=== PATIENT | male | born 1940 | race Caucasian/White ===

== ENCOUNTER → 2016-07-20 | Outpatient (CLI) | payer OTHER ==
[~2016-07-20] MED LIST: ALLO300T2 PO; LEVO112T2 PO; METO100T14 PO; TERA1CAP63 PO
--- NOTE | 2016-07-20 14:12 | DIAGNOSTIC IMAGING REPORT ---
EXAMINATION: RENAL ULTRASOUND CLINICAL HISTORY: Chronic renal disease COMPARISON STUDY: FINDINGS: The right kidney measures 11.6 cm. The left kidney measures 11.8 cm. There is no evidence of hydronephrosis. There is bilateral increased renal cortical echogenicity. There are bilateral hypoechoic renal lesions likely reflecting cysts. The largest the right measures 17 mm. The largest the left measures 26 mm. There is bilateral renal cortical thinning. No bladder abnormalities are visualized. Bilateral ureteral jets were visualized. The study was difficult from a technical standpoint secondary to the patient's large body habitus. IMPRESSION : 1. Evidence of medical renal disease 2. No evidence of hydronephrosis 3. Bilateral renal cysts Electronically signed by: Jarad Molina M.D. 07/20/2016 2:11 PM Dictated Date/Time: 07/20/2016 2:10 PM
--- NOTE | 2016-07-20 14:29 | DIAGNOSTIC IMAGING REPORT ---
CHEST CT WITHOUT CONTRAST CT DOSE: 1257.37 mGy.cm HISTORY: Lung nodules MULTIPLE NODULES OF LUNG; CHRONIC KIDNEY DIS TECHNIQUE: Multiaxial CT images of the chest were performed without contrast. COMPARISON: 07/28/2015 FINDINGS: Mild emphysematous changes present. The parenchymal nodularity described previously has remained stable. Chronic pleural thickening or both lung bases is similar. Left apical lipomatous-type changes unaltered. No significant mediastinal or hilar adenopathy. IMPRESSION: Stable exam. No change in the micronodularity described previously. Follow-up per Fleischner criteria. Please refer to below summary of Fleischner criteria recommendations for follow-up of incidental CT nodules (Rishabh Aparicio, Guidelines for management of small pulmonary nodules detected on CT scans: A statement from the Fleischner Society, Radiology 237: [phone].) SOLID NODULES Solitary nodule size: <6 mm * low risk patients: no follow-up needed * high risk patients: optional CT at 12 months Solitary nodule size: 6-8 mm * low risk patients: follow-up at 6-12 months, then consider further follow-up at 18-24 months * high risk patients: initial follow-up CT at 6-12 months and then at 18-24 months if no change Solitary nodule size: >8 mm * either low or high risk patients - consider follow-up CT at 3 months, and/or CT-PET, and/or biopsy Multiple nodules size: <6 mm * low risk patients: no routine follow-up * high risk patients: optional CT at 12 months Multiple nodules size: 6-8 mm * low risk patients: follow-up at 3-6 months, then consider further follow-up at 18-24 months * high risk patients: follow-up at 3-6 months, then at 18-24 months if no change Multiple nodules size: >8 mm * low risk patients: follow-up at 3-6 months, then consider further follow-up at 18-24 months * high risk patients: follow-up at 3-6 months, then at 18-24 months if no change Note: newly detected indeterminate nodule in persons 35 years of age or older. * Low risk patients: minimal or absent history of smoking and/or other known risk factors * high risk patients: history of smoking or of other known risk factors (e.g. first degree relative with lung cancer, or exposure to asbestos, radon, uranium) * if a nodule up to 8 mm is partly solid or is ground glass further follow-up is required after 24 months to exclude possible slow growing adenocarcinoma (BATOOL) SUBSOLID NODULES Solitary pure ground-glass nodule * nodule size <6 mm - no CT follow-up required * nodule size >=6 mm - follow-up CT at 6-12 months, then every 2 years until 5 years Solitary part-solid nodule * nodule size <6 mm - no CT follow-up required * nodule size >=6 mm - follow-up CT at 3-6 months. If unchanged, and solid component remains <6 mm, then annual follow-up for 5 years Multiple subsolid nodules * nodule size <6 mm - follow-up CT at 3-6 months, consider further follow-up at 2 and 4 years if stable * nodule size >=6 mm - follow-up CT at 3-6 months, subsequent management based on the most suspicious nodule(s) Electronically signed by: Sid Stone M.D. 07/20/2016 2:28 PM Dictated Date/Time: 07/20/2016 2:22 PM ADRIANA
== END | disposition home or self-care (01) ==
LOC: C.ULTR 13:18
PROVIDERS: ATTEND Physician Assistant
DX: N18.3 Chronic kidney disease, stage 3 (moderate) (principal); R91.8 Other nonspecific abnormal finding of lung field; Z77.090 Contact with and (suspected) exposure to asbestos

== ENCOUNTER 2021-09-23 11:18 | Inpatient (IN) ==
[2021-09-23] MEDS ORDERED: PANTOprazole 80 MG in DEXTROSE 5% 100 ML IV ONE (11:47)
--- NOTE | 2021-09-23 11:49 | Emergency Department Note ---
Impression & Plan GI (gastrointestinal bleed), Chronic a-fib, Weakness, NIHCOLS (dyspnea on exertion), Anemia requiring transfusions ED Provider Note Provider: Andrew Edouard MD DATE OF SERVICE: 09/23/2021 CHIEF COMPLAINT: Hemoglobin, weakness HISTORY OF PRESENT ILLNESS: Patient is a 81-year-old gentleman history of diabetes, hypothyroidism, atrial fibrillation on Eliquis presenting here today referred by his outpatient doctor due to abnormal blood work. Patient states over approximately the past month has had increasing generalized weakness and dyspnea on exertion. Denies significant abdominal pain but states he is having some abdominal upset at times. Patient reports no trauma falls or syncope. Patient denies seeing any blood in his stool or black stools. Occasionally notes some blood when wiping but thinks this is hemorrhoids. Denies other bleeding. Denies a history of transfusion. States compliance with his home Eliquis. States he not been taking his home Lasix quite as diligently recently has noticed some slight increase in his lower extremity swelling. Patient denies significant alcohol or NSAID usage or aspirin usage. No history of ulceration reported. Denies nausea or vomiting. REVIEW OF SYSTEMS: A total of 10 review of systems was obtained and negative except as stated above in the HPI. PAST MEDICAL HISTORY: As noted above MEDICATIONS: Reviewed home medications SOCIAL HISTORY: , lives at home, denies alcohol use, worked for [employer], non-smoker PHYSICAL EXAM: GENERAL: alert and oriented in no acute distress on stretcher Head: normocephalic and atraumatic EYES: No injection, discharge or icterus. NECK: Trachea midline. ENT: Mucous membranes pink and moist. LUNGS: Airway patent. No retractions. Breath sounds clear with diminished bases HEART: Irregularly irregular rate and rhythm. No chest wall tenderness ABDOMEN: Soft and non-tender, without guarding or rebound. Rectal with nurse automatic maintainer at bedside with Hemoccult positive stool but no br ight red blood noted. Stool is brown SKIN: Acyanotic, warm, dry although slightly pale EXTREMITIES: Without significant tenderness with 1+ bilateral lower extremity edema. No calf tenderness bilaterally. NEUROLOGICAL: No focal deficits. No aphasia. No facial droop or slurred speech. Ambulatory. EK bpm atrial fibrillation without ST segment elevation with a QTC of 434. Normal axis with nonspecific T wave changes inferiorly. CONTINUOUS CARDIAC MONITORING: was ordered and showed a heart rate of 50s-60s bpm in atrial fibrillation Patient's laboratory studies and imaging reviewed. Differential includes GI bleed, infection, dehydration, metabolic abnormality, hypo/hyperglycemia, electrolyte disturbance, anemia, hypoxia, cardiac sources, intracerebral event, toxicologic, neurologic, as well as other pathologies. IMPRESSION/MEDICAL DECISION MAKING: Patient anticoagulated on Eliquis with a low hemoglobin the outpatient setting. Has been gradual in onset and question chronic lower GI bleed. Not having significant risk factors for upper GI bleed denies significant upper abdominal pain. Fairly benign abdomen. Did complete a CT abdomen pelvis given his complaint of "abdominal upset ". CT question some gallbladder inflammation but does not seem that consistent with his reported history. Doubt cholecystitis at this time. Question possible diverticular bleed. Hemoccult positive stool. Given a dose of Protonix. Consented and 2 units of packed red blood cells ordered. Will need to monitor for fluid overload. EKG and basic labs were completed. Confirmed low hemoglobin. Records from [facility] were obtained including iron studies. Slightly worsened renal function today but no evidence of acute hepatitis or troponin elevation on blood work. Patient requiring oxygen supplementation. Given some evidence of some swelling as we are going to give him several units of blood given a small dose of Lasix. Discussed with the patient and recommended further care here at the hospital. DIAGNOSIS: GI bleed, anemia, weakness, dyspnea on exertion, atrial fibrillation on anticoagulation DISPOSITION: Hospitalist will evaluate Patient was agreeable with this plan. Critical Care I have personally spent 38 minutes of critical care time in the direct management of this patient. This includes bedside care, interpretation of diagnostic studies, and testing, discussion with consultants, patient, and family members, and other required patient management activities. These 38 minutes is in excess of all separately billable procedures. Past Med/Surg History Medical History (Updated 09/23/21 @ 14:26 by Corinne Ravi PA-C) Asthma, moderate persistent BPH without obstruction/lower urinary tract symptoms Chronic gout Hyperlipidemia Hypertension Hypothyroidism Obstructive sleep apnea Paroxysmal atrial fibrillation Type 2 diabetes mellitus Surgical History (Updated 09/23/21 @ 14:27 by Corinne Ravi PA-C) History of cardioversion 2009 Social History Smoking Status: Never smoker Feels Safe at Home: Yes Allergies Allergies Allergy/AdvReac Type Severity Reaction Status Date / Time tetanus toxoid, adsorbed Allergy Intermediate HIVES Verified 09/23/21 12:53 Penicillins Allergy Mild UNKNOWN Verified 09/23/21 12:53 bee pollen Allergy Unknown Verified 09/23/21 12:53 Iodinated Contrast Media Allergy Unknown . Verified 09/23/21 12:53 lisinopril Allergy Unknown Verified 09/23/21 12:53 Home Meds Home Medications Medication Instructions Recorded Confirmed albuterol sulfate 90 mcg/actuation 1 inh INHALATION DIRECTED gm 12/12/18 09/23/21 aerosol inhaler atorvastatin 10 mg tablet 10 mg PO HS tab 12/12/18 09/23/21 epinephrine 0.3 mg/0.3 mL 0.3 mg IM .INJECT 0.3ML INTRAMU ea 12/12/18 09/23/21 injection, auto-injector losartan 50 mg tablet 50 mg PO DAILY #90 tab 12/12/18 09/23/21 terazosin 10 mg capsule 10 mg PO HS cap 12/12/18 09/23/21 allopurinol 300 mg tablet 300 mg PO HS tab 12/13/18 09/23/21 finasteride 5 mg tablet 5 mg PO DAILY 12/13/18 09/23/21 glipizide 5 mg tablet 5 mg PO DAILY 12/13/18 09/23/21 levothyroxine 150 mcg tablet 175 mcg PO DAILY tab 12/13/18 09/23/21 metoprolol tartrate 100 mg tablet 100 mg PO BID #90 tab 12/13/18 09/23/21 apixaban 5 mg tablet (Eliquis) 5 mg PO BID 09/23/21 09/23/21 furosemide 20 mg tablet 20 mg PO QAM PRN 09/23/21 09/23/21 Results & Data (ED) Vital Signs Vital Signs - 24 hr 09/23/21 11:22 09/23/21 12:04 09/23/21 13:30 Temperature 36.5 C Temperature Source Temporal Artery Scan Pulse Rate 68 69 Pulse Rate [Apical] 58 L Respiratory Rate 18 24 Respiratory Effort / Characteristics Non-Labored Non-Labored Spontaneous Respiratory Depth Normal Normal Blood Pressure 112/65 Blood Pressure [Right Arm] 132/64 Blood Pressure Mean 80 Blood Pressure Mean [Right Arm] 86 Pulse Oximetry 98 99 96 Oxygen Delivery Method Room Air Room Air Room Air Sepsis Recent Fever Within 48 Hours No Sepsis New/Unexplained Change in Mental Status No Sepsis Action Taken by Nursing No Action Required Laboratory Data Result diagrams: 09/23/21 11:58 09/23/21 11:55 Lab Results 09/23/21 09/23/21 09/23/21 Range/Units 11:47 11:55 11:55 WBC (4.8-10.8) K/uL RBC (4.7-6.1) M/uL Hgb (14.0-18.0) g/dL Hct (42-52) % MCV (80-100) fL MCH (25-34) pg MCHC (32-36) g/dL RDW Std Deviation (36.4-46.3) fL RDW Coeff of Chris (11.5-14.5) % Plt Count (130-400) K/uL MPV (7.4-10.4) fL Immature Gran % (Auto) % Neut % (Auto) % Lymph % (Auto) % [place] % (Auto) % Eos % (Auto) % Baso % (Auto) % Neut # (Auto) (1.4-6.5) K/uL Lymph # (Auto) (1.2-3.4) K/uL [place] # (Auto) (0.11-0.59) K/uL Eos # (Auto) (0-0.5) K/uL Baso # (Auto) (0-0.2) K/uL Immature Gran # (Auto) (0.00-0.02) K/uL Polychromasia Hypochromasia Ovalocytes PT Cancelled INR Cancelled APTT Cancelled PTT Ratio Cancelled Sodium 139 (136-145) mmol/L Potassium 4.5 (3.5-5.1) mmol/L Chloride 111 H (98-107) mmol/L Carbon Dioxide 21 (21-32) mmol/L Anion Gap 7 (3-11) BUN 37 H (6-23) mg/dl Creatinine 1.96 H (0.6-1.4) mg/dl Est Cr Clr Drug Dosing Not Reportable Est GFR ( Amer) 35.9 ml/min Est GFR (Non-Af Amer) 30.9 ml/min BUN/Creatinine Ratio 18.9 (10-20) Glucose 143 H (70-99(Fasting)) mg/dl Calcium 8.6 (8.5-10.1) mg/dl Total Bilirubin 0.7 (0.2-1.0) mg/dl AST 10 L (13-39) U/L ALT 8 (7-52) U/L Alkaline Phosphatase 49 (34-104) U/L Troponin I High Sens 4.4 (0-20) pg/ml Total Protein 7.0 (6.0-8.3) gm/dl Albumin 3.9 (3.4-5.0) gm/dl Globulin 3.1 (2.5-4.0) gm/dl Albumin/Globulin Ratio 1.3 (0.9-2) POC Stool Occult Blood Positive A (Negative) SARS-CoV-2, RNA, NAAT (NEGATIVE) Blood Type Blood Type Recheck Antibody Screen Crossmatch 09/23/21 09/23/21 09/23/21 Range/Units 11:58 12:00 12:48 WBC 5.65 (4.8-10.8) K/uL RBC 2.99 L (4.7-6.1) M/uL Hgb 6.5 L* (14.0-18.0) g/dL Hct 23.1 L (42-52) % MCV 77.3 L (80-100) fL MCH 21.7 L (25-34) pg MCHC 28.1 L (32-36) g/dL RDW Std Deviation 50.2 H (36.4-46.3) fL RDW Coeff of Chris 17.6 H (11.5-14.5) % Plt Count 201 (130-400) K/uL MPV 9.7 (7.4-10.4) fL Immature Gran % (Auto) 0.0 % Neut % (Auto) 83.4 % Lymph % (Auto) 8.0 % [place] % (Auto) 7.1 % Eos % (Auto) 1.1 % Baso % (Auto) 0.4 % Neut # (Auto) 4.72 (1.4-6.5) K/uL Lymph # (Auto) 0.45 L (1.2-3.4) K/uL [place] # (Auto) 0.40 (0.11-0.59) K/uL Eos # (Auto) 0.06 (0-0.5) K/uL Baso # (Auto) 0.02 (0-0.2) K/uL Immature Gran # (Auto) 0.00 (0.00-0.02) K/uL Polychromasia 1+ Hypochromasia Present Ovalocytes 1+ PT 12.7 H INR 1.2 H APTT 28.2 PTT Ratio 1.0 Sodium (136-145) mmol/L Potassium (3.5-5.1) mmol/L Chloride (98-107) mmol/L Carbon Dioxide (21-32) mmol/L Anion Gap (3-11) BUN (6-23) mg/dl Creatinine (0.6-1.4) mg/dl Est Cr Clr Drug Dosing Est GFR ( Amer) ml/min Est GFR (Non-Af Amer) ml/min BUN/Creatinine Ratio (10-20) Glucose (70-99(Fasting)) mg/dl Calcium (8.5-10.1) mg/dl Total Bilirubin (0.2-1.0) mg/dl AST (13-39) U/L ALT (7-52) U/L Alkaline Phosphatase (34-104) U/L Troponin I High Sens (0-20) pg/ml Total Protein (6.0-8.3) gm/dl Albumin (3.4-5.0) gm/dl Globulin (2.5-4.0) gm/dl Albumin/Globulin Ratio (0.9-2) POC Stool Occult Blood (Negative) SARS-CoV-2, RNA, NAAT (NEGATIVE) Blood Type A Positive Blood Type Recheck Antibody Screen NEGATIVE Crossmatch See Detail 09/23/21 09/23/21 Range/Units 12:50 Unknown WBC (4.8-10.8) K/uL RBC (4.7-6.1) M/uL Hgb (14.0-18.0) g/dL Hct (42-52) % MCV (80-100) fL MCH (25-34) pg MCHC (32-36) g/dL RDW Std Deviation (36.4-46.3) fL RDW Coeff of Chris (11.5-14.5) % Plt Count (130-400) K/uL MPV (7.4-10.4) fL Immature Gran % (Auto) % Neut % (Auto) % Lymph % (Auto) % [place] % (Auto) % Eos % (Auto) % Baso % (Auto) % Neut # (Auto) (1.4-6.5) K/uL Lymph # (Auto) (1.2-3.4) K/uL [place] # (Auto) (0.11-0.59) K/uL Eos # (Auto) (0-0.5) K/uL Baso # (Auto) (0-0.2) K/uL Immature Gran # (Auto) (0.00-0.02) K/uL Polychromasia Hypochromasia Ovalocytes PT INR APTT PTT Ratio Sodium (136-145) mmol/L Potassium (3.5-5.1) mmol/L Chloride (98-107) mmol/L Carbon Dioxide (21-32) mmol/L Anion Gap (3-11) BUN (6-23) mg/dl Creatinine (0.6-1.4) mg/dl Est Cr Clr Drug Dosing Est GFR ( Amer) ml/min Est GFR (Non-Af Amer) ml/min BUN/Creatinine Ratio (10-20) Glucose (70-99(Fasting)) mg/dl Calcium (8.5-10.1) mg/dl Total Bilirubin (0.2-1.0) mg/dl AST (13-39) U/L ALT (7-52) U/L Alkaline Phosphatase (34-104) U/L Troponin I High Sens (0-20) pg/ml Total Protein (6.0-8.3) gm/dl Albumin (3.4-5.0) gm/dl Globulin (2.5-4.0) gm/dl Albumin/Globulin Ratio (0.9-2) POC Stool Occult Blood (Negative) SARS-CoV-2, RNA, NAAT NEGATIVE (NEGATIVE) Blood Type Blood Type Recheck A Positive Antibody Screen Crossmatch Administered Medications Discontinued Medications Furosemide (Furosemide Inj 20 Mg/2 Ml Vial) 10 mg IV ONCE ONE Stop: 09/23/21 12:40 Last Admin: 09/23/21 14:09 Dose: 10 mg Documented by: [id number] Pantoprazole Sodium 80 mg/ (Dextrose) 100 mls @ 400 mls/hr IV NOW ONE Stop: 09/23/21 12:01 Last Infusion: 09/23/21 13:52 Dose: 0 mls/hr Documented by: [id number] Admin: 09/23/21 13:29 Dose: 400 mls/hr Documented by: [id number] Imaging Data Radiologist's Impression: Abdomen/Pelvis CT 09/23/21 11:47 CT SCAN OF THE ABDOMEN AND PELVIS WITHOUT IV CONTRAST CLINICAL HISTORY: GI bleeding. Anemia. COMPARISON STUDY: Renal ultrasound dated 07/20/2016. TECHNIQUE: CT scan of the abdomen and pelvis is performed from the lung bases to the proximal femora. Images are reviewed in the axial, sagittal, and coronal planes. IV contrast was not administered for this examination. A dose lowering technique was utilized adhering to the principles of ALARA. CT DOSE: 2065.42 mGy.cm FINDINGS: Lung bases: The heart is mildly enlarged and without pericardial effusion. Diminished attenuation of the cardiac blood pool as compared to the myocardium suggesting anemia. There are numerous calcified granulomas. The lung bases are otherwise clear noting bibasilar scarring/atelectasis. There is a small hiatal hernia. Liver: The unenhanced liver is enlarged, measuring 22.9 cm in length. Hepatic attenuation is heterogeneous. There is mild nodularity of the surface contour. There is no intrahepatic biliary ductal dilatation. Gallbladder: The gallbladder is not distended and may contain intraluminal debris. There is nonspecific stranding identified around the gallbladder and in the artur hepatis. Spleen: Normal in size and attenuation. Pancreas: The unenhanced pancreas is mildly atrophic and grossly unremarkable. Adrenal glands: Unremarkable. Kidneys: The unenhanced kidneys are atrophic and without hydronephrosis. No renal calculi are identified. 2 left renal cysts measure up to 3.0 cm. Abdominal vasculature: There is moderate to advanced atherosclerotic calcification and mild ectasia of the abdominal aorta. Bowel: There is no bowel obstruction. There is apparent focal narrowing of the right colon near the hepatic flexure seen on axial image #220. The appendix is well-visualized and normal Peritoneum/retroperitoneum: There is a small amount of perihepatic ascites, as well as a small amount of free fluid in the pelvis. No intraperitoneal free air is seen. No retroperitoneal hemorrhage is identified. Lymphadenopathy: None. Pelvic viscera: The prostate gland is mildly enlarged and heterogeneous noting median lobe hypertrophy. The bladder wall is mildly thickened and trabeculated indicating chronic caliber obstruction. There are bilateral fat-containing inguinal hernias, right larger than left. Skeletal structures: The skeletal structures are osteopenic. There is mild to moderate sacral spondylosis. No lytic or blastic lesions are seen. IMPRESSION: 1. The liver is enlarged and heterogeneous. Mild nodularity of the surface contour suggests early morphologic change of cirrhosis. 2. The gallbladder is not distended and likely contains internal debris/stones. There is infiltration around the gallbladder and in the artur hepatis which is nonspecific, and may be related to hepatocellular disease. If there is clinical concern for biliary pathology a right upper quadrant ultrasound should be considered. 3. Trace perihepatic and pelvic ascites. 4. Cardiomegaly. 5. Additional findings as above. ACT 112: Negative or not required by law. Electronically signed by: Bentley Story M.D. 09/23/2021 2:19 PM Chest X-Ray 09/23/21 11:47 XR chest 1V portable HISTORY: 81 years-old Male nichols acute shortness of breath COMPARISON: Chest radiographs 12/13/2018, chest CT 07/20/2016. TECHNIQUE: AP view of the chest. FINDINGS: The cardiomediastinal and hilar silhouettes are within normal limits. Chronic interstitial coarsening of the lung bases. 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 No pneumothorax, pleural effusion, airspace consolidation or overt pulmonary edema. Degenerative changes of the shoulders and spine. IMPRESSION: Cardiomegaly without acute process. ACT 112: Negative or not required by law. The above report was generated using voice recognition software. It may contain grammatical, syntax or spelling errors. Electronically signed by: Gerald Herrera M.D. 09/23/2021 12:32 PM Discharge Plan Visit Data Chief Complaint: Referred by Doctor Stated Complaint: REFERRED BY DOCTOR FOR BLOOD TRANSFUSION ED Provider: Andrew Edouard Discharge Problem: GI (gastrointestinal bleed), Chronic a-fib, Weakness, NICHOLS (dyspnea on exertion), Anemia requiring transfusions Patient Disposition: Being Evaluated by Hospitalist Forms Stand Alone Forms: My [employer] Prescriptions Prescriptions: No Action terazosin 10 mg capsule 10 mg PO HS RF: 0 albuterol sulfate 90 mcg/actuation HFA aerosol inhaler 1 inh inhalation DIRECTED RF: 0 atorvastatin 10 mg tablet 10 mg PO HS RF: 0 losartan 50 mg tablet 50 mg PO DAILY Qty: 90 RF: 0 epinephrine 0.3 mg/0.3 mL auto-injector 0.3 mg IM .INJECT 0.3ML INTRAMU RF: 0 finasteride 5 mg tablet 5 mg PO DAILY RF: 0 glipizide 5 mg tablet 5 mg PO DAILY RF: 0 levothyroxine 150 mcg tablet 175 mcg PO DAILY RF: 0 metoprolol tartrate 100 mg tablet 100 mg PO BID Qty: 90 RF: 0 allopurinol 300 mg tablet 300 mg PO HS RF: 0 furosemide 20 mg tablet 20 mg PO QAM PRN (Reason: Fluid Retention) RF: 0 Eliquis 5 mg tablet 5 mg PO BID RF: 0 Referrals Referrals: Mihaela Wright CRNP [Outside Practitioners] - Discharge Problem: GI (gastrointestinal bleed) Qualifiers: GI bleed type/associated pathology: unspecified gastrointestinal hemorrhage type Qualified Code(s): K92.2 - Gastrointestinal hemorrhage, unspecified
[2021-09-23 12:22] LABS: Hematocrit (blood only) 23.1 % (42-52); Hemoglobin 6.5 g/dL (14.0-18.0); Mean Corpuscular Hemoglobin 21.7 pg (25-34); Mean Corpuscular Hgb Conc 28.1 g/dL (32-36); Mean Corpuscular Volume 77.3 fL (80-100); Mean Platelet Volume 9.7 fL (7.4-10.4); Platelet Count 201 K/uL (130-400); RDW Coefficient of Variation 17.6 % (11.5-14.5); RDW Standard Deviation 50.2 fL (36.4-46.3); Red Blood Count 2.99 M/uL (4.7-6.1); White Blood Count 5.65 K/uL (4.8-10.8)
[2021-09-23] MEDS ORDERED: SODIUM CHLORIDE 0.9% 250 ML IV PRN (12:30)
--- NOTE | 2021-09-23 12:33 | XRay Report ---
XR chest 1V portable HISTORY: 81 years-old Male nichols acute shortness of breath COMPARISON: Chest radiographs 12/13/2018, chest CT 07/20/2016. TECHNIQUE: AP view of the chest. FINDINGS: The cardiomediastinal and hilar silhouettes are within normal limits. Chronic interstitial coarsening of the lung bases. 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 No pneumothorax, pleural effusion, airspace consolid ation or overt pulmonary edema. Degenerative changes of the shoulders and spine. IMPRESSION: Cardiomegaly without acute process. ACT 112: Negative or not required by law. The above report was generated using voice recognition software. It may contain grammatical, syntax o r spelling errors. Electronically signed by: Gerald Herrera M.D. 09/23/2021 12:32 PM
[2021-09-23] MEDS ORDERED: FUROSEMIDE INJ 20 MG/2 ML VIAL IV ONE (12:39)
[2021-09-23 12:42] LABS: Basophils # (auto) 0.02 K/uL (0-0.2); Basophils % (auto) 0.4 %; Eosinophils # (auto) 0.06 K/uL (0-0.5); Eosinophils % (auto) 1.1 %; Hypochromasia Present; Lymphocytes # (auto) 0.45 K/uL (1.2-3.4); Monocytes % (auto) 7.1 %; Neutrophils # (auto) 4.72 K/uL (1.4-6.5); Neutrophils % (auto) 83.4 %; Ovalocytes 1+; Polychromasia 1+
[2021-09-23 12:43] LABS: Troponin I High Sensitivity 4.4 pg/ml (0-20)
[2021-09-23 13:00] LABS: Alanine Aminotransferase 8 U/L (7-52); Albumin Globulin Ratio 1.3 (0.9-2); Albumin Level 3.9 gm/dl (3.4-5.0); Alkaline Phosphatase 49 U/L (34-104); Anion Gap 7 (3-11); Aspartate Aminotransferase 10 U/L (13-39); BUN Creatinine Ratio 18.9 (10-20); Bilirubin,Total 0.7 mg/dl (0.2-1.0); Blood Urea Nitrogen 37 mg/dl (6-23); Calcium 8.6 mg/dl (8.5-10.1); Carbon Dioxide 21 mmol/L (21-32); Chloride 111 mmol/L (98-107); Est GFR (African American) 35.9 ml/min; Est GFR (Non-African American) 30.9 ml/min; Globulin 3.1 gm/dl (2.5-4.0); Glucose 143 mg/dl (70-99(Fasting)); Potassium 4.5 mmol/L (3.5-5.1); Sodium 139 mmol/L (136-145)
[2021-09-23 13:44] LABS: INR 1.2 (0.9-1.1); Partial Thromboplastin Time 28.2 Seconds (21.0-31.0); Prothrombin Time 12.7 Seconds (9.0-12.0)
--- NOTE | 2021-09-23 14:21 | CT Scan Report ---
CT SCAN OF THE ABDOMEN AND PELVIS WITHOUT IV CONTRAST CLINICAL HISTORY: GI bleeding. Anemia. COMPARISON STUDY: Renal ultrasound dated 07/20/2016. TECHNIQUE: CT scan of the abdomen and pelvis is performed from the lung bases to the proximal femora. Images are reviewed in the axial, sagittal, and coronal planes. IV contrast was not administered for this examination. A dose lowering technique was utilized adhering to the principles of ALARA. CT DOSE: 2065.42 mGy.cm FINDINGS: Lung bases: The heart is mildly enlarged and without pericardial effusion. Diminished attenuation of the cardiac blood pool as compared to the myocardium suggesting anemia. There are numerous calcified granulomas. The lung bases are otherwise clear noting bibasilar scarring/atelectasis. There is a smal l hiatal hernia. Liver: The unenhanced liver is enlarged, measuring 22.9 cm in length. Hepatic attenuation is heteroge neous. There is mild nodularity of the surface contour. There is no intrahepatic biliary ductal dilat ation. Gallbladder: The gallbladder is not distended and may contain intraluminal debris. There is nonspecif ic stranding identified around the gallbladder and in the artur hepatis. Spleen: Normal in size and attenuation. Pancreas: The unenhanced pancreas is mildly atrophic and grossly unremarkable. Adrenal glands: Unremarkable. Kidneys: The unenhanced kidneys are atrophic and without hydronephrosis. No renal calculi are identif ied. 2 left renal cysts measure up to 3.0 cm. Abdominal vasculature: There is moderate to advanced atherosclerotic calcification and mild ectasia o f the abdominal aorta. Bowel: There is no bowel obstruction. There is apparent focal narrowing of the right colon near the h epatic flexure seen on axial image #220. The appendix is well-visualized and normal Peritoneum/retroperitoneum: There is a small amount of perihepatic ascites, as well as a small amount of free fluid in the pelvis. No intraperitoneal free air is seen. No retroperitoneal hemorrhage is i dentified. Lymphadenopathy: None. Pelvic viscera: The prostate gland is mildly enlarged and heterogeneous noting median lobe hypertroph y. The bladder wall is mildly thickened and trabeculated indicating chronic caliber obstruction. Ther e are bilateral fat-containing inguinal hernias, right larger than left. Skeletal structures: The skeletal structures are osteopenic. There is mild to moderate sacral spondyl osis. No lytic or blastic lesions are seen. IMPRESSION: 1. The liver is enlarged and heterogeneous. Mild nodularity of the surface contour suggests early mor phologic change of cirrhosis. 2. The gallbladder is not distended and likely contains internal debris/stones. There is infiltration around the gallbladder and in the artur hepatis which is nonspecific, and may be related to hepatoce llular disease. If there is clinical concern for biliary pathology a right upper quadrant ultrasound should be considered. 3. Trace perihepatic and pelvic ascites. 4. Cardiomegaly. 5. Additional findings as above. ACT 112: Negative or not required by law. Electronically signed by: Bentley Story M.D. 09/23/2021 2:19 PM
--- NOTE | 2021-09-23 15:34 | History & Physical Report ---
Date of Service September 23, 2021 Assessment & Plan (1) GI (gastrointestinal bleed): Plan: - Admit to PCU - Will hold eliquis - Hgb is noted at 6.5 on admission, follow H&H Q6H -Patient has already started transfusion of 2 units PRBCs at bedside -Consult GI, patient reports his last colonoscopy was about 10 years ago and done in [place], [facility] n.p.[facility] for now -Creatinine from outpatient record review shows baseline of 1.5, currently slightly elevated at 1.9, likely due to acute blood loss, monitor for improvement. - Iron panel reviewed within [facility] as outpatient: iron of 14, ferritin of 6, transferrin 4, iron binding capacity 313. Will start on IV iron x 3 days. (2) Paroxysmal atrial fibrillation: Plan: - Currently in A. fib, continue rate control with metoprolol tartrate 100 mg twice daily, hold anticoagulation secondary to GI bleed as above - -note patient has been taking reduced dose of Eliquis in order to stockpile his pills as per HPI, recently resumed full dose of 1 tablet BID within the past week - Given his age and Cr, his eliquis dose should be decreased to 2.5 mg bid rather than the full dose of 5 mg bid when able to resume when cleared by GI -EKG reviewed, no chest pain -Echocardiogram completed on 09/17/21 reviewed: normal left ventricular wall motion, EF of 55 to 59%, left atrium moderately enlarged, right atrium mildly enlarged, Borderline aortic stenosis is present, mild MR present, dilated IVC with reduced collapsibility indicates an elevated right atrial pressure of 15 mmHg, proximal ascending thoracic aorta mildly enlarged at 4.6 cm (3) Hypertension: Plan: -Blood pressure stable, currently 120/57, will hold losartan, po Lasix, - was given dose of lasix 10 mg IV prior to blood transfusion in the ER (4) Hyperlipidemia: Plan: - Cont atorvastatin 10 mg daily (5) Type 2 diabetes mellitus: Plan: - ISS with accuchecks achs - Check A1C with am labs, last was done a year ago, October 16 2020 and was 7.0 - Holding glipizide (6) Asthma, moderate persistent: Plan: - May continue Ventolin as needed- no current respiratory complaints at rest (7) Chronic gout: Plan: -Continue allopurinol (8) BPH without obstruction/lower urinary tract symptoms: Plan: -Continue terazosin, finasteride (9) Hypothyroidism: Plan: -Continue levothyroxine, TSH on outpatient records reveals elevation at 7.24 from 09/17/2021, free T4 = 1.6, likely needs his levothyroxine adjusted, recheck in 4-6 weeks with PCP DVT ppx: - scds, no chemical anticoagulation in the setting of GI bleed as above CODE: Full code Dispo: From home, likely to remain in the hospital x 1-2 days History of Present Illness Chief Complaint: Referred by PCP for low blood count Primary Care Provider: Peace Duke MD This is an 81-year-old male with PMHx of paroxysmal A. fib on Eliquis, HTN, HLD, DM type II, asthma, hypothyroidism, BPH, who was recently seen by his PCP on 09/22 due to worsening increased weakness and decline over the past 1 month. He feels that he has significantly increased shortness of breath whenever he does minimal ADLs. His legs have felt generalized weakness bilaterally. He denies any recent falls. His friend who is sitting at bedside also notes that he looks increasingly pale within the past few days. Last night around 2 AM patient was suddenly awoke with the urge to have a bowel movement, he reports no dark tarry stools, and had a soft regular-appearing bowel movement at that point. He has not had any other bowel movement since then. Denies any abdominal pain, nausea, vomiting or other blood in stool that he is aware of. He has been eating and drinking without any difficulty. His last colonoscopy was 10 years ago, done in [place], and was reportedly normal. He did recently receive a letter that he needed a repeat scope. Of note the patient states that he had been taking 1 full Eliquis tablet in the morning and 1/2 tablet in the evening for at least 1 month time in order to "stockpile" his pills in case he was unable to obtain his prescription. He feared inability to obtain medication due to issues with "the government, medication supplies, Terese being president," etc. Within the past week he resumed taking 1 full tablet morning and afternoon. He took his other medications as directed including all his morning pills today. He also notes that he takes Lasix tablet daily scheduled, not really as needed. Denies any other acute complaints. Allergies Allergy/AdvReac Type Severity Reaction Status Date / Time tetanus toxoid, adsorbed Allergy Intermediate HIVES Verified 09/23/21 12:53 Penicillins Allergy Mild UNKNOWN Verified 09/23/21 12:53 bee pollen Allergy Unknown Verified 09/23/21 12:53 Iodinated Contrast Media Allergy Unknown . Verified 09/23/21 12:53 lisinopril Allergy Unknown Verified 09/23/21 12:53 Home Medications Medication Instructions Recorded Confirmed Type albuterol sulfate 90 mcg/actuation 1 inh INHALATION DIRECTED gm 12/12/18 09/23/21 History aerosol inhaler atorvastatin 10 mg tablet 10 mg PO HS tab 12/12/18 09/23/21 History epinephrine 0.3 mg/0.3 mL 0.3 mg IM .INJECT 0.3ML INTRAMU ea 12/12/18 09/23/21 History injection, auto-injector losartan 50 mg tablet 50 mg PO DAILY #90 tab 12/12/18 09/23/21 History terazosin 10 mg capsule 10 mg PO HS cap 12/12/18 09/23/21 History allopurinol 300 mg tablet 300 mg PO HS tab 12/13/18 09/23/21 History finasteride 5 mg tablet 5 mg PO DAILY 12/13/18 09/23/21 History glipizide 5 mg tablet 5 mg PO DAILY 12/13/18 09/23/21 History levothyroxine 150 mcg tablet 175 mcg PO DAILY tab 12/13/18 09/23/21 History metoprolol tartrate 100 mg tablet 100 mg PO BID #90 tab 12/13/18 09/23/21 History apixaban 5 mg tablet (Eliquis) 5 mg PO BID 09/23/21 09/23/21 History furosemide 20 mg tablet 20 mg PO QAM PRN 09/23/21 09/23/21 History Past Med/Surg History Medical History (Updated 09/23/21 @ 14:27 by Corinne Ravi PA-C) Asthma, moderate persistent BPH without obstruction/lower urinary tract symptoms Chronic gout Hyperlipidemia Hypertension Hypothyroidism Obstructive sleep apnea Paroxysmal atrial fibrillation Type 2 diabetes mellitus Surgical History (Updated 09/23/21 @ 14:27 by Corinne Ravi PA-C) History of cardioversion 2009 Family History (Updated 09/23/21 @ 14:28 by Corinne Ravi PA-C) Mother Cancer Father Heart disease Sister Heart disease Brother Seizure Social History Smoking Status: Former smoker Feels Safe at Home: Yes Safety Concerns: Feels Safe At This Time Review of Systems Review of Systems: Constitutional: No fever, sweats or chills Eyes: No diplopia, no worsening or blurred vision ENT: normal hearing, no trouble swallowing Respiratory: No cough, sputum, dyspnea at rest, + dyspnea on exertion Cardiovascular: No chest pain, tightness or palpitations Abdomen: No pain, nausea, vomiting, diarrhea or constipation Musculoskeletal: No joint pain, calf pain, swelling Neurologic: + bilateral lower leg weakness, numbness/tingling, or balance problems Psychiatric: No anxiety or depression Skin: No rash or itch Physical Exam Physical Exam: General: awake, alert, no apparent distress, + morbidly obese, + pallor Head: Normocephalic, atraumatic ENT: PERRL, EOMI, no pharyngeal exudate, mucous membranes moist Chest: Clear to auscultation, on room air, no adventitious breath sounds Cardiac: Irregularly irregular, rate controlled, no appreciable murmurs - difficult to assess due to body habitus, no JVD, normal peripheral pulses, good capillary refill Abdominal: NABS x 4 quadrants, soft, nondistended, nontender to palpation, no rebound or guarding Extremities: Normal inspection, no peripheral edema or erythema, calfs nontender to palpation Psych: Normal mood and affect Neuro: AAO x 3, strength intact bilaterally and rated 5/5, no motor deficits, speech is clear, no peripheral sensory deficits Results & Data Results & Data ([facility]) Vital Signs (Past 12 Hours) Vital Signs Temp Pulse Pulse Resp BP BP Pulse Ox 09/23/21 15:06 37.0 C 71 15 117/71 95 09/23/21 14:50 36.9 C 67 18 116/60 09/23/21 13:30 58 L 24 132/64 96 09/23/21 12:04 69 99 09/23/21 11:22 36.5 C 68 18 112/65 98 Laboratory Results 09/23/21 09/23/21 09/23/21 Unknown 12:50 12:48 WBC RBC Hgb Hct MCV MCH MCHC RDW Std Deviation RDW Coeff of Chris Plt Count MPV Immature Gran % (Auto) Neut % (Auto) Lymph % (Auto) [place] % (Auto) Eos % (Auto) Baso % (Auto) Neut # (Auto) Lymph # (Auto) [place] # (Auto) Eos # (Auto) Baso # (Auto) Immature Gran # (Auto) Polychromasia Hypochromasia Ovalocytes PT 12.7 H INR 1.2 H APTT 28.2 PTT Ratio 1.0 Sodium Potassium Chloride Carbon Dioxide Anion Gap BUN Creatinine Est Cr Clr Drug Dosing Est GFR ( Amer) Est GFR (Non-Af Amer) BUN/Creatinine Ratio Glucose Calcium Total Bilirubin AST ALT Alkaline Phosphatase Troponin I High Sens Total Protein Albumin Globulin Albumin/Globulin Ratio POC Stool Occult Blood SARS-CoV-2, RNA, NAAT NEGATIVE Blood Type Blood Type Recheck A Positive Antibody Screen Crossmatch 09/23/21 09/23/21 09/23/21 12:00 11:58 11:55 WBC 5.65 RBC 2.99 L Hgb 6.5 L* Hct 23.1 L MCV 77.3 L MCH 21.7 L MCHC 28.1 L RDW Std Deviation 50.2 H RDW Coeff of Chris 17.6 H Plt Count 201 MPV 9.7 Immature Gran % (Auto) 0.0 Neut % (Auto) 83.4 Lymph % (Auto) 8.0 [place] % (Auto) 7.1 Eos % (Auto) 1.1 Baso % (Auto) 0.4 Neut # (Auto) 4.72 Lymph # (Auto) 0.45 L [place] # (Auto) 0.40 Eos # (Auto) 0.06 Baso # (Auto) 0.02 Immature Gran # (Auto) 0.00 Polychromasia 1+ Hypochromasia Present Ovalocytes 1+ PT INR APTT PTT Ratio Sodium 139 Potassium 4.5 Chloride 111 H Carbon Dioxide 21 Anion Gap 7 BUN 37 H Creatinine 1.96 H Est Cr Clr Drug Dosing Not Reportable Est GFR ( Amer) 35.9 Est GFR (Non-Af Amer) 30.9 BUN/Creatinine Ratio 18.9 Glucose 143 H Calcium 8.6 Total Bilirubin 0.7 AST 10 L ALT 8 Alkaline Phosphatase 49 Troponin I High Sens 4.4 Total Protein 7.0 Albumin 3.9 Globulin 3.1 Albumin/Globulin Ratio 1.3 POC Stool Occult Blood SARS-CoV-2, RNA, NAAT Blood Type A Positive Blood Type Recheck Antibody Screen NEGATIVE Crossmatch See Detail 09/23/21 09/23/21 11:55 11:47 WBC RBC Hgb Hct MCV MCH MCHC RDW Std Deviation RDW Coeff of Chris Plt Count MPV Immature Gran % (Auto) Neut % (Auto) Lymph % (Auto) [place] % (Auto) Eos % (Auto) Baso % (Auto) Neut # (Auto) Lymph # (Auto) [place] # (Auto) Eos # (Auto) Baso # (Auto) Immature Gran # (Auto) Polychromasia Hypochromasia Ovalocytes PT Cancelled INR Cancelled APTT Cancelled PTT Ratio Cancelled Sodium Potassium Chloride Carbon Dioxide Anion Gap BUN Creatinine Est Cr Clr Drug Dosing Est GFR ( Amer) Est GFR (Non-Af Amer) BUN/Creatinine Ratio Glucose Calcium Total Bilirubin AST ALT Alkaline Phosphatase Troponin I High Sens Total Protein Albumin Globulin Albumin/Globulin Ratio POC Stool Occult Blood Positive A SARS-CoV-2, RNA, NAAT Blood Type Blood Type Recheck Antibody Screen Crossmatch Diagnostic Findings Abdomen/Pelvis CT 09/23/21 11:47 CT SCAN OF THE ABDOMEN AND PELVIS WITHOUT IV CONTRAST CLINICAL HISTORY: GI bleeding. Anemia. COMPARISON STUDY: Renal ultrasound dated 07/20/2016. TECHNIQUE: CT scan of the abdomen and pelvis is performed from the lung bases to the proximal femora. Images are reviewed in the axial, sagittal, and coronal planes. IV contrast was not administered for this examination. A dose lowering technique was utilized adhering to the principles of ALARA. CT DOSE: 2065.42 mGy.cm FINDINGS: Lung bases: The heart is mildly enlarged and without pericardial effusion. Diminished attenuation of the cardiac blood pool as compared to the myocardium suggesting anemia. There are numerous calcified granulomas. The lung bases are otherwise clear noting bibasilar scarring/atelectasis. There is a small hiatal hernia. Liver: The unenhanced liver is enlarged, measuring 22.9 cm in length. Hepatic attenuation is heterogeneous. There is mild nodularity of the surface contour. There is no intrahepatic biliary ductal dilatation. Gallbladder: The gallbladder is not distended and may contain intraluminal d ebris. There is nonspecific stranding identified around the gallbladder and in the artur hepatis. Spleen: Normal in size and attenuation. Pancreas: The unenhanced pancreas is mildly atrophic and grossly unremarkable. Adrenal glands: Unremarkable. Kidneys: The unenhanced kidneys are atrophic and without hydronephrosis. No renal calculi are identified. 2 left renal cysts measure up to 3.0 cm. Abdominal vasculature: There is moderate to advanced atherosclerotic calcification and mild ectasia of the abdominal aorta. Bowel: There is no bowel obstruction. There is apparent focal narrowing of the right colon near the hepatic flexure seen on axial image #220. The appendix is well-visualized and normal Peritoneum/retroperitoneum: There is a small amount of perihepatic ascites, as well as a small amount of free fluid in the pelvis. No intraperitoneal free air is seen. No retroperitoneal hemorrhage is identified. Lymphadenopathy: None. Pelvic viscera: The prostate gland is mildly enlarged and heterogeneous noting median lobe hypertrophy. The bladder wall is mildly thickened and trabeculated indicating chronic caliber obstruction. There are bilateral fat-containing inguinal hernias, right larger than left. Skeletal structures: The skeletal structures are osteopenic. There is mild to moderate sacral spondylosis. No lytic or blastic lesions are seen. IMPRESSION: 1. The liver is enlarged and heterogeneous. Mild nodularity of the surface contour suggests early morphologic change of cirrhosis. 2. The gallbladder is not distended and likely contains internal debris/stones. There is infiltration around the gallbladder and in the artur hepatis which is nonspecific, and may be related to hepatocellular disease. If there is clinical concern for biliary pathology a right upper quadrant ultrasound should be considered. 3. Trace perihepatic and pelvic ascites. 4. Cardiomegaly. 5. Additional findings as above. ACT 112: Negative or not required by law. Electronically signed by: Bentley Story M.D. 09/23/2021 2:19 PM Chest X-Ray 09/23/21 11:47 XR chest 1V portable HISTORY: 81 years-old Male nichols acute shortness of breath COMPARISON: Chest radiographs 12/13/2018, chest CT 07/20/2016. TECHNIQUE: AP view of the chest. FINDINGS: The cardiomediastinal and hilar silhouettes are within normal limits. Chronic in terstitial coarsening of the lung bases. 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 No pneumothorax, pleural effusion, airspace consolidation or overt pulmonary edema. Degenerative changes of the shoulders and spine. IMPRESSION: Cardiomegaly without acute process. ACT 112: Negative or not required by law. The above report was generated using voice recognition software. It may contain grammatical, syntax or spelling errors. Electronically signed by: Gerald Herrera M.D. 09/23/2021 12:32 PM ECG Additional Comments: 23-SEP-2021 12:13:44 [facility]-EDSTAT ROUTINE RETRIEVAL Atrial fibrillation Low voltage QRS Nonspecific T wave abnormality Abnormal ECG When compared with ECG of 27-FEB-2012 05:33, Atrial fibrillation has replaced Sinus rhythm QRS voltage has decreased Nonspecific T wave abnormality now evident in Anterior leads 25mm/s10mm/[id number] 241CID: [id number] by: Provider Outside Unconfirmed Vent. rate 60 BPM MN interval * ms QRS duration 98 ms QT/QTc 434/434 ms Code Status & VTE Plan Code Status Full code-discussed with the patient at bedside VTE Prophylaxis Plan VTE Prophylaxis will be ordered: Yes Supervising Physician Co-Signing Physician Notes Patient was seen and examined independently at bedside. Chart reviewed. Case discussed with Corinne MCCARTNEY. In summary, this is an 81 year old male with PAF on eliquis, DM, HTN among other medical problems who was sent to the ED by PCP for low hemoglobin. Patient was having increasing shortness of breath with exertion for the past 2 months along with weakness and had labs done by PCP which showed low Hb along with low iron and sent to ED. Has some hemorrhoidal bleed but denies any black tarry stool, any major bleed, hematuria, hemoptysis or hematemesis. Denies any PUD, NSAIDs intake. Never had EGD done. Last colonoscopy about 15 years ago. He takes eliquis faithfully now back to 1 tab bid. In the ED, he was afebrile, hemodynamically stable. AAOx3, pallor +. Chest clear, heart sounds normal, abd benign. Hb 6.5, MC 77, INR 1.2, PTT 28.2, Cr 1.96, POC stool occult blood positive. He was given 2 U PRBC in the ED and given iv lasix 10 mg (home dose is [address] A/P showed focal narrowing seen in the right colon at the hepatic flexure. This is pathologically indeterminant and not well evaluated by CT. If not recently performed, a colonoscopy could be considered to evaluate for underlying mucosal lesion. Additional reported finding are unchanged along with possible early cirrhotic changes of liver and non specific GB findings (GB not distended and likely contains internal debris/stones. There is infiltration around the gallbladder and in the artur hepatis which is nonspecific, and may be related to hepatocellular disease. If there is clinical concern for biliary pathology a right upper quadrant ultrasound should be considered) (RUQ and abd exam unremarkable). Will admit for GI bleed management. Follow H&H post transfusion, consider lasix after transfusion to prevent volume overload. Hold eliquis. Start iv venofer for iron deficiency. Continue PPI. Consulted GI for colonoscopy/endoscopy. Will keep npo overnight pending GI evaluation. Hold eliquis until GI clearance. Given his age and Cr, his eliquis dose should be decreased to 2.5 mg bid rather than the full dose of 5 mg bid when able to resume. Monitor on tele. His Afib is rate controlled. Rest as per the note above. (1) GI (gastrointestinal bleed) GI bleed type/associated pathology: unspecified gastrointestinal hemorrhage type Qualified Code(s): K92.2 - Gastrointestinal hemorrhage, unspecified
[2021-09-23] MEDS ORDERED: ONDANSETRON INJ 2 MG/ML 2 ML VIAL IV PRN (17:56)
[2021-09-23] MEDS ORDERED: GLUCAGON FOR INJ 1 MG VIAL SQ PRN (17:56)
[2021-09-23] MEDS ORDERED: DEXTROSE 50% 50 ML SYRINGE IV PRN (17:56)
[2021-09-23] MEDS ORDERED: GLUCOSE 40% GEL 15 GM TUBE PO PRN (17:56)
[2021-09-23] MEDS ORDERED: ACETAMINOPHEN 325 MG TAB PO PRN (17:56)
[2021-09-23] MEDS ORDERED: CARBOHYDRATES FOR HYPOGLYCEMIA PO PRN (17:56)
[2021-09-23] MEDS ORDERED: GLUCOSE 10 TAB/TUBE PO PRN (17:56)
[2021-09-23] MEDS ORDERED: ALBUTEROL HFA 8 GM INHALER INH PRN (17:56)
[2021-09-23] MEDS: INSULIN ASPART PER UNIT SC SCH ×2 (19:54→22:08)
[2021-09-23] MEDS: IRON SUCROSE 400 MG in SODIUM CHLORIDE 0.9% 250 ML IV SCH (21:11)
[2021-09-23] MEDS: PANTOprazole 40 MG in SYRINGE 0 ML IV SCH (22:06)
[2021-09-23] MEDS: METOPROLOL TARTRATE 100 MG TAB PO SCH (22:07)
[2021-09-23] MEDS: allopurinoL 300 MG TAB PO SCH (22:07)
[2021-09-23] MEDS: TERAZOSIN HCL 5 MG CAP PO SCH (22:07)
[2021-09-23] MEDS: ATORVASTATIN 10 MG TAB PO SCH (22:07)
[2021-09-23 23:26] LABS: Hematocrit (blood only) 25.3 % (42-52); Hemoglobin 7.4 g/dL (14.0-18.0)
[2021-09-24] MEDS ORDERED: SODIUM CHLORIDE 0.65% NA SOLN 45 ML (OCEAN) PRN (03:19)
[2021-09-24] MEDS: LEVOTHYROXINE SODIUM 175 MCG TABLET PO SCH (05:43)
[2021-09-24] MEDS: INSULIN ASPART PER UNIT SC SCH ×4 (07:42→20:29)
[2021-09-24] MEDS: FINASTERIDE 5 MG TAB PO SCH (08:12)
[2021-09-24] MEDS: METOPROLOL TARTRATE 100 MG TAB PO SCH ×2 (08:12→20:19)
[2021-09-24] MEDS: LOSARTAN POTASSIUM 50 MG TAB PO SCH (08:12)
[2021-09-24] MEDS: PANTOprazole 40 MG in SYRINGE 0 ML IV SCH ×2 (08:12→20:29)
[2021-09-24 08:36] LABS: INR 1.2 (0.9-1.1); Prothrombin Time 12.9 Seconds (9.0-12.0)
[2021-09-24] MEDS: IRON SUCROSE 400 MG in SODIUM CHLORIDE 0.9% 250 ML IV SCH (08:40)
[2021-09-24 08:43] LABS: Hematocrit (blood only) 25.7 % (42-52); Hemoglobin 7.5 g/dL (14.0-18.0); Mean Corpuscular Hemoglobin 22.9 pg (25-34); Mean Corpuscular Hgb Conc 29.2 g/dL (32-36); Mean Corpuscular Volume 78.6 fL (80-100); Platelet Count 212 K/uL (130-400); RDW Coefficient of Variation 17.1 % (11.5-14.5); RDW Standard Deviation 49.2 fL (36.4-46.3); Red Blood Count 3.27 M/uL (4.7-6.1); White Blood Count 4.72 K/uL (4.8-10.8)
[2021-09-24 08:54] LABS: Albumin Globulin Ratio 1.3 (0.9-2); Albumin Level 3.7 gm/dl (3.4-5.0); BUN Creatinine Ratio 18.1 (10-20); Bilirubin,Total 1.3 mg/dl (0.2-1.0); Calcium 8.6 mg/dl (8.5-10.1); Creatinine Clr Calc Pharmacy 45.7 ml/min; Est GFR (African American) 39.2 ml/min; Est GFR (Non-African American) 33.8 ml/min; Globulin 2.9 gm/dl (2.5-4.0); Magnesium 2.4 mg/dl (1.7-2.4); Phosphorus 3.4 mg/dl (2.5-4.9); Potassium 4.2 mmol/L (3.5-5.1); Total Protein 6.6 gm/dl (6.0-8.3)
--- NOTE | 2021-09-24 11:01 | Gastrointestinal Consultation ---
Date of Consultation September 24, 2021 Assessment & Plan (1) Anemia requiring transfusions: (2) Abnormal CT of the abdomen: -Continue to monitor H/H -Given CT findings, would plan for colonoscopy tomorrow. Will also add EGD to rule out upper GI causes of anemia. -Protonix 40 mg BID. Supervising Physician Co-Signing Physician Notes Agree with CARMEN Baxter as above Gen: A+Ox3, Cooperative, chronic ill-appearing, NAD Chest: CTA B/L, -w/r/r CVS: RRR Abd: Soft, NT, ND, +BS Ext: -c/c/e Continue current therapy and supportive care Bowel prep tonight Clear liquids until completion of bowel prep, then NPO EGD/Colonoscopy in the AM History of Present Illness Reason for Consultation: Anemia Attending Physician: Vijaya Kunz MD History of Present Illness Patient is an 81 yo male with PMH of DM2, paroxysmal A fib on chronic anticoa gulation, JAYCOB, HTN, HLD, gout, asthma, BPH, hypothyroidism, and GI bleed who presents at the request of his primary care provider due to symptomatic anemia. He notes he has felt progressively weaker in recent days, but yesterday was unable to ambulate into his PCP's office yesterday. He had labs performed and was notably anemic. As of 8 AM this AM, his H/H is 7.5/25.7. He denies overt GI bleeding. He notes his last colonoscopy was 10-15 years ago performed by a general surgeon in [place]. He reports it was unremarkable. He denies abdominal pain at present, but notes intermittent discomfort and intermittent changes in his bowel pattern. He had a CT scan performed upon admission that indicated a focal narrowing of the right colon/hepatic flexure. He denies heartburn or reflux. He offers no further complaints at the present time. He takes Eliquis at home for his A fib. Allergies Allergy/AdvReac Type Severity Reaction Status Date / Time tetanus toxoid, adsorbed Allergy Intermediate HIVES Verified 09/23/21 12:53 Penicillins Allergy Mild UNKNOWN Verified 09/23/21 12:53 bee pollen Allergy Unknown Verified 09/23/21 12:53 Iodinated Contrast Media Allergy Unknown . Verified 09/23/21 12:53 lisinopril Allergy Unknown Verified 09/23/21 12:53 Home Medications Medication Instructions Recorded Confirmed Type albuterol sulfate 90 mcg/actuation 1 inh INHALATION DIRECTED gm 12/12/18 09/23/21 History aerosol inhaler atorvastatin 10 mg tablet 10 mg PO HS tab 12/12/18 09/23/21 History epinephrine 0.3 mg/0.3 mL 0.3 mg IM .INJECT 0.3ML INTRAMU ea 12/12/18 09/23/21 History injection, auto-injector losartan 50 mg tablet 50 mg PO DAILY #90 tab 12/12/18 09/23/21 History terazosin 10 mg capsule 10 mg PO HS cap 12/12/18 09/23/21 History allopurinol 300 mg tablet 300 mg PO HS tab 12/13/18 09/23/21 History finasteride 5 mg tablet 5 mg PO DAILY 12/13/18 09/23/21 History glipizide 5 mg tablet 5 mg PO DAILY 12/13/18 09/23/21 History levothyroxine 150 mcg tablet 175 mcg PO DAILY tab 12/13/18 09/23/21 History metoprolol tartrate 100 mg tablet 100 mg PO BID #90 tab 12/13/18 09/23/21 History apixaban 5 mg tablet (Eliquis) 5 mg PO BID 09/23/21 09/23/21 History furosemide 20 mg tablet 20 mg PO QAM PRN 09/23/21 09/23/21 History Patient History Medical History (Updated 09/24/21 @ 10:56 by Rachelle Solis PA-C) Asthma, moderate persistent BPH without obstruction/lower urinary tract symptoms Chronic gout Hyperlipidemia Hypertension Hypothyroidism Obstructive sleep apnea Paroxysmal atrial fibrillation Type 2 diabetes mellitus Surgical History (Updated 09/23/21 @ 14:27 by Corinne Ravi PA-C) History of cardioversion 2009 Family History (Updated 09/23/21 @ 14:28 by Corinne Ravi PA-C) Mother Cancer Father Heart disease Sister Heart disease Brother Seizure Social History Smoking Status: Former smoker Communication Ability: Effective marital status: / Feels Safe at Home: Yes Safety Concerns: Feels Safe At This Time Assistive Devices: Walker Review of Systems Constitutional: no fever and no chills Respiratory: no cough and no dyspnea Cardiovascular: no chest pain Gastrointestinal: no abdominal pain, no heartburn, no dysphagia, no blood in stools and no melena Musculoskeletal: + joint pain Psychiatric: no problem reported Hematologic / Lymphatic: no unexplained weight loss Physical Exam Constitutional: well developed Respiratory: normal respiratory effort Gastrointestinal (Abdomen): Inspection/Auscultation: abdomen normal to inspection Musculoskeletal: Head/Neck/Chest: normocephalic Psychiatric: Orientation: alert and oriented x 3 Results & Data ([facility]) Vital Signs (Past 12 Hours) Vital Signs Temp Pulse Pulse Resp BP Pulse Ox 09/24/21 08:00 68 95 09/24/21 07:45 71 18 97 09/24/21 07:31 72 09/24/21 07:17 37.1 C 62 20 128/73 96 09/24/21 03:12 36.2 C L 64 18 110/69 94 PG Care Time/CCT Total # of Minutes Spent Total Time Spent with Patient: Total time spent is greater than 50% in coordination of care (as documented) at patient's floor/unit and/or counseling patient: Coding Level of Care Code 00912 Initial Inpt Care Lvl 3 Diagnoses Anemia requiring transfusions D64.[address] of the abdomen R93.5
[2021-09-24 12:23] LABS: Estimated Average Glucose 131 mg/dl; Hemoglobin A1C 6.2 % (4.5-5.6)
[2021-09-24 12:45] LABS: Hematocrit (blood only) 26.3 % (42-52); Hemoglobin 7.8 g/dL (14.0-18.0); Mean Corpuscular Hemoglobin 23.1 pg (25-34); Mean Corpuscular Hgb Conc 29.7 g/dL (32-36); Mean Corpuscular Volume 77.8 fL (80-100); Mean Platelet Volume 8.9 fL (7.4-10.4); Platelet Count 208 K/uL (130-400); RDW Coefficient of Variation 17.3 % (11.5-14.5); RDW Standard Deviation 49.2 fL (36.4-46.3); Red Blood Count 3.38 M/uL (4.7-6.1); White Blood Count 5.63 K/uL (4.8-10.8)
--- NOTE | 2021-09-24 16:00 | Electrocardiogram Report ---
Test Reason : Blood Pressure : / mmHG Vent. Rate : 060 BPM Atrial Rate : 049 BPM P-R Int : 000 ms QRS Dur : 098 ms QT Int : 434 ms P-R-T Axes : 000 063 014 degrees QTc Int : 434 ms Atrial fibrillation Low voltage QRS Nonspecific T wave abnormality Abnormal ECG When compared with ECG of 27-FEB-2012 05:33, Atrial fibrillation has replaced Sinus rhythm QRS voltage has decreased Nonspecific T wave abnormality now evident in Anterior leads Confirmed by Deny Bess ([id number]) on 09/24/2021 3:59:54 PM Referred By: Provider Outside Confirmed By:Deny Bess
--- NOTE | 2021-09-24 18:35 | Hospitalist Progress Note ---
Date of Service September 24, 2021 Assessment & Plan (1) GI (gastrointestinal bleed): Plan: Hold eliquis continue IV protonix Plan for EGD and colonosocpy 09/25 (2) Paroxysmal atrial fibrillation: Plan: Hold Eliquis, continue metoprolol 100mg BID with hold parameters (3) Hypertension: Plan: -Blood pressure normal -continue to hold losartan, resume lasix 20mg daily (4) Hyperlipidemia: Plan: - Cont atorvastatin 10 mg daily (5) Type 2 diabetes mellitus: Plan: - ISS with accuchecks achs - Check A1C with am labs, last was done a year ago, October 16 2020 and was 7.0 - Holding glipizide (6) Asthma, moderate persistent: Plan: - May continue Ventolin as needed- no current respiratory complaints at rest (7) Chronic gout: Plan: -Continue allopurinol (8) BPH without obstruction/lower urinary tract symptoms: Plan: -Continue terazosin, finasteride (9) Hypothyroidism: Plan: -Continue levothyroxine, TSH on outpatient records reveals elevation at 7.24 from 09/17/2021, free T4 = 1.6, likely needs his levothyroxine adjusted, recheck in 4-6 weeks with PCP DVT ppx: - scds, no chemical anticoagulation in the setting of GI bleed as above CODE: Full code Admission and Anticipated Discharge Date Admission Date: September 23, 2021 Subjective Patient denies bloody or black stools. 1 BM while here was brown s/p 2 units packed RBC 09/23. Feels better after transfusion Physical Exam Physical Exam: Obese, Pleasant, comfortable Respiratory: Breathing comfortably on room air, no wheezing/rhonchi/rales Cardiovascular: Regular rate and rhythm, no murmurs/rubs/gallops Gastrointestinal (Abdomen): Obese, soft, non tender Musculoskeletal: Non tender Psychiatric: Speech is tangential, non pressured, affect normal Results & Data Results & Data ([facility]) Vital Signs (Past 12 Hours) Vital Signs Temp Pulse Pulse Resp BP Pulse Ox Pulse Ox 09/24/21 15:46 995 H 09/24/21 15:45 63 64 17 95 09/24/21 15:37 36.6 C 69 20 114/67 96 09/24/21 12:27 62 16 111/68 94 09/24/21 11:27 36.8 C 58 L 19 111/68 94 09/24/21 08:00 68 95 09/24/21 07:45 71 18 97 09/24/21 07:31 72 09/24/21 07:17 37.1 C 62 20 128/73 96 Laboratory Results Short CBC 09/23/21 09/24/21 09/24/21 Range/Units 23:13 08:00 12:18 WBC 4.72 L 5.63 (4.8-10.8) K/uL Hgb 7.4 L 7.5 L 7.8 L (14.0-18.0) g/dL Hct 25.3 L 25.7 L 26.3 L (42-52) % Plt Count 212 208 (130-400) K/uL BMP 09/24/21 08:00 Sodium 138 Potassium 4.2 Chloride 110 H Carbon Dioxide 21 BUN 33 H Creatinine 1.82 H Glucose 77 Calcium 8.6 Liver Function 09/24/21 Range/Units 08:00 Total Bilirubin 1.3 H D (0.2-1.0) mg/dl AST 9 L (13-39) U/L ALT 7 (7-52) U/L Alkaline Phosphatase 50 (34-104) U/L Albumin 3.7 (3.4-5.0) gm/dl Medications Administered Current Inpatient Medications Acetaminophen (Acetaminophen 325 Mg Tab) 650 mg PO Q4H PRN PRN Reason: Moderate Pain Stop: 10/23/21 17:55 Albuterol (Albuterol Hfa 8 Gm Inhaler) 1 puffs INH Q4H PRN PRN Reason: SOB, WHEEZING Stop: 10/23/21 17:55 Last Admin: 09/24/21 07:41 Dose: 1 puffs Documented by: Allopurinol (Allopurinol 300 Mg Tab) 300 mg PO HS OTTO Stop: 10/23/21 20:59 Last Admin: 09/23/21 22:07 Dose: 300 mg Documented by: Atorvastatin Calcium (Atorvastatin 10 Mg Tab) 10 mg PO HS OTTO Stop: 10/23/21 20:59 Last Admin: 09/23/21 22:07 Dose: 10 mg Documented by: Dextrose (Dextrose 50% 50 Ml Syringe) 25 - 50 ml IV UD PRN; Protocol PRN Reason: Hypoglycemia Protocol Stop: 10/23/21 17:55 Finasteride (Finasteride 5 Mg Tab) 5 mg PO DAILY OTTO Stop: 10/24/21 08:59 Last Admin: 09/24/21 08:12 Dose: 5 mg Documented by: Glucagon (Glucagon For Inj 1 Mg Vial) 1 mg SQ UD PRN; Protocol PRN Reason: Hypoglycemia Protocol Stop: 10/23/21 17:55 Glucose (Glucose 10 Tabs/Tube) 4 - 8 tabs PO UD PRN; Protocol PRN Reason: Hypoglycemia Protocol Stop: 10/23/21 17:55 Glucose (Glucose 40% Gel 15 Gm Tube) 15 - 30 gm PO UD PRN; Protocol PRN Reason: Hypoglycemia Protocol Stop: 10/23/21 17:55 Iron Sucrose 400 mg/ Sodium (Chloride) 270 mls @ 108 mls/hr IV DAILY OTTO Stop: 09/26/21 15:59 Last Infusion: 09/24/21 11:20 Dose: Infused Documented by: Pantoprazole Sodium 40 mg/ (Syringe) 10 mls @ 5 mls/min IV BID OTTO Stop: 10/23/21 20:59 Last Admin: 09/24/21 08:12 Dose: 5 mls/min Documented by: Insulin Aspart (Insulin Aspart Per Unit) 0 units SC ACHS OTTO Stop: 10/23/21 16:29 Last Admin: 09/24/21 17:00 Dose: Not Given Documented by: Levothyroxine Sodium (Levothyroxine Sodium 175 Mcg Tablet) 175 mcg PO DAILYBB OTTO Stop: 10/24/21 06:29 Last Admin: 09/24/21 05:43 Dose: 175 mcg Documented by: Losartan Potassium (Losartan Potassium 50 Mg Tab) 50 mg PO DAILY OTTO Stop: 10/24/21 08:59 Last Admin: 09/24/21 08:12 Dose: 50 mg Documented by: Metoprolol Tartrate (Metoprolol Tartrate 100 Mg Tab) 100 mg PO BID OTTO Stop: 10/23/21 20:59 Last Admin: 09/24/21 08:12 Dose: 100 mg Documented by: Miscellaneous (Carbohydrates For Hypoglycemia ) 15 - 30 gm PO UD PRN PRN Reason: Hypoglycemia Protocol Stop: 10/23/21 17:55 Ondansetron HCl (Ondansetron Inj 2 Mg/Ml 2 Ml Vial) 4 mg IV Q4H PRN PRN Reason: Nausea And Vomiting Stop: 10/23/21 17:55 Polyethylene Glycol/Electrolytes (Lavage Solution 4000ml) 1 dose PO Q15M OTTO Stop: 09/25/21 04:59 Sodium Chloride (Sodium Chloride 0.65% Na Soln 45 Ml ([place])) 2 sprays NA UD PRN PRN Reason: Congestion Stop: 10/24/21 03:18 Last Admin: 09/24/21 05:25 Dose: 2 sprays Documented by: Terazosin HCl (Terazosin Hcl 5 Mg Cap) 10 mg PO HS [facility] Stop: 10/23/21 20:59 Last Admin: 09/23/21 22:07 Dose: 10 mg Documented by: (1) GI (gastrointestinal bleed) GI bleed type/associated pathology: unspecified gastrointestinal hemorrhage type Qualified Code(s): K92.2 - Gastrointestinal hemorrhage, unspecified
[2021-09-24] MEDS: LAVAGE SOLUTION 4000ML PO SCH ×7 (19:00→21:24)
[2021-09-24] MEDS: ATORVASTATIN 10 MG TAB PO SCH (20:19)
[2021-09-24] MEDS: allopurinoL 300 MG TAB PO SCH (20:19)
[2021-09-24] MEDS: TERAZOSIN HCL 5 MG CAP PO SCH (20:20)
[2021-09-25] MEDS: LAVAGE SOLUTION 4000ML PO SCH ×8 (03:00→04:45)
[2021-09-25] MEDS: LEVOTHYROXINE SODIUM 175 MCG TABLET PO SCH (05:41)
[2021-09-25 07:52] LABS: Hematocrit (blood only) 27.1 % (42-52); Hemoglobin 7.8 g/dL (14.0-18.0); Mean Corpuscular Hemoglobin 22.4 pg (25-34); Mean Corpuscular Hgb Conc 28.8 g/dL (32-36); Mean Corpuscular Volume 77.9 fL (80-100); Mean Platelet Volume 8.8 fL (7.4-10.4); Platelet Count 195 K/uL (130-400); RDW Coefficient of Variation 17.4 % (11.5-14.5); RDW Standard Deviation 49.8 fL (36.4-46.3); Red Blood Count 3.48 M/uL (4.7-6.1); White Blood Count 4.49 K/uL (4.8-10.8)
[2021-09-25] MEDS: INSULIN ASPART PER UNIT SC SCH ×4 (08:07→20:59)
[2021-09-25 08:09] LABS: Albumin Globulin Ratio 1.3 (0.9-2); Albumin Level 3.5 gm/dl (3.4-5.0); BUN Creatinine Ratio 15.6 (10-20); Bilirubin,Total 0.9 mg/dl (0.2-1.0); Calcium 8.5 mg/dl (8.5-10.1); Creatinine Clr Calc Pharmacy 51.9 ml/min; Est GFR (African American) 45.8 ml/min; Est GFR (Non-African American) 39.5 ml/min; Globulin 2.8 gm/dl (2.5-4.0); Potassium 4.2 mmol/L (3.5-5.1); Total Protein 6.3 gm/dl (6.0-8.3)
--- NOTE | 2021-09-25 08:16 | History & Physical Bridge Note ---
Date of Service September 25, 2021 History & Physical Bridge Note I have examined the patient, reviewed the History & Physical and in the interval since the performance of the History & Physical I have noted the following changes of clinical significance: no changes noted Patient has been NPO since prior to midnight with exception of prep. He denies GI bleeding during his prep. H/H 7.8/27.1. Keep NPO & proceed with EGD & colonoscopy today. Supervising Physician Co-Signing Physician Notes Agree with CARMEN Baxter as above Abd: Soft, NT, ND, +BS Continue current therapy and supportive care Proceed with EGD and colonoscopy now.
[2021-09-25 08:34] LABS: Folate (Folic Acid) 12.38 ng/ml (>5.38)
[2021-09-25] MEDS: PANTOprazole 40 MG in SYRINGE 0 ML IV SCH ×2 (08:38→20:58)
[2021-09-25] MEDS: LOSARTAN POTASSIUM 50 MG TAB PO SCH (08:39)
[2021-09-25] MEDS: FINASTERIDE 5 MG TAB PO SCH (08:39)
[2021-09-25] MEDS: METOPROLOL TARTRATE 100 MG TAB PO SCH ×2 (08:39→21:00)
[2021-09-25] MEDS: IRON SUCROSE 400 MG in SODIUM CHLORIDE 0.9% 250 ML IV SCH (08:39)
[2021-09-25] MEDS ORDERED: FUROSEMIDE 20 MG TAB PO SCH (09:00)
--- NOTE | 2021-09-25 09:30 | Anesthesiology Consultation ---
Date of Service September 25, 2021 Assessment & Plan (1) Encounter for pre-operative examination: Chart Review Chart Review: Acceptable Risk for Surgery History Surgery Operation Date: 09/24/21 16:45 Proposed Procedures p Colonoscopy EGD Dr. Silverio Flanagan Case, DO Operation Date: 09/25/21 16:30 Proposed Procedures p Colonoscopy EGD Dr. Silverio Flanagan Case, DO Height/Weight Height: 5 ft 11 in Weight: 145 kg Allergies Allergy/AdvReac Type Severity Reaction Status Date / Time tetanus toxoid, adsorbed Allergy Intermediate HIVES Verified 09/23/21 12:53 Penicillins Allergy Mild UNKNOWN Verified 09/23/21 12:53 bee pollen Allergy Unknown Verified 09/23/21 12:53 Iodinated Contrast Media Allergy Unknown . Verified 09/23/21 12:53 lisinopril Allergy Unknown Verified 09/23/21 12:53 Medications Home Medications Medication Instructions Recorded Confirmed Last Taken albuterol sulfate 90 mcg/actuation 1 inh INHALATION DIRECTED gm 12/12/18 09/23/21 Unknown aerosol inhaler atorvastatin 10 mg tablet 10 mg PO HS tab 12/12/18 09/23/21 09/22/21 epinephrine 0.3 mg/0.3 mL 0.3 mg IM .INJECT 0.3ML INTRAMU ea 12/12/18 09/23/21 Unknown injection, auto-injector losartan 50 mg tablet 50 mg PO DAILY #90 tab 12/12/18 09/23/21 09/23/21 terazosin 10 mg capsule 10 mg PO HS cap 12/12/18 09/23/21 09/22/21 allopurinol 300 mg tablet 300 mg PO HS tab 12/13/18 09/23/21 09/22/21 finasteride 5 mg tablet 5 mg PO DAILY 12/13/18 09/23/21 09/23/21 glipizide 5 mg tablet 5 mg PO DAILY 12/13/18 09/23/21 09/23/21 levothyroxine 150 mcg tablet 175 mcg PO DAILY tab 12/13/18 09/23/21 09/23/21 metoprolol tartrate 100 mg tablet 100 mg PO BID #90 tab 12/13/18 09/23/21 09/23/21 apixaban 5 mg tablet (Eliquis) 5 mg PO BID 09/23/21 09/23/21 09/23/21 furosemide 20 mg tablet 20 mg PO QAM PRN 09/23/21 09/23/21 09/23/21 Active Medications Generic Name Dose Route Start Last Admin Trade Name Vin PRN Reason Stop Dose Admin Albuterol 1 puffs 09/23/21 17:56 09/24/21 07:41 Albuterol Hfa 8 Gm Inhaler INH 10/23/21 17:55 1 puffs Q4H PRN Administration SOB, WHEEZING Allopurinol 300 mg 09/23/21 21:00 09/24/21 20:19 Allopurinol 300 Mg Tab PO 10/23/21 20:59 300 mg HS OTTO Administration Atorvastatin Calcium 10 mg 09/23/21 21:00 09/24/21 20:19 Atorvastatin 10 Mg Tab PO 10/23/21 20:59 10 mg HS OTTO Administration Finasteride 5 mg 09/24/21 09:00 09/25/21 08:39 Finasteride 5 Mg Tab PO 10/24/21 08:59 5 mg DAILY OTTO Administration Furosemide 20 mg 09/25/21 09:00 09/25/21 08:39 Furosemide 20 Mg Tab PO 10/25/21 08:59 20 mg QAM OTTO Administration Iron Sucrose 400 mg/ Sodium 270 mls @ 108 mls/hr 09/23/21 16:00 09/25/21 08:39 Chloride IV 09/26/21 15:59 108 mls/hr DAILY OTTO Administration Pantoprazole Sodium 40 mg/ 10 mls @ 5 mls/min 09/23/21 21:00 09/25/21 08:38 Syringe IV 10/23/21 20:59 5 mls/min BID OTTO Administration Insulin Aspart 0 units 09/23/21 16:30 09/25/21 08:07 Insulin Aspart Per Unit SC 10/23/21 16:29 Not Given ACHS OTTO Levothyroxine Sodium 175 mcg 09/24/21 06:30 09/25/21 05:41 Levothyroxine Sodium 175 Mcg Tablet PO 10/24/21 06:29 Not Given DAILYBB OTTO Losartan Potassium 50 mg 09/24/21 09:00 09/25/21 08:39 Losartan Potassium 50 Mg Tab PO 10/24/21 08:59 50 mg DAILY OTTO Administration Metoprolol Tartrate 100 mg 09/23/21 21:00 09/25/21 08:39 Metoprolol Tartrate 100 Mg Tab PO 10/23/21 20:59 100 mg BID OTTO Administration Sodium Chloride 2 sprays 09/24/21 03:19 09/24/21 05:25 Sodium Chloride 0.65% Na Soln 45 Ml ([place]) NA 10/24/21 03:18 2 sprays UD PRN Administration Congestion Terazosin HCl 10 mg 09/23/21 21:00 09/24/21 20:20 Terazosin Hcl 5 Mg Cap PO 10/23/21 20:59 10 mg HS OTTO Administration Past Medical History Medical History (Updated 09/25/21 @ 09:32 by Mir Sheppard MD) Asthma, moderate persistent BPH without obstruction/lower urinary tract symptoms Chronic gout CKD (chronic kidney disease) Hyperlipidemia Hypertension Hypothyroidism Obesity Obstructive sleep apnea Paroxysmal atrial fibrillation Type 2 diabetes mellitus Past Family History Family History Mother Cancer Father Heart disease Sister Heart disease Brother Seizure Past Surgical History Surgical History History of cardioversion 2009 Social History Smoking Status: Former smoker Physical Exam Vital Signs Last Vital Signs Temp 36.4 C L 09/25/21 07:35 Pulse 64 09/25/21 07:35 Resp 18 09/25/21 07:35 BP 129/81 09/25/21 07:35 Pulse Ox 98 09/25/21 07:35 Testing Laboratory Results 09/25/21 07:19 09/25/21 07:19 PT 12.9 Seconds (9.0-12.0) H 09/24/21 08:00 INR 1.2 (0.9-1.1) H 09/24/21 08:00 APTT 28.2 Seconds (21.0-31.0) 09/23/21 12:48 Hemoglobin A1c 6.2 % (4.5-5.6) H 09/24/21 08:00 Blood Type A Positive 09/23/21 12:00 Antibody Screen NEGATIVE 09/23/21 12:00 09/25/21 07:25 POC Glucose 104 H Electrocardiogram Date: 09/23/21 Findings: + NSST changes and + AFIB @ (60)
[2021-09-25] MEDS ORDERED: PROPOFOL IV EMULSION 10 MG/ML 20 ML VIAL IV ONE (12:29)
[2021-09-25] MEDS ORDERED: LIDOCAINE 2% 2 ML VIAL/AMP(20MG/ML) INFIL ONE (12:29)
--- NOTE | 2021-09-25 12:39 | Hospitalist Progress Note ---
Date of Service September 25, 2021 Assessment & Plan (1) GI (gastrointestinal bleed): Plan: Hold eliquis continue IV protonix Plan for EGD and colonoscopy today (2) Paroxysmal atrial fibrillation: Plan: Hold Eliquis, continue metoprolol 100mg BID with hold parameters (3) Hypertension: Plan: -Blood pressure slowly trending up -lasix 20mg daily resumed. Will resume losartan tomorrow with hold parameters (4) Hyperlipidemia: Plan: - Cont atorvastatin 10 mg daily (5) Type 2 diabetes mellitus: Plan: - ISS with accuchecks achs - Holding glipizide (6) Asthma, moderate persistent: Plan: - May continue Ventolin as needed- no current respiratory complaints at rest (7) Chronic gout: Plan: -Continue allopurinol (8) BPH without obstruction/lower urinary tract symptoms: Plan: -Continue terazosin, finasteride (9) Hypothyroidism: Plan: -Continue levothyroxine, TSH on outpatient records reveals elevation at 7.24 from 09/17/2021, free T4 = 1.6, likely needs his levothyroxine adjusted, recheck in 4-6 weeks with PCP DVT ppx: - scds, no chemical anticoagulation in the setting of GI bleed as above CODE: Full code Admission and Anticipated Discharge Date Admission Date: September 23, 2021 Subjective Patient feels well. Completed his bowel prep and last BM was clear Slept well overnight in chair Physical Exam Physical Exam: Obese, pale, no acute distress Respiratory: Breathing comfortably on room air, no wheezing/rhonchi/rales Cardiovascular: Regular rate and rhythm, no murmurs/rubs/gallops Gastrointestinal (Abdomen): soft, non tender Musculoskeletal: No edema Neurologic: awake, alert, spontaneously moving extremities Results & Data Results & Data ([facility]) Vital Signs (Past 12 Hours) Vital Signs Temp Pulse Pulse Pulse Resp BP BP 09/25/21 12:15 36.3 C L 70 20 151/77 H 09/25/21 11:40 37.1 C 66 18 150/80 H 09/25/21 08:05 55 L 09/25/21 08:00 62 09/25/21 07:35 36.4 C L 64 18 129/81 09/25/21 03:00 36.7 C 64 18 152/76 H 09/25/21 01:09 68 Pulse Ox Pulse Ox 06/03/22 12:15 95 09/25/21 11:40 97 09/25/21 08:05 09/25/21 08:00 95 09/25/21 07:35 98 09/25/21 03:00 97 09/25/21 01:09 Laboratory Results Short CBC 09/24/21 09/25/21 Range/Units 12:18 07:19 WBC 5.63 4.49 L (4.8-10.8) K/uL Hgb 7.8 L 7.8 L (14.0-18.0) g/dL Hct 26.3 L 27.1 L (42-52) % Plt Count 208 195 (130-400) K/uL BMP 09/25/21 07:19 Sodium 138 Potassium 4.2 Chloride 109 H Carbon Dioxide 23 BUN 25 H Creatinine 1.60 H Glucose 94 Calcium 8.5 Liver Function 09/25/21 Range/Units 07:19 Total Bilirubin 0.9 (0.2-1.0) mg/dl AST 8 L (13-39) U/L ALT 7 (7-52) U/L Alkaline Phosphatase 48 (34-104) U/L Albumin 3.5 (3.4-5.0) gm/dl Medications Administered Current Inpatient Medications Acetaminophen (Acetaminophen 325 Mg Tab) 650 mg PO Q4H PRN PRN Reason: Moderate Pain Stop: 10/23/21 17:55 Albuterol (Albuterol Hfa 8 Gm Inhaler) 1 puffs INH Q4H PRN PRN Reason: SOB, WHEEZING Stop: 10/23/21 17:55 Last Admin: 09/24/21 07:41 Dose: 1 puffs Documented by: Allopurinol (Allopurinol 300 Mg Tab) 300 mg PO HS OTTO Stop: 10/23/21 20:59 Last Admin: 09/24/21 20:19 Dose: 300 mg Documented by: Atorvastatin Calcium (Atorvastatin 10 Mg Tab) 10 mg PO HS OTTO Stop: 10/23/21 20:59 Last Admin: 09/24/21 20:19 Dose: 10 mg Documented by: Dextrose (Dextrose 50% 50 Ml Syringe) 25 - 50 ml IV UD PRN; Protocol PRN Reason: Hypoglycemia Protocol Stop: 10/23/21 17:55 Finasteride (Finasteride 5 Mg Tab) 5 mg PO DAILY OTTO Stop: 10/24/21 08:59 Last Admin: 09/25/21 08:39 Dose: 5 mg Documented by: Furosemide (Furosemide 20 Mg Tab) 20 mg PO QAM OTTO Stop: 10/25/21 08:59 Last Admin: 09/25/21 08:39 Dose: 20 mg Documented by: Glucagon (Glucagon For Inj 1 Mg Vial) 1 mg SQ UD PRN; Protocol PRN Reason: Hypoglycemia Protocol Stop: 10/23/21 17:55 Glucose (Glucose 10 Tabs/Tube) 4 - 8 tabs PO UD PRN; Protocol PRN Reason: Hypoglycemia Protocol Stop: 10/23/21 17:55 Glucose (Glucose 40% Gel 15 Gm Tube) 15 - 30 gm PO UD PRN; Protocol PRN Reason: Hypoglycemia Protocol Stop: 10/23/21 17:55 Iron Sucrose 400 mg/ Sodium (Chloride) 270 mls @ 108 mls/hr IV DAILY OTTO Stop: 09/26/21 15:59 Last Infusion: 09/25/21 11:30 Dose: Infused Documented by: Pantoprazole Sodium 40 mg/ (Syringe) 10 mls @ 5 mls/min IV BID OTTO Stop: 10/23/21 20:59 Last Admin: 09/25/21 08:38 Dose: 5 mls/min Documented by: Insulin Aspart (Insulin Aspart Per Unit) 0 units SC ACHS OTTO Stop: 10/23/21 16:29 Last Admin: 09/25/21 11:28 Dose: Not Given Documented by: Levothyroxine Sodium (Levothyroxine Sodium 175 Mcg Tablet) 175 mcg PO DAILYBB OTTO Stop: 10/24/21 06:29 Last Admin: 09/25/21 05:41 Dose: Not Given Documented by: Losartan Potassium (Losartan Potassium 50 Mg Tab) 50 mg PO DAILY OTTO Stop: 10/24/21 08:59 Last Admin: 09/25/21 08:39 Dose: 50 mg Documented by: Metoprolol Tartrate (Metoprolol Tartrate 100 Mg Tab) 100 mg PO BID OTTO Stop: 10/23/21 20:59 Last Admin: 09/25/21 08:39 Dose: 100 mg Documented by: Miscellaneous (Carbohydrates For Hypoglycemia ) 15 - 30 gm PO UD PRN PRN Reason: Hypoglycemia Protocol Stop: 10/23/21 17:55 Ondansetron HCl (Ondansetron Inj 2 Mg/Ml 2 Ml Vial) 4 mg IV Q4H PRN PRN Reason: Nausea And Vomiting Stop: 10/23/21 17:55 Sodium Chloride (Sodium Chloride 0.65% Na Soln 45 Ml ([place])) 2 sprays NA UD PRN PRN Reason: Congestion Stop: 10/24/21 03:18 Last Admin: 09/24/21 05:25 Dose: 2 sprays Documented by: Terazosin HCl (Terazosin Hcl 5 Mg Cap) 10 mg PO HS OTTO Stop: 10/23/21 20:59 Last Admin: 09/24/21 20:20 Dose: 10 mg Documented by: (1) GI (gastrointestinal bleed) GI bleed type/associated pathology: unspecified gastrointestinal hemorrhage type Qualified Code(s): K92.2 - Gastrointestinal hemorrhage, unspecified
[2021-09-25] MEDS ORDERED: ENDOSCOPIC MARKER 5 ML SYR TOP ONE (13:16)
--- NOTE | 2021-09-25 13:33 | GI REPORT ---
Patient Name: Mir Dooley Procedure Date: 09/25/2021 12:47 PM Date of : 1940 Admit Type: Inpatient Age: 81 Gender: Male Attending MD: Marcos Sawyer DO Procedure: Colonoscopy Providers: Marcos Sawyer DO Referring MD: Sandi Kunz Md Indications: Acute post hemorrhagic anemia Medicines: Monitored Anesthesia Care Complications: No immediate complications. Estimated Blood Loss: Estimated blood loss: none. Procedure: Pre-Anesthesia Assessment: - Prior to the procedure, a History and Physical was performed, and patient medications and allergies were reviewed. The patient's tolerance of previous anesthesia was also reviewed. The risks and benefits of the procedure and the sedation options and risks were discussed with the patient. All questions were answered, and informed consent was obtained. Prior Anticoagulants: The patient has taken Eliquis (apixaban), last dose was 2 days prior to procedure. ASA Grade Assessment: III - A patient with severe systemic disease. After reviewing the risks and benefits, the patient was deemed in satisfactory condition to undergo the procedure. After I obtained informed consent, the scope was passed under direct vision. Throughout the procedure, the patient's blood pressure, pulse, and oxygen saturations were monitored continuously. The Colonoscope was introduced through the anus and advanced to the terminal ileum. The colonoscopy was performed without difficulty. The patient tolerated the procedure well. The quality of the bowel preparation was good. The terminal ileum, ileocecal valve, appendiceal orifice, and rectum were photographed. Findings: The perianal and digital rectal examinations were normal. An ulcerated partially obstructing large mass was found at the hepatic flexure. The mass was circumferential. The mass measured six cm in length. Oozing was present. Biopsies were taken with a cold forceps for histology. Area was tattooed with an injection of 5 mL of Shama ink. A 7 mm polyp was found in the transverse colon. The polyp was sessile. The polyp was removed with a hot snare. Resection and retrieval were complete. Non-bleeding internal hemorrhoids were found during retroflexion. The hemorrhoids were small. 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 Biopsied. Tattooed. - One 7 mm polyp in the transverse colon, removed with a hot snare. Resected and retrieved. - Non-bleeding internal hemorrhoids. Recommendation: - Return patient to [facility] for [facility] care. - Clear liquid diet. - Continue present medications. - Refer to a surgeon today. Marcos Sawyer, DO 09/25/2021 1:33:01 PM This report has been signed electronically. Note Initiated On: 09/25/2021 12:47 PM Number of Addenda: 0 I attest to the content of the Intraoperative Record and orders documented therein, exceptions below {[id number]}
--- NOTE | 2021-09-25 13:37 | GI REPORT ---
Patient Name: Mir Dooley Procedure Date: 09/25/2021 12:48 PM Date of : 1940 Admit Type: Inpatient Age: 81 Gender: Male Attending MD: Marcos Sawyer DO Procedure: Upper GI endoscopy Providers: Marcos Sawyer DO Referring MD: Sandi Kunz Md Indications: Acute post hemorrhagic anemia Medicines: Monitored Anesthesia Care Complications: No immediate complications. Estimated Blood Loss: Estimated blood loss: none. Procedure: Pre-Anesthesia Assessment: - Prior to the procedure, a History and Physical was performed, and patient medications and allergies were reviewed. The patient's tolerance of previous anesthesia was also reviewed. The risks and benefits of the procedure and the sedation options and risks were discussed with the patient. All questions were answered, and informed consent was obtained. Prior Anticoagulants: The patient has taken Eliquis (apixaban), last dose was 2 days prior to procedure. ASA Grade Assessment: III - A patient with severe systemic disease. After reviewing the risks and benefits, the patient was deemed in satisfactory condition to undergo the procedure. After obtaining informed consent, the endoscope was passed under direct vision. Throughout the procedure, the patient's blood pressure, pulse, and oxygen saturations were monitored continuously. The Endoscope was introduced through the mouth, and advanced to the second part of duodenum. The upper GI endoscopy was accomplished without difficulty. The patient tolerated the procedure well. Findings: The esophagus was normal. Localized minimal inflammation characterized by erythema was found in the gastric antrum. Localized mildly erythematous mucosa without active bleeding and with no stigmata of bleeding was found in the duodenal bulb. Impression: - Normal esophagus. - Gastritis. - Erythematous duodenopathy. - No specimens collected. Recommendation: - Return patient to [facility] for ongoing care. - Clear liquid diet. Marcos Sawyer DO 09/25/2021 1:37:18 PM This report has been signed electronically. Note Initiated On: 09/25/2021 12:48 PM Number of Addenda: 0 I attest to the content of the Intraoperative Record and orders documented therein, exceptions below {[id number]}
--- NOTE | 2021-09-25 14:12 | Anesthesiology Progress Note ---
Date of Service September 25, 2021 Anesthesia Post Procedure Vital Signs Vital Signs: Temp Pulse Pulse Pulse Resp BP BP 09/25/21 14:01 75 18 123/65 09/25/21 13:46 64 18 108/54 L 09/25/21 13:31 67 14 95/57 L 09/25/21 12:15 36.3 C L 70 20 151/77 H 09/25/21 11:40 37.1 C 66 18 150/80 H 09/25/21 08:05 55 L 09/25/21 08:00 62 09/25/21 07:35 36.4 C L 64 18 129/81 09/25/21 03:00 36.7 C 64 18 152/76 H 09/25/21 01:09 68 09/24/21 23:04 36.9 C 70 18 122/76 09/24/21 19:00 37.2 C 67 16 123/75 09/24/21 15:46 09/24/21 15:45 63 64 17 09/24/21 15:37 36.6 C 69 20 114/67 Pulse Ox Pulse Ox 09/25/21 14:01 96 09/25/21 13:46 94 09/25/21 13:31 95 09/25/21 12:15 95 09/25/21 11:40 97 09/25/21 08:05 09/25/21 08:00 95 09/25/21 07:35 98 09/25/21 03:00 97 09/25/21 01:09 09/24/21 23:04 92 09/24/21 19:00 96 09/24/21 15:46 995 H 09/24/21 15:45 95 09/24/21 15:37 96 Transfer of Care Handoff Completed per policy Notes Mental Status: alert / awake / arousable Patient Amnestic to Procedure: Yes Nausea / Vomiting: adequately controlled Pain: adequately controlled Airway Patency, RR, SpO2: stable & adequate BP & HR: stable & adequate Hydration State: stable & adequate Anesthetic Complications: no major complications apparent
[2021-09-25] MEDS: TERAZOSIN HCL 5 MG CAP PO SCH (21:00)
[2021-09-25] MEDS: ATORVASTATIN 10 MG TAB PO SCH (21:01)
[2021-09-25] MEDS: allopurinoL 300 MG TAB PO SCH (21:01)
[2021-09-26 03:40] LABS: Basophils # (auto) 0.02 K/uL (0-0.2); Basophils % (auto) 0.5 %; Eosinophils # (auto) 0.13 K/uL (0-0.5); Hematocrit (blood only) 24.7 % (42-52); Hemoglobin 7.3 g/dL (14.0-18.0); Immature Granulocytes # (auto) 0.01 K/uL (0.00-0.02); Immature Granulocytes % (auto) 0.2 %; Lymphocytes # (auto) 0.55 K/uL (1.2-3.4); Lymphocytes % (auto) 12.7 %; Mean Corpuscular Hgb Conc 29.6 g/dL (32-36); Mean Corpuscular Volume 77.9 fL (80-100); Monocytes # (auto) 0.35 K/uL (0.11-0.59); Monocytes % (auto) 8.1 %; Neutrophils # (auto) 3.28 K/uL (1.4-6.5); Neutrophils % (auto) 75.5 %; Nucleated RBC # (auto) 0.04 K/uL (0-0); Nucleated RBC % (auto) 0.9 %; Platelet Count 179 K/uL (130-400); RDW Coefficient of Variation 17.4 % (11.5-14.5); RDW Standard Deviation 49.7 fL (36.4-46.3); Red Blood Count 3.17 M/uL (4.7-6.1); White Blood Count 4.34 K/uL (4.8-10.8)
[2021-09-26 04:01] LABS: Hypochromasia Present
[2021-09-26 04:02] LABS: BUN Creatinine Ratio 12.6 (10-20); Calcium 8.3 mg/dl (8.5-10.1); Creatinine Clr Calc Pharmacy 49.8 ml/min; Est GFR (African American) 43.5 ml/min; Est GFR (Non-African American) 37.5 ml/min; Magnesium 2.1 mg/dl (1.7-2.4)
[2021-09-26] MEDS ORDERED: METOPROLOL TARTRATE 25 MG TAB PO SCH (06:10)
[2021-09-26] MEDS: LEVOTHYROXINE SODIUM 175 MCG TABLET PO SCH (06:33)
[2021-09-26] MEDS ORDERED: SODIUM CHLORIDE 0.9% 250 ML IV PRN (08:05)
[2021-09-26] MEDS ORDERED: FUROSEMIDE 40 MG/4 ML VIAL IV ONE ×2 (08:30→16:11)
[2021-09-26] MEDS: LOSARTAN POTASSIUM 50 MG TAB PO SCH (08:42)
[2021-09-26] MEDS: INSULIN ASPART PER UNIT SC SCH ×2 (08:43→12:40)
[2021-09-26] MEDS: PANTOprazole 40 MG in SYRINGE 0 ML IV SCH (08:43)
[2021-09-26] MEDS: FINASTERIDE 5 MG TAB PO SCH (08:43)
[2021-09-26] MEDS ORDERED: LOSARTAN POTASSIUM 50 MG TAB PO SCH (09:00)
--- NOTE | 2021-09-26 17:12 | Discharge Summary ---
Date of Service September 26, 2021 Admission HPI Per Admitting Provider This is an 81-year-old male with PMHx of paroxysmal A. fib on Eliquis, HTN, HLD, DM type II, asthma, hypothyroidism, BPH, who was recently seen by his PCP on 09/22 due to worsening increased weakness and decline over the past 1 month. He feels that he has significantly increased shortness of breath whenever he does minimal ADLs. His legs have felt generalized weakness bilaterally. He denies any recent falls. His friend who is sitting at bedside also notes that he looks increasingly pale within the past few days. Last night around 2 AM patient was suddenly awoke with the urge to have a bowel movement, he reports no dark tarry stools, and had a soft regular-appearing bowel movement at that point. He has not had any other bowel movement since then. Denies any abdominal pain, nausea, vomiting or other blood in stool that he is aware of. He has been eating and drinking without any difficulty. His last colonoscopy was 10 years ago, done in [place], and was reportedly normal. He did recently receive a letter that he needed a repeat scope. Of note the patient states that he had been taking 1 full Eliquis tablet in the morning and 1/2 tablet in the evening for at least 1 month time in order to "sto ckpile" his pills in case he was unable to obtain his prescription. He feared inability to obtain medication due to issues with "the government, medication supplies, [facility] being president," etc. Within the past week he resumed taking 1 full tablet morning and afternoon. He took his other medications as directed including all his morning pills today. He also notes that he takes Lasix tablet daily scheduled, not really as needed. Denies any other acute complaints. Principal Diagnosis Colon mass Lower GI bleed Iron deficiency Anemia Discharge Exam Feels well, denies chest pain or shortness of breath Obese, pleasant and comfortable CV- regular rate and rhythm Pulm- breathing comfortably on room air Extr- trace lower extremity edema Discharge Data Allergies Allergy/AdvReac Type Severity Reaction Status Date / Time tetanus toxoid, adsorbed Allergy Intermediate HIVES Verified 09/23/21 12:53 Penicillins Allergy Mild UNKNOWN Verified 09/23/21 12:53 bee pollen Allergy Unknown Verified 09/23/21 12:53 Iodinated Contrast Media Allergy Unknown . Verified 09/23/21 12:53 lisinopril Allergy Unknown Verified 09/23/21 12:53 Consultations 09/23/21 14:30 ED Decision to Admit Stat 09/23/21 14:54 Consult Gastroenterology Routine Procedures Performed Operation Date: 09/24/21 16:45 <No data on this case meets the specified criteria> Operation Date: 09/25/21 16:30 Actual Procedures s Esophagogastroduodenoscopy - Marcos G. Case, DO p Colonoscopy Polypectomy - Marcos G. Case, DO s Injection Therapy / Sclerotherapy - Marcos G. Case, DO Ordered Studies 09/23/21 11:47 CT abd pelvis wo con Stat Hospital Course (1) GI (gastrointestinal bleed): (2) Paroxysmal atrial fibrillation: (3) Hypertension: (4) Hyperlipidemia: (5) Type 2 diabetes mellitus: (6) Asthma, moderate persistent: (7) Chronic gout: (8) BPH without obstruction/lower urinary tract symptoms: (9) Hypothyroidism: Mr Mir Dooley is a 81 year old man with history of paroxysmal A fib on Eliquis, history of CKD stage 3, gout, NIDDM, BPH and hypothyroidism was sent by his PCP's office for abnormal outpatient labwork revealing anemia. Patient denies bloody or black stools but reports feeling weak and tired for some time now. Upon arrival, his Hb was 6.5 and he received 2 units pRBC with Hb up to 7.8. On day of discharge, his Hb was 7.3 and he received another 1 unit pRBC. He also received 2 doses IV iron. After each transfusion, he received IV lasix to prevent volume overload. He did not have active bleed and denies black or tarry stools or red in his stools. He had a CT A/P with contrast which showed a narrowing in his colon at the hepatic flexure. He underwent colonoscopy 09/25 which revealed a large, ulcerated mass with oozing and partially obstructing colon lumen. Mass very concerning for colon cancer. He will need to follow up with his PCP for a referral to see a surgeon for resec tion of this mass as well as referral to Oncology once biopsy results finalizes. Prior to discharge, his PCP's office was called and updated on colonoscopy findings, need for surgical and oncology referral, recommendation for repeat CBC in the upcoming week to decide if additional transfusion is needed. Prior to discharge, it was discussed with GI and it was recommended that Eliquis can be resumed Thursday 09/28. Patient's Eliquis was reduced to 2.5mg BID (due to his age >80 and Cr >1.5) and he was instructed to monitor his stools daily and stop his Eliquis and call his doctor if his stools are black or red. Daughter was present and also updated on care plan. Total Time Total Time Spent Total Time Spent (In Minutes): 40 Discharge Plan Discharge Items Patient Disposition: Home - Self-Care Reason For Visit: REFERRED BY DOCTOR FOR BLOOD TRANSFUSION Discharge Diagnosis: Colon mass Lower GI bleed Iron deficiency Anemia Condition on Discharge: Fair Activity: Resume your previous activity Non-emergency contact: Primary Care Provider, Surgeon, Larry [employer] and [employer] Call non-emergency contact if: you have any medication questions and your symptoms worsen Follow-up/Referrals: Rene Cavanaugh DO [Surgeon] - Peace Duke MD [Primary Care Provider] - Diet: Carb Consistent or DM2 and Low Fiber Addtl Attending Provider Instructions: You were found to have a mass in your colon (at your hepatic flexure) with partial obstruction of your colon. This mass is large and ulcerated with some oozing of blood This is the cause of your anemia (iron deficiency and blood loss) You received 2 doses of IV iron and 3 units of blood here You will need to follow up with Dr Cardoso this upcoming week to repeat your hemoglobin (CBC) You can resume Eliquis at 2.5mg twice a day on Thursday 09/28 (this is lower than your previous dose and is adjusted for your age and kidney function) If you notice blood in your stool (black tarry stools or red), please stop your Eliquis and call your Doctor Please follow up with Dr Cardoso for referral to see a surgeon and Oncologist. And for results of your biopsy from yesterday (09/25) colonoscopy Pending Studies at Discharge: Yes Studies:: Pathology Colonoscopy biopsy Stand-Alone Forms: My [employer], Smoking Cessation Medications and DC Order Prescriptions: New metoprolol tartrate 25 mg Tablet 12.5 mg PO BID 30 Days Qty: 30 RF: 0 Eliquis 2.5 mg tablet 2.5 mg PO BID Qty: 60 RF: 0 Continued terazosin 10 mg capsule 10 mg PO HS RF: 0 albuterol sulfate 90 mcg/actuation HFA aerosol inhaler 1 inh inhalation DIRECTED RF: 0 atorvastatin 10 mg tablet 10 mg PO HS RF: 0 losartan 50 mg tablet 50 mg PO DAILY Qty: 90 RF: 0 epinephrine 0.3 mg/0.3 mL auto-injector 0.3 mg IM .INJECT 0.3ML INTRAMU RF: 0 finasteride 5 mg tablet 5 mg PO DAILY RF: 0 glipizide 5 mg tablet 5 mg PO DAILY RF: 0 levothyroxine 150 mcg tablet 175 mcg PO DAILY RF: 0 allopurinol 300 mg tablet 300 mg PO HS RF: 0 furosemide 20 mg tablet 20 mg PO QAM PRN (Reason: Fluid Retention) RF: 0 Discontinued metoprolol tartrate 100 mg tablet 100 mg PO BID Qty: 90 RF: 0 Eliquis 5 mg tablet 5 mg PO BID RF: 0 Discharge Orders: Discharge Order (Routine); Ordered 09/26/21 Ordered By: Vijaya Gil/Other Patient Handouts: Managing Type 2 Diabetes Admission Data Admit Date/Time: 09/23/21 14:54 Attending Provider: Vijaya Kunz Admit Provider: Gamal Oliver Primary Care Provider: Peace Duke Other Providers: Gamal Oliver ; Marcos Sawyer
--- NOTE | 2021-10-12 06:40 | Coding Query ---
This has already been addressed by my prior addendum. PATHOLOGY To promote full compliance with coding requirements relating to patient care, physician participation is requested in all cases of staff weapons officer uncertainty. Please assist us with the question(s) below: Please review the Pathology report and please document any relevant diagnosis(es) below: Diagnosis(es): Thank you Otto WRIGHT
== END 2021-09-26 18:12 | disposition home or self-care (01) | DRG 378 ==
LOC: ED 11:18 → SUATTDRO 14:54 → EDINP 14:54 → 2S 17:57

== ENCOUNTER 2021-10-15 10:27 | Inpatient (IN) ==
--- NOTE | 2021-10-12 13:25 | Anesthesiology Consultation ---
Date of Service October 12, 2021 Assessment & Plan (1) Encounter for pre-operative examination: Chart Review Chart Review: Acceptable Risk for Surgery (pending preop Covid testing results and DOS CBC ) and Patient NOT seen in Pre Admission Testing - Check BSG AM DOS -Will check CBC with diff DOS to ensure stability of anemia Per nursing assessment 10/12/2021, patient denies any recent travel. No known COVID infection in the past 90 days. Patient is fully vaccinated for COVID. No known Covid positive exposures or Covid related symptoms. Pt did test Covid negative 09/23/21 while admitted at [facility]. Preop Covid testing scheduled 10/13/21= will await results Pt last seen by cardio 10/09/21= seen for preop CV evaluation for upcoming colon mass resection. Denies hx of CAD. Activity level recently limited by anemia but typically able to perform >4 METS of activity without anginal type symptoms. A. fib is well controlled. "From cardiac standpoint he is an acceptable risk to proceed with planned surgery without additional cardiac testing/intervention. OK to hold Eliquis 48 hours prior and resume when able from surgical standpoint." Patient last seen by PCP 09/29/2021 = seen for hospital follow-up. Patient recently admitted to [facility] 09/23/21 to 09/26/21. Patient was short of breath and ultimately found to have severe iron deficiency any anemia from GI bleeding. Hemoglobin upon admission was 6.5transfused with 2 units of packed red blood cells. Hemoglobin increased to 7.8. On day of dischargehemoglobin was 7.3given another 1 unit of blood. Also given IV iron while inpatient. Had colonoscopy while admitted that revealed a large ulcerated mass of colon lumen. Patient's Eliquis decreased to 2.5 mg twice daily on discharge. Metoprolol was also decreased. Recent A1c 5.8glipizide was also cut back because of lower A1c. Colon massfinal pathology showed adenoma without evidence of invasive carcinomapossibly noncancerous but will have patient follow-up with general surgery [facility]. Seems like patient will end up with severe anemia again if not resected as he continues to have blood tinged stools. Will check labs today. Follow up in one month. Follow up with Dr. Mao GARLAND for follow up on colon mass. History Surgery Operation Date: 10/15/21 12:35 Proposed Procedures p Laparoscopic, Possible Open, Right Hemicolectomy - Rene Cavanaugh, DO Height/Weight Height: 5 ft 11 in Weight: 139.5 kg Allergies Allergy/AdvReac Type Severity Reaction Status Date / Time bee pollen Allergy Severe flushing Verified 10/12/21 11:23 and facial swelling Iodinated Contrast Media Allergy Severe flushing Verified 10/12/21 11:23 and facial swelling lisinopril Allergy Severe Hives Verified 10/12/21 11:23 tetanus toxoid, adsorbed Allergy Intermediate HIVES Verified 10/12/21 11:23 latex Allergy Mild skin Verified 10/12/21 11:48 irritation Penicillins Allergy Mild UNKNOWN Verified 10/12/21 11:23 Medications Home Medications Medication Instructions Recorded Confirmed Last Taken albuterol sulfate 90 mcg/actuation 1 inh INHALATION DIRECTED gm 12/12/18 10/12/21 Unknown aerosol inhaler atorvastatin 10 mg tablet 10 mg PO HS tab 12/12/18 10/12/21 09/22/21 epinephrine 0.3 mg/0.3 mL 0.3 mg IM .INJECT 0.3ML INTRAMU 12/12/18 10/12/21 Unknown injection, auto-injector PRN ea losartan 50 mg tablet 50 mg PO BID #90 tab 12/12/18 10/12/21 09/23/21 terazosin 10 mg capsule 10 mg PO HS cap 12/12/18 10/12/21 09/22/21 allopurinol 300 mg tablet 300 mg PO HS tab 12/13/18 10/12/21 09/22/21 finasteride 5 mg tablet 5 mg PO QAM 12/13/18 10/12/21 09/23/21 glipizide 5 mg tablet 5 mg PO QAM 12/13/18 10/12/21 09/23/21 furosemide 20 mg tablet 20 mg PO QAM PRN 09/23/21 10/12/21 09/23/21 apixaban 2.5 mg tablet (Eliquis) 2.5 mg PO BID #60 tab 09/26/21 10/12/21 Unknown metoprolol tartrate 25 mg tablet 12.5 mg PO BID 30 Days #30 tab 09/26/21 10/12/21 Unknown levothyroxine 175 mcg tablet 175 mcg PO QAM 10/12/21 10/12/21 Unknown Past Medical History Medical History (Updated 10/12/21 @ 14:50 by Jeny Costa PA-C) Anemia S/p 2 units of pRBC's on admission 09/23/21 and 1 unit of pRBC's prior to discharge 09/26/21 from [facility]. Also had IV iron while admitted Angioedema History of Aortic aneurysm 4.6cm per August 2021 ECHO Aortic stenosis Borderline to mild aortic stenosis per 09/17/21 ECHO Asbestos exposure Asthma, moderate persistent well controlled BPH without obstruction/lower urinary tract symptoms Chronic gout CKD (chronic kidney disease) Stage III per records -- monitors with [facility] Nephrology GI bleed September 2021 inpatient at [facility] History of kidney stones History of recent hospitalization 09/23/21 at [facility] for GI Bleed and anemia Hx of nephrolithotomy with removal of calculi Hyperlipidemia Hypertension Hypothyroidism Lactase deficiency Multiple lung nodules on CT Obstructive sleep apnea Uses cpap nightly On anticoagulant therapy Paroxysmal atrial fibrillation Recently set up with [facility]. (hx of following with Dr Murguia) Rate well controlled and on Eliquis per 10/09/21 cardio note Seasonal allergies Type 2 diabetes mellitus NIDDM Past Family History Family History Mother Cancer Father Heart disease Sister Heart disease Brother Seizure Other No family history of adverse response to anesthesia Past Surgical History Surgical History History of cardioversion 2009 History of colonoscopy History of esophagogastroduodenoscopy (EGD) History of lithotripsy S/P surgical removal of pilonidal cyst Social History Smoking Status: Never smoker Do You Dip or Chew Tobacco: No Hx Alcohol Use: No Hx Substance Use: No substance use type: does not use Testing Laboratory Results 09/29/21= WBC: 5.46 H/H: 9.7/33.9 (improved from previous- recent GI bleed- s/p pRBCs 09/26/21) PLATELETS: 220 SODIUM: 142 POTASSIUM: 3.9 CHLORIDE: 107 CO2: 25 BUN: 18 CREATININE: 1.5 (chronic and stable from previous) GLUCOSE: 91 09/24/21= HGB A1C: 6.2 Electrocardiogram Date: 09/23/21 Findings: + AFIB @ (60bpm ) Low voltage QRS. Nonspecific T wave abnormality. When compared to EKG from February 26trial fibrillation has replaced sinus rhythm, QRS voltage has decreased, nonspecific T wave wave abnormality now evident in anterior leads per cardio Chest X-Ray Date: 09/23/21 FINDINGS: The cardiomediastinal and hilar silhouettes are within normal limits. Chronic interstitial coarsening of the lung bases. 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 No pneumothorax, pleural effusion, airspace consolidation or overt pulmonary edema. Degenerative changes of the shoulders and spine. IMPRESSION: Cardiomegaly without acute process. Echocardiogram Date: 09/17/21 EF: 55-59% LV Function: normal RWMA: + none Other Findings: + LVH (Mild/concentric) Atrial fibrillation during examination Left atrium is moderately enlarged. Right atrium is mildly enlarged. Right ventricle appears mildly dilated on technically limited visualization with borderline to mild diffuse right ventricular hypokinesis. Left atrial enlargement suggest diastolic LV dysfunction. Borderline to mild aortic stenosis is present. Mild MR. Dilated IVC with reduced collapsibility with sniff indicates an elevated right atrial pressure of 15 mmHg. Trivial TR is present. Signal is an adequate to calculate pulmonary artery systolic pressure. Based on the appearance of the inferior vena cava and the right ventricle, the presence of at least mildly elevated pulmonary pressures likely. Aortic root is normal size. Proximal thoracic ascending aorta is mildly enlarged at 4.6 cm Compared to report of the prior study dated 02/07/2012, RV chamber enlargement noted on 2012 study as well. Other Testing Abdomen/Pelvis CT 09/23/21= The liver is enlarged and heterogeneous. Mild nodularity of the surface contour suggests early morphologic change of cirrhosis. The gallbladder is not distended and likely contains internal debris/stones. There is infiltration around the gallbladder and in the artur hepatis which is nonspecific, and may be related to hepatocellular disease. If there is clinical concern for biliary pathology a right upper quadrant ultrasound should be considered. Trace perihepatic and pelvic ascites. Cardiomegaly. Addendum: There is a focal narrowing seen in the right colon at the hepatic flexure. This is pathologically indeterminant and not well evaluated by CT. If not recently performed, a colonoscopy could be considered to evaluate for underlying mucosal lesion. Additional reported finding are unchanged.
[~2021-10-15 10:27] MED LIST changes: -ALLO300T2 PO; +CIPROFLOXACIN / D5W 400 MG/200 ML BAG IV SCH; -LEVO112T2 PO; +LR 15ML/HR IV SCH; -METO100T14 PO; -TERA1CAP63 PO; +metroNIDAZOLE 500 MG/100 ML BAG IV SCH
[2021-10-15 11:37] LABS: Basophils # (auto) 0.03 K/uL (0-0.2); Basophils % (auto) 0.7 %; Eosinophils # (auto) 0.05 K/uL (0-0.5); Eosinophils % (auto) 1.2 %; Hematocrit (blood only) 35.3 % (42-52); Hemoglobin 10.7 g/dL (14.0-18.0); Immature Granulocytes # (auto) 0.01 K/uL (0.00-0.02); Immature Granulocytes % (auto) 0.2 %; Lymphocytes # (auto) 0.54 K/uL (1.2-3.4); Mean Corpuscular Hemoglobin 25.3 pg (25-34); Mean Corpuscular Volume 83.5 fL (80-100); Mean Platelet Volume 9.1 fL (7.4-10.4); Monocytes # (auto) 0.33 K/uL (0.11-0.59); Neutrophils # (auto) 3.19 K/uL (1.4-6.5); Neutrophils % (auto) 76.9 %; Platelet Count 241 K/uL (130-400); RDW Coefficient of Variation 22.6 % (11.5-14.5); RDW Standard Deviation 68.1 fL (36.4-46.3); Red Blood Count 4.23 M/uL (4.7-6.1); White Blood Count 4.15 K/uL (4.8-10.8)
[2021-10-15 11:44] LABS: Mean Corpuscular Hgb Conc 30.3 g/dL (32-36)
[2021-10-15 12:04] LABS: Anisocytosis Present; Schistocytes 1+
[2021-10-15] MEDS ORDERED: ATROPINE SULFATE 0.1 MG/ML 10ML SYR IV PRN (12:41)
[2021-10-15] MEDS ORDERED: ePHEDrine sulfate 50 MG/ML AMP IV PRN (12:41)
[2021-10-15] MEDS ORDERED: HYDROmorphone INJ 2 MG/ML SYR/VIAL IV PRN (12:41)
--- NOTE | 2021-10-15 12:41 | Anesthesiology Progress Note ---
Date of Service October 15, 2021 Anesthesia Post Procedure Vital Signs Vital Signs: Temp Pulse Resp BP Pulse Ox 10/15/21 10:58 37 C 76 20 147/84 H 97 Transfer of Care Handoff Completed per policy Notes Mental Status: alert / awake / arousable and participated in evaluation Patient Amnestic to Procedure: Yes Nausea / Vomiting: adequately controlled Pain: adequately controlled Airway Patency, RR, SpO2: stable & adequate BP & HR: stable & adequate Hydration State: stable & adequate Anesthetic Complications: no major complications apparent and Pt Satisfied with anesthetic care
--- NOTE | 2021-10-15 14:25 | History & Physical Bridge Note ---
Date of Service October 15, 2021 History & Physical Bridge Note I have examined the patient, reviewed the History & Physical and in the interval since the performance of the History & Physical I have noted the following changes of clinical significance: no changes noted
[2021-10-15] MEDS ORDERED: fentaNYL citrate 100 MCG/2 ML VIAL ONE ×2 (14:46→15:41)
[2021-10-15] MEDS ORDERED: EPINEPHrine INJ 1 MG/ML AMP ONE (15:29)
[2021-10-15] MEDS ORDERED: BUPIVACAINE 0.5 % 5 MG/1 ML MPF 30ML VIAL ONE (15:29)
[2021-10-15] MEDS ORDERED: DEXAMETHASONE SOD INJ 4 MG/ML VIAL ONE (16:26)
[2021-10-15] MEDS ORDERED: PROPOFOL IV EMULSION 10 MG/ML 20 ML VIAL IV ONE (16:26)
[2021-10-15] MEDS ORDERED: ROCURONIUM BROMIDE 10 MG/ML 5 ML VIAL IV ONE (16:26)
[2021-10-15] MEDS ORDERED: LIDOCAINE 2% 2 ML VIAL/AMP(20MG/ML) INFIL ONE (16:26)
[2021-10-15] MEDS ORDERED: NEOSTIGMINE METHYLSULFATE 1 MG/ML 10ML VIAL ONE (17:02)
[2021-10-15] MEDS ORDERED: GLYCOPYRROLATE 0.2 MG/ML VIAL ONE (17:02)
--- NOTE | 2021-10-15 17:49 | Operative Report ---
PG Post Operative Report Pre & Post Diagnosis Operation Date: 10/15/21 12:45 Pre-Op Diagnosis: Colon Mass Post-Op Diagnosis: Colon Mass I identified the patient and participated in the time-out.: Yes Procedure Operation Date: 10/15/21 12:45 Actual Procedures p Laparoscopic extended Right Hemicolectomy - Rene Cavanaugh DO Surgeon Rene Cavanaugh DO Boating Safety Officer afsaneh Capellan Estimated Blood Loss 25 Findings Consistent with Post-Op Diagnosis Specimens terminal ileum, right colon, portion of transverse colon Description of Procedure After informed consent was obtained the patient was taken to the operating room placed in supine position. After successful intubation a Plummer catheter was placed. The abdomen was shaved and sterilely prepped and draped in usual fashion. A supraumbilical incision was made with an 11 blade scalpel and carried down through the soft tissue using cautery. Anterior fascia was opened using cautery and two #0 Vicryl stay sutures were placed. Peritoneum was entered using blunt finger penetration and a finger sweep was performed. 12 mm on trocar was placed and the abdomen was insufflated to 20 mmHg. Laparoscope was inserted and the abdomen was examined in 360 degrees. No gross abnormalities were seen. The tattoo at the hepatic flexure was readily visible. Midline lower abdominal 5 mm trocar and a left lower quadrant 12 mm trocar placed under direct vision. Eventually an upper midline 5 mm trocar would be placed. The patient was placed in reverse Trendelenburg position and slightly airplaned to the left. I began by taking down the white line of Toldt along the lateral side of the right colon. I carried this up and around the hepatic flexure. I then picked a spot several inches proximal to the ileocecal valve and transected the small bowel using a CHOLO brown cartridge linear stapler. Next we found the tattoo felicity. In the mid transverse colon just proximal to the middle colic vessels we created a small window in the mesentery of the transverse colon. A CHOLO brown cartridge linear stapler with several firings was used to transect the transverse colon. We then took down the remainder of the hepatic flexure using blunt dissection and harmonic scalpel. We were able to identify the duodenum to keep it out of harm's way. Once we had attachments completely freed up we then took down the mesentery of the terminal ileum right colon and portion of transverse colon using the harmonic scalpel. Eventually had it completely detached. We extended the upper midline 5 mm trocar site including the fascia. We were able to deliver the specimen and sent it off to pathology. We are able to use a [place] clamp and deliver the distal transverse colon staple line. Were also able to deliver the staple line of the small bowel. We performed a [id number] anastomosis with a CHOLO 60 mm brown cartridge stapler. A Common enterotomy was closed using a TA 60 stapler. A 3-[address] was [address] to place a crotch stitch as well as to oversew the staple lines in Lembert fashion. The anastomosis was patent. There was no evidence of ischemia. There was adequate hemostasis. This was placed back into the abdominal cavity and we changed our gloves. The fascia of this larger incision was closed using #1 PDS in a running fashion. We re-insufflated the abdomen. We inserted the laparoscope. Anastomosis looked good and again there was adequate hemostasis. Final look around the abdomen showed no other abnormalities. The trochars were all removed and the abdomen was desufflated. The fascia of the camera port was closed using 0 Vicryl in [id number] fashion. Wounds were all thoroughly irrigated. They were all closed using skin lay. The larger incision we closed over a 5/8 inch Romain drain. Silver dressings were applied. The patient was awakened extubated and transferred to recovery in stable condition. My physician assistant drafter was present for the entire case was instrumental in running the camera as well as exposure throughout the dissection assisting with the anastomosis wound closure and dressing placement. I attest to the content of the Intraoperative Record and any orders documented therein. Any exceptions are noted below.
[2021-10-15] MEDS ORDERED: METOCLOPRAMIDE HCL INJ 5 MG/ML 2 ML VIAL ONE (18:07)
[2021-10-15] MEDS ORDERED: METOCLOPRAMIDE HCL INJ 5 MG/ML 2 ML VIAL IV STA (18:09)
[2021-10-15] MEDS: fentaNYL citrate 100 MCG/2 ML VIAL IV PRN ×2 (18:12→18:20)
--- NOTE | 2021-10-15 18:38 | Anesthesiology Progress Note ---
Date of Service October 15, 2021 Anesthesia Post Procedure Vital Signs Vital Signs: Temp Pulse Pulse Resp BP Pulse Ox 10/15/21 18:30 97.7 F 58 L 20 138/77 95 10/15/21 18:20 59 L 16 138/77 95 10/15/21 18:10 58 L 17 147/85 H 97 10/15/21 18:00 63 18 148/90 H 96 10/15/21 17:51 96.8 F L 79 24 164/101 H 94 10/15/21 10:58 98.6 F 76 20 147/84 H 97 Pain Intensity Abdomen: Pain Intensity: 3 Transfer of Care Handoff Completed per policy Notes Mental Status: alert / awake / arousable and participated in evaluation Patient Amnestic to Procedure: Yes Nausea / Vomiting: adequately controlled Pain: adequately controlled Airway Patency, RR, SpO2: stable & adequate BP & HR: stable & adequate Hydration State: stable & adequate Anesthetic Complications: no major complications apparent and Pt Satisfied with anesthetic care
[2021-10-15] MEDS ORDERED: MoRPHine SULFATE 2 MG/ML CARP IV PRN (19:54)
[2021-10-15] MEDS ORDERED: CARBOHYDRATES FOR HYPOGLYCEMIA PO PRN (19:54)
[2021-10-15] MEDS ORDERED: GLUCOSE 40% GEL 15 GM TUBE PO PRN (19:54)
[2021-10-15] MEDS ORDERED: ONDANSETRON INJ 2 MG/ML 2 ML VIAL IV PRN (19:54)
[2021-10-15] MEDS ORDERED: GLUCAGON FOR INJ 1 MG VIAL SQ PRN (19:54)
[2021-10-15] MEDS ORDERED: ALBUTEROL HFA 8 GM INHALER INH PRN (19:54)
[2021-10-15] MEDS ORDERED: DEXTROSE 50% 50 ML SYRINGE IV PRN (19:54)
[2021-10-15] MEDS ORDERED: GLUCOSE 10 TABS/TUBE PO PRN (19:54)
[2021-10-15] MEDS: LACTATED RINGER'S 1,000 ML IV SCH (21:02)
[2021-10-15] MEDS: METOPROLOL TARTRATE 25 MG TAB PO SCH (21:02)
[2021-10-15] MEDS: ATORVASTATIN 10 MG TAB PO SCH (21:03)
[2021-10-15] MEDS: TERAZOSIN HCL 5 MG CAP PO SCH (21:03)
[2021-10-15] MEDS: CIPROFLOXACIN / D5W 400 MG/200 ML BAG IV SCH (21:04)
[2021-10-15] MEDS: INSULIN ASPART PER UNIT SC SCH (21:05)
[2021-10-15] MEDS: metroNIDAZOLE 500 MG/100 ML BAG IV SCH (21:34)
[2021-10-15] MEDS: MoRPHine SULFATE 4 MG/ML 1 ML CARP\\VIAL IV PRN ×2 (22:06→23:15)
[2021-10-15] MEDS: ACETAMINOPHEN 1,000 MG/100 ML VIAL IV SCH (23:15)
[2021-10-16] MEDS: MoRPHine SULFATE 4 MG/ML 1 ML CARP\\VIAL IV PRN ×3 (04:16→21:13)
[2021-10-16] MEDS: LACTATED RINGER'S 1,000 ML IV SCH ×3 (05:33→20:07)
[2021-10-16] MEDS: metroNIDAZOLE 500 MG/100 ML BAG IV SCH ×2 (05:33→14:09)
[2021-10-16] MEDS: LEVOTHYROXINE SODIUM 175 MCG TABLET PO SCH (05:34)
[2021-10-16] MEDS: ACETAMINOPHEN 1,000 MG/100 ML VIAL IV SCH ×3 (06:32→23:11)
[2021-10-16 07:11] LABS: Basophils # (auto) 0.01 K/uL (0-0.2); Basophils % (auto) 0.1 %; Hematocrit (blood only) 34.6 % (42-52); Hemoglobin 10.4 g/dL (14.0-18.0); Immature Granulocytes # (auto) 0.01 K/uL (0.00-0.02); Immature Granulocytes % (auto) 0.1 %; Lymphocytes # (auto) 0.31 K/uL (1.2-3.4); Lymphocytes % (auto) 4.5 %; Mean Corpuscular Hemoglobin 24.9 pg (25-34); Mean Corpuscular Hgb Conc 30.1 g/dL (32-36); Mean Corpuscular Volume 82.8 fL (80-100); Monocytes # (auto) 0.51 K/uL (0.11-0.59); Monocytes % (auto) 7.4 %; Neutrophils # (auto) 6.02 K/uL (1.4-6.5); Neutrophils % (auto) 87.9 %; Platelet Count 201 K/uL (130-400); RDW Coefficient of Variation 22.5 % (11.5-14.5); RDW Standard Deviation 67.7 fL (36.4-46.3); Red Blood Count 4.18 M/uL (4.7-6.1); White Blood Count 6.86 K/uL (4.8-10.8)
[2021-10-16 07:28] LABS: Anisocytosis Present; Hypochromasia Present; Ovalocytes 1+
[2021-10-16 07:31] LABS: Calcium 8.5 mg/dl (8.5-10.1); Creatinine Clr Calc Pharmacy 56.3 ml/min; Est GFR (Non-African American) 44.9 ml/min; Potassium 4.2 mmol/L (3.5-5.1)
--- NOTE | 2021-10-16 08:33 | Surgery Progress Note ---
Date of Service October 16, 2021 Assessment & Plan (1) Colonic mass: Plan: Doing well postoperative day #1. DC NG tube and start clear liquids Out of bed today. Dr. Campos covering for the weekend. Admission and Anticipated Discharge Date Admission Date: October 15, 2021 Subjective Patient seen. Doing well postoperative day #1. Had some significant pain last night after surgery but it is controlled now. No nausea. Physical Exam Physical Exam: Alert and oriented x3 no acute distress Abdomen is soft. Expected incisional tenderness. Incisions look good. Results & Data ([facility]) Vital Signs (Past 12 Hours) Vital Signs Temp Pulse Pulse Resp BP Pulse Ox 10/16/21 07:39 68 10/16/21 07:37 36.7 C 61 16 132/70 94 10/16/21 03:49 36.5 C 79 16 126/71 93 10/15/21 23:01 36.5 C 91 H 18 150/93 H 91 10/15/21 22:20 88 10/15/21 22:00 36.8 C 80 18 164/85 H 94 10/15/21 21:02 36.5 C 89 18 161/94 H 95 PG Care Time/CCT Total # of Minutes Spent Total Time Spent with Patient: Total time spent is greater than 50% in coordination of care (as documented) at patient's floor/unit and/or counseling patient: Coding Level of Care Code None Diagnoses Colonic mass K63.89
[2021-10-16] MEDS: CIPROFLOXACIN / D5W 400 MG/200 ML BAG IV SCH (08:57)
[2021-10-16] MEDS ORDERED: glipiZIDE 5 MG TAB PO SCH (09:00)
[2021-10-16] MEDS: FINASTERIDE 5 MG TAB PO SCH (09:06)
[2021-10-16] MEDS: METOPROLOL TARTRATE 25 MG TAB PO SCH ×2 (09:06→20:05)
[2021-10-16] MEDS: INSULIN ASPART PER UNIT SC SCH ×4 (09:45→21:13)
[2021-10-16] MEDS: TERAZOSIN HCL 5 MG CAP PO SCH (20:04)
[2021-10-16] MEDS: ATORVASTATIN 10 MG TAB PO SCH (20:06)
[2021-10-17] MEDS: LACTATED RINGER'S 1,000 ML IV SCH (03:40)
[2021-10-17] MEDS: LEVOTHYROXINE SODIUM 175 MCG TABLET PO SCH (05:51)
[2021-10-17 06:11] LABS: Basophils # (auto) 0.02 K/uL (0-0.2); Basophils % (auto) 0.3 %; Eosinophils # (auto) 0.07 K/uL (0-0.5); Hemoglobin 10.2 g/dL (14.0-18.0); Immature Granulocytes # (auto) 0.01 K/uL (0.00-0.02); Immature Granulocytes % (auto) 0.1 %; Lymphocytes # (auto) 0.44 K/uL (1.2-3.4); Lymphocytes % (auto) 6.1 %; Mean Corpuscular Hemoglobin 25.3 pg (25-34); Mean Corpuscular Volume 84.4 fL (80-100); Mean Platelet Volume 9.1 fL (7.4-10.4); Neutrophils # (auto) 6.14 K/uL (1.4-6.5); Neutrophils % (auto) 85.5 %; Platelet Count 205 K/uL (130-400); RDW Coefficient of Variation 22.8 % (11.5-14.5); RDW Standard Deviation 70.2 fL (36.4-46.3); Red Blood Count 4.03 M/uL (4.7-6.1); White Blood Count 7.18 K/uL (4.8-10.8)
[2021-10-17 06:30] LABS: Anisocytosis Present; Hypochromasia Present; Ovalocytes 1+
[2021-10-17 06:42] LABS: BUN Creatinine Ratio 9.2 (10-20); Calcium 8.4 mg/dl (8.5-10.1); Creatinine Clr Calc Pharmacy 57.5 ml/min; Est GFR (African American) 53.4 ml/min; Est GFR (Non-African American) 46.1 ml/min
[2021-10-17] MEDS: ACETAMINOPHEN 1,000 MG/100 ML VIAL IV SCH ×3 (08:11→23:27)
[2021-10-17] MEDS: METOPROLOL TARTRATE 25 MG TAB PO SCH ×2 (08:12→20:35)
[2021-10-17] MEDS: FINASTERIDE 5 MG TAB PO SCH (08:12)
[2021-10-17] MEDS: ENOXAPARIN INJ 40 MG/0.4 ML SYR SQ SCH (08:12)
--- NOTE | 2021-10-17 08:30 | Surgery Progress Note ---
Date of Service October 17, 2021 Assessment & Plan (1) Colonic mass: Plan: POD#2 right hemicolectomy WBC 7, Hbg 10, Cr 1.4, Patient tolerating clears, await return of bowel function prior to advancing diet further Will decrease IVF some. UOP adequate, will d/c alston OOB as tolerates; on qd lovenox Daily dressing changes Admission and Anticipated Discharge Date Admission Date: October 15, 2021 Supervising Physician Co-Signing Physician Notes I personally saw and evaluated the patient with Cris Chowdhury PA-C and agree with the assessment and plan. 81-year-old male status post laparoscopic right hemicolectomy for hepatic flexure mass He has no return of bowel function yet, keep on clear liquids We will remove his Alston catheter Encourage ambulation I-S We will decrease his IV fluids as he is taking adequate clear liquid p.o. Leave Moore in place and the incision till closer to being discharged Start Lovenox for DVT prophylaxis Subjective Patient feeling good. tolerating clears but having some burping. no flatus/BM yet. Physical Exam Physical Exam: awake/alert, sitting up in bed Gastrointestinal (Abdomen): Inspection/Auscultation: + abdomen distended and + abdominal surgical incision (c/d/i ) Percussion/Palpation: + abdomen tender (mild expected discomfort to palpation azucena incisionally) and abdomen soft janeth in place Results & Data ([facility]) Vital Signs (Past 12 Hours) Vital Signs Temp Pulse Pulse Resp BP BP Pulse Ox 10/17/21 08:15 36.5 C 80 20 147/84 H 95 10/17/21 03:16 36.8 C 106 H 20 138/67 91 10/16/21 23:54 36.6 C 65 18 123/75 10/16/21 22:16 65 PG Care Time/CCT Total # of Minutes Spent Total Time Spent with Patient: Total time spent is greater than 50% in coordination of care (as documented) at patient's floor/unit and/or counseling patient: Coding Level of Care Code None Diagnoses Colonic mass K63.89
[2021-10-17] MEDS: INSULIN ASPART PER UNIT SC SCH ×4 (09:24→21:04)
[2021-10-17] MEDS: SODIUM CHLORIDE 0.9% 1000ML 1,000 ML IV SCH ×2 (10:12→22:33)
[2021-10-17] MEDS: ATORVASTATIN 10 MG TAB PO SCH (20:36)
[2021-10-17] MEDS: TERAZOSIN HCL 5 MG CAP PO SCH (20:38)
[2021-10-18 05:47] LABS: Basophils # (auto) 0.03 K/uL (0-0.2); Basophils % (auto) 0.6 %; Eosinophils # (auto) 0.11 K/uL (0-0.5); Eosinophils % (auto) 2.2 %; Hematocrit (blood only) 34.4 % (42-52); Hemoglobin 10.3 g/dL (14.0-18.0); Immature Granulocytes # (auto) 0.01 K/uL (0.00-0.02); Immature Granulocytes % (auto) 0.2 %; Lymphocytes # (auto) 0.61 K/uL (1.2-3.4); Mean Corpuscular Hemoglobin 25.6 pg (25-34); Mean Corpuscular Hgb Conc 29.9 g/dL (32-36); Mean Corpuscular Volume 85.4 fL (80-100); Mean Platelet Volume 9.2 fL (7.4-10.4); Monocytes # (auto) 0.38 K/uL (0.11-0.59); Monocytes % (auto) 7.5 %; Neutrophils # (auto) 3.93 K/uL (1.4-6.5); Neutrophils % (auto) 77.5 %; Platelet Count 195 K/uL (130-400); RDW Coefficient of Variation 22.5 % (11.5-14.5); RDW Standard Deviation 70.2 fL (36.4-46.3); Red Blood Count 4.03 M/uL (4.7-6.1); White Blood Count 5.07 K/uL (4.8-10.8)
[2021-10-18] MEDS: LEVOTHYROXINE SODIUM 175 MCG TABLET PO SCH (05:47)
[2021-10-18 06:03] LABS: BUN Creatinine Ratio 7.8 (10-20); Calcium 8.3 mg/dl (8.5-10.1); Creatinine Clr Calc Pharmacy 63.3 ml/min; Est GFR (Non-African American) 51.8 ml/min; Potassium 3.9 mmol/L (3.5-5.1)
[2021-10-18 06:20] LABS: Anisocytosis Present; Echinocytes 2+; Hypochromasia Present; Ovalocytes 1+
[2021-10-18] MEDS: ACETAMINOPHEN 1,000 MG/100 ML VIAL IV SCH ×2 (08:17→16:11)
[2021-10-18] MEDS: ENOXAPARIN INJ 40 MG/0.4 ML SYR SQ SCH (08:18)
[2021-10-18] MEDS: METOPROLOL TARTRATE 25 MG TAB PO SCH ×2 (08:18→20:13)
[2021-10-18] MEDS: INSULIN ASPART PER UNIT SC SCH ×4 (08:18→20:32)
[2021-10-18] MEDS: FINASTERIDE 5 MG TAB PO SCH (08:18)
--- NOTE | 2021-10-18 09:07 | Surgery Progress Note ---
Date of Service October 18, 2021 Assessment & Plan (1) Colonic mass: Plan: We will advance him to full liquids today and see how he tolerates this Continue DVT prophylaxis with Lovenox Encourage ambulation and incentive spirometry His labs reviewed, normal blood count and electrolytes within normal limits We will DC his IV fluids as he is taking in adequate p.o. Await more meaningful return of bowel function Admission and Anticipated Discharge Date Admission Date: October 15, 2021 Subjective Patient seen and examined. Tolerating clear liquids. States he had some flatus but no BM. Denies any nausea or vomiting but does have some belching. His abdominal pain is controlled. He has been urinating without issue after Plummer removal yesterday. Physical Exam Constitutional: WD/WN, vitals as above Gastrointestinal (Abdomen): Inspection/Auscultation: abdomen not distended Percussion/Palpation: + abdomen tender (Appropriately) and abdomen soft; no guarding and abdomen not rigid Upper abdominal incision with Stafford in place, no erythema or drainage Results & Data ([facility]) Vital Signs (Past 12 Hours) Vital Signs Temp Pulse Resp BP BP Pulse Ox 10/18/21 08:22 36.6 C 68 18 166/84 H 94 10/18/21 03:48 36.8 C 86 18 172/98 H 93 10/18/21 00:00 36.8 C 83 20 144/89 H 95 PG Care Time/CCT Total # of Minutes Spent Total Time Spent with Patient: Total time spent is greater than 50% in coordination of care (as documented) at patient's floor/unit and/or counseling patient: Coding Level of Care Code None Diagnoses Colonic mass K63.89
[2021-10-18] MEDS: ATORVASTATIN 10 MG TAB PO SCH (20:13)
[2021-10-18] MEDS: TERAZOSIN HCL 5 MG CAP PO SCH (20:15)
[2021-10-19] MEDS: LEVOTHYROXINE SODIUM 175 MCG TABLET PO SCH (05:30)
[2021-10-19 07:00] LABS: Basophils # (auto) 0.04 K/uL (0-0.2); Basophils % (auto) 0.9 %; Eosinophils # (auto) 0.14 K/uL (0-0.5); Eosinophils % (auto) 3.2 %; Hematocrit (blood only) 34.3 % (42-52); Hemoglobin 10.4 g/dL (14.0-18.0); Immature Granulocytes # (auto) 0.01 K/uL (0.00-0.02); Immature Granulocytes % (auto) 0.2 %; Lymphocytes # (auto) 0.47 K/uL (1.2-3.4); Lymphocytes % (auto) 10.8 %; Mean Corpuscular Hemoglobin 25.6 pg (25-34); Mean Corpuscular Hgb Conc 30.3 g/dL (32-36); Mean Corpuscular Volume 84.3 fL (80-100); Mean Platelet Volume 9.5 fL (7.4-10.4); Monocytes # (auto) 0.33 K/uL (0.11-0.59); Monocytes % (auto) 7.6 %; Neutrophils # (auto) 3.38 K/uL (1.4-6.5); Neutrophils % (auto) 77.3 %; Platelet Count 199 K/uL (130-400); RDW Coefficient of Variation 22.5 % (11.5-14.5); RDW Standard Deviation 69.6 fL (36.4-46.3); Red Blood Count 4.07 M/uL (4.7-6.1); White Blood Count 4.37 K/uL (4.8-10.8)
[2021-10-19 07:17] LABS: BUN Creatinine Ratio 6.6 (10-20); Calcium 8.4 mg/dl (8.5-10.1); Creatinine Clr Calc Pharmacy 66.3 ml/min; Est GFR (African American) 63.6 ml/min; Est GFR (Non-African American) 54.9 ml/min; Potassium 3.7 mmol/L (3.5-5.1)
[2021-10-19 07:32] LABS: Anisocytosis Present; Ovalocytes 1+
--- NOTE | 2021-10-19 09:27 | Surgery Progress Note ---
Date of Service October 19, 2021 Assessment & Plan (1) Colonic mass: Plan: Postop day 4. He is doing well. We will advance his diet to low fiber. If he tolerates this he could go home later this afternoon which he would like to do. Path still pending. Follow-up in about 1 week Admission and Anticipated Discharge Date Admission Date: October 15, 2021 Subjective Patient seen. Doing well. Tolerating full liquid diet. He is up on the edge of the bed. No nausea or vomiting. He has had several bowel movements. Physical Exam Physical Exam: Alert and oriented no acute distress Abdomen is soft nondistended. Expected incisional tenderness Results & Data ([facility]) Vital Signs (Past 12 Hours) Vital Signs Temp Pulse Pulse Resp BP BP Pulse Ox 10/19/21 04:50 36.3 C L 80 18 118/74 95 10/18/21 23:33 36.9 C 77 20 149/93 H 93 10/18/21 22:14 94 H PG Care Time/CCT Total # of Minutes Spent Total Time Spent with Patient: Total time spent is greater than 50% in coordination of care (as documented) at patient's floor/unit and/or counseling patient: Coding Level of Care Code None Diagnoses Colonic mass K63.89
[2021-10-19] MEDS: METOPROLOL TARTRATE 25 MG TAB PO SCH (09:31)
[2021-10-19] MEDS: FINASTERIDE 5 MG TAB PO SCH (09:31)
[2021-10-19] MEDS: ENOXAPARIN INJ 40 MG/0.4 ML SYR SQ SCH (09:32)
[2021-10-19] MEDS: INSULIN ASPART PER UNIT SC SCH ×2 (09:33→12:56)
--- NOTE | 2021-10-22 10:52 | Discharge Summary ---
Date of Service October 19, 2021 Principal Diagnosis Adenocarcinoma of colon Discharge Exam Constitutional WD/WN, vitals as above Gastrointestinal (Abdomen) Inspection/Auscultation: + abdominal surgical incision (no erythema) Percussion/Palpation: abdomen soft Discharge Data Allergies Allergy/AdvReac Type Severity Reaction Status Date / Time bee pollen Allergy Severe flushing Verified 10/15/21 11:05 and facial swelling Iodinated Contrast Media Allergy Severe flushing Verified 10/15/21 11:05 and facial swelling lisinopril Allergy Severe Hives Verified 10/15/21 11:05 tetanus toxoid, adsorbed Allergy Intermediate HIVES Verified 10/15/21 11:05 latex Allergy Mild skin Verified 10/15/21 11:05 irritation Penicillins Allergy Mild UNKNOWN Verified 10/15/21 11:05 Procedures Performed Operation Date: 10/15/21 12:45 Actual Procedures p Laparoscopic, Hand assisted right hemicolectomy(Right) - Rene Cavanaugh DO Hospital Course (1) Colonic mass: 81 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 He was transferred to med/surg telemetry given his age and history of A-fib. He did well postoperatively. Blood sugars were covered with SSI. Lovenox was used for DVT prophylaxis. NG tube was removed and he was started on clear liquids on POD 1. He was advanced to full liquids on POD 3 once he had returning bowel function. By day 4 he was having multiple BMs and tolerated low fiber diet. He was stable for discharge home later in the day. Total Time Total Time Spent Total Time Spent (In Minutes): 15 Discharge Plan Discharge Items Patient Disposition: Home - Self-Care Reason For Visit: COLON MASS Discharge Diagnosis: colon mass Activity: As commented below Lifting: No more than 10 pounds Bathing Comment: may shower. no tub soaks Non-emergency contact: Surgeon Call non-emergency contact if: you have any medication questions, your pain is not controlled, your temperature is above 101, your wound has increased redness, your wound has increased drainage and your wound pain has increased Follow-up/Referrals: Rene Cavanaugh DO [Surgeon] - Peace Duke MD [Primary Care Provider] - Diet: Low Fiber Addtl Attending Provider Instructions: may cover incisions with gauze/tape. change daily. Pending Studies at Discharge: Yes Studies:: pathology report Stand-Alone Forms: My [facility], Smoking Cessation Medications and DC Order Prescriptions: New oxycodone-acetaminophen 5-325 mg tablet 1 tab PO Q6H PRN (Reason: pain) Qty: 14 RF: 0 Continued terazosin 10 mg capsule 10 mg PO HS RF: 0 albuterol sulfate 90 mcg/actuation HFA aerosol inhaler 1 inh inhalation DIRECTED RF: 0 atorvastatin 10 mg tablet 10 mg PO HS RF: 0 losartan 50 mg tablet 50 mg PO BID Qty: 90 RF: 0 epinephrine 0.3 mg/0.3 mL auto-injector 0.3 mg IM .INJECT 0.3ML INTRAMU PRN (Reason: Allergic Reaction) RF: 0 finasteride 5 mg tablet 5 mg PO QAM RF: 0 glipizide 5 mg tablet 5 mg PO QAM RF: 0 allopurinol 300 mg tablet 300 mg PO HS RF: 0 levothyroxine 175 mcg Tablet 175 mcg PO QAM RF: 0 furosemide 20 mg tablet 20 mg PO QAM PRN (Reason: Fluid Retention) RF: 0 metoprolol tartrate 25 mg Tablet 12.5 mg PO BID 30 Days Qty: 30 RF: 0 Eliquis 2.5 mg tablet 2.5 mg PO BID Qty: 60 RF: 0 Discharge Orders: Discharge Order (Routine); Ordered 10/19/21 Ordered By: Rene Cavanaugh Admission Data Admit Date/Time: 10/15/21 17:45 Attending Provider: Rene Cavanaugh Admit Provider: Rene Cavanaugh Primary Care Provider: Peace Duke Other Interventions: Discharge Summary Assessment (RN) Last Done: 10/19/21 14:19 Coding Level of Care Code D/C DAY MANAGEMENT <30 MINS Diagnoses Colonic mass K63.89
== END 2021-10-19 16:40 | disposition home or self-care (01) | DRG 330 ==
LOC: ASU 10:27 → 2N 17:45

== ENCOUNTER 2023-12-08 20:11 | Inpatient (IN) ==
[2023-12-08 20:35] LABS: Basophils # (auto) 0.05 K/uL (0.00-0.20); Basophils % (auto) 0.5 %; Eosinophils # (auto) 0.04 K/uL (0.00-0.50); Eosinophils % (auto) 0.4 %; Hematocrit (blood only) 38.4 % (42.0-52.0); Hemoglobin 12.7 g/dl (14.0-18.0); Immature Granulocytes # (auto) 0.04 K/uL (0.01-0.20); Immature Granulocytes % (auto) 0.4 %; Lymphocytes # (auto) 0.62 K/uL (1.20-3.40); Lymphocytes % (auto) 6.1 %; Mean Corpuscular Hemoglobin 29.3 pg (25.0-34.0); Mean Corpuscular Hgb Conc 33.1 g/dL (32.0-36.0); Mean Corpuscular Volume 88.7 fL (80.0-100.0); Mean Platelet Volume 9.7 fL (9.4-12.4); Monocytes % (auto) 7.9 %; Neutrophils # (auto) 8.55 K/uL (1.40-6.50); Neutrophils % (auto) 84.7 %; Platelet Count 147 K/uL (130-400); RDW Coefficient of Variation 14.1 % (11.5-14.5); RDW Standard Deviation 45.4 fL (36.4-46.3); Red Blood Count 4.33 M/uL (4.70-6.10)
[2023-12-08 20:48] LABS: INR 1.1 (0.9-1.1); Prothrombin Time 12.2 Seconds (9.0-12.0)
[2023-12-08] MEDS: ACETAMINOPHEN 1,000 MG/100 ML VIAL IV STA (21:02)
[2023-12-08 21:18] LABS: Albumin Globulin Ratio 1.2 (0.9-2); Albumin Level 3.8 gm/dl (3.4-5.0); BUN Creatinine Ratio 13.5 (10-20); Bilirubin,Total 1.4 mg/dl (0.2-1.0); Calcium 8.6 mg/dl (8.6-10.3); Creatinine Clr Calc Pharmacy 49.2 ml/min; Est GFR (African American) 46.9 ml/min; Est GFR (Non-African American) 40.5 ml/min; Globulin 3.2 gm/dl (2.5-4.0); Magnesium 1.7 mg/dl (1.7-2.4); Potassium 3.9 mmol/L (3.5-5.1)
[2023-12-08 21:23] LABS: Troponin I High Sensitivity 17.8 pg/ml (0-20)
[2023-12-08 21:26] LABS: Adenovirus PCR Not Detected (NotDetected); Bordetella parapertussis PCR Not Detected (NotDetected); Bordetella pertussis PCR Not Detected (NotDetected); Chlamydia pneumoniae PCR Not Detected (NotDetected); Coronavirus 229E PCR Not Detected (NotDetected); Coronavirus CoV-2 (COVID19)PCR Not Detected (NotDetected); Coronavirus HKU1 PCR Not Detected (NotDetected); Coronavirus NL63 PCR Not Detected (NotDetected); Coronavirus OC43PCR Not Detected (NotDetected); Human Metapneumovirus PCR Not Detected (NotDetected); Influenza A PCR Not Detected (NotDetected); Influenza B PCR Not Detected (NotDetected); Mycoplasma pneumoniae PCR Not Detected (NotDetected); Parainfluenza Virus 1 PCR Not Detected (NotDetected); Parainfluenza Virus 2 PCR Not Detected (NotDetected); Parainfluenza Virus 3 PCR Not Detected (NotDetected); Parainfluenza Virus 4 PCR Not Detected (NotDetected); Respiratory Syncytial VirusPCR Not Detected (NotDetected); Rhinovirus/Enterovirus PCR Not Detected (NotDetected)
[2023-12-08 21:33] LABS: Thyroid Stimulating Hormone 3.26 uIu/ml (0.300-4.500)
[2023-12-08] MEDS: SODIUM CHLORIDE 0.9% 500 ML IV ONE (22:37)
[2023-12-08 22:49] LABS: Procalcitonin 0.08 ng/ml (0-0.5)
[2023-12-08 23:15] LABS: Lyme Screen Rflx Confirmation Negative (Negative)
--- NOTE | 2023-12-08 23:21 | Emergency Department Note ---
Impression & Plan Chest pain, Palpitation, Fatigue, Fever, Hyponatremia ED Provider Note ED Provider Note NAME: DALLIN BYRNE AGE:83 SEX: Male : 1940 ARRIVES VIA: EMS INFORMANT: Patient ED PROVIDER(s): Veronica Gibbs DO CHIEF COMPLAINT: Chest pain, palpitations, shortness of breath HPI: This is an 83-year-old male presents emergency department due to concern for chest pain, shortness of breath, palpitations. Patient states he has been more fatigued the last 2 days has not had much to eat and drink. He states today he felt as though he was having increased A-fib symptoms with palpitations which are giving him discomfort on the right side of his chest. He denies any radiation into the back but states there was some discomfort up into the right side of the neck. No pain into the right arm. He denies nausea or vomiting, fevers or chills, or coming abdominal pain. No recent trauma or change in activity. No recent change in medications. No recent illness or known sick contacts. Patient denies any change in urine or stools, no recent leg swelling. Patient states he has had atrial fibrillation for 30 years and does take a blood thinner daily. No meds prior to arrival. PAST MEDICAL HISTORY:See Below PAST SURGICAL HISTORY:See Below FAMILY HISTORY:See Below SOCIAL HISTORY:See Below HOME MEDICATIONS:See Below ALLERGIES:See Below VITALS:See Below PHYSICAL EXAMINATION: GENERAL: alert, well appearing, well nourished, no distress, non-toxic EYE EXAM: normal conjunctiva, PERRL and EOM's grossly intact OROPHARYNX: no exudate, no erythema, lips, buccal mucosa, and tongue normal and mucous membranes are moist NECK: supple, no nuchal rigidity, no adenopathy, non-tender LUNGS: Clear to auscultation. Normal chest wall mechanics, no w/r/r HEART: no murmurs, S1 normal and S2 normal ABDOMEN: abdomen soft, non-tender, normo-active bowel sounds, no masses, no rebound or guarding. BACK: Back is symmetrical on inspection and there is no deformity, no midline tenderness, no CVA tenderness. SKIN: no rashes, petechiae, orbruising UPPER EXTREMITIES: upper extremities are grossly normal. FROM, nml pulses b/l. LOWER EXTREMITIES: No pitting edema. FROM, nml pulses b/l. NEURO EXAM: Normal sensorium, cranial nerves II-XII grossly intact, normal speech, no facial droop,nogross weakness of arms, no gross weakness of legs. Gross sensation intact. No ataxia. Vital Signs: reviewed and remarkable Differential Diagnosis: acute coronary syndrome, pericarditis, pulmonary embolus, aortic dissection, pneumonia, pneumothorax, musculoskeletal pain, shingles, GERD, GI bleed, as well as others were considered MEDICAL DECISION MAKING: This ia an 83yo male who presents to the ER due to concern for chest pain and sob. Patient with cardiac hx including a.fib and does take eliquis daily. VS stable on arrival however borderling fever noted. Labs drawn and sent, IV established, EKG and CXR performed and interpreted at bedside, and patient placed on telemetry. Procal added additionally given temp. Patient then developed fever here. After additional discussion further labs sent. Patient given tylenol with improvement in temperature. Patient then admitted to recent abd pain and so was sent for CT a/p additionally. This was reassuring. Patient then developed shaking chills. He was noted to have mild hyponatremia and mild elevation of his creatinine compared to prior. Given evolving symptoms of unclear etiology, advanced age, and comorbidities, case discussed with the hospitalist team for additional evaluation and mgmt. Consultation(s): 035: Discussed with Dr. Sanabria, [facility] hospitalist team, for additional evaluation and mgmt. ER Treatment Provided: See below 2215: Patient diaphoretic from fever. 2358: Patient now admits to recent tick bite and recent intermittent abd pain. He does have a hx of colon cancer. Diagnostics Interpreted By Me: -ECG: Atrial fibrillation at 97, normal axis, right bundle branch block, nonspecific ST/T wave changes -Cardiac Monitoring: An order was placed for continuous cardiac monitoring. The monitor shows a rate of 103 with a.fib rhythm. -Laboratory studies: As stated above and show below. -Imaging studies: X-ray Chest: A single view study of the chest was reviewed and was negative for cardiomegaly, focal infiltrate, effusion, pulmonary edema, or wide mediastinum. Triage Nursing Note Reviewed Prior/Outside Records Reviewed - prior cardiology office visit reviewed Past Med/Surg History Problem List (Updated 12/09/23 @ 18:20 by Veronica Gibbs DO) Hyponatremia (Acute) Atrial fibrillation Sepsis Abnormal CT scan of lung Mediastinal adenopathy Fever (Acute) Fatigue (Acute) Palpitation (Acute) Chest pain (Acute) H/O hemicolectomy (10/16/21) Laparoscopic extended Right Hemicolectomy - Rene Cavanaugh, Chronic a-fib (Acute) Colonic mass Morbid obesity CKD (chronic kidney disease) Stage III per records -- monitors with [facility] Nephrology Obesity Type 2 diabetes mellitus NIDDM Paroxysmal atrial fibrillation Recently set up with [facility]. (hx of following with Dr Murguia) Rate well controlled and on Eliquis per 10/09/21 cardio note Obstructive sleep apnea Uses cpap nightly Hypertension Hyperlipidemia Chronic gout Asthma, moderate persistent well controlled BPH without obstruction/lower urinary tract symptoms Hypothyroidism Medical History Aortic stenosis Borderline to mild aortic stenosis per 09/17/21 ECHO Aortic aneurysm 4.6cm per August 2021 ECHO On anticoagulant therapy Anemia S/p 2 units of pRBC's on admission 09/23/21 and 1 unit of pRBC's prior to discharge 09/26/21 from [facility]. Also had IV iron while admitted History of recent hospitalization 09/23/21 at [facility] for GI Bleed and anemia GI bleed September 2021 inpatient at [facility] Seasonal allergies Hx of nephrolithotomy with removal of calculi History of kidney stones Multiple lung nodules on CT Lactase deficiency Asbestos exposure Angioedema History of Encounter for pre-operative examination Abnormal CT of the abdomen Anemia requiring transfusions VILLALBA (dyspnea on exertion) Weakness GI (gastrointestinal bleed) Surgical History History of esophagogastroduodenoscopy (EGD) History of lithotripsy S/P surgical removal of pilonidal cyst History of colonoscopy History of cardioversion 2009 Family History Mother Cancer Father Heart disease Sister Heart disease Brother Seizure Other No family history of adverse response to anesthesia Social History Smoking Status: Never smoker Second Hand Exposure: No; Do You Dip or Chew Tobacco: No; Hx Alcohol Use: No Hx Substance Use: No Preferred Language: Finnish Communication Ability: Effective Visual Impairment: No Limitations Youth Coordinator Required: No Beliefs That Will Affect Care: None marital status: / Current Living Situation: Alone Current Living Situation Comment: lives by self and his daughter helps as needed current occupational status: retired How many Children do You have: 2 Feels Safe at Home: Yes Diet: diabetic during the past year weight has: decreased > 10 lbs Assistive Devices: Cane, CPAP, Walker and Wheelchair Allergies Allergies Allergy/AdvReac Type Severity Reaction Status Date / Time bee pollen Allergy Severe flushing Verified 12/09/23 00:10 and facial swelling Iodinated Contrast Media Allergy Severe flushing Verified 12/09/23 00:10 and facial swelling lisinopril Allergy Severe Hives Verified 12/09/23 00:10 tetanus toxoid, adsorbed Allergy Intermediate HIVES Verified 12/09/23 00:10 latex Allergy Mild skin Verified 12/09/23 00:10 irritation Penicillins Allergy Mild UNKNOWN Verified 12/09/23 00:10 Home Meds Home Medications Medication Instructions Recorded Confirmed atorvastatin 10 mg tablet 10 mg PO HS 12/12/18 12/09/23 epinephrine 0.3 mg/0.3 mL 0.3 mg IM .INJECT 0.3ML INTRAMU 12/12/18 12/09/23 injection, auto-injector PRN Allergic Reaction losartan 50 mg tablet 50 mg PO BID #90 tabs 12/12/18 12/09/23 terazosin 10 mg capsule 10 mg PO HS 12/12/18 12/09/23 allopurinol 300 mg tablet 300 mg PO HS 12/13/18 12/09/23 furosemide 20 mg tablet 20 mg PO QAM PRN Fluid Retention 09/23/21 12/09/23 levothyroxine 175 mcg tablet 175 mcg PO QAM 10/12/21 12/09/23 metoprolol tartrate 25 mg tablet 12.5 mg PO DAILY 10/28/21 12/09/23 coenzyme Q10 100 mg capsule 0 mg PO DAILY 12/08/23 12/09/23 (CoQ-10) fluticasone propionate 50 2 spray intranasal QAM 12/08/23 12/09/23 mcg/actuation nasal spray,suspension metformin 500 mg tablet,extended 500 mg PO TID 12/08/23 12/09/23 release 24 hr multivitamin 1 tab PO DAILY 12/08/23 12/09/23 semaglutide 7 mg tablet 7 mg PO QAM 12/08/23 12/09/23 Previous Rx's Medication Instructions Recorded apixaban 2.5 mg tablet (Eliquis) 2.5 mg PO BID #60 tabs 09/26/21 Results & Data (ED) Vital Signs Vital Signs - 24 hr 12/08/23 20:14 12/08/23 20:14 12/08/23 20:14 Temperature 37.9 C H Temperature Source Oral Pulse Rate 109 H Pulse Rate [Apical] Pulse Rate from SpO2 Sensor Pulse Rhythm Regular Pulse Rhythm [Apical] Pulse Strength Normal Pulse Strength [Apical] Respiratory Rate 20 Respiratory Effort / Characteristics Non-Labored Spontaneous Non-Labored Spontaneous Respiratory Depth Normal Normal Respiratory Pattern Regular Regular Blood Pressure 139/84 Blood Pressure [Right Arm] Blood Pressure Mean 102 Blood Pressure Mean [Right Arm] Blood Pressure Position Lying Blood Pressure Position [Right Arm] Pulse Oximetry 96 96 Oxygen Delivery Method Room Air Room Air Room Air Oxygen Flow Rate Sepsis Recent Fever Within 48 Hours Yes Sepsis New/Unexplained Change in Mental Status N/A Sepsis Action Taken by Nursing No Action Required Oxygen Flow Rate - Titration Pulse Oximetry Post Tiitration 12/08/23 20:14 12/08/23 20:21 12/08/23 20:22 Temperature 37.9 C H Temperature Source Oral Pulse Rate 109 H 95 H Pulse Rate [Apical] 104 H Pulse Rate from SpO2 Sensor 106 H Pulse Rhythm Pulse Rhythm [Apical] Regular Pulse Strength Pulse Strength [Apical] Normal Respiratory Rate 20 23 Respiratory Effort / Characteristics Non-Labored Spontaneous Respiratory Depth Normal Respiratory Pattern Regular Blood Pressure 139/84 Blood Pressure [Right Arm] 139/84 Blood Pressure Mean 102 Blood Pressure Mean [Right Arm] 102 Blood Pressure Position Blood Pressure Position [Right Arm] Lying Pulse Oximetry 96 96 Oxygen Delivery Method Room Air Oxygen Flow Rate Sepsis Recent Fever Within 48 Hours Sepsis New/Unexplained Change in Mental Status Sepsis Action Taken by Nursing Oxygen Flow Rate - Titration Pulse Oximetry Post Tiitration 12/08/23 21:22 12/08/23 23:23 12/09/23 00:12 Temperature 38.4 C H 36.9 C Temperature Source Oral Oral Pulse Rate 88 Pulse Rate [Apical] 96 H Pulse Rate from SpO2 Sensor 94 H Pulse Rhythm Pulse Rhythm [Apical] Pulse Strength Pulse Strength [Apical] Respiratory Rate 16 20 Respiratory Effort / Characteristics Non-Labored Spontaneous Respiratory Depth Normal Respiratory Pattern Regular Blood Pressure Blood Pressure [Right Arm] 140/84 Blood Pressure Mean Blood Pressure Mean [Right Arm] 102 Blood Pressure Position Blood Pressure Position [Right Arm] Pulse Oximetry 95 97 Oxygen Delivery Method Room Air Oxygen Flow Rate Sepsis Recent Fever Within 48 Hours Sepsis New/Unexplained Change in Mental Status Sepsis Action Taken by Nursing Oxygen Flow Rate - Titration Pulse Oximetry Post Tiitration 12/09/23 01:00 12/09/23 01:19 12/09/23 01:52 Temperature 36.5 C Temperature Source Oral Pulse Rate Pulse Rate [Apical] 101 H Pulse Rate from SpO2 Sensor Pulse Rhythm Pulse Rhythm [Apical] Pulse Strength Pulse Strength [Apical] Respiratory Rate 20 Respiratory Effort / Characteristics Non-Labored Spontaneous Respiratory Depth Normal Respiratory Pattern Regular Blood Pressure 129/94 Blood Pressure [Right Arm] 129/94 Blood Pressure Mean 110 Blood Pressure Mean [Right Arm] 105 Blood Pressure Position Blood Pressure Position [Right Arm] Pulse Oximetry 95 Oxygen Delivery Method Room Air Oxygen Flow Rate Sepsis Recent Fever Within 48 Hours Sepsis New/Unexplained Change in Mental Status Sepsis Action Taken by Nursing Oxygen Flow Rate - Titration Pulse Oximetry Post Tiitration 12/09/23 02:03 12/09/23 02:06 12/09/23 02:51 Temperature Temperature Source Pulse Rate 102 H 90 90 Pulse Rate [Apical] Pulse Rate from SpO2 Sensor 92 H 87 Pulse Rhythm Pulse Rhythm [Apical] Pulse Strength Pulse Strength [Apical] Respiratory Rate 28 H 30 H Respiratory Effort / Characteristics Respiratory Depth Respiratory Pattern Blood Pressure Blood Pressure [Right Arm] Blood Pressure Mean Blood Pressure Mean [Right Arm] Blood Pressure Position Blood Pressure Position [Right Arm] Pulse Oximetry 94 91 Oxygen Delivery Method Oxygen Flow Rate Sepsis Recent Fever Within 48 Hours Sepsis New/Unexplained Change in Mental Status Sepsis Action Taken by Nursing Oxygen Flow Rate - Titration Pulse Oximetry Post Tiitration 12/09/23 03:00 12/09/23 03:03 12/09/23 03:03 Temperature Temperature Source Pulse Rate Pulse Rate [Apical] 112 H Pulse Rate from SpO2 Sensor Pulse Rhythm Pulse Rhythm [Apical] Pulse Strength Pulse Strength [Apical] Respiratory Rate 22 Respiratory Effort / Characteristics Respiratory Depth Respiratory Pattern Blood Pressure 124/101 H 124/101 H Blood Pressure [Right Arm] 124/101 H Blood Pressure Mean 107 107 Blood Pressure Mean [Right Arm] 108 Blood Pressure Position Blood Pressure Position [Right Arm] Pulse Oximetry 97 Oxygen Delivery Method Nasal Cannula Oxygen Flow Rate 3 Sepsis Recent Fever Within 48 Hours Sepsis New/Unexplained Change in Mental Status Sepsis Action Taken by Nursing Oxygen Flow Rate - Titration Pulse Oximetry Post Tiitration 12/09/23 03:06 12/09/23 03:19 12/09/23 04:00 Temperature Temperature Source Pulse Rate 113 H Pulse Rate [Apical] Pulse Rate from SpO2 Sensor 146 H Pulse Rhythm Pulse Rhythm [Apical] Pulse Strength Pulse Strength [Apical] Respiratory Rate 19 Respiratory Effort / Characteristics Respiratory Depth Respiratory Pattern Blood Pressure Blood Pressure [Right Arm] Blood Pressure Mean Blood Pressure Mean [Right Arm] Blood Pressure Position Blood Pressure Position [Right Arm] Pulse Oximetry 72 L 83 L 95 Oxygen Delivery Method Room Air Oxygen Flow Rate Sepsis Recent Fever Within 48 Hours Sepsis New/Unexplained Change in Mental Status Sepsis Action Taken by Nursing Oxygen Flow Rate - Titration 3 Pulse Oximetry Post Tiitration 97 12/09/23 04:45 12/09/23 05:00 12/09/23 05:15 Temperature Temperature Source Pulse Rate 120 H Pulse Rate [Apical] 126 H Pulse Rate from SpO2 Sensor 129 H Pulse Rhythm Pulse Rhythm [Apical] Pulse Strength Pulse Strength [Apical] Respiratory Rate 32 H 26 H Respiratory Effort / Characteristics Respiratory Depth Respiratory Pattern Blood Pressure 172/93 H Blood Pressure [Right Arm] 172/93 H Blood Pressure Mean 112 Blood Pressure Mean [Right Arm] 119 Blood Pressure Position Blood Pressure Position [Right Arm] Pulse Oximetry 95 98 Oxygen Delivery Method Nasal Cannula Oxygen Flow Rate 3 Sepsis Recent Fever Within 48 Hours Sepsis New/Unexplained Change in Mental Status Sepsis Action Taken by Nursing Oxygen Flow Rate - Titration Pulse Oximetry Post Tiitration 12/09/23 05:15 12/09/23 05:18 12/09/23 06:15 Temperature Temperature Source Pulse Rate 98 H Pulse Rate [Apical] Pulse Rate from SpO2 Sensor 118 H 98 H Pulse Rhythm Pulse Rhythm [Apical] Pulse Strength Pulse Strength [Apical] Respiratory Rate 29 H Respiratory Effort / Characteristics Respiratory Depth Respiratory Pattern Blood Pressure 172/93 H Blood Pressure [Right Arm] Blood Pressure Mean 112 Blood Pressure Mean [Right Arm] Blood Pressure Position Blood Pressure Position [Right Arm] Pulse Oximetry 97 98 Oxygen Delivery Method Oxygen Flow Rate Sepsis Recent Fever Within 48 Hours Sepsis New/Unexplained Change in Mental Status Sepsis Action Taken by Nursing Oxygen Flow Rate - Titration Pulse Oximetry Post Tiitration 12/09/23 06:33 12/09/23 07:01 12/09/23 07:06 Temperature Temperature Source Pulse Rate 100 H Pulse Rate [Apical] Pulse Rate from SpO2 Sensor 99 H 101 H Pulse Rhythm Pulse Rhythm [Apical] Pulse Strength Pulse Strength [Apical] Respiratory Rate 22 Respiratory Effort / Characteristics Respiratory Depth Respiratory Pattern Blood Pressure 149/80 H Blood Pressure [Right Arm] Blood Pressure Mean 103 Blood Pressure Mean [Right Arm] Blood Pressure Position Blood Pressure Position [Right Arm] Pulse Oximetry 97 98 Oxygen Delivery Method Oxygen Flow Rate Sepsis Recent Fever Within 48 Hours Sepsis New/Unexplained Change in Mental Status Sepsis Action Taken by Nursing Oxygen Flow Rate - Titration Pulse Oximetry Post Tiitration Laboratory Data 12/09/23 06:24 12/09/23 04:32 Lab Results 12/08/23 12/08/23 12/08/23 Range/Units 20:21 22:34 23:17 WBC 10.10 (4.8-10.8) K/ul RBC 4.33 L (4.70-6.10) M/uL Hgb 12.7 L (14.0-18.0) g/dl Hct 38.4 L (42.0-52.0) % MCV 88.7 (80.0-100.0) fL MCH 29.3 (25.0-34.0) pg MCHC 33.1 (32.0-36.0) g/dL RDW Std Deviation 45.4 (36.4-46.3) fL RDW Coeff of Chris 14.1 (11.5-14.5) % Plt Count 147 (130-400) K/uL MPV 9.7 (9.4-12.4) fL Immature Gran % (Auto) 0.4 % Neut % (Auto) 84.7 % Lymph % (Auto) 6.1 % [place] % (Auto) 7.9 % Eos % (Auto) 0.4 % Baso % (Auto) 0.5 % Neut # (Auto) 8.55 H (1.40-6.50) K/uL Lymph # (Auto) 0.62 L (1.20-3.40) K/uL [place] # (Auto) 0.80 H (0.11-0.59) K/uL Eos # (Auto) 0.04 (0.00-0.50) K/uL Baso # (Auto) 0.05 (0.00-0.20) K/uL Immature Gran # (Auto) 0.04 (0.01-0.20) K/uL PT 12.2 H (9.0-12.0) Seconds INR 1.1 (0.9-1.1) Sodium 130 L (136-145) mmol/L Potassium 3.9 (3.5-5.1) mmol/L Chloride 98 (98-107) mmol/L Carbon Dioxide 24 (21-32) mmol/L Anion Gap 8 (3-11) BUN 21 (6-23) mg/dl Creatinine 1.55 H (0.6-1.4) mg/dl Est Cr Clr Drug Dosing 49.2 ml/min Est GFR ( Amer) 46.9 ml/min Est GFR (Non-Af Amer) 40.5 ml/min BUN/Creatinine Ratio 13.5 (10-20) Glucose 238 H (70-99(Fasting)) mg/dl Osmolality (280-300) mOsm/kg Lactate (0.4-2.0) mmol/L Calcium 8.6 (8.6-10.3) mg/dl Magnesium 1.7 (1.7-2.4) mg/dl Total Bilirubin 1.4 H (0.2-1.0) mg/dl AST 14 (13-39) U/L ALT 13 (7-52) U/L Alkaline Phosphatase 61 (34-104) U/L Troponin I High Sens 17.8 (0-20) pg/ml B-Natriuretic Peptide 100 (0-100) pg/ml Total Protein 7.0 (6.0-8.3) gm/dl Albumin 3.8 (3.4-5.0) gm/dl Globulin 3.2 (2.5-4.0) gm/dl Albumin/Globulin Ratio 1.2 (0.9-2) Lipase 18 (11-82) U/L Procalcitonin 0.08 (0-0.5) ng/ml TSH 3.260 (0.300-4.500) uIu/ml Urine Color Dark Yellow Urine Appearance Cloudy A (Clear) Urine pH 5.0 (4.5-7.5) Ur Specific [place] 1.025 (1.000-1.030) Urine Protein 3+ H (Negative) Urine Glucose (UA) Negative (Negative) Urine Ketones Trace H (Negative) Urine Blood Negative (Negative) Urine Nitrite Negative (Negative) Urine Bilirubin 1+ H (Negative) Urine Urobilinogen Negative (Negative) Ur Leukocyte Esterase Trace H (Negative) Urine WBC (Auto) 0-5 (0-5) /hpf Urine RBC (Auto) 0-2 (0-2) /hpf U Hyaline Cast (Auto) 11-20 H (0-2) /lpf U Epithel Cells (Auto) 0-2 (0-2) /hpf Urine Bacteria (Auto) None Seen (None Seen) Granular Casts Present A (None Prsent) /lpf Adenovirus (PCR) (NotDetected) Anaplasma Smear Cancelled See Comment Babesia Smear Cancelled See Comment B. pertussis DNA (PCR) (NotDetected) B.parapertussis DNA PCR (NotDetected) Lyme Disease Screen Negative (Negative) C. pneumoniae DNA (PCR) (NotDetected) Coronavirus OC43 (PCR) (NotDetected) Coronavirus HKU1 (PCR) (NotDetected) Coronavirus 229E (PCR) (NotDetected) SARS-CoV-2 (PCR) (NotDetected) Coronavirus NL63 (PCR) (NotDetected) Human Metapneumovir PCR (NotDetected) Influenza Type A (PCR) (NotDetected) Influenza Type B (PCR) (NotDetected) M. pneumoniae (PCR) (NotDetected) Parainfluenza 1 (PCR) (NotDetected) Parainfluenza 2 (PCR) (NotDetected) Parainfluenza 3 (PCR) (NotDetected) Parainfluenza 4 (PCR) (NotDetected) RSV (PCR) (NotDetected) Entero/Rhino (PCR) (NotDetected) 12/08/23 12/09/23 12/09/23 Range/Units Unknown 00:02 04:31 WBC (4.8-10.8) K/ul RBC (4.70-6.10) M/uL Hgb (14.0-18.0) g/dl Hct (42.0-52.0) % MCV (80.0-100.0) fL MCH (25.0-34.0) pg MCHC (32.0-36.0) g/dL RDW Std Deviation (36.4-46.3) fL RDW Coeff of Chris (11.5-14.5) % Plt Count (130-400) K/uL MPV (9.4-12.4) fL Immature Gran % (Auto) % Neut % (Auto) % Lymph % (Auto) % [place] % (Auto) % Eos % (Auto) % Baso % (Auto) % Neut # (Auto) (1.40-6.50) K/uL Lymph # (Auto) (1.20-3.40) K/uL [place] # (Auto) (0.11-0.59) K/uL Eos # (Auto) (0.00-0.50) K/uL Baso # (Auto) (0.00-0.20) K/uL Immature Gran # (Auto) (0.01-0.20) K/uL PT (9.0-12.0) Seconds INR (0.9-1.1) Sodium (136-145) mmol/L Potassium (3.5-5.1) mmol/L Chloride (98-107) mmol/L Carbon Dioxide (21-32) mmol/L Anion Gap (3-11) BUN (6-23) mg/dl Creatinine (0.6-1.4) mg/dl Est Cr Clr Drug Dosing ml/min Est GFR ( Amer) ml/min Est GFR (Non-Af Amer) ml/min BUN/Creatinine Ratio (10-20) Glucose (70-99(Fasting)) mg/dl Osmolality 289 (280-300) mOsm/kg Lactate 1.4 (0.4-2.0) mmol/L Calcium (8.6-10.3) mg/dl Magnesium (1.7-2.4) mg/dl Total Bilirubin (0.2-1.0) mg/dl AST (13-39) U/L ALT (7-52) U/L Alkaline Phosphatase (34-104) U/L Troponin I High Sens 15.7 (0-20) pg/ml B-Natriuretic Peptide (0-100) pg/ml Total Protein (6.0-8.3) gm/dl Albumin (3.4-5.0) gm/dl Globulin (2.5-4.0) gm/dl Albumin/Globulin Ratio (0.9-2) Lipase (11-82) U/L Procalcitonin (0-0.5) ng/ml TSH (0.300-4.500) uIu/ml Urine Color Urine Appearance (Clear) Urine pH (4.5-7.5) Ur Specific [place] (1.000-1.030) Urine Protein (Negative) Urine Glucose (UA) (Negative) Urine Ketones (Negative) Urine Blood (Negative) Urine Nitrite (Negative) Urine Bilirubin (Negative) Urine Urobilinogen (Negative) Ur Leukocyte Esterase (Negative) Urine WBC (Auto) (0-5) /hpf Urine RBC (Auto) (0-2) /hpf U Hyaline Cast (Auto) (0-2) /lpf U Epithel Cells (Auto) (0-2) /hpf Urine Bacteria (Auto) (None Seen) Granular Casts (None Prsent) /lpf Adenovirus (PCR) Not Detected (NotDetected) Anaplasma Smear Babesia Smear B. pertussis DNA (PCR) Not Detected (NotDetected) B.parapertussis DNA PCR Not Detected (NotDetected) Lyme Disease Screen (Negative) C. pneumoniae DNA (PCR) Not Detected (NotDetected) Coronavirus OC43 (PCR) Not Detected (NotDetected) Coronavirus HKU1 (PCR) Not Detected (NotDetected) Coronavirus 229E (PCR) Not Detected (NotDetected) SARS-CoV-2 (PCR) Not Detected (NotDetected) Coronavirus NL63 (PCR) Not Detected (NotDetected) Human Metapneumovir PCR Not Detected (NotDetected) Influenza Type A (PCR) Not Detected (NotDetected) Influenza Type B (PCR) Not Detected (NotDetected) M. pneumoniae (PCR) Not Detected (NotDetected) Parainfluenza 1 (PCR) Not Detected (NotDetected) Parainfluenza 2 (PCR) Not Detected (NotDetected) Parainfluenza 3 (PCR) Not Detected (NotDetected) Parainfluenza 4 (PCR) Not Detected (NotDetected) RSV (PCR) Not Detected (NotDetected) Entero/Rhino (PCR) Not Detected (NotDetected) 12/09/23 12/09/23 Range/Units 04:32 06:24 WBC 10.77 (4.8-10.8) K/ul RBC 4.16 L (4.70-6.10) M/uL Hgb 12.3 L (14.0-18.0) g/dl Hct 36.1 L (42.0-52.0) % MCV 86.8 (80.0-100.0) fL MCH 29.6 (25.0-34.0) pg MCHC 34.1 (32.0-36.0) g/dL RDW Std Deviation 45.0 (36.4-46.3) fL RDW Coeff of Chris 14.1 (11.5-14.5) % Plt Count 143 (130-400) K/uL MPV 9.9 (9.4-12.4) fL Immature Gran % (Auto) 0.6 % Neut % (Auto) 88.0 % Lymph % (Auto) 3.6 % [place] % (Auto) 7.0 % Eos % (Auto) 0.3 % Baso % (Auto) 0.5 % Neut # (Auto) 9.48 H (1.40-6.50) K/uL Lymph # (Auto) 0.39 L (1.20-3.40) K/uL [place] # (Auto) 0.75 H (0.11-0.59) K/uL Eos # (Auto) 0.03 (0.00-0.50) K/uL Baso # (Auto) 0.05 (0.00-0.20) K/uL Immature Gran # (Auto) 0.07 (0.01-0.20) K/uL PT (9.0-12.0) Seconds INR (0.9-1.1) Sodium 132 L (136-145) mmol/L Potassium 3.9 (3.5-5.1) mmol/L Chloride 98 (98-107) mmol/L Carbon Dioxide 25 (21-32) mmol/L Anion Gap 9 (3-11) BUN 22 (6-23) mg/dl Creatinine 1.73 H (0.6-1.4) mg/dl Est Cr Clr Drug Dosing 44.1 ml/min Est GFR ( Amer) 41.1 ml/min Est GFR (Non-Af Amer) 35.5 ml/min BUN/Creatinine Ratio 12.7 (10-20) Glucose 252 H (70-99(Fasting)) mg/dl Osmolality (280-300) mOsm/kg Lactate (0.4-2.0) mmol/L Calcium 8.6 (8.6-10.3) mg/dl Magnesium (1.7-2.4) mg/dl Total Bilirubin (0.2-1.0) mg/dl AST (13-39) U/L ALT (7-52) U/L Alkaline Phosphatase (34-104) U/L Troponin I High Sens (0-20) pg/ml B-Natriuretic Peptide (0-100) pg/ml Total Protein (6.0-8.3) gm/dl Albumin (3.4-5.0) gm/dl Globulin (2.5-4.0) gm/dl Albumin/Globulin Ratio (0.9-2) Lipase (11-82) U/L Procalcitonin (0-0.5) ng/ml TSH (0.300-4.500) uIu/ml Urine Color Urine Appearance (Clear) Urine pH (4.5-7.5) Ur Specific [place] (1.000-1.030) Urine Protein (Negative) Urine Glucose (UA) (Negative) Urine Ketones (Negative) Urine Blood (Negative) Urine Nitrite (Negative) Urine Bilirubin (Negative) Urine Urobilinogen (Negative) Ur Leukocyte Esterase (Negative) Urine WBC (Auto) (0-5) /hpf Urine RBC (Auto) (0-2) /hpf U Hyaline Cast (Auto) (0-2) /lpf U Epithel Cells (Auto) (0-2) /hpf Urine Bacteria (Auto) (None Seen) Granular Casts (None Prsent) /lpf Adenovirus (PCR) (NotDetected) Anaplasma Smear Babesia Smear B. pertussis DNA (PCR) (NotDetected) B.parapertussis DNA PCR (NotDetected) Lyme Disease Screen (Negative) C. pneumoniae DNA (PCR) (NotDetected) Coronavirus OC43 (PCR) (NotDetected) Coronavirus HKU1 (PCR) (NotDetected) Coronavirus 229E (PCR) (NotDetected) SARS-CoV-2 (PCR) (NotDetected) Coronavirus NL63 (PCR) (NotDetected) Human Metapneumovir PCR (NotDetected) Influenza Type A (PCR) (NotDetected) Influenza Type B (PCR) (NotDetected) M. pneumoniae (PCR) (NotDetected) Parainfluenza 1 (PCR) (NotDetected) Parainfluenza 2 (PCR) (NotDetected) Parainfluenza 3 (PCR) (NotDetected) Parainfluenza 4 (PCR) (NotDetected) RSV (PCR) (NotDetected) Entero/Rhino (PCR) (NotDetected) Administered Medications Acetaminophen (Acetaminophen 325 Mg Tab) 650 mg PO QID PRN PRN Reason: pain/fever Stop: 01/08/24 05:04 Last Admin: 12/09/23 13:17 Dose: 650 mg Documented By: BRITNEY Apixaban (Apixaban 2.5 Mg Tab) 2.5 mg PO BID [facility] Stop: 01/08/24 09:29 Last Admin: 12/09/23 10:14 Dose: 2.5 mg Documented By: MARISA Fluticasone Propionate (Fluticasone Propionate Na Spr 16 Gm Btl) 2 sprays NA QAM OTTO Stop: 01/08/24 12:29 Last Admin: 12/09/23 12:59 Dose: 2 sprays Documented By: BRITNEY Ceftriaxone Sodium (Rocephin) 2,000 mg in 50 mls @ 100 mls/hr IV Q24H OTTO Stop: 12/11/23 13:59 Last Infusion: 12/09/23 17:05 Dose: Infused Documented By: Admin: 12/09/23 15:56 Dose: 100 mls/hr Documented By: BRITNEY Insulin Aspart (Insulin Aspart Per Unit Charge) 0 units SC ACHS OTTO Stop: 01/08/24 12:29 Last Admin: 12/09/23 17:02 Dose: 2 units Documented By: BRITNEY Co-signed By: BREANNE Admin: 12/09/23 13:21 Dose: 8 units Documented By: BRITNEY Co-signed By: HILDA Insulin Glargine (Lantus Per Unit Charge) 5 units SQ DAILY OTTO Stop: 01/08/24 08:59 Last Admin: 12/09/23 09:46 Dose: 5 units Documented By: MARISA Co-signed By: SRL Levothyroxine Sodium (Levothyroxine Sodium 175 Mcg Tablet) 175 mcg PO DAILY@0730 OTTO Stop: 01/08/24 13:29 Last Admin: 12/09/23 13:22 Dose: 175 mcg Documented By: AML Metoprolol Tartrate (Metoprolol Tartrate 25 Mg Tab) 25 mg PO Q6H OTTO Stop: 01/08/24 12:29 Last Admin: 12/09/23 13:00 Dose: 25 mg Documented By: AML Multivitamins (Multivitamin Tab) 1 tab PO DAILY OTTO Stop: 01/08/24 12:29 Last Admin: 12/09/23 13:00 Dose: 1 tab Documented By: BRITNEY Discontinued Medications Acetaminophen (Ofirmev) 1,000 mg in 100 mls @ 400 mls/hr IV NOW STA Stop: 12/08/23 20:38 Last Infusion: 12/08/23 21:21 Dose: Infused Documented By: Admin: 12/08/23 21:02 Dose: 400 mls/hr Documented By: MILADY Sodium Chloride (Nss) 500 mls @ 999 mls/hr IV .Q31M ONE Stop: 12/08/23 22:45 Last Infusion: 12/08/23 23:23 Dose: Infused Documented By: Admin: 12/08/23 22:37 Dose: 999 mls/hr Documented By: MILADY Magnesium Sulfate/Dextrose (Magnesium Sulfate / D5w) 1 gm in 100 mls @ 50 mls/hr IV Q2H OTTO Stop: 12/09/23 08:29 Last Infusion: 12/09/23 09:48 Dose: Infused Documented By: Admin: 12/09/23 06:44 Dose: 50 mls/hr Documented By: Infusion: 12/09/23 06:44 Dose: Infused Documented By: Admin: 12/09/23 04:44 Dose: 50 mls/hr Documented By: PAGE Potassium Chloride/Sodium Chloride (Normal Saline W/20 Meq Kcl) 20 meq in 1,000 mls @ 75 mls/hr IV .[id number]; Protocol Stop: 12/09/23 17:28 Last Infusion: 12/09/23 17:45 Dose: Infused Documented By: Admin: 12/09/23 04:43 Dose: 75 mls/hr Documented By: PAGE Doxycycline Hyclate 100 mg/ (Dextrose) 100 mls @ 50 mls/hr IV NOW STA Stop: 12/09/23 09:34 Last Admin: 12/09/23 10:28 Dose: Not Given Documented By: MARISA Ipratropium [place] (Ipratropium [place] Neb Soln 0.02% 0.5mg/2.5ml Vial) 0.5 mg INH NOW STA Stop: 12/09/23 07:30 Last Admin: 12/09/23 08:03 Dose: 0.5 mg Documented By: VIKRAM Levalbuterol HCl (Levalbuterol 1.25 Mg/3 Ml Neb) 1.25 mg NEB NOW STA Stop: 12/09/23 07:30 Last Admin: 12/09/23 08:03 Dose: 1.25 mg Documented By: VIKRAM Metoprolol Tartrate (Metoprolol Tartrate 25 Mg Tab) 25 mg PO NOW STA Stop: 12/09/23 04:07 Last Admin: 12/09/23 04:44 Dose: 25 mg Documented By: PAEG Metoprolol Tartrate (Metoprolol Tartrate 1 Mg/Ml Vial) 2.5 mg IV NOW STA Stop: 12/09/23 06:52 Last Admin: 12/09/23 08:24 Dose: 2.5 mg Documented By: MARISA Imaging Data Radiologist's Impression: Chest X-Ray 12/08/23 20:24 XR chest 1V portable CLINICAL HISTORY: cp TECHNIQUE: Single frontal radiograph of the chest was obtained. Comparison: Comparison is made to chest radiograph 09/23/2021 FINDINGS: Exam is limited by underpenetration. Cardiomegaly is noted. The lungs are clear. No evidence of pleural effusion or pneumothorax. IMPRESSION: No acute chest disease. Cardiomegaly is noted. ACT 112: Negative or not required by law. Electronically signed by: Jefe Sweeney M.D. 12/09/2023 7:[address] 12/09/23 04:51 CT chest diagnostic wo con CLINICAL HISTORY: cough, fever TECHNIQUE: Multidetector row helical CT of the chest was performed. Coronal and sagittal reformations were obtained. Automated dose lowering techniques and/or adjustment according to patient size were utilized for this exam. CT DOSE: 941.53 mGy.cm Comparison: Comparison is made to CT chest 07/20/2016 FINDINGS: Lungs and pleura: Atelectasis is seen. There is mild mosaic attenuation which can be seen in small airways disease. Calcified granulomata are seen. Heart and pericardium: Aortic valvular calcifications are seen. Vessels: Mild atherosclerotic changes in the aorta and coronary arteries. Pulmonary trunk measures 35 mm. Mediastinum and lissette: Numerous mediastinal lymph nodes measure up to 20 mm in diameter. Chest wall and lower neck: Right subclavian lymph node measures 13 mm. Abdomen: Unremarkable. Bones: Degenerative changes in the thoracic spine. IMPRESSION: 1. Numerous enlarged lymph nodes in the mediastinum and right subclavian station may represent infectious/inflammatory disease, however malignancy cannot be excluded, clinical correlation is recommended. 2. No airspace disease is seen. There is minimal bronchial wall thickening and mosaic attenuation which may reflect infectious/inflammatory airways disease. ACT 112: Negative or not required by law. Electronically signed by: Jefe Sweeney M.D. 12/09/2023 7:07 AM Discharge Plan Visit Data Chief Complaint: Shortness of Breath/Dyspnea Stated Complaint: SOB ED Provider: Veronica Gibbs Discharge Problem: Chest pain, Palpitation, Fatigue, Fever, Hyponatremia Patient Disposition: Admitted As Inpatient Discharge Instructions Interventions: ED Discharge Assessment Last Done: 12/09/23 11:54
[2023-12-08 23:42] LABS: Appearance Urine Cloudy (Clear); Bacteria Urine Automated None Seen (None Seen); Bilirubin Urine 1+ (Negative); Blood Urine Negative (Negative); Color Urine Dark Yellow; Epithelial Cell Urine Auto 0-2 /hpf (0-2); Glucose Urine UA Negative (Negative); Ketones Urine Trace (Negative); Leukocyte Esterase Urine Trace (Negative); Nitrite Urine Negative (Negative); Protein Urine 3+ (Negative); RBC Urine Automated 0-2 /hpf (0-2); Specific Gravity Urine 1.025 (1.000-1.030); Urobilinogen Urine Negative (Negative); WBC Urine Automated 0-5 /hpf (0-5)
[2023-12-08 23:55] LABS: Granular Casts Urine Present /lpf (None Prsent)
--- NOTE | 2023-12-09 03:02 | CT Scan Report ---
Exam(s): CT ABDOMEN + PELVIS Without Contrast EXAM: CT Abdomen and Pelvis Without Intravenous Contrast CLINICAL HISTORY: Reason for exam: abd pain, fever. TECHNIQUE: Axial computed tomography images of the abdomen and pelvis without intravenous contrast. CTDI is 2.14 mGy and DLP is 1486.28 mGy-cm. Automated exposure control was utilized for the study. A dose lowering technique was utilized adhering to the principles of ALARA. COMPARISON: No relevant prior studies available. FINDINGS: Lung bases: Atelectasis at the lung bases. ABDOMEN: Liver: Hepatic steatosis. Gallbladder and bile ducts: Contracted gallbladder. No calcified stones. No ductal dilation. Pancreas: Unremarkable. No ductal dilation. Spleen: Unremarkable. No splenomegaly. Adrenals: Unremarkable. No mass. Kidneys and ureters: Renal cyst. No obstructing stones. No hydronephrosis. Stomach and bowel: RIGHT hemicolectomy. Diverticulosis, without acute diverticulitis. No small bowel obstruction. No free intraperitoneal air. PELVIS: Appendix: See above. Bladder: Unremarkable. No stones. Reproductive: Unremarkable as visualized. ABDOMEN and PELVIS: Intraperitoneal space: Unremarkable. No free air. No significant fluid collection. Bones/joints: Degenerative changes of the spine. No acute fracture. No dislocation. Soft tissues: Moderate fat-containing RIGHT inguinal hernia. Vasculature: Atherosclerotic changes of the aorta. No abdominal aortic aneurysm. Lymph nodes: Unremarkable. No enlarged lymph nodes. IMPRESSION: 1. Moderate fat-containing RIGHT inguinal hernia. 2. RIGHT hemicolectomy. 3. Diverticulosis, without acute diverticulitis. No small bowel obstruction. No free intraperitoneal air. Electronically signed by: Haris Stanley MD 12/09/23 03:01 AM
[2023-12-09] MEDS: NSS + 20MEQ KCL 20 MEQ/1,000 ML BAG IV ONE (04:43)
[2023-12-09] MEDS: MAGNESIUM SULFATE / D5W 1 GM/100 ML BAG IV SCH (04:44)
[2023-12-09] MEDS: METOPROLOL TARTRATE 25 MG TAB PO STA (04:44)
--- NOTE | 2023-12-09 05:00 | History & Physical Report ---
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 Basal bolus insulin, ISS BG goal 1 10-1 40, carb count coverage DVT prophylaxis. SCDs while Eliquis on hold Full code Text document was generated using Mobile[employer] voice recognition software. It may contain grammatical or spelling errors. Kindly contact undersigned for clarification of any documentation item in question. History of Present Illness Chief Complaint: Chest pain, palpitations, cough Primary Care Provider: Peace Duke MD History obtained from patient and records. 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 Few days history of junky cough symptoms with achy right-sided chest pain going to the neck and SOB. Palpitations from A-fib as per patient. No headache, no abdominal pain. No aspiration as per patient. Patient compliant with home medications. 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 Allergies Allergy/AdvReac Type Severity Reaction Status Date / Time bee pollen Allergy Severe flushing Verified 12/09/23 00:10 and facial swelling Iodinated Contrast Media Allergy Severe flushing Verified 12/09/23 00:10 and facial swelling lisinopril Allergy Severe Hives Verified 12/09/23 00:10 tetanus toxoid, adsorbed Allergy Intermediate HIVES Verified 12/09/23 00:10 latex Allergy Mild skin Verified 12/09/23 00:10 irritation Penicillins Allergy Mild UNKNOWN Verified 12/09/23 00:10 Home Medications Medication Instructions Recorded Confirmed Type atorvastatin 10 mg tablet 10 mg PO HS 12/12/18 12/09/23 History epinephrine 0.3 mg/0.3 mL 0.3 mg IM .INJECT 0.3ML INTRAMU 12/12/18 12/09/23 History injection, auto-injector PRN Allergic Reaction losartan 50 mg tablet 50 mg PO BID #90 tabs 12/12/18 12/09/23 History terazosin 10 mg capsule 10 mg PO HS 12/12/18 12/09/23 History allopurinol 300 mg tablet 300 mg PO HS 12/13/18 12/09/23 History furosemide 20 mg tablet 20 mg PO QAM PRN Fluid Retention 09/23/21 12/09/23 History apixaban 2.5 mg tablet (Eliquis) 2.5 mg PO BID #60 tabs 09/26/21 12/09/23 Rx levothyroxine 175 mcg tablet 175 mcg PO QAM 10/12/21 12/09/23 History metoprolol tartrate 25 mg tablet 12.5 mg PO DAILY 10/28/21 12/09/23 History coenzyme Q10 100 mg capsule 0 mg PO DAILY 12/08/23 12/09/23 History (CoQ-10) fluticasone propionate 50 2 spray intranasal QAM 12/08/23 12/09/23 History mcg/actuation nasal spray,suspension metformin 500 mg tablet,extended 500 mg PO TID 12/08/23 12/09/23 History release 24 hr multivitamin 1 tab PO DAILY 12/08/23 12/09/23 History semaglutide 7 mg tablet 7 mg PO QAM 12/08/23 12/09/23 History Past Med/Surg History Problem List (Updated 12/09/23 @ 10:23 by Thomas Hitchcock MD) Sepsis Abnormal CT scan of lung Mediastinal adenopathy Fever (Acute) Fatigue (Acute) Palpitation (Acute) Chest pain (Acute) H/O hemicolectomy (10/16/21) Laparoscopic extended Right Hemicolectomy - Rene Cavanaugh DO Chronic a-fib (Acute) Colonic mass Morbid obesity CKD (chronic kidney disease) Stage III per records -- monitors with [facility] Nephrology Obesity Type 2 diabetes mellitus NIDDM Paroxysmal atrial fibrillation Recently [place] [facility] [place]. (hx of following with Dr Murguia) Rate well controlled and on Eliquis per 10/09/21 cardio note Obstructive sleep apnea Uses cpap nightly Hypertension Hyperlipidemia Chronic gout Asthma, moderate persistent well controlled BPH without obstruction/lower urinary tract symptoms Hypothyroidism Medical History Aortic stenosis Borderline to mild aortic stenosis per 09/17/21 ECHO Aortic aneurysm 4.6cm per August 2021 ECHO On anticoagulant therapy Anemia S/p 2 units of pRBC's on admission 09/23/21 and 1 unit of pRBC's prior to discharge 09/26/21 from [facility]. Also had IV iron while admitted History of recent hospitalization 09/23/21 at [facility] for GI Bleed and anemia GI bleed September 2021 inpatient at [facility] Seasonal allergies Hx of nephrolithotomy with removal of calculi History of kidney stones Multiple lung nodules on CT Lactase deficiency Asbestos exposure Angioedema History of Encounter for pre-operative examination Abnormal CT of the abdomen Anemia requiring transfusions VILLALBA (dyspnea on exertion) Weakness GI (gastrointestinal bleed) Surgical History History of esophagogastroduodenoscopy (EGD) History of lithotripsy S/P surgical removal of pilonidal cyst History of colonoscopy History of cardioversion 2009 Family History Mother Cancer Father Heart disease Sister Heart disease Brother Seizure Other No family history of adverse response to anesthesia Social History Smoking Status: Never smoker Second Hand Exposure: No; Do You Dip or Chew Tobacco: No; Hx Alcohol Use: No Hx Substance Use: No Preferred Language: Samoan Communication Ability: Effective Visual Impairment: No Limitations Building Mover Required: No Beliefs That Will Affect Care: None marital status: / Current Living Situation: Alone Current Living Situation Comment: lives by self and his daughter helps as needed current occupational status: retired How many Children do You have: 2 Feels Safe at Home: Yes Diet: diabetic during the past year weight has: decreased > 10 lbs Assistive Devices: Walker and Wheelchair Review of Systems Review of Systems: As per HPI, all other systems reviewed and negative Physical Exam Physical Exam: GENERAL: Slightly uncomfortable, morbidly obese, unkempt, episodic tachypnea SKIN: Pallor, warm HEENT: Partial alopecia, pale palpebral conjunctivae, no ptosis, dry buccal mucosa NECK : Supple, short neck, no tenderness CHEST : Decreased breath sounds, no tenderness HEART : Irregular, no murmur ABDOMEN : abdominal distention, nontender EXTREMITIES : Minimal LE swelling without tenderness, no other conspicuous defo rmities noted NEUROLOGIC : Coherent, no facial asymmetry, no other gross focality Results & Data Results & Data Vital Signs (Past 12 Hours) Vital Signs Temp Pulse Pulse Resp BP BP Pulse Ox 12/09/23 03:00 112 H 22 124/101 H 97 12/09/23 02:03 102 H 12/09/23 01:52 36.5 C 12/09/23 01:00 101 H 20 129/94 95 12/08/23 23:23 36.9 C 96 H 16 140/84 95 12/08/23 21:22 38.4 C H 12/08/23 20:22 95 H 12/08/23 20:21 109 H 23 139/84 96 12/08/23 20:14 37.9 C H 104 H 20 139/84 96 12/08/23 20:14 96 12/08/23 20:14 37.9 C H 109 H 20 139/84 96 12/08/23 20:14 O2 Del Method O2 Flow Rate 12/09/23 03:00 Nasal Cannula 3 12/09/23 02:03 12/09/23 01:52 12/09/23 01:00 Room Air 12/08/23 23:23 Room Air 12/08/23 21:22 12/08/23 20:22 12/08/23 20:21 12/08/23 20:14 Room Air 12/08/23 20:14 Room Air 12/08/23 20:14 Room Air 12/08/23 20:14 Room Air Laboratory Results Laboratory Results WBC 10.10 K/ul (4.8-10.8) 12/08/23 20:21 RBC 4.33 M/uL (4.70-6.10) L 12/08/23 20:21 Hgb 12.7 g/dl (14.0-18.0) L 12/08/23 20:21 Hct 38.4 % (42.0-52.0) L 12/08/23 20:21 MCV 88.7 fL (80.0-100.0) 12/08/23 20:21 MCH 29.3 pg (25.0-34.0) 12/08/23 20:21 MCHC 33.1 g/dL (32.0-36.0) 12/08/23 20:21 RDW Std Deviation 45.4 fL (36.4-46.3) 12/08/23 20:21 RDW Coeff of Chris 14.1 % (11.5-14.5) 12/08/23 20:21 Plt Count 147 K/uL (130-400) 12/08/23 20:21 MPV 9.7 fL (9.4-12.4) 12/08/23 20:21 Immature Gran % (Auto) 0.4 % 12/08/23 20:21 Neut % (Auto) 84.7 % 12/08/23 20:21 Lymph % (Auto) 6.1 % 12/08/23 20:21 Terrell % (Auto) 7.9 % 12/08/23 20:21 Eos % (Auto) 0.4 % 12/08/23 20:21 Baso % (Auto) 0.5 % 12/08/23 20:21 Neut # (Auto) 8.55 K/uL (1.40-6.50) H 12/08/23 20:21 Lymph # (Auto) 0.62 K/uL (1.20-3.40) L 12/08/23 20:21 Terrell # (Auto) 0.80 K/uL (0.11-0.59) H 12/08/23 20:21 Eos # (Auto) 0.04 K/uL (0.00-0.50) 12/08/23 20:21 Baso # (Auto) 0.05 K/uL (0.00-0.20) 12/08/23 20:21 Immature Gran # (Auto) 0.04 K/uL (0.01-0.20) 12/08/23 20:21 PT 12.2 Seconds (9.0-12.0) H 12/08/23 20:21 INR 1.1 (0.9-1.1) 12/08/23 20:21 Sodium 130 mmol/L (136-145) L 12/08/23 20:21 Potassium 3.9 mmol/L (3.5-5.1) 12/08/23 20:21 Chloride 98 mmol/L (98-107) 12/08/23 20:21 Carbon Dioxide 24 mmol/L (21-32) 12/08/23 20:21 Anion Gap 8 (3-11) 12/08/23 20:21 BUN 21 mg/dl (6-23) 12/08/23 20:21 Creatinine 1.55 mg/dl (0.6-1.4) H 12/08/23 20:21 Est Cr Clr Drug Dosing 49.2 ml/min 12/08/23 20:21 Est GFR ( Amer) 46.9 ml/min 12/08/23 20:21 Est GFR (Non-Af Amer) 40.5 ml/min 12/08/23 20:21 BUN/Creatinine Ratio 13.5 (10-20) 12/08/23 20:21 Glucose 238 mg/dl (70-99(Fasting)) H 12/08/23 20:21 Osmolality 289 mOsm/kg (280-300) 12/09/23 04:31 Lactate 1.4 mmol/L (0.4-2.0) 12/09/23 04:31 Calcium 8.6 mg/dl (8.6-10.3) 12/08/23 20:21 Magnesium 1.7 mg/dl (1.7-2.4) 12/08/23 20:21 Total Bilirubin 1.4 mg/dl (0.2-1.0) H 12/08/23 20:21 AST 14 U/L (13-39) 12/08/23 20:21 ALT 13 U/L (7-52) 12/08/23 20:21 Alkaline Phosphatase 61 U/L (34-104) 12/08/23 20:21 Troponin I High Sens 15.7 pg/ml (0-20) 12/09/23 00:02 B-Natriuretic Peptide 100 pg/ml (0-100) 12/08/23 20:21 Total Protein 7.0 gm/dl (6.0-8.3) 12/08/23 20:21 Albumin 3.8 gm/dl (3.4-5.0) 12/08/23 20:21 Globulin 3.2 gm/dl (2.5-4.0) 12/08/23 20:21 Albumin/Globulin Ratio 1.2 (0.9-2) 12/08/23 20:21 Lipase 18 U/L (11-82) 12/08/23 20:21 Procalcitonin 0.08 ng/ml (0-0.5) 12/08/23 20:21 TSH 3.260 uIu/ml (0.300-4.500) 12/08/23 20:21 Urine Color Dark Yellow 12/08/23 23:17 Urine Appearance Cloudy (Clear) A 12/08/23 23:17 Urine pH 5.0 (4.5-7.5) 12/08/23 23:17 Ur Specific [place] 1.025 (1.000-1.030) 12/08/23 23:17 Urine Protein 3+ (Negative) H 12/08/23 23:17 Urine Glucose (UA) Negative (Negative) 12/08/23 23:17 Urine Ketones Trace (Negative) H 12/08/23 23:17 Urine Blood Negative (Negative) 12/08/23 23:17 Urine Nitrite Negative (Negative) 12/08/23 23:17 Urine Bilirubin 1+ (Negative) H 12/08/23 23:17 Urine Urobilinogen Negative (Negative) 12/08/23 23:17 Ur Leukocyte Esterase Trace (Negative) H 12/08/23 23:17 Urine WBC (Auto) 0-5 /hpf (0-5) 12/08/23 23:17 Urine RBC (Auto) 0-2 /hpf (0-2) 12/08/23 23:17 U Hyaline Cast (Auto) 11-20 /lpf (0-2) H 12/08/23 23:17 U Epithel Cells (Auto) 0-2 /hpf (0-2) 12/08/23 23:17 Urine Bacteria (Auto) None Seen (None Seen) 12/08/23 23:17 Granular Casts Present /lpf (None Prsent) A 12/08/23 23:17 Adenovirus (PCR) Not Detected (NotDetected) 12/08/23 Unknown Anaplasma Smear See Comment 12/08/23 22:34 Babesia Smear See Comment 12/08/23 22:34 B. pertussis DNA (PCR) Not Detected (NotDetected) 12/08/23 Unknown B.parapertussis DNA PCR Not Detected (NotDetected) 12/08/23 Unknown Lyme Disease Screen Negative (Negative) 12/08/23 20:21 C. pneumoniae DNA (PCR) Not Detected (NotDetected) 12/08/23 Unknown Coronavirus OC43 (PCR) Not Detected (NotDetected) 12/08/23 Unknown Coronavirus HKU1 (PCR) Not Detected (NotDetected) 12/08/23 Unknown Coronavirus 229E (PCR) Not Detected (NotDetected) 12/08/23 Unknown SARS-CoV-2 (PCR) Not Detected (NotDetected) 12/08/23 Unknown Coronavirus NL63 (PCR) Not Detected (NotDetected) 12/08/23 Unknown Human Metapneumovir PCR Not Detected (NotDetected) 12/08/23 Unknown Influenza Type A (PCR) Not Detected (NotDetected) 12/08/23 Unknown Influenza Type B (PCR) Not Detected (NotDetected) 12/08/23 Unknown M. pneumoniae (PCR) Not Detected (NotDetected) 12/08/23 Unknown Parainfluenza 1 (PCR) Not Detected (NotDetected) 12/08/23 Unknown Parainfluenza 2 (PCR) Not Detected (NotDetected) 12/08/23 Unknown Parainfluenza 3 (PCR) Not Detected (NotDetected) 12/08/23 Unknown Parainfluenza 4 (PCR) Not Detected (NotDetected) 12/08/23 Unknown RSV (PCR) Not Detected (NotDetected) 12/08/23 Unknown Entero/Rhino (PCR) Not Detected (NotDetected) 12/08/23 Unknown Impressions Abdomen/Pelvis CT 12/09/23 00:11 Exam(s): CT ABDOMEN + PELVIS Without Contrast EXAM: CT Abdomen and Pelvis Without Intravenous Contrast CLINICAL HISTORY: Reason for exam: abd pain, fever. TECHNIQUE: Axial computed tomography images of the abdomen and pelvis without intravenous contrast. CTDI is 2.14 mGy and DLP is 1486.28 mGy-cm. Automated exposure control was utilized for the study. A dose lowering technique was utilized adhering to the principles of ALARA. COMPARISON: No relevant prior studies available. FINDINGS: Lung bases: Atelectasis at the lung bases. ABDOMEN: Liver: Hepatic steatosis. Gallbladder and bile ducts: Contracted gallbladder. No calcified stones. No ductal dilation. Pancreas: Unremarkable. No ductal dilation. Spleen: Unremarkable. No splenomegaly. Adrenals: Unremarkable. No mass. Kidneys and ureters: Renal cyst. No obstructing stones. No hydronephrosis. Stomach and bowel: RIGHT hemicolectomy. Diverticulosis, without acute diverticulitis. No small bowel obstruction. No free intraperitoneal air. PELVIS: Appendix: See above. Bladder: Unremarkable. No stones. Reproductive: Unremarkable as visualized. ABDOMEN and PELVIS: Intraperitoneal space: Unremarkable. No free air. No significant fluid collection. Bones/joints: Degenerative changes of the spine. No acute fracture. No dislocation. Soft tissues: Moderate fat-containing RIGHT inguinal hernia. Vasculature: Atherosclerotic changes of the aorta. No abdominal aortic aneurysm. Lymph nodes: Unremarkable. No enlarged lymph nodes. IMPRESSION: 1. Moderate fat-containing RIGHT inguinal hernia. 2. RIGHT hemicolectomy. 3. Diverticulosis, without acute diverticulitis. No small bowel obstruction. No free intraperitoneal air. Electronically signed by: Haris Stanley MD 12/09/23 03:[address] chest: 1. Numerous enlarged lymph nodes in the mediastinum and right subclavian station may represent infectious/inflammatory disease, however malignancy cannot be excluded, clinical correlation is recommended. 2. No airspace disease is seen. There is minimal bronchial wall thickening and mosaic attenuation which may reflect infectious/inflammatory airways disease. Diagnostic Findings EKG as per my interpretation: Rate 95, A-fib, RAD, RBBB, T wave abnormalities inferior leads
[2023-12-09] MEDS ORDERED: PROMETHAZINE 6.25 MG/50.25 ML BAG IV PRN (05:05)
[2023-12-09] MEDS ORDERED: oxyCODONE HCL IR 5 MG TAB (IMMEDIATE RELEASE) PO PRN (05:05)
[2023-12-09 05:51] LABS: BUN Creatinine Ratio 12.7 (10-20); Calcium 8.6 mg/dl (8.6-10.3); Creatinine Clr Calc Pharmacy 44.1 ml/min; Est GFR (African American) 41.1 ml/min; Est GFR (Non-African American) 35.5 ml/min; Potassium 3.9 mmol/L (3.5-5.1)
[2023-12-09 06:42] LABS: Basophils # (auto) 0.05 K/uL (0.00-0.20); Basophils % (auto) 0.5 %; Eosinophils # (auto) 0.03 K/uL (0.00-0.50); Eosinophils % (auto) 0.3 %; Hematocrit (blood only) 36.1 % (42.0-52.0); Hemoglobin 12.3 g/dl (14.0-18.0); Immature Granulocytes # (auto) 0.07 K/uL (0.01-0.20); Immature Granulocytes % (auto) 0.6 %; Lymphocytes # (auto) 0.39 K/uL (1.20-3.40); Lymphocytes % (auto) 3.6 %; Mean Corpuscular Hemoglobin 29.6 pg (25.0-34.0); Mean Corpuscular Hgb Conc 34.1 g/dL (32.0-36.0); Mean Corpuscular Volume 86.8 fL (80.0-100.0); Mean Platelet Volume 9.9 fL (9.4-12.4); Monocytes # (auto) 0.75 K/uL (0.11-0.59); Neutrophils # (auto) 9.48 K/uL (1.40-6.50); Platelet Count 143 K/uL (130-400); RDW Coefficient of Variation 14.1 % (11.5-14.5); Red Blood Count 4.16 M/uL (4.70-6.10); White Blood Count 10.77 K/ul (4.8-10.8)
--- NOTE | 2023-12-09 07:10 | CT Scan Report ---
CT chest diagnostic wo con CLINICAL HISTORY: cough, fever TECHNIQUE: Multidetector row helical CT of the chest was performed. Coronal and sagittal reformations were obtained. Automated dose lowering techniques and/or adjustment according to patient size were u tilized for this exam. CT DOSE: 941.53 mGy.cm Comparison: Comparison is made to CT chest 07/20/2016 FINDINGS: Lungs and pleura: Atelectasis is seen. There is mild mosaic attenuation which can be seen in small ai rways disease. Calcified granulomata are seen. Heart and pericardium: Aortic valvular calcifications are seen. Vessels: Mild atherosclerotic changes in the aorta and coronary arteries. Pulmonary trunk measures 35 mm. Mediastinum and lissette: Numerous mediastinal lymph nodes measure up to 20 mm in diameter. Chest wall and lower neck: Right subclavian lymph node measures 13 mm. Abdomen: Unremarkable. Bones: Degenerative changes in the thoracic spine. IMPRESSION: 1. Numerous enlarged lymph nodes in the mediastinum and right subclavian station may represent infec tious/inflammatory disease, however malignancy cannot be excluded, clinical correlation is recommende d. 2. No airspace disease is seen. There is minimal bronchial wall thickening and mosaic attenuation wh ich may reflect infectious/inflammatory airways disease. ACT 112: Negative or not required by law. Electronically signed by: Jefe Sweeney M.D. 12/09/2023 7:07 AM
--- NOTE | 2023-12-09 07:12 | XRay Report ---
XR chest 1V portable CLINICAL HISTORY: cp TECHNIQUE: Single frontal radiograph of the chest was obtained. Comparison: Comparison is made to chest radiograph 09/23/2021 FINDINGS: Exam is limited by underpenetration. Cardiomegaly is noted. The lungs are clear. No evidence of pleur al effusion or pneumothorax. IMPRESSION: No acute chest disease. Cardiomegaly is noted. ACT 112: Negative or not required by law. Electronically signed by: Jefe Sweeney M.D. 12/09/2023 7:11 AM
[2023-12-09] MEDS: IPRATROPIUM BROMIDE NEB SOLN 0.02% 0.5MG/2.5ML VIAL INH STA (08:03)
[2023-12-09] MEDS: LEVALBUTEROL 1.25 MG/3 ML NEB NEB STA (08:03)
[2023-12-09] MEDS: METOPROLOL TARTRATE 1 MG/ML VIAL IV STA (08:24)
--- NOTE | 2023-12-09 08:24 | Pulmonary Consultation ---
Date of Consultation December 09, 2023 Assessment & Plan (1) Mediastinal adenopathy: (2) Abnormal CT scan of lung: (3) Obstructive sleep apnea: Plan Impression: 83-year-old male with history of sleep disordered breathing admitted with chest pain and fatigue. He has a stable apical pleural-based mass which is slightly decreased compared to prior CT scan from several years ago and likely represents benign pathology unlikely to be contributing to any of his symptoms. Suspect his weakness and chest pain and shortness of breath may be related to A- fib with RVR. Do not see an infectious etiology. He does have some mildly enlarged lymph nodes which may be seen in the setting of fluid overload. Recommendations: 1. Mildly enlarged mediastinal adenopathy. No indication for antibiotics currently. No indication for sampling. Would recommend following the patient and consider repeat CT scan of the chest in 6 months. 2. The apical based left pleural area of consolidation is stable to slightly smaller compared to CT scan from several years ago. No additional radiographic surveillance or follow-up is needed. 3. Sleep disordered breathing: Continue BiPAP at night. The patient quires about getting a new machine. Advised him that we will need to see him back in clinic prior to consideration of placing that order. Discussed with respiratory therapy. Will set him up with BiPAP 05/01 while he is here in the hospital. 4. Exercise and weight loss were recommended. 5. A-fib management per primary service. 6. No indication for continued bronchodilators at this point in time. His last pulmonary function test performed in 2019 were unremarkable. 7. Out of bed to chair as tolerated and ambulate the patient. I suspect the patient may be able to be dismissed from the hospital in relatively short order once his cardiac issues are addressed. We would be happy to see him back in pulmonary clinic to follow-up on his respiratory issues and sleep disordered breathing if needed. Thanks for the opportunity of participating the care of this patient. Feel free to contact us with questions or concerns. Pulmonary will sign off at this point in time History of Present Illness History of Present Illness Asked by hospitalist to assist in evaluation management this patient with an abnormal CT scan. History is obtained from discussion with the patient as well as review the electronic medical record. Patient is an 83-year-old obese male with history of sleep disordered breathing. He was followed previously in the pulmonary clinic and last saw Dr. Champagne about 6 or 7 years ago. He is concerned about potentially black lung. He had a CT scan which showed a pleural-based left apical lesion. This was stable to slightly decreased compared to his CT scan from 2017. Patient has a history of atrial fibrillation. He apparently has not followed up with providers. He is seeing Dr. Murguia and Dr. Crowell in the past. He remains anticoagulated. He presented to the emergency room feeling fatigued. He was found to be in A-fib with RVR. He was administered antibiotics. He is admitted to the hospitalist service for additional evaluation management. The patient denies any cough or sputum production. No fevers chills or night sweats. His appetite is good. He has not noted any syncope or presyncope. No significant lower extremity edema. Allergies Allergy/AdvReac Type Severity Reaction Status Date / Time bee pollen Allergy Severe flushing Verified 12/09/23 00:10 and facial swelling Iodinated Contrast Media Allergy Severe flushing Verified 12/09/23 00:10 and facial swelling lisinopril Allergy Severe Hives Verified 12/09/23 00:10 tetanus toxoid, adsorbed Allergy Intermediate HIVES Verified 12/09/23 00:10 latex Allergy Mild skin Verified 12/09/23 00:10 irritation Penicillins Allergy Mild UNKNOWN Verified 12/09/23 00:10 Home Medications Medication Instructions Recorded Confirmed Type atorvastatin 10 mg tablet 10 mg PO HS 12/12/18 12/09/23 History epinephrine 0.3 mg/0.3 mL 0.3 mg IM .INJECT 0.3ML INTRAMU 12/12/18 12/09/23 History injection, auto-injector PRN Allergic Reaction losartan 50 mg tablet 50 mg PO BID #90 tabs 12/12/18 12/09/23 History terazosin 10 mg capsule 10 mg PO HS 12/12/18 12/09/23 History allopurinol 300 mg tablet 300 mg PO HS 12/13/18 12/09/23 History furosemide 20 mg tablet 20 mg PO QAM PRN Fluid Retention 09/23/21 12/09/23 History apixaban 2.5 mg tablet (Eliquis) 2.5 mg PO BID #60 tabs 09/26/21 12/09/23 Rx levothyroxine 175 mcg tablet 175 mcg PO QAM 10/12/21 12/09/23 History metoprolol tartrate 25 mg tablet 12.5 mg PO DAILY 10/28/21 12/09/23 History coenzyme Q10 100 mg capsule 0 mg PO DAILY 12/08/23 12/09/23 History (CoQ-10) fluticasone propionate 50 2 spray intranasal QAM 12/08/23 12/09/23 History mcg/actuation nasal spray,suspension metformin 500 mg tablet,extended 500 mg PO TID 12/08/23 12/09/23 History release 24 hr multivitamin 1 tab PO DAILY 12/08/23 12/09/23 History semaglutide 7 mg tablet 7 mg PO QAM 12/08/23 12/09/23 History Patient History Medical History Aortic stenosis Borderline to mild aortic stenosis per 09/17/21 ECHO Aortic aneurysm 4.6cm per August 2021 ECHO On anticoagulant therapy Anemia S/p 2 units of pRBC's on admission 09/23/21 and 1 unit of pRBC's prior to discharge 09/26/21 from [facility]. Also had IV iron while admitted History of recent hospitalization 09/23/21 at [facility] for GI Bleed and anemia GI bleed September 2021 inpatient at [facility] Seasonal allergies Hx of nephrolithotomy with removal of calculi History of kidney stones Multiple lung nodules on CT Lactase deficiency Asbestos exposure Angioedema History of Encounter for pre-operative examination Abnormal CT of the abdomen Anemia requiring transfusions VILLALBA (dyspnea on exertion) Weakness GI (gastrointestinal bleed) Surgical History History of esophagogastroduodenoscopy (EGD) History of lithotripsy S/P surgical removal of pilonidal cyst History of colonoscopy History of cardioversion 2009 Family History Mother Cancer Father Heart disease Sister Heart disease Brother Seizure Other No family history of adverse response to anesthesia Social History Smoking Status: Never smoker Second Hand Exposure: No; Do You Dip or Chew Tobacco: No; Hx Alcohol Use: No Hx Substance Use: No Preferred Language: Nepali Communication Ability: Effective Visual Impairment: No Limitations Certified Industrial Hygienist Required: No Beliefs That Will Affect Care: None marital status: / Current Living Situation: Alone Current Living Situation Comment: lives by self and his daughter helps as needed current occupational status: retired How many Children do You have: 2 Feels Safe at Home: Yes Diet: diabetic during the past year weight has: decreased > 10 lbs Assistive Devices: Walker and Wheelchair Review of Systems Review of Systems: Please refer to admission H&P. No additions or deletions Physical Exam Constitutional: WD/WN, vitals as above + obese Neck: trachea midline, no thyromegaly Respiratory: normal respiratory effort, lungs clear to auscultation Cardiovascular: Rate/Rhythm: + tachycardic and + irregularly irregular Heart Sounds: normal S1 and normal S2; no murmur Extremities: no edema Gastrointestinal (Abdomen): normal bowel sounds, soft, nontender, no hepatos plenomegaly Musculoskeletal: Extremities: extremities normal to inspection Skin: no rashes, warm and dry Neurologic: Nonfocal exam Lymphatic: no cervical lymphadenopathy Results & Data Results & Data Vital Signs (Past 12 Hours) Vital Signs Temp Pulse Pulse Resp BP BP Pulse Ox 12/09/23 08:11 90 12/09/23 08:05 105 H 20 95 12/09/23 07:06 100 H 22 98 12/09/23 07:01 149/80 H 12/09/23 06:33 97 12/09/23 06:15 98 12/09/23 05:18 98 H 29 H 97 12/09/23 05:15 172/93 H 12/09/23 05:15 172/93 H 12/09/23 05:00 126 H 26 H 172/93 H 98 12/09/23 04:45 120 H 32 H 95 12/09/23 04:00 95 12/09/23 03:19 83 L 12/09/23 03:06 113 H 19 72 L 12/09/23 03:03 124/101 H 12/09/23 03:03 124/101 H 12/09/23 03:00 112 H 22 124/101 H 97 12/09/23 02:51 90 30 H 91 12/09/23 02:06 90 28 H 94 12/09/23 02:03 102 H 12/09/23 01:52 36.5 C 12/09/23 01:19 129/94 12/09/23 01:00 101 H 20 129/94 95 12/09/23 00:12 88 20 97 12/08/23 23:23 36.9 C 96 H 16 140/84 95 12/08/23 21:22 38.4 C H 12/08/23 20:22 95 H 12/08/23 20:21 109 H 23 139/84 96 O2 Del Method O2 Flow Rate 12/09/23 08:11 12/09/23 08:05 Room Air 12/09/23 07:06 12/09/23 07:01 12/09/23 06:33 12/09/23 06:15 12/09/23 05:18 12/09/23 05:15 12/09/23 05:15 12/09/23 05:00 Nasal Cannula 3 12/09/23 04:45 12/09/23 04:00 12/09/23 03:19 Room Air 12/09/23 03:06 12/09/23 03:03 12/09/23 03:03 12/09/23 03:00 Nasal Cannula 3 12/09/23 02:51 12/09/23 02:06 12/09/23 02:03 12/09/23 01:52 12/09/23 01:19 12/09/23 01:00 Room Air 12/09/23 00:12 12/08/23 23:23 Room Air 12/08/23 21:22 12/08/23 20:22 12/08/23 20:21 Critical Care Results & Data Vital Signs (Past 12 Hours) Vital Signs Temp Pulse Pulse Resp BP BP Pulse Ox 12/09/23 08:11 90 12/09/23 08:05 105 H 20 95 12/09/23 07:06 100 H 22 98 12/09/23 07:01 149/80 H 12/09/23 06:33 97 12/09/23 06:15 98 12/09/23 05:18 98 H 29 H 97 12/09/23 05:15 172/93 H 12/09/23 05:15 172/93 H 12/09/23 05:00 126 H 26 H 172/93 H 98 12/09/23 04:45 120 H 32 H 95 12/09/23 04:00 95 12/09/23 03:19 83 L 12/09/23 03:06 113 H 19 72 L 08/16/24 03:03 124/101 H 12/09/23 03:03 124/101 H 12/09/23 03:00 112 H 22 124/101 H 97 12/09/23 02:51 90 30 H 91 12/09/23 02:06 90 28 H 94 12/09/23 02:03 102 H 12/09/23 01:52 36.5 C 12/09/23 01:19 129/94 12/09/23 01:00 101 H 20 129/94 95 12/09/23 00:12 88 20 97 12/08/23 23:23 36.9 C 96 H 16 140/84 95 12/08/23 21:22 38.4 C H 12/08/23 20:22 95 H 12/08/23 20:21 109 H 23 139/84 96 O2 Del Method O2 Flow Rate 12/09/23 08:11 12/09/23 08:05 Room Air 12/09/23 07:06 12/09/23 07:01 12/09/23 06:33 12/09/23 06:15 12/09/23 05:18 12/09/23 05:15 12/09/23 05:15 12/09/23 05:00 Nasal Cannula 3 12/09/23 04:45 12/09/23 04:00 12/09/23 03:19 Room Air 12/09/23 03:06 12/09/23 03:03 12/09/23 03:03 12/09/23 03:00 Nasal Cannula 3 12/09/23 02:51 12/09/23 02:06 12/09/23 02:03 12/09/23 01:52 12/09/23 01:19 12/09/23 01:00 Room Air 12/09/23 00:12 12/08/23 23:23 Room Air 12/08/23 21:22 12/08/23 20:22 12/08/23 20:21 Lab & Micro Results (Past 24 Hours) RBC 4.16 M/uL (4.70-6.10) L 12/09/23 WBC 10.77 K/ul (4.8-10.8) 12/09/23 Hgb 12.3 g/dl (14.0-18.0) L 12/09/23 Hct 36.1 % (42.0-52.0) L 12/09/23 MCV 86.8 fL (80.0-100.0) 12/09/23 MCH 29.6 pg (25.0-34.0) 12/09/23 MCHC 34.1 g/dL (32.0-36.0) 12/09/23 RDW Standard Deviation 45.0 fL (36.4-46.3) 12/09/23 RDW Coefficient of Variation 14.1 % (11.5-14.5) 12/09/23 Plt Count 143 K/uL (130-400) 12/09/23 MPV 9.9 fL (9.4-12.4) 12/09/23 Neutrophils (%) (Auto) 88.0 % 12/09/23 Lymphocytes (%) (Auto) 3.6 % 12/09/23 Monocytes # (Auto) 0.75 K/uL (0.11-0.59) H 12/09/23 Eosinophils # (Auto) 0.03 K/uL (0.00-0.50) 12/09/23 Immature Granulocyte % (Auto) 0.6 % 12/09/23 Neutrophils # (Auto) 9.48 K/uL (1.40-6.50) H 12/09/23 Lymphocytes # (Auto) 0.39 K/uL (1.20-3.40) L 12/09/23 Monocytes # (Auto) 0.75 K/uL (0.11-0.59) H 12/09/23 Eosinophils # (Auto) 0.03 K/uL (0.00-0.50) 12/09/23 Basophils # (Auto) 0.05 K/uL (0.00-0.20) 12/09/23 Immature Granulocyte # (Auto) 0.07 K/uL (0.01-0.20) 4 Na 132 mmol/L (136-145) L 12/09/23 K 3.9 mmol/L (3.5-5.1) 12/09/23 Cl 98 mmol/L (98-107) 12/09/23 CO2 25 mmol/L (21-32) 12/09/23 Anion Gap 9 (3-11) 12/09/23 BUN 22 mg/dl (6-23) 12/09/23 Creatinine 1.73 mg/dl (0.6-1.4) H 12/09/23 Estimated GFR ( Amer) 41.1 ml/min 12/09/23 Estimated GFR (Non-Af Amer) 35.5 ml/min 12/09/23 BUN/Creatinine Ratio 12.7 (10-20) 12/09/23 Glu 252 mg/dl (70-99(Fasting)) H 12/09/23 Ca 8.6 mg/dl (8.6-10.3) 12/09/23 Total Bilirubin 1.4 mg/dl (0.2-1.0) H 12/08/23 AST 14 U/L (13-39) 12/08/23 ALT 13 U/L (7-52) 12/08/23 Alkaline Phosphatase 61 U/L (34-104) 12/08/23 TP 7.0 gm/dl (6.0-8.3) 12/08/23 Albumin 3.8 gm/dl (3.4-5.0) 12/08/23 Globulin 3.2 gm/dl (2.5-4.0) 12/08/23 Albumin/Globulin Ratio 1.2 (0.9-2) 12/08/23 Mg 1.7 mg/dl (1.7-2.4) 12/08/23 20:21 Calcium Level 8.6 mg/dl (8.6-10.3) 12/09/23 04:32 Prothromb Time International Ratio 1.1 (0.9-1.1) 12/08/23 20:2 1 Diagnostic Findings (Past 24 Hours) Chest X-Ray 12/08/23 20:24 XR chest 1V portable CLINICAL HISTORY: cp TECHNIQUE: Single frontal radiograph of the chest was obtained. Comparison: Comparison is made to chest radiograph 09/23/2021 FINDINGS: Exam is limited by underpenetration. Cardiomegaly is noted. The lungs are clear. No evidence of pleural effusion or pneumothorax. IMPRESSION: No acute chest disease. Cardiomegaly is noted. ACT 112: Negative or not required by law. Electronically signed by: Jefe Sweeney M.D. 12/09/2023 7:11 AM Abdomen/Pelvis CT 12/09/23 00:11 Exam(s): CT ABDOMEN + PELVIS Without Contrast EXAM: CT Abdomen and Pelvis Without Intravenous Contrast CLINICAL HISTORY: Reason for exam: abd pain, fever. TECHNIQUE: Axial computed tomography images of the abdomen and pelvis without intravenous contrast. CTDI is 2.14 mGy and DLP is 1486.28 mGy-cm. Automated exposure control was utilized for the study. A dose lowering technique was utilized adhering to the principles of ALARA. COMPARISON: No relevant prior studies available. FINDINGS: Lung bases: Atelectasis at the lung bases. ABDOMEN: Liver: Hepatic steatosis. Gallbladder and bile ducts: Contracted gallbladder. No calcified stones. No ductal dilation. Pancreas: Unremarkable. No ductal dilation. Spleen: Unremarkable. No splenomegaly. Adrenals: Unremarkable. No mass. Kidneys and ureters: Renal cyst. No obstructing stones. No hydronephrosis. Stomach and bowel: RIGHT hemicolectomy. Diverticulosis, without acute diverticulitis. No small bowel obstruction. No free intraperitoneal air. PELVIS: Appendix: See above. Bladder: Unremarkable. No stones. Reproductive: Unremarkable as visualized. ABDOMEN and PELVIS: Intraperitoneal space: Unremarkable. No free air. No significant fluid collection. Bones/joints: Degenerative changes of the spine. No acute fracture. No dislocation. Soft tissues: Moderate fat-containing RIGHT inguinal hernia. Vasculature: Atherosclerotic changes of the aorta. No abdominal aortic aneurysm. Lymph nodes: Unremarkable. No enlarged lymph nodes. IMPRESSION: 1. Moderate fat-containing RIGHT inguinal hernia. 2. RIGHT hemicolectomy. 3. Diverticulosis, without acute diverticulitis. No small bowel obstruction. No free intraperitoneal air. Electronically signed by: Haris Stanley MD 12/09/23 03:[address] 12/09/23 04:51 CT chest diagnostic wo con CLINICAL HISTORY: cough, fever TECHNIQUE: Multidetector row helical CT of the chest was performed. Coronal and sagittal reformations were obtained. Automated dose lowering techniques and/or adjustment according to patient size were utilized for this exam. CT DOSE: 941.53 mGy.cm Comparison: Comparison is made to CT chest 07/20/2016 FINDINGS: Lungs and pleura: Atelectasis is seen. There is mild mosaic attenuation which can be seen in small airways disease. Calcified granulomata are seen. Heart and pericardium: Aortic valvular calcifications are seen. Vessels: Mild atherosclerotic changes in the aorta and coronary arteries. Pulmonary trunk measures 35 mm. Mediastinum and lissette: Numerous mediastinal lymph nodes measure up to 20 mm in diameter. Chest wall and lower neck: Right subclavian lymph node measures 13 mm. Abdomen: Unremarkable. Bones: Degenerative changes in the thoracic spine. IMPRESSION: 1. Numerous enlarged lymph nodes in the mediastinum and right subclavian station may represent infectious/inflammatory disease, however malignancy cannot be excluded, clinical correlation is recommended. 2. No airspace disease is seen. There is minimal bronchial wall thickening and mosaic attenuation which may reflect infectious/inflammatory airways disease. ACT 112: Negative or not required by law. Electronically signed by: Jefe Sweeney M.D. 12/09/2023 7:07 AM I & O Totals 24 Hours 12/08/23 12/09/23 12/10/23 06:59 06:59 06:59 Intake Total 700 / 700 Balance 700 / 700 Cumulative 12/08/23 20:01 thru 12/09/23 06:44 Intake Total 700 Balance 700 RT Ventilator Mngmt (Last Documented) Ventilator Ordered Settings Respiratory Rate 20 12/09/23 08:05 Ventilator - PT Measurements Respiratory Rate 20 PG Care Time/CCT Total # of Minutes Spent Total Time Spent with Patient: Total time spent is greater than 50% in coordination of care (as documented) at patient's floor/unit and/or counseling patient: Coding Level of Care Code 06987 INT INP/OBS CARE 3/75MIN Diagnoses Mediastinal adenopathy R59.[address] scan of lung R91.8 Obstructive sleep apnea G47.33
--- OUTSIDE RECORDS SUMMARY | 2023-12-09 08:47 | External Medical Summary | Summary of Care ---
Author Name Unknown Organization [facility] Address [address] [place] [address] Phone [phone] Care Team Providers Care Dish Carrier Name Role Phone Peace Barnes MD Primary Care Prov ider Reason for Visit * Reason Onset Date Comments Medication Question 11/28/2023 Encounter Details Date Type Department Care Team (Late st Contact Info) Description 11/28/2023 Telephone Family Medicine [address] [phone] Peace Barnes MD [address] [place] [address] [place] [address] Medication Question Allergies Active Allergy Reactions Criticality Noted Date Comments Bee Pollen Edema face/lips/tongue High 09/23/2021 Bee Stings 06/15/1997 Fd&C Yellow #5 (Tartrazine) Edema face/lips/tongue High 05/05/2022 peppers Iodinated Contrast Media Rash 11/13/2009 Latex Rash Low 10/15/2021 Lisinopril Hives 08/15/2018 Penicillins 06/15/1997 Hives as a very young man prior to age 19 Tetanus Toxoid 06/15/1997 documented as of this encounter (statuses as of 11/28/2023) Medications Medication Sig Dispensed Refills Start Date End Date Status EPINEPHrine 0.15 MG/0.3ML Injection Solution Auto-injector (EPINEPHrine (anaphylaxis)) Inject into a large muscle 0.15 mg as needed for Anaphylaxis (severe allergic reaction). For a severe reaction: Inject in outer thigh following instructions on package and go to the Emergency room. 2 Each 07/06/2021 Active Ipratropium Grant HFA 17 MCG/ACT Inhalation Aerosol Solution (Atrovent HFA) Inhale by mouth 2 Puffs every 6 hours . 38.7 g 3 07/06/2021 Active Co Q 10 10 MG Oral Capsule Take 1 Capsule by mouth daily. 11/12/2021 Active Multivitamin Adult Oral Tablet Take 1 Tablet by mouth in the morning. 11/12/2021 Active Metamucil 0.36 GM Oral Capsule (Psyllium) Take by mouth. Active Fluticasone Propionate 50 MCG/ACT Nasal Suspension (Flonase)Indicati ons:Allergic rhinitis, unspecified seasonality, unspecified trigger ADMINISTER 2 SPRAYS INTO EACH NOSTRIL IN THE MORNING 48 g 1 07/09/2023 Active Allopurinol 300 MG Oral Tablet (Zyloprim) TAKE ONE TABLET BY MOUTH EVERY MORNING 100 Tablet 1 07/12/2023 07/11/2024 Active Atorvastatin Calcium 10 MG Oral Tablet (Lipitor) TAKE 1 TABLET BY MOUTH IN THE MORNING 90 Tablet 1 07/22/2023 Active Metoprolol Tartrate 25 MG Oral Tablet (Lopressor) Take one-half tablet by mouth twice daily 90 Tablet 1 07/27/2023 Active Losartan Potassium 50 MG Oral Tablet (Cozaar)Indicatio ns:HTN, goal below 130/80 TAKE ONE TABLET BY MOUTH TWICE A DAY IN THE MORNING AND BEFORE BEDTIME 200 Tablet 1 07/29/2023 Active Furosemide 20 MG Oral Tablet (Lasix) TAKE ONE TABLET BY MOUTH EVERY DAY NEEDED FOR EDEMA 100 Tablet 1 07/29/2023 Active Terazosin HCl 10 MG Oral Capsule TAKE ONE CAPSULE BY MOUTH AT BEDTIME 100 Capsule 09/06/2023 Active Levothyroxine Sodium 175 MCG Oral Tablet (Levoxyl) TAKE ONE TABLET BY MOUTH EVERY MORNING 100 Tablet 1 09/12/2023 Active Apixaban 2.5 MG Oral Tablet (Eliquis) TAKE ONE TABLET BY MOUTH TWICE A DAY IN THE MORNING AND BEFORE BEDTIME 180 Tablet 10/09/2023 Active metFORMIN HCl ER 500 MG Oral Tablet Extended Release 24 Hour (Glucophage XR)Indications:Ty pe 2 diabetes mellitus with stage 3 chronic kidney disease, without long-term current use of insulin, unspecified whether stage 3a or 3b CKD (HCC) Take 1 Tablet by mouth in the morning and 1 Tablet at noon and 1 Tablet before bedtime. 270 Tablet 3 11/08/2023 Active Semaglutide 7 MG Oral Tablet (Rybelsus) take one tablet by mouth first thing in the morning 90 Tablet 3 11/22/2023 Active documented as of this encounter (statuses as of 11/28/2023) Active Problems Problem Noted Date Diagnosed Date Aortic aneurysm without rupture 11/02/2022 Multiple actinic keratoses 11/02/2022 Ingrowing toenail 11/02/2022 Generalized arthritis 11/02/2022 Malignant carcinoid tumor of ascending colon 02/2023 Hyperlipidemia 05/05/2022 Body mass index (BMI) of 40.0 to 44.9 in adult 1 Overview: Per Obesity protocol Adenocarcinoma of colon 11/12/2021 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 09/22/2021 Hematochezia 09/22/2021 Hyperuricemia 03/20/2021 BPH without obstruction/lower urinary tract symp toms 03/20/2021 DM type 2 with diabetic peripheral neuropathy Mixed hyperlipidemia 03/20/2021 Hypothyroidism 03/20/2021 Paroxysmal atrial fibrillation 03/20/2021 Asthma, moderate persistent 03/20/2021 Metabolic syndrome 03/06/2010 HTN, goal below 130/80 11/13/2009 JAYCOB on CPAP 09/10/1997 Morbid obesity due to excess calories 09/10/1997 documented as of this encounter (statuses as of 11/28/2023) Resolved Problems Problem Noted Date Diagnosed Date Resolved Date Colonic mass 09/29/2021 11/12/2021 Uncomplicated asthma 03/20/2021 022 Asthma in remission 03/20/2021 09/23/19 22 Asthma, mild persistent 03/20/2021 05/3 04/2021 Asthma, severe persistent 03/20/2021 Intermittent asthma with rel iever use up to twice per week 03/20/2021 09/29/2021 Chronic kidney disease, stage 3a 03/02/2021 03/11/2021 Overview: Per CKD protocol Duplicate. 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 09/10/1997 03/20/2021 documented as of this encounter (statuses as of 11/28/2023) Immunizations Name Administration Dates Next Due COVID-19 mRNA, LNP-s, No Pre serve, 2-Dose Series (Moderna) 08/19/2020,07/17/2020 Covid-19, Mrna, Lnp-s, Pf, B ivalent, 50 Mcg, IM, 12 yrs and above (Moderna) 03/02/2022 PPD 05/01/2004,10/29/1993 Pneumococcal Conjugate Vacc, 13 Valent (Prevnar) 02/06/2018 Pneumococcal Polysaccharide PPV23 (Pneumovax) 07/01/2011,05/10/1994 Seasonal Influenza Virus Vac cine, Unspecified Formulation 02/13/2018,01/14/2017,02/16/2016,04/08,01/28/2014,01/24/2013,02/14/2012 ,01/26/2011,02/10/2010,01/22/2009,11/2006,02/04/2006,02/02/2005, 7 Seasonal Influenza, Quadriva lent Hd (Fluzone Hd) 01/14/2022,02/23/2021 Seasonal Influenza, Trivalen t, Adjuvanted, 65+ yrs 01/22/2022 TD - Tetanus/Diptheria (ADULT) 02/02/2005 TD, Preservative Free 02/02/2005 TDAP (age 10 and older)(Boostrix) 01/01/2014 TDAP, Age 7 and older, IM (Adacel) 01/01/2014 Tetanus Toxid Adsorbed 09/29/1993 Varicella Zoster Vaccine (Adult) 03/11/2014 Zoster Vaccine Recombinant (Shingrix) 09/22/2021 documented as of this encounter Social History Tobacco Use Types Packs/Day Years Used Date Smoking Tobacco: Never Smokeless Tobacco: Never Alcohol Use Standard Drinks/Week Comments No 0 (1 standard drink = 0.6 oz pur e alcohol) PHQ-2 Answer Date Recorded PHQ Adult Total Score 0 05/05/2022 Hunger Vital Sign Answer Date Recorded Within the past 12 months, y ou worried that your food would run out before you got the money to buy more. Never true 06/01/19 23 Within the past 12 months, t he food you bought just didn't last and you didn't have money to get more. Never true 06/01/2022 Utilities Answer Date Recorded Do you have trouble paying y our heating, water, or electric bill? (Adult - for ages 18 years and over) Not on file 10/11/2023 Is your family able to pay t he heat, water, or electric bill? (Household - for ages 0-17 years) Not on file 10/11/2023 Does your family have access to good internet? (Household - for ages 0-17 years) Not on file 10/11/2023 Social Connections Answer Date Recorded How often do you feel lonely or isolated from those around you? (Adult - for ages 18 years and over) Not on file 10/11/2023 Sex and Gender Information Value Date Recorded Sex Assigned at Male 05/05/2022 12:22 PM EST Gender Identity Male 05/05/2022 12:13 PM EST Sexual Orientation Straight 05/05/2022 12 :13 PM EST Job Start Date Occupation Industry Not on file Not on file Not on file documented as of this encounter Miscellaneous Notes * Addendum Note - Lynn Pandya RPh - 11/28/2023 10:48 AM EDTAddended by: LYNN PANDYA on: 11/28/2023 10:48 AM Modules accepted: Orders * Telephone Encounter - Lynn Pandya RPh - 11/28/2023 10:25 AM EDT Patient calling in questioning dose of metformin. Advised patient that metformin was increased due to A1c being elevated. Per 11/04/23 TE: A1C is high (10). Please advise he increase Metformin - increase to twice daily for a week, and then 3 times daily after that. Total daily dose 1500mg. New Rx sent. Keep upcoming appt to discuss. Patient interested in MTDM - pended referral. Thank you, Lynn Pandya PharmD Clinical Pharmacist [facility] 11/28/23 10:44 AM [phone] * Telephone Encounter - Desi Hernandez paper stacker - 11/28/2023 10:21 AM EDT Patient calling with questions regarding the increase in Metformin. Warm transfer to [facility]. Thank you, Desi Hernandez Pump Runner I [facility] 11/28/2023,10:24 AM documented in this encounter Plan of Treatment Upcoming Encounters Date Type Department Care Team (Late st Contact Info) Description 12/14/2023 1:40 PM EDT Office Visit Family Medicine [address] [phone] Peace Barnes MD [address] [place] [address] [place] [id number] 12/29/2023 8:00 AM EDT Laboratory Laboratory, [facility] [address] [facility] [place] [phone] [employer] [facility] [address] [facility] [place] [id number] 12/29/2023 9:00 AM EDT Imaging Radiology [facility] [address] [facility] [address] [place] [address] 01/04/2024 1:15 PM EDT Office Visit Hematology/Oncology [facility] [address] [facility] [place] [phone] Garrison Jalloh MD [address] [facility] [place] [address] Health Maintenance Due Date Last Done Comments Zoster Vaccines (3 of 3) 11/17/2021 09/22/2021, 02/23 COVID-19 Vaccine (4 - 2022-24 season) 2022 03/02/2022, 08/19/2020, 07/17/2020 Depression Screening 05/05/2023 05/05/2022 Diabetic Eye Exam 05/05/2023 05/05/2022 Diabetic Foot Exam 11/03/2023 11/02/2022, 09/22/2021 Influenza Vaccine (FLU shot) (#1) 2023 01/22/2022, 01/14/2022, 02/23/2021, Additional history exists HbA1c 05/04/2024 11/02/2023, 10/23, 05/05/2022, Additional history exists Albumin/Creatinine Ratio 11/01/20242 024, 02/25/2022, 01/14/2022, Additional history exists GFR 11/01/2024 11/02/2023, 06/23, 10/22/2022, Additional history exists TSH 11/01/2024 11/02/2023, 04/25, 09/17/2021, Additional history exists Pneumococcal Vaccine: 65+ Years Completed 02/06/2018, 07/01/2011, 05/10/1994 HPV (Gardasil) Vaccine Aged Out No lo nger eligible based on patient's age to complete this topic Hepatitis B Vaccine Aged Out No longe r eligible based on patient's age to complete this topic MENINGOCOCCAL (MENACTRA/MENVEO) Aged Out No longer eligible based on patient's age to complete this topic documented as of this encounter Medical Devices Not on filedocumented as of this encounter Care Teams Dish Carrier Relationship Specialty Start Date End Date Peace Barnes MD [address] [place] [address] [place] [phone] PCP - General Family Medicine 6/1/22 documented as of this encounter
--- OUTSIDE RECORDS SUMMARY | 2023-12-09 08:47 | External Medical Summary | Summary of Care ---
Author Name Unknown Organization [facility] Address [address] [place] [address] Phone [phone] Care Team Providers Care Solar Energy Advisor Name Role Phone Peace Calloway MD Primary Care Prov ider Reason for Visit * Reason Onset Date Comments Medication Refill 11/09/2023 Encounter Details Date Type Department Care Team (Late st Contact Info) Description 11/09/2023 Telephone Family Medicine [address] [phone] Peace Calloway MD [address] [place], [place] [address] [address] Medication Refill Allergies Active Allergy Reactions Criticality Noted Date Comments Bee Pollen Edema face/lips/tongue High 09/23/2021 Bee Stings 06/15/1997 Fd&C Yellow #5 (Tartrazine) Edema face/lips/tongue High 05/05/2022 peppers Iodinated Contrast Media Rash 11/13/2009 Latex Rash Low 10/15/2021 Lisinopril Hives 08/15/2018 Penicillins 06/15/1997 Hives as a very young man prior to age 19 Tetanus Toxoid 06/15/1997 documented as of this encounter (statuses as of 11/22/2023) Medications Medication Sig Dispensed Refills Start Date End Date Status EPINEPHrine 0.15 MG/0.3ML Injection Solution Auto-injector (EPINEPHrine (anaphylaxis)) Inject into a large muscle 0.15 mg as needed for Anaphylaxis (severe allergic reaction). For a severe reaction: Inject in outer thigh following instructions on package and go to the Emergency room. 2 Each 2 Active Ipratropium [place] HFA 17 MCG/ACT Inhalation Aerosol Solution (Atrovent HFA) Inhale by mouth 2 Puffs every 6 hours . 38.7 g 3 2 Active Co Q 10 10 MG Oral Capsule Take 1 Capsule by mouth daily. 2 Active Multivitamin Adult Oral Tablet Take 1 Tablet by mouth in the morning. 2 Active Metamucil 0.36 GM Oral Capsule (Psyllium) Take by mouth. Active Fluticasone Propionate 50 MCG/ACT Nasal Suspension (Flonase)Indica tions:Allergic rhinitis, unspecified seasonality, unspecified trigger ADMINISTER 2 SPRAYS INTO EACH NOSTRIL IN THE MORNING 48 g 1 4 Active Allopurinol 300 MG Oral Tablet (Zyloprim) TAKE ONE TABLET BY MOUTH EVERY MORNING 100 Tablet 1 4 07/12/19 25 Active Atorvastatin Calcium 10 MG Oral Tablet (Lipitor) TAKE 1 TABLET BY MOUTH IN THE MORNING 90 Tablet 1 4 Active Metoprolol Tartrate 25 MG Oral Tablet (Lopressor) Take one-half tablet by mouth twice daily 90 Tablet 1 4 Active Losartan Potassium 50 MG Oral Tablet (Cozaar)Indicat ions:HTN, goal below 130/80 TAKE ONE TABLET BY MOUTH TWICE A DAY IN THE MORNING AND BEFORE BEDTIME 200 Tablet 1 4 Active Furosemide 20 MG Oral Tablet (Lasix) TAKE ONE TABLET BY MOUTH EVERY DAY NEEDED FOR EDEMA 100 Tablet 1 4 Active Terazosin HCl 10 MG Oral Capsule TAKE ONE CAPSULE BY MOUTH AT BEDTIME 100 Capsule 4 Active Levothyroxine Sodium 175 MCG Oral Tablet (Levoxyl) TAKE ONE TABLET BY MOUTH EVERY MORNING 100 Tablet 1 4 Active Apixaban 2.5 MG Oral Tablet (Eliquis) TAKE ONE TABLET BY MOUTH TWICE A DAY IN THE MORNING AND BEFORE BEDTIME 180 Tablet 4 Active metFORMIN HCl ER 500 MG Oral Tablet Extended Release 24 Hour (Glucophage XR)Indications: Type 2 diabetes mellitus with stage 3 chronic kidney disease, without long-term current use of insulin, unspecified whether stage 3a or 3b CKD (HCC) Take 1 Tablet by mouth in the morning and 1 Tablet at noon and 1 Tablet before bedtime. 270 Tablet 3 4 Active Semaglutide 7 MG Oral Tablet (Rybelsus) Take 7 mg by mouth daily first thing in the morning. 90 Tablet 3 4 Active Rybelsus 3 MG Oral Tablet (Semaglutide) Take 1 tablet by mouth daily first thing in the morning. 30 Tablet 4 11/09/19 24 Discontinued(Ref ill) Rybelsus 3 MG Oral Tablet (Semaglutide)In dications:Type 2 diabetes mellitus with stage 3 chronic kidney disease, without long-term current use of insulin, unspecified whether stage 3a or 3b CKD (HCC) Take 1 tablet by mouth daily first thing in the morning. 30 Tablet 4 11/17/19 24 Discontinued Semaglutide 7 MG Oral Tablet (Rybelsus) Take 7 mg by mouth daily first thing in the morning. Do not start before December 17, 2023. 90 Tablet 3 4 11/22/19 24 Discontinued(Ref ill) documented as of this encounter (statuses as of 11/22/2023) Active Problems Problem Noted Date Diagnosed Date [...] as of this encounter (statuses as of 11/22/2023) Resolved Problems Problem Noted Date Diagnosed Date Resolved Date Colonic mass 09/29/2021 11/12/2021 Uncomplicated asthma 03/20/2021 022 Asthma in remission 03/20/2021 09/23/19 22 Asthma, mild persistent 03/20/2021 0504/2021 Asthma, severe persistent 03/20/2021 Intermittent asthma with [...] as of this encounter (statuses as of 11/22/2023) Immunizations Name Administration Dates Next Due COVID-19 [...] as of this encounter Miscellaneous Notes * Telephone Encounter - Viviana Araya [facility] - 11/22/2023 8:28 AM EDT 7mg rx previously sent with future start date. Re-sent with todays date so rx may be filled at pharmacy. See TE 11/09/23. Tried calling patient LMOVM. IF patient returns call to [facility] Please transfer to [facility]. Thank you, Viviana Araya PharmD Clinical Pharmacist [facility] ([facility]) 11/22/23 8:26 AM [phone] * Addendum Note - Viviana Araya [facility] - 11/22/2023 8:27 AM EDTAddended by: VIVIANA ARAYA on: 11/22/2023 08:27 AM Modules accepted: Orders * Telephone Encounter - Isaura Wilder PHARM Tech - 11/21/2023 11:33 AM EDT As per Rene from [facility], this medication doesn't require a review at this time. Thank you, Isaura Wilder [facility] Order Picker Medical Malpractice Paralegal [facility] ([facility]) 11/21/2023,11:33 AM * Telephone Encounter - Isaura Wilder voice professor - 11/21/2023 10:15 AM EDT RYBELSUS 7 MG TABLET Submitted information in previous note via Prom[employer] (EOC: [id number]).. Awaiting payer response. We will follow-up with insurance starting 11/21. Per [facility] request, if no decision is received from insurance by 11/22, we will route back to the [facility] after clarifying with the pharmacy that the claim is still not processing. Thank you, Isaura Wilder [facility] Order Picker Medical Malpractice Paralegal [facility] ([facility]) 11/21/2023,10:15 AM * Addendum Note - Peace Calloway MD - 11/17/2023 12:28 PM EDT Addended by: PEACE MARIN on: 11/17/2023 12:28 PM Modules accepted: Orders * Addendum Note - Kalli Price [facility] - 11/17/2023 11:33 AM EDTAddended by: KALLI PRICE on: 11/17/2023 11:33 AM Modules accepted: Orders * Telephone Encounter - Kalli Price RPh - 11/17/2023 11:29 AM EDT PCP: recommend 7mg script placed on file to fill once 3mg complete to prevent future lapses in therapy. Pending Prescriptions: Disp Refills Semaglutide 7 MG Oral Tablet (Rybelsus) 90 Tab*0 Sig: Take 7 mg by mouth daily first thing in the morning. Do not start before December 17, 2023. Signed Prescriptions: Disp Refills Rybelsus 3 MG Oral Tablet (Semaglutide) 30 Tab*0 Sig: Take 1 tablet by mouth daily first thing in the morning. Authorizing Provider: PEACE CALLOWAY Initial: 3 mg once daily for 30 days, then increase to 7 mg once daily; may increase to 14 mg once daily after 30 days on the 7 mg dose if needed to achieve glycemic goals. Note: The lower initial dose (3 mg daily) is intended to reduce GI symptoms; it does not provide effective glycemic control Thank you, Kalli Price PharmD, TONY Clinical Pharmacist [facility] ([facility]) 11/17/23 11:32 AM [phone] * Telephone Encounter - Kalli Price [facility] - 11/17/2023 11:26 AM EDT Please submit PA/appeal. Include the following documentation: TE 08/15/23 OV 11/02/22 A1C 11/02/23 Please copy and paste the following information into PA form: Pt last filled for 30 days 08/05/23. Restarting therapy On metformin What other drugs is there medical record documentation of therapeutic failure on, intolerance to, or contraindication to for this condition? glipizide Sid as urgent: No Diagnosis/ICD-10 Code(s): E11.22, N18.30 If instantaneous decision is not received after submitting prior auth, please continue to follow upon this and route back to the [facility] if no decision is made by the insurance by 11/20, after clarifying with the pharmacy that the claim is still not processing. If PA is denied, please also route back to [facility]. Thank you, Kalli Price PharmD, TONY Clinical Pharmacist [facility] ([facility]) 11/17/23 11:26 AM [phone] * Telephone Encounter - Isaura Wilder PHARM Tech - 11/17/2023 11:03 AM EDT Images from the original note were not included. Checked status of prior authorization for RYBELSUS 3 MG TABLET through [employer]. Routed high priority to refill call center pharmacist pool due to denial. Denial reason: Thank you, Isaura Wilder waitangi tribunal member Order Picker Medical Malpractice Paralegal [facility] ([facility]) 11/17/2023,11:03 AM * Telephone Encounter - Danica Aldridge [facility] - 11/14/2023 9:09 AM EDT Faxed 05/05/22 OV notes and most recent glucose and A1C. Please begin follow up 11/17/23. Thanks, Danica Aldridge [facility] Clinical Pharmacist [facility] ([facility]) [phone] * Telephone Encounter - Isaura Wilder PHARM Tech - 11/14/2023 8:48 AM EDT EOC# [id number] Due by 10:30 am today This is a request for additional information. Per insurance, they need the following additional information: OV notes Clinical info Please advise. Thank you, Isaura Wilder [facility] Order Picker Medical Malpractice Paralegal [facility] ([facility]) 11/14/2023,8:48 AM * Telephone Encounter - Blanquita Sanchez PHARM Tech - 11/14/2023 8:27 AM EDT Patients insurance would like to inform the office that rybelsus is requiring additional information: c;inical notes and ov. Prior authorization entered in [employer] at [facility]. EOC# [id number] Please fax to [phone] before 10:30am today. Thanks, Blanquita Sanchez Carbon Lamp Cleaner [facility] ([facility]) 11/14/2023,8:27 AM * Telephone Encounter - America Lao PHARM Tech - 11/12/2023 8:49 AM EDT [facility] needs reason for pt not titrating to 7 mg . [facility], [facility] Carbon Lamp Cleaner II [facility] ([facility]) 11/12/2023,8:49 AM * Telephone Encounter - Peace Claloway MD - 11/11/2023 3:05 PM EDT Signed Prescriptions: Disp Refills Rybelsus 3 MG Oral Tablet (Semaglutide) 30 Tab*0 Sig: Take 3 mg by mouth daily first thing in the morning. Authorizing Provider: PEACE CALLOWAY * Telephone Encounter - Berta Chi [facility] - 11/10/2023 9:31 AM EDTPending Prescriptions: Disp Refills Rybelsus 3 MG Oral Tablet (Semaglutide) 30 Tab*0 Sig: Take 3 mg by mouth daily first thing in the morning. * Telephone Encounter - Berta Chi [facility] - 11/10/2023 9:30 AM EDT Please advise if you would like to increase dose at this time. Last filled 08/04 for 30 days. Patient has upcoming OV scheduled. Initial: 3 mg once daily for 30 days, then increase to 7 mg once daily; may increase to 14 mg once daily after 30 days on the 7 mg dose if needed to achieve glycemic goals. Note: The lower initial dose (3 mg daily) is intended to reduce GI symptoms; it does not provide effective glycemic control. Thanks, Berta Chi Clinical Pharmacist [facility] ([facility]) [phone] 11/10/2023, 9:31 AM * Telephone Encounter - José Antonio Willard, voice professor - 11/09/2023 10:28 AM EDT Did you pend patient's preferred pharmacy and medication before forwarding?yes Pharmacy: [facility] Pending Prescriptions: Disp Refills Rybelsus 3 MG Oral Tablet (Semaglutide) 30 Tab*0 Sig: Take 3 mg by mouth daily first thing in the morning. Last Visit: 11/02/2022 (in office), Visit date not found (telemedicine) Next Visit: 12/14/2023 If no future appointments scheduled, and last appointment is greater than a year ago, please schedule patient for a follow-up appointment Last date the medication was ordered: 07/28/23 Is this request for a controlled substance?No Urine Drug Screen:No results found for this or any previous visit. Patient Phone Numbers Labs: Lab Results Component Value Date/Time CREAT 1.4 (H) 11/02/2023 08:18 AM CREAT 1.42 (A) 10/16/2020 12:00 AM CREAT 1.3 03/15/2011 09:53 AM POTASSIUM 4.5 11/02/2023 08:18 AM POTASSIUM 3.9 10/16/2020 12:00 AM POTASSIUM 4.6 03/15/2011 09:53 AM TSH 4.92 (H) 11/02/2023 08:18 AM TSH 3.94 01/02/2020 12:00 AM LDLCALC 49 11/02/2023 08:18 AM LDLCALC 28 10/16/2020 12:00 AM ALT 18 11/02/2023 08:18 AM ALT 14 03/15/2011 09:53 AM HGBA1C 10.1 (H) 11/02/2023 08:18 AM HGBA1C 7.0 (A) 10/16/2020 12:00 AM documented in this encounter Plan of Treatment Upcoming Encounters Date Type Department Care Team (Late st Contact Info) Description 12/14/2023 1:40 PM EDT Office Visit Family Medicine [address] [address] Peace Calloway MD [address] [place] [address] [place] [id number] 12/29/2023 8:00 AM EDT Laboratory Laboratory, [facility] [place] [address] [facility] [place] [id number] [facility] [address] [facility] [place] [address] 12/29/2023 9:00 AM EDT Imaging Radiology [facility] [facility] [address] [facility] [place] [address] 01/04/2024 1:15 PM EDT Office Visit Hematology/Oncology [facility] [address] [place] [id number] Garrison Jalloh MD [address] [place] [address] Health Maintenance Due Date Last Done Comments Zoster Vaccines (3 of 3) 11/17/2021 09/22/2021, 02/23 COVID-19 Vaccine ( season) 2022 03/02/2022, 08/19/2020, 07/17/2020 Depression Screening [...] Not on filedocumented as of this encounter Visit Diagnoses Diagnosis Type 2 diabetes mellitus with stage 3 chronic kidney disease, without long-term current use of insulin, unspecified whether stage 3a or 3b CKD (HCC)- Primary documented in this encounter Care Teams Solar Energy Advisor Relationship Specialty Start Date End Date Peace Calloway MD [address] [place] [address] [place] [address] PCP - General Family Medicine 09/23/21 documented as of this encounter
--- OUTSIDE RECORDS SUMMARY | 2023-12-09 08:47 | External Medical Summary | Summary of Care ---
Author Name Unknown Organization [facility] Address [address] [facility] [place] [address] Phone [phone] Care Team Providers Care Feed Mixer Helper Name Role Phone Peace Barnes MD Primary Care Prov ider Reason for Visit * Reason Comments Dosage Adjustment In Person (Anticoag Cl inic) Diabetes Education * Evaluate & Treat - Unlimited Visits (Within 10 days (routine)) - Authorized Specialty Diagnoses / Procedures Referred By Contradha t Referred To Contact Pharmacist / Pharmacy Diagnoses Type 2 diabetes mellitus with stage 3 chronic kidney disease, without long-term current use of insulin, unspecified whether stage 3a or 3b CKD (HCC) Sharri Dickerson, [facility] [address] [place] [address] Referral ID Status Reason Start Date Expiration Date Visits Requested Visits Authorized [id number] Authorized Specialty Services Required 11/30/2023 05/26/2024 99 99 Encounter Details Date Type Department Care Team (Late st Contact Info) Description 12/06/2023 10:10 AM EDT Office Visit Pharmacy, [address] [place] [address] [place] [address] DM type 2 with diabetic peripheral neuropathy (HCC)* Allergies Active Allergy Reactions Criticality Noted Date Comments Bee Pollen Edema face/lips/tongue High 09/23/2021 Bee Stings 06/15/1997 Fd&C Yellow #5 (Tartrazine) Edema face/lips/tongue High 05/05/2022 peppers Iodinated Contrast Media Rash 11/13/2009 Latex Rash Low 10/15/2021 Lisinopril Hives 08/15/2018 Penicillins 06/15/1997 Hives as a very young man prior to age 19 Tetanus Toxoid 06/15/1997 documented as of this encounter (statuses as of 12/06/2023) Medications Medication Sig Dispensed Refills Start Date End Date Status EPINEPHrine 0.15 MG/0.3ML Injection Solution Auto-injector (EPINEPHrine (anaphylaxis)) Inject into a large muscle 0.15 mg as needed for Anaphylaxis (severe allergic reaction). For a severe reaction: Inject in outer thigh following instructions on package and go to the Emergency room. 2 Each 07/06/2021 Active Ipratropium [place] HFA 17 MCG/ACT Inhalation Aerosol Solution (Atrovent [...] the morning 90 Tablet 3 11/22/2023 Active [employer] Verio Flex System w/Device Kit Use as directed. Test blood sugar once daily. DxE11.9 1 Kit 12/06/2023 Active [employer] Verio In Vitro Strip (Glucose Blood) Test blood sugar once daily. DxE11.9 100 Strip 3 12/06/2023 Active [facility] / TLLTouch Delica Lancets 33G Test blood sugar once daily. 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 Cavanaugh. (10/16/2021), - he presented with iron deficiency anemia, received 3 units of PRBC and IV iron treatment when he was in hospital at [facility]. -final pathology showed T3 N0, 11 lymph nodes negative. -BRAF positive -preoperative CEA level around 25. 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 Hematochezia [...] as of this encounter (statuses as of 12/06/2023) Resolved Problems Problem Noted Date Diagnosed Date Resolved Date Malignant carcinoid tumor of ascending colon 12/05/2023 Adenocarcinoma of colon 11/12/202111/23 Colonic mass 09/29/2021 11/12/2021 Uncomplicated asthma 03/20/2021 022 Asthma in remission 03/20/2021 09/23/19 Asthma, mild persistent 03/20/202108/25 Asthma, severe persistent 03/20/2021 Intermittent asthma with [...] as of this encounter (statuses as of 12/06/2023) Immunizations Name Administration Dates Next Due COVID-19 mRNA, LNP-s, No Pre serve, 2-Dose Series (Moderna) 08/19/2020,07/17/2020 Covid-19, Mrna, Lnp-s, Pf, B ivalent, 50 Mcg, IM, 12 yrs and above (Moderna) 03/02/2022 PPD 05/01/2004 Pneumococcal Conjugate Vacc, 13 Valent (Prevnar) 02/06/2018 Pneumococcal Polysaccharide PPV23 (Pneumovax) 07/01/2011 Seasonal Influenza Virus Vac cine, Unspecified Formulation 02/13/2018,01/14/2017,02/16/2016,04/08,01/28/2014,01/24/2013,02/14/2012 ,01/26/2011,02/10/2010,01/22/2009,11/2006,02/04/2006,02/02/2005 Seasonal Influenza, Quadriva lent Hd (Fluzone Hd) 01/14/2022,02/23/2021 Seasonal Influenza, Trivalen t, Adjuvanted, 65+ yrs 01/22/2022 TD - Tetanus/Diptheria (ADULT) 02/02/2005 TD, Preservative Free 02/02/2005 TDAP (age 10 and older)(Boostrix) 01/01/2014 TDAP, Age 7 and older, IM (Adacel) 01/01/2014 Varicella Zoster Vaccine (Adult) 03/11/2014 Zoster Vaccine [...] on file documented as of this encounter Progress Notes * Chanel Sawant, [facility] - 12/06/2023 10:15 AM EDT Medication Therapy Disease Management Clinic - Diabetes Management Progress Note Mir Dooley, identified by name and date of , is a 83 year old male being seen for diabetes management/education. Patient presents for initial diabetic visit. 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) 05/05/2022 Mixed dyslipidemia Obesity, BMI not known PAF (paroxysmal atrial fibrillation) ([facility]) Sleep apnea Diagnosis: Type 2 Age of diabetes diagnosis: At least 10-20 years Family history of diabetes: Did not discuss Microvascular complications: neuropathy Macrovascular complications: hypertension dyslipidemia History of Treatment Barriers: Lifestyle: None Therapy considerations: Renal Functions Medication: Discussed below DIABETES: Current diabetic medications: Metformin 500mg - 2 tablets daily Rybelsus 7mg - 1 tablet daily eGFR 50 as of 11/02/23 Medication Injection Site: N/A Lifestyle: Diet: Discussed below Glucose Review/SMBG: Not available, patient not testing Hypoglycemia: Does your blood sugar go below 70 mg/dL? Patient not testing Hyperglycemia symptoms present: none Recent Labs Units 11/02/23 0818 11/02/22 1514 05/05/22 1108 HEMOGLOBIN A1C - [facility] % 10.1* 8.5* 7.7* Recent Labs Units 11/02/23 0818 07/06/23 0855 10/22/22 0810 ESTIMATED GLOMERULAR FILTRATION RATE - [facility] mL/min 50* 54* 41* CREATININE - [facility] mg/dL 1.4* 1.3* 1.7* HYPERTENSION: Patient on ACEi/ARB: yes BP Readings from Last 3 Encounters: 07/06/23 177/98 11/02/22 120/68 10/22/22 156/78 Blood pressure at goal: yes HYPERLIPIDEMIA: Recent Labs Units 11/02/23 0818 05/05/22 1108 LDL CHOLESTEROL (CALCULATED) - [facility] mg/dL 49 63 Does patient have clinical ASCVD? No, is patient LDL less than 70mg/dL? Yes HEALTH MAINTENANCE REVIEW: Health Maintenance Due Topic Date Due Zoster Vaccines (3 of 3) 11/17/2021 COVID-19 Vaccine ( season) 2022 Diabetic Eye Exam 05/05/2023 Depression Screening 05/05/2023 Adult Wellness Visit 05/05/2023 Diabetic Foot Exam 11/03/2023 ASSESSMENT & PLAN: ICD-10-CM 1. DM type 2 with diabetic peripheral neuropathy (HCC) E11.42 Considerations: GHP Gold + PACENET Glipizide use in the past Lengthy discussion on diabetes pathophysiology, role of diet and macronutrients on blood glucose control and benefits of exercise. Patient presented today under the assumption he was going to obtain a CGM. Lengthy discussion regarding Cgm therapy, however made aware of Medicare requirement of once daily insulin injection. Patient frustrated regarding this. Inquiring on if insulin can be started. Discussed hesitancy at this time due to inability to appropriately assess glycemic control as patient is not testing, as well as hypoglycemia risk. I will plan to place [facility] order, however patient made aware this is likely not to be covered. Overall tolerating medications well. Notes to ADEs with Rybelsus when swallowing medication. Some stomach upset. Discussed transition to once weekly injectable such as Trulicity, he would like to further discuss this with PCP at upcoming appointment next week. Currently not testing blood sugars. Agreeable to restart if unable to obtain CGM. Meter/supplies sent to mail order pharmacy. Patient declines further MTM f/u at this time. Provided MTM number and instructed to contact clinicto be rescheduled. Patient expressed understanding. Patient is agreeable to SMBG 0-1 time(s) daily. Patient aware to contact clinic if any hypoglycemia before next visit. MEDICATION CHANGES: no change Diabetic Medications: Metformin 500mg - 2 tablets daily Rybelsus 7mg - 1 tablet daily eGFR 50 as of 11/02/23 HEALTH MAINTENANCE INTERVENTIONS: Deferred d/t time constraints FOLLOW UP: Return to clinic n/a I spent a total of 40-54 minutes (exact time 40 mins) on the date of service in preparation, delivery, and documentation of the care provided to Mir Dooley excluding any time spent in the performance of separately billed services. Chanel Sawnat [facility] Clinical Pharmacist - Naval Engineer Medication Therapy Management Clinic 12/06/2023, 10:15 AM documented in this encounter Plan of Treatment Upcoming Encounters Date Type Department Care Team (Late st Contact Info) Description 12/14/2023 1:40 PM EDT Office Visit Family Medicine [address] [phone] Peace Barnes MD [address] [place] [address] [place] [address] 12/29/2023 8:00 AM EDT Laboratory Laboratory, [address] [place] [phone] [employer] [address] [place] [address] 12/29/2023 9:00 AM EDT Imaging Radiology [facility] [address] [facility] [place] [address] 01/04/2024 1:15 PM EDT Office Visit Hematology/Oncology [facility] 200 [facility] [place] [phone] Garrison Jalloh MD [address] [place] [address] Health Maintenance Due Date Last Done Comments Zoster Vaccines (3 of 3) 11/17/2021 09/22/2021, 02/23 COVID-19 Vaccine ( - 2022- season) 2022 03/02/2022, 08/19/2020, 07/17/2020 Adult Wellness Visit 05/05/2023 05/05/2022 Depression Screening 05/05/2023 05/05/2022 Diabetic Eye Exam [...] as of this encounter Visit Diagnoses Diagnosis DM type 2 with diabetic peripheral neuropathy (HCC)- Primary Type II or unspecified type diabetes mellitus with neurological manifestations, not stated as uncontrolled documented in this encounter Care Teams Feed Mixer Helper Relationship Specialty Start Date End Date Peace Barnes MD [address] [place] [address] [place] [phone] PCP - General Family Medicine 09/23/21 documented as of this encounter
--- OUTSIDE RECORDS SUMMARY | 2023-12-09 08:47 | External Medical Summary | Summary of Care ---
Author Name Unknown Organization [facility] Address [address] [place] [address] Phone [phone] Care Team Providers Care Land Development Manager Name Role Phone Peace Barnes MD Primary Care Prov ider Reason for Visit * Reason Onset Date Comments Medication Question 11/28/2023 Encounter Details Date Type Department Care Team (Late st Contact Info) Description 11/28/2023 Telephone Family Medicine [address] [phone] Peace Barnes MD [address] [place] [address] [place] [address] Medication Question Allergies Active Allergy Reactions [...] Emergency room. 2 Each 07/06/2021 Active Ipratropium [place] HFA 17 MCG/ACT Inhalation Aerosol Solution (Atrovent [...] encounter Miscellaneous Notes * Telephone Encounter - Desi Hernandez marketing communications manager - 11/28/2023 10:21 AM EDT Patient calling with questions regarding the increase in Metformin. Warm transfer to [facility]. Thank you, Desi Hernandez Domain Architect I [facility] ([facility]) 11/28/2023,10:24 AM documented in this encounter Plan of Treatment Upcoming Encounters Date Type Department Care Team (Late st Contact Info) Description 12/14/2023 1:40 PM EDT Office Visit Family Medicine [address] [place] [phone] Peace Barnes MD [address] [place] [address] [place] [address] 12/29/2023 8:00 AM EDT Laboratory Laboratory, [facility] [phone] [facility] 132 [facility] [place] [address] 12/29/2023 9:00 AM EDT Imaging Radiology [facility] 132 [facility] [place] [address] 01/04/2024 1:15 PM EDT Office Visit Hematology/Oncology [facility] 200 [facility] [place] [phone] Garrison Jalloh MD [address] [place] [address] Health Maintenance Due Date Last Done Comments [...] filedocumented as of this encounter Care Teams Land Development Manager Relationship Specialty Start Date End Date Peace Barnes MD [address] [place] [address] [place] [address] PCP - General Family Medicine 09/23/21 documented as of this encounter
--- OUTSIDE RECORDS SUMMARY | 2023-12-09 08:47 | External Medical Summary | Summary of Care ---
Author Name Unknown Organization [facility] Address [address] [facility] [place] [address] Phone [phone] Care Team Providers Care Railroad Inspector Name Role Phone Kwabena Barnes MD Primary Care Prov ider Reason for Referral * Evaluate & Treat - Unlimited Visits (Within 10 days (routine)) - Authorized Specialty Diagnoses / Procedures Referred By Contac t Referred To Contact Pharmacist / Pharmacy Diagnoses Type 2 diabetes mellitus with stage 3 chronic kidney disease, without long-term current use of insulin, unspecified whether stage 3a or 3b CKD (HCC) Lynn Dickerson, [facility] [address] [place] [address] Referral ID Status Reason Start Date Expiration Date Visits Requested Visits Authorized [id number] Authorized Specialty Services Required 11/30/2023 05/26/2024 99 99 Question Answer Referral Priority Within 10 days (routine) Where should this appointment be scheduled? [facility] Referring Provider Role: Primary Care Reason for Referral: DM Target A1c: < 7 Comments Pharmacist Medication Therapy Management: Minimum frequency patient should be seen in person for medication management: as appropriate per clinical condition and patient status By my signature, I understand that my patient Mir Dooley will have his medication therapy managed by the [facility] Medication Therapy Disease Management Clinic ([facility]) per established policies, procedures, and protocols. I also certify that this referral may serve as an initiation of service for the management of drug therapy in the above noted patient. [facility] providers will be responsible for scheduling patient visits, obtaining appropriate laboratory studies, and adjusting medication management therapy per patient's need, in addition to those roles spelled out in the clinic policy, procedures, and drug management protocols. I understand that the service provided by the [facility] is voluntary and have informed patient that they can refuse the service at their discretion. I am aware that the [facility] Clinic will provide me with a copy of the patient encounter via my [employer]. I authorize the [facility] to carry out these activities on my behalf. I consider this program to be a necessary part of the patient's medical care. Kwabena Cardoso MD Reason for Visit * Reason Onset Date Comments Medication Question 11/28/2023 Encounter Details Date Type Department Care Team (Late st Contact Info) Description 11/28/2023 Telephone Family Medicine [address] [phone] Kwabena Barnes MD [address] [place] [address] [place] [address] Medication Question Allergies Active Allergy Reactions [...] as of this encounter (statuses as of 11/30/2023) Medications Medication Sig Dispensed Refills Start Date End Date Status EPINEPHrine 0.15 MG/0.3ML Injection Solution Auto-injector (EPINEPHrine (anaphylaxis)) Inject into a large muscle 0.15 mg as needed for Anaphylaxis (severe allergic reaction). For a severe reaction: Inject in outer thigh following instructions on package and go to the Emergency room. 2 Each 07/06/2021 Active Ipratropium [place] HFA 17 MCG/ACT Inhalation Aerosol Solution (Atrovent [...] as of this encounter (statuses as of 11/30/2023) Active Problems Problem Noted Date Diagnosed Date [...] as of this encounter (statuses as of 11/30/2023) Resolved Problems Problem Noted Date Diagnosed Date [...] as of this encounter (statuses as of 11/30/2023) Immunizations Name Administration Dates Next Due COVID-19 [...] encounter Miscellaneous Notes * Addendum Note - Kwabena Barnes MD - 11/30/2023 4:09 PM EDT Addended by: KWABENA MARIN on: 11/30/2023 04:09 PM Modules accepted: Orders * Addendum Note - Lynn Dickerson RPh - 11/28/2023 10:48 AM EDTAddended by: LYNN DICKERSON on: 11/28/2023 10:48 AM Modules accepted: Orders * Telephone Encounter - Lynn Dickerson RPh - 11/28/2023 10:25 AM EDT Patient [...] MTDM - pended referral. Thank you, Lynn Dickerson PharmD Clinical Pharmacist [facility]) 11/28/23 10:44 AM [phone] * Telephone Encounter - Desi Hernandez PHARM Tech - 11/28/2023 10:21 AM EDT Patient calling with questions regarding the increase in Metformin. Warm transfer to [facility]. Thank you, Desi Hernandez Commercial Real Estate Appraiser I [facility] ([facility]) 11/28/2023,10:24 AM documented in this encounter Plan of Treatment Upcoming Encounters Date Type Department Care Team (Late st Contact Info) Description 12/14/2023 1:40 PM EDT Office Visit Family Medicine [address] [phone] Kwabena Barnes MD [address] [place] [address] [place] [address] 12/29/2023 8:00 AM EDT Laboratory Laboratory, [facility] 132 [facility] [place] [phone] [employer] [facility] [address] [place] [address] 12/29/2023 9:00 AM EDT Imaging Radiology [address] [place] [address] 01/04/2024 1:15 PM EDT Office Visit Hematology/Oncology [facility] [address] [facility] [place] [address] Garrison Jalloh MD 200 [place] [address] Scheduled Referrals Name Type Priority Associated Diagnoses Orde r Schedule PHARMACIST MEDS THERAPY MGMT REFERRAL OP Referral Within 10 days (routine) Type 2 diabetes mellitus with stage 3 chronic kidney disease, without long-term current use of insulin, unspecified whether stage 3a or 3b CKD (HCC) Ordered: 11/30/2023 Health Maintenance Due Date Last Done Comments Zoster Vaccines (3 of 3) 11/17/2021 09/22/2021, 02/23 COVID-19 Vaccine ( season) 2022 03/02/2022, 08/19/2020, 07/17/2020 Adult Wellness [...] Primary documented in this encounter Care Teams Railroad Inspector Relationship Specialty Start Date End Date Kwabena Barnes MD [address] [place] [address] [place] [address] PCP - General Family Medicine 09/23/21 documented as of this encounter
--- OUTSIDE RECORDS SUMMARY | 2023-12-09 08:48 | External Medical Summary | Summary of Care ---
Author Name Unknown Organization [facility] Address [address] [facility] [place] [address] Phone [phone] Care Team Providers Care Fagot Heater Helper Name Role Phone Peace Barnes MD Primary Care Prov ider Reason for Visit * Reason Onset Date Comments Medication Refill 11/09/2023 Encounter Details Date Type Department Care Team (Late st Contact Info) Description 11/09/2023 Telephone Family Medicine [address] [phone] Peace Barnes MD [address] [place], [place] [address] [address] Medication Refill Allergies Active Allergy Reactions [...] as of this encounter (statuses as of 11/21/2023) Medications Medication Sig Dispensed Refills Start Date End Date Status EPINEPHrine 0.15 MG/0.3ML Injection Solution Auto-injector (EPINEPHrine (anaphylaxis)) Inject into a large muscle 0.15 mg as needed for Anaphylaxis (severe allergic reaction). For a severe reaction: Inject in outer thigh following instructions on package and go to the Emergency room. 2 Each 2 Active Ipratropium [place] HFA 17 MCG/ACT Inhalation Aerosol Solution (Atrovent [...] December 17, 2023. 90 Tablet 3 4 Active Rybelsus 3 [...] morning. 30 Tablet 4 11/17/19 24 Discontinued documented as of this encounter (statuses as of 11/21/2023) Active Problems Problem Noted Date Diagnosed Date [...] as of this encounter (statuses as of 11/21/2023) Resolved Problems Problem Noted Date Diagnosed Date Resolved Date Colonic mass 09/29/2021 11/12/2021 Uncomplicated asthma 03/20/2021 022 Asthma in remission 03/20/2021 09/23/19 22 Asthma, mild persistent 03/20/202108/25 Asthma, severe persistent [...] as of this encounter (statuses as of 11/21/2023) Immunizations Name Administration Dates Next Due COVID-19 [...] encounter Miscellaneous Notes * Telephone Encounter - Isaura Wilder PHARM Tech - 11/21/2023 11:33 AM EDT As per Rene from [facility], this medication doesn't require a review at this time. Thank you, Isaura Wilder [facility] Artificial Breeding Distributor Clinical Application Specialist [facility] ([facility]) 11/21/2023,11:33 AM * Telephone Encounter - Isaura Wilder PHARM Tech - 11/21/2023 10:15 AM EDT RYBELSUS 7 MG TABLET Submitted information in previous note via [employer] (EOC: [id number]).. Awaiting payer response. We will follow-up with insurance starting 11/21. Per [facility] request, if no decision is received from insurance by 11/22, we will route back to the [facility] after clarifying with the pharmacy that the claim is still not processing. Thank you, Isaura Wilder [facility] Artificial Breeding Distributor Clinical Application Specialist [facility] ([facility]) 11/21/2023,10:15 AM * Addendum Note - Peace Barnes MD - 11/17/2023 12:28 PM EDT Addended by: PEACE MARIN on: 11/17/2023 12:28 PM Modules accepted: Orders * Addendum Note - Kalli Quiles [facility] - 11/17/2023 11:33 AM EDTAddended by: KALLI QUILES on: 11/17/2023 11:33 AM Modules accepted: Orders Electronically signed by Kalli Quiles [facility] at 11/17/2023 11:33 AM EDT * Telephone Encounter - Kalli Quiles RP - 11/17/2023 11:29 AM EDT PCP: recommend [...] thing in the morning. Authorizing Provider: PEACE BARNES Initial: 3 mg once daily for 30 days, then increase to 7 mg once daily; may increase to 14 mg once daily after 30 days on the 7 mg dose if needed to achieve glycemic goals. Note: The lower initial dose (3 mg daily) is intended to reduce GI symptoms; it does not provide effective glycemic control Thank you, Kalli Quiles PharmD, TONY Clinical Pharmacist [facility] ([facility]) 11/17/23 11:32 AM [phone] * Telephone Encounter - Kalli Quiles RPh - 11/17/2023 11:26 AM EDT Please submit [...] this and route back to the [facility] pool if no decision is made by the insurance by 11/20, after clarifying with the pharmacy that the claim is still not processing. If PA is denied, please also route back to [facility] pool. Thank you, Kalli Quiles PharmD, TONY Clinical Pharmacist [facility] ([facility]) 11/17/23 11:26 AM [phone] * Telephone Encounter - Isaura Wilder bank note designer - 11/17/2023 11:03 AM EDT Images from the original note were not included. Checked status of prior authorization for RYBELSUS 3 MG TABLET through [employer]. Routed high priority to refill call center pharmacist pool due to denial. Denial reason: Thank you, Isaura Wilder CPhT Artificial Breeding Distributor Clinical Application Specialist [facility] ([facility]) 11/17/2023,11:03 AM * Telephone Encounter - Danica Aldridge RPh - 11/14/2023 9:09 AM EDT Faxed 05/05/22 OV notes and most recent glucose and A1C. Please begin follow up 11/17/23. Thanks, Danica Aldridge [facility] Clinical Pharmacist [facility] ([facility]) [phone] * Telephone Encounter - Isaura Wilder PHARM Tech - 11/14/2023 8:48 AM EDT EOC# [id number] Due by 10:30 am today This is a request for additional information. Per insurance, they need the following additional information: OV notes Clinical info Please advise. Thank you, Isaura Wilder [facility] Artificial Breeding Distributor Clinical Application Specialist [facility] ([facility]) 11/14/2023,8:48 AM * Telephone Encounter - Blanquita Sanchez PHARM Tech - 11/14/2023 8:27 AM EDT Patients insurance would like to inform the office that rybelsus is requiring additional information: c;inical notes and ov. Prior authorization entered in [employer] at [facility]. EOC# [id number] Please fax to [phone] before 10:30am today. Thanks, Blanquita Sanchez Assistant Commissioner [facility] ([facility]) 11/14/2023,8:27 AM * Telephone Encounter - America Lao PHARM Tech - 11/12/2023 8:49 AM EDT [facility] needs reason for pt not titrating to 7 mg . Thank you, America Lao,[facility] Assistant Commissioner II [facility] ([facility]) 11/12/2023,8:49 AM * Telephone Encounter - Peace Barnes MD - 11/11/2023 3:05 PM EDT Signed Prescriptions: Disp Refills Rybelsus 3 MG Oral Tablet (Semaglutide) 30 Tab*0 Sig: Take 3 mg by mouth daily first thing in the morning. Authorizing Provider: PEACE BARNES * Telephone Encounter - Breta Chi RPh - 11/10/2023 9:31 AM EDTPending Prescriptions: Disp Refills Rybelsus 3 MG Oral Tablet (Semaglutide) 30 Tab*0 Sig: Take 3 mg by mouth daily first thing in the morning. * Telephone Encounter - Berta Chi RPh - 11/10/2023 9:30 AM EDT Please advise [...] Clinical Pharmacist [facility] ([facility]) [phone] 11/10/2023, 9:31 AM * Telephone Encounter - José Antonio Willard bank note designer - 11/09/2023 10:28 AM EDT Did you pend patient's preferred pharmacy and medication before forwarding?yes [facility] Pending Prescriptions: Disp Refills [...] 1:40 PM EDT Office Visit Family Medicine [address] [place] [phone] Peace Barnes MD [address] [place] [address] [place] [address] 12/29/2023 8:00 AM EDT Laboratory Laboratory, [address] [place]ISON [place] [phone] [facility] [address] [facility] [place] [address] 12/29/2023 9:00 AM EDT Imaging Radiology [address] [place] [address] 01/04/2024 1:15 PM EDT Office Visit Hematology/Oncology [facility] Isaura [address] [place] [phone] Garrison Jalloh MD [address] [facility] [place] [address] Health Maintenance Due Date Last Done Comments Zoster Vaccines (3 of 3) 11/17/2021 09/22/2021, 02/23 COVID-19 Vaccine ( season) 2022 03/02/2022, 08/19/2020, 07/17/2020 Depression Screening 05/05/2023 05/05/2022 Diabetic Eye Exam 05/05/2023 05/05/2022 Diabetic Foot Exam 11/03/2023 11/02/2022, 09/22/2021 Influenza Vaccine (FLU shot) (#1) 2023 01/22/2022, 01/14/2022, 02/23/2021, Additional history exists HbA1c 05/04/2024 11/02/2023, 10/23, 05/05/2022, Additional history exists Albumin/Creatinine Ratio 11/01/2024 024, 02/25/2022, 01/14/2022, Additional history exists GFR [...] Primary documented in this encounter Care Teams Fagot Heater Helper Relationship Specialty Start Date End Date Peace Barnes MD [address] [place] [address] [place] [address] PCP - General Family Medicine 09/23/21 documented as of this encounter
--- OUTSIDE RECORDS SUMMARY | 2023-12-09 08:48 | External Medical Summary | Summary of Care ---
Author Name Unknown Organization [facility] Address [address] [place] [facility] [place] [address] Phone [phone] Care Team Providers Care Secondary School Teacher Name Role Phone Peace Calloway MD Primary Care Prov ider Reason for Visit * Reason Onset Date Comments Medication Refill 11/09/2023 Encounter Details Date Type Department Care Team (Late st Contact Info) Description 11/09/2023 Telephone Family Medicine [address] [phone] Peace Calloway MD [address] [place], [place] [address] [address] Medication Refill Allergies Active Allergy Reactions [...] Emergency room. 2 Each 2 Active Ipratropium [place] HFA 17 MCG/ACT Inhalation Aerosol Solution (Atrovent [...] information in previous note via [employer] (EOC: [id number]).. Awaiting payer response. We will follow-up with insurance starting 11/21. Per [facility] request, if no decision is received from insurance by 11/22, we will route back to the [facility] after clarifying with the pharmacy that the claim is still not processing. Thank you, Isaura Wilder [facility] Muck Miner Studio Artist [facility] Services ([facility]) 11/21/2023,10:15 AM * Addendum Note - Peace Calloway MD - 11/17/2023 12:28 PM EDT Addended by: PEACE MARIN on: 11/17/2023 12:28 PM Modules accepted: Orders * Addendum Note - Kalli Price [facility] - 11/17/2023 11:33 AM EDTAddended by: KALLI PRICE on: 11/17/2023 11:33 AM Modules accepted: Orders * Telephone Encounter - Kalli Price [facility] - 11/17/2023 11:29 AM EDT PCP: recommend [...] Clinical Pharmacy Services (CCPS) 11/17/23 11:32 AM [phone] * Telephone Encounter - Kalli Price [facility] - 11/17/2023 11:26 AM EDT Please submit [...] upon this and route back to the [facility] pool if no decision is made by the insurance by 11/20, after clarifying with the pharmacy that the claim is still not processing. If PA is denied, please also route back to [facility] pool. Thank you, Kalli Price PharmD, TONY Clinical Pharmacist [facility] ([facility]) 11/17/23 11:26 AM [phone] * Telephone Encounter - Isaura Wilder PHARM Tech - 11/17/2023 11:03 AM EDT Images from the original note were not included. Checked status of prior authorization for RYBELSUS 3 MG TABLET through [employer]. Routed high priority to refill call center pharmacist pool due to denial. Denial reason: Thank you, Isaura Wilder, [facility] Muck Miner Studio Artist [facility] ([facility]) 11/17/2023,11:03 AM * Telephone Encounter - Danica Aldridge RPh - 11/14/2023 9:09 AM EDT Faxed 05/05/22 OV notes and most recent glucose and A1C. Please begin follow up 11/17/23. Thanks, Danica Aldridge [facility] Clinical Pharmacist [facility] ([facility]) [phone] * Telephone Encounter - Isaura Wilder PHARM Tech - 11/14/2023 8:48 AM EDT EOC# [id number] Due by 10:30 am today This is a request for additional information. Per insurance, they need the following additional information: OV notes Clinical info Please advise. Thank you, Isaura Wilder CPhT Muck Miner Studio Artist [facility] ([facility]) 11/14/2023,8:48 AM * Telephone Encounter - Blanquita Sanchez PHARM Tech - 11/14/2023 8:27 AM EDT Patients insurance would like to inform the office that herrera is requiring additional information: c;inical notes and ov. Prior authorization entered in [employer] at [facility]. EOC# [id number] Please fax to [phone] before 10:30am today. Thanks, Blanquita Sanchez Carbon Coating Machine Operator [facility] ([facility]) 11/14/2023,8:27 AM * Telephone Encounter - America Lao PHARM Tech - 11/12/2023 8:49 AM EDT [facility] needs reason for pt not titrating to 7 mg . Thank you, America Lao CPhT Carbon Coating Machine Operator II [facility] ([facility]) 11/12/2023,8:49 AM * Telephone Encounter - Peace Calloway MD - 11/11/2023 3:05 PM EDT Signed Prescriptions: Disp Refills Rybelsus 3 MG Oral Tablet (Semaglutide) 30 Tab*0 Sig: Take 3 mg by mouth daily first thing in the morning. Authorizing Provider: PEACE CALLOWAY * Telephone Encounter - Berta Chi [facility] - 11/10/2023 9:31 AM EDTPending Prescriptions: Disp Refills Rybelsus 3 MG Oral Tablet (Semaglutide) 30 Tab*0 Sig: Take 3 mg by mouth daily first thing in the morning. * Telephone Encounter - Berta Chi [facility] - 11/10/2023 9:30 AM EDT Please advise [...] Clinical Pharmacist [facility] ([facility]) [phone] 11/10/2023, 9:31 AM * Telephone Encounter - José Antonio Willard PHARM Tech - 11/09/2023 10:28 AM EDT Did you pend patient's preferred pharmacy and medication before forwarding?yes Pharmacy: [facility] Pending Prescriptions: Disp Refills [...] 1:40 PM EDT Office Visit Family Medicine [address] [place] [phone] Peace Calloway MD [address] [place] [address] [place] [address] 12/29/2023 8:00 AM EDT Laboratory Laboratory, [address] [place] [phone] [facility] [address] [place] [address] 12/29/2023 9:00 AM EDT Imaging Radiology [address] [place] [address] 01/04/2024 1:15 PM EDT Office Visit Hematology/Oncology [facility] 200 [facility] [place] [phone] Garrison Jalloh MD [address] [facility] [place] [address] Health Maintenance Due Date Last Done Comments [...] Primary documented in this encounter Care Teams Secondary School Teacher Relationship Specialty Start Date End Date Peace Calloway MD [address] [place] [address] [place] [address] PCP - General Family Medicine 09/23/21 documented as of this encounter
--- OUTSIDE RECORDS SUMMARY | 2023-12-09 08:48 | External Medical Summary | Summary of Care ---
Author Name Unknown Organization [facility] Address [address] [facility] [place] [address] Phone [phone] Care Team Providers Care Medical Staff Coordinator Name Role Phone Peace Barnes MD Primary Care Prov ider Encounter Details Date Type Department Care Team (Late st Contact Info) Description 11/15/2023 Population Health External Data Unspecified Department Allergies Active Allergy Reactions Criticality Noted Date Comments Bee Pollen Edema face/lips/tongue High 09/23/2021 Bee Stings 06/15/1997 Fd&C Yellow #5 (Tartrazine) Edema face/lips/tongue High 05/05/2022 peppers Iodinated Contrast Media Rash 11/13/2009 Latex Rash Low 10/15/2021 Lisinopril Hives 08/15/2018 Penicillins 06/15/1997 Hives as a very young man prior to age 19 Tetanus Toxoid 06/15/1997 documented as of this encounter (statuses as of 11/18/2023) Medications Medication Sig Dispensed Refills Start Date End Date Status EPINEPHrine 0.15 MG/0.3ML Injection Solution Auto-injector (EPINEPHrine (anaphylaxis)) Inject into a large muscle 0.15 mg as needed for Anaphylaxis (severe allergic reaction). For a severe reaction: Inject in outer thigh following instructions on package and go to the Emergency room. 2 Each 07/06/2021 Active Ipratropium [place] HFA 17 MCG/ACT Inhalation Aerosol Solution (Atrovent [...] before December 17, 2023. 90 Tablet 3 12/17/2023 Active documented as of this encounter (statuses as of 11/18/2023) Active Problems Problem Noted Date Diagnosed Date [...] as of this encounter (statuses as of 11/18/2023) Resolved Problems Problem Noted Date Diagnosed Date Resolved Date Colonic mass 09/29/2021 11/12/2021 Uncomplicated asthma 03/20/2021 022 Asthma in remission 03/20/2021 09/23/19 Asthma, mild persistent 03/20/2021 05/3 04/2021 Asthma, [...] as of this encounter (statuses as of 11/18/2023) Immunizations Name Administration Dates Next Due COVID-19 [...] on file documented as of this encounter Plan of Treatment Upcoming Encounters Date Type Department Care Team (Late st Contact Info) Description 12/14/2023 1:40 PM EDT Office Visit Family Medicine [address] [place] [phone] Peace Barnes MD [address] [place] [address] [place] [address] 12/29/2023 8:00 AM EDT Laboratory Laboratory, [facility] [address] [facility] [place] [phone] [facility] 132 [facility] [place] [address] 12/29/2023 9:00 AM EDT Imaging Radiology [facility]st [facility] 132 [place] [address] 01/04/2024 1:15 PM EDT [facility] [place] [phone] Garrison Jalloh MD [address] [place] [address] Health Maintenance Due Date Last Done Comments [...] filedocumented as of this encounter Care Teams Medical Staff Coordinator Relationship Specialty Start Date End Date Peace Barnes MD [address] [place] [address] [place] [address] PCP - General Family Medicine 09/23/21 documented as of this encounter
--- OUTSIDE RECORDS SUMMARY | 2023-12-09 08:48 | External Medical Summary | Summary of Care ---
Author Name Unknown Organization [facility] Address [address] [facility] [place] [address] Phone [phone] Care Team Providers Care Meat Hanger Name Role Phone Peace Barnes MD Primary Care Prov ider Reason for Visit * Reason Onset Date Comments Medication Problem 11/14/2023 Status Check 11/14/2023 Encounter Details Date Type Department Care Team (Late st Contact Info) Description 11/14/2023 Telephone Family Medicine [address] [phone] Peace Barnes MD [address] [place], [place] [address] [address] Medication Problem; Status Check Allergies Active Allergy Reactions Criticality Noted Date [...] Emergency room. 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 270 Tablet 3 4 Active Rybelsus 3 MG Oral Tablet (Semaglutide)Ind ications:Type 2 diabetes mellitus with stage 3 chronic [...] encounter Miscellaneous Notes * Telephone Encounter - Peace Barnes MD - 11/17/2023 12:27 PM EDT Please pend the exact prescription you recommend and the pharmacy to send this to * Telephone Encounter - Hedy Grullon, [facility] - 11/17/2023 11:15 AM EDT Patient should be increased to rybelsus 7 mg per pivot maker recommendations. Thank you, Hedy Grullon CPhT Supervisor [employer] [facility] ([facility]) [address] [place] [address], [facility] [address] [place] [phone] * Telephone Encounter - Peace Barnes MD - 11/16/2023 4:44 PM EDT What exactly is the issue? I renewed his medication that he is already on, rybelsus 3mg once daily for 30 days. * Telephone Encounter - Marium Scanlon RN - 11/16/2023 3:57 PM EDT Rybelsus was denied : 1)it exceeds the FDA Recommended Quantity Limits of 30/180 days 2) needs documentation that dosing was ineffective at FDA Recommendations of 30/180 day 3) needs documentation that pt's health would improve by increasing the recommended dosage * Telephone Encounter - Fallon Lucero PHARM Tech - 11/14/2023 12:11 PM EDT Patients insurance would like to inform the office that rybelsus 3 mg is denied because several. They will fax this info to the office, please review and resubmit if appropriate. Thank you, Fallon Lucero CPhT Supervisor [employer] [facility]) 11/14/2023,12:11 PM documented in this encounter Plan of Treatment Upcoming Encounters Date Type Department Care Team (Late st Contact Info) Description 12/14/2023 1:40 PM EDT Office Visit [address] [phone] Peace Barnes MD [address] [place] [address] [place] [address] 12/29/2023 8:00 AM EDT Laboratory Laboratory, [facility] 132 [facility] [place] [phone] [facility] 132 [facility] [place] [address] 12/29/2023 9:00 AM EDT Imaging Radiology [facility] 1st [facility] 132 [facility] [place] [address] 01/04/2024 1:15 PM EDT Office Visit Hematology/Oncology [facility] [address] [place] [phone] Garrison Jalloh MD [address] [place] [address] Health Maintenance Due Date Last Done Comments [...] filedocumented as of this encounter Care Teams Meat Hanger Relationship Specialty Start Date End Date Peace Barnes MD [address] [place] [address] [place] [address] PCP - General Family Medicine 09/23/21 documented as of this encounter
--- OUTSIDE RECORDS SUMMARY | 2023-12-09 08:48 | External Medical Summary | Summary of Care ---
Author Name Unknown Organization [facility] Address [address] [place] [address] Phone [phone] Care Team Providers Care Consignee Name Role Phone Peace Barnes MD Primary Care Prov ider Reason for Visit * Reason Onset Date Comments Medication Refill 11/09/2023 Encounter Details Date Type Department Care Team (Late st Contact Info) Description 11/09/2023 Telephone Family Medicine [address] [phone] Peace Barnes MD [address] [place], [place] [address] [address] Medication Refill Allergies Active Allergy Reactions [...] Emergency room. 2 Each 2 Active Ipratropium [place] HFA 17 MCG/ACT Inhalation Aerosol Solution (Atrovent [...] encounter Miscellaneous Notes * Addendum Note - Viviana Chakrabortyee, [facility] - 11/22/2023 8:27 AM EDTAddended by: MARSHAL VIVIANA KIARA on: 11/22/2023 08:27 AM Modules accepted: Orders Electronically signed by Viviana Chakraborty [facility] at 11/22/2023 8:27 AM EDT * Telephone Encounter - Isaura Wilder PHARM Tech - 11/21/2023 11:33 AM EDT As per Rene from [facility], this medication doesn't require a review at this time. Thank you, Isaura Wilder [facility] Business Law Instructor Heating Element Repairer Centralized Clinical Pharmacy Services ([facility]PS) 11/21/2023,11:33 AM * Telephone Encounter - Isaura Wilder PHARM Tech - 11/21/2023 10:15 AM EDT RYBELSUS 7 MG TABLET Submitted information in previous note via YoubooxPA (EOC: [id number]).. Awaiting payer response. We will follow-up with insurance starting 11/21. Per [facility] request, if no decision is received from insurance by 11/22, we will route back to the [facility] after clarifying with the pharmacy that the claim is still not processing. Thank you, Isaura Wilder [facility] Business Law Instructor Heating Element Repairer Centralized Clinical Pharmacy Services (CCPS) 11/21/2023,10:15 AM * Addendum Note - Peace Barnes MD - 11/17/2023 12:28 PM EDT Addended by: PEACE MARIN on: 11/17/2023 12:28 PM Modules accepted: Orders * Addendum Note - Kalli Quiles [facility] - 11/17/2023 11:33 AM EDTAddended by: KALLI QUILES on: 11/17/2023 11:33 AM Modules accepted: Orders * Telephone Encounter - Kalli Quiles RPh - 11/17/2023 11:29 AM EDT PCP: [...] provide effective glycemic control Thank you, Kalli Quiles, PharmD, TONY Clinical Pharmacist Centralized Clinical Pharmacy Services (CCPS) 11/17/23 11:32 AM [phone] * Telephone Encounter - Kalli Quiles RPh [...] upon this and route back to the [facility] pool if no decision is made by the insurance by 11/20, after clarifying with the pharmacy that the claim is still not processing. If PA is denied, please also route back to [facility] pool. Thank you, Kalli Quiles PharmD, TONY Clinical Pharmacist [facility] Clinical Pharmacy Services ([facility]PS) 11/17/23 11:26 AM [phone] * Telephone Encounter - Isaura Wilder PHARM Tech - 11/17/2023 11:03 AM EDT Images from the original note were not included. Checked status of prior authorization for RYBELSUS 3 MG TABLET through Prompt[employer]. Routed high priority to refill call center pharmacist pool due to denial. Denial reason: Thank you, Isaura Wilder [facility] Business Law Instructor Heating Element Repairer [facility] Pharmacy Services ([facility]PS) 11/17/2023,11:03 AM * Telephone Encounter - Danica Aldridge RP - 11/14/2023 9:09 AM EDT Faxed 05/05/22 OV notes and most recent glucose and A1C. Please begin follow up 11/17/23. Thanks, Danica Aldridge [facility] Clinical Pharmacist Centralized Clinical Pharmacy Services ([facility]PS) [phone] * Telephone Encounter - Isaura Wilder PHARM Tech - 11/14/2023 8:48 AM EDT EOC# [id number] Due by 10:30 am today This is a request for additional information. Per insurance, they need the following additional information: OV notes Clinical info Please advise. Thank you, Isaura Wilder CPhT Business Law Instructor Heating Element Repairer [facility] Services ([facility]PS) 11/14/2023,8:48 AM * Telephone Encounter - Blanquita Sanchez PHARM Tech - 11/14/2023 8:27 AM EDT Patients insurance would like to inform the office that rybelsus is requiring additional information: c;inical notes and ov. Prior authorization entered in PromptPA at [facility]. EOC# [id number] Please fax to [phone] before 10:30am today. Thanks, Blanquita Sanchez Geotechnical Engineer Centralized Clinical Pharmacy Services ([facility]PS) 11/14/2023,8:27 AM * Telephone Encounter - America Lao PHARM Tech - 11/12/2023 8:49 AM EDT [facility] needs reason for pt not titrating to 7 mg . Thank you, America Lao,[facility] Geotechnical Engineer II Centralized Clinical Pharmacy Services ([facility]PS) 11/12/2023,8:49 AM * Telephone Encounter - Peace Barnes MD - 11/11/2023 3:05 PM EDT Signed Prescriptions: Disp Refills Rybelsus 3 MG Oral Tablet (Semaglutide) 30 Tab*0 Sig: Take 3 mg by mouth daily first thing in the morning. Authorizing Provider: PEACE BARNES * Telephone Encounter - Berta Chi [facility] - 11/10/2023 9:31 AM EDTPending Prescriptions: Disp Refills Rybelsus 3 MG Oral Tablet (Semaglutide) 30 Tab*0 Sig: Take 3 mg by mouth daily first thing in the morning. * Telephone Encounter - Berta Chi RP - 11/10/2023 9:30 AM EDT Please advise [...] Clinical Pharmacist [facility] Pharmacy Services ([facility]PS) [phone] 11/10/2023, 9:31 AM * Telephone Encounter - José Antonio Willard ed tech - 11/09/2023 10:28 AM EDT Did you pend patient's preferred pharmacy and medication before forwarding?yes Pharmacy: [facility] Pending Prescriptions: Disp Refills [...] 1:40 PM EDT Office Visit Family Medicine [address] [place] [phone] Peace Barnes MD [address] [place] [address] [place] [address] 12/29/2023 8:00 AM EDT Laboratory Laboratory, [facility] [address] [phone] Rodríguez Cota [facility] [address] [place] [address] 12/29/2023 9:00 AM EDT Imaging Radiology [facility] 1st [facility] [address] [place] [address] 01/04/2024 1:15 PM EDT Office Visit Hematology/Oncology [facility] [address] [facility] [place], [place] [phone] Garrison Jalloh MD 200 [facility] [place] [address] Health Maintenance Due Date Last Done Comments [...] Primary documented in this encounter Care Teams Consignee Relationship Specialty Start Date End Date Peace Barnes MD [address] [place] [address] [place] [address] PCP - General Family Medicine 09/23/21 documented as of this encounter
--- OUTSIDE RECORDS SUMMARY | 2023-12-09 08:48 | External Medical Summary | Summary of Care ---
Author Name Unknown Organization [facility] Address [address] [place] [facility] [place] [address] Phone [phone] Care Team Providers Care Quality Assurance/R&D Lab Technician Name Role Phone Peace Barnes MD Primary Care Prov ider Reason for Visit * Reason Onset Date Comments Medication Refill 11/09/2023 Encounter Details Date Type Department Care Team (Late st Contact Info) Description 11/09/2023 Telephone Family Medicine [address] [phone] Peace Barnes MD [address] [place], [place] [address] [address] Medication Refill Allergies Active Allergy Reactions [...] Emergency room. 2 Each 2 Active Ipratropium [place] HFA 17 MCG/ACT Inhalation Aerosol Solution (Atrovent [...] encounter Miscellaneous Notes * Addendum Note - Peace Barnes MD - 11/17/2023 12:28 PM EDT Addended by: PEACE MARIN on: 11/17/2023 12:28 PM Modules accepted: Orders * Addendum Note - Kalli Quiles RP - 11/17/2023 11:33 AM EDTAddended by: KALLI QUILES on: 11/17/2023 11:33 AM Modules accepted: Orders * Telephone Encounter - Kalli Quiles RP [...] Clinical Pharmacy Services (CCPS) 11/17/23 11:32 AM [phone] * Telephone Encounter - Kalli Quiles RP - 11/17/2023 11:26 AM EDT Please submit [...] upon this and route back to the [facility] pool if no decision is made by the insurance by 11/20, after clarifying with the pharmacy that the claim is still not processing. If PA is denied, please also route back to [facility]. Thank you, Kalli Quiles PharmD, TOYN Clinical Pharmacist Centralized Clinical Pharmacy Services (CCPS) 11/17/23 11:26 AM [phone] * Telephone Encounter - Isaura Wilder PHARM Tech - 11/17/2023 11:03 AM EDT Images from the original note were not included. Checked status of prior authorization for RYBELSUS 3 MG TABLET through PromptPA. Routed high priority to refill call center pharmacist pool due to denial. Denial reason: Thank you, Isaura Wilder [facility] Experimental Display Builder Station Manager Centralized Clinical Pharmacy Services (CCPS) 11/17/2023,11:03 AM * Telephone Encounter - Danica Aldridge RPh - 11/14/2023 9:09 AM EDT Faxed 05/05/22 OV notes and most recent glucose and A1C. Please begin follow up 11/17/23. Thanks, Danica Aldridge [facility] Clinical Pharmacist Centralized Clinical Pharmacy Services (CCPS) [phone] * Telephone Encounter - Isaura Wilder PHARM Tech - 11/14/2023 8:48 AM EDT EOC# [id number] Due by 10:30 am today This is a request for additional information. Per insurance, they need the following additional information: OV notes Clinical info Please advise. Thank you, Isaura Wilder [facility] Experimental Display Builder Station Manager Centralized Clinical Pharmacy Services ([facility]PS) 11/14/2023,8:48 AM * Telephone Encounter - Blanquita Sanchez PHARM Tech - 11/14/2023 8:27 AM EDT Patients insurance would like to inform the office that rybelsus is requiring additional information: c;inical notes and ov. Prior authorization entered in PromptPA at [facility]. EOC# [id number] Please fax to [phone] before 10:30am today. Thanks, Blanquita Sanchez Cooler Tender Centralized Clinical Pharmacy Services ([facility]PS) 11/14/2023,8:27 AM * Telephone Encounter - America Lao PHARM Tech - 11/12/2023 8:49 AM EDT [facility] needs reason for pt not titrating to 7 mg . [facility] you, [facility] Cooler Tender II Centralized Clinical Pharmacy Services (CCPS) 11/12/2023,8:49 AM * Telephone Encounter - Peace Barnes MD - 11/11/2023 3:05 PM EDT Signed Prescriptions: Disp Refills Rybelsus 3 MG Oral Tablet (Semaglutide) 30 Tab*0 Sig: Take 3 mg by mouth daily first thing in the morning. Authorizing Provider: PEACE BARNES * Telephone Encounter - Berta Chi RP - 11/10/2023 9:31 AM EDTPending Prescriptions: Disp [...] it does not provide effective glycemic control. ThanksBerta Clinical Pharmacist Centralized Clinical Pharmacy Services ([facility]PS) [phone] 11/10/2023, 9:31 AM * Telephone Encounter - José Antonio Willard, felt finisher - 11/09/2023 10:28 AM EDT Did you pend patient's preferred pharmacy and medication before forwarding?yes Pharmacy: [facility] Pending Prescriptions: Disp Refills [...] 1:40 PM EDT Office Visit Family Medicine [address] [place] [phone] Peace Barnes MD [address] [place] [address] [place] [address] 12/29/2023 8:00 AM EDT [facility] [address] [place] [phone] Rodríguez Cota 132 [facility] [place] [address] 12/29/2023 9:00 AM EDT Imaging Radiology [facility] 1st [facility] [place] 132 [facility] [place] [address] 01/04/2024 1:15 PM EDT Office Visit Hematology/Oncology Vandana Delarosa [place] 200 [facility] [place] [phone] Garrison Jalloh MD [address] [place] [address] Health Maintenance Due Date Last Done Comments [...] Primary documented in this encounter Care Teams Quality Assurance/R&D Lab Technician Relationship Specialty Start Date End Date Peace Barnes MD [address] [place] [address] [place] [phone] PCP - General Family Medicine 09/23/21 documented as of this encounter
--- OUTSIDE RECORDS SUMMARY | 2023-12-09 08:48 | External Medical Summary | Summary of Care ---
Author Name Unknown Organization [facility] Address [address] [place] [address] Phone [phone] Care Team Providers Care Tandem Mill Sticker Name Role Phone Peace Barnes MD Primary Care Prov ider Reason for Visit * Reason Onset Date Comments Medication Refill 11/09/2023 Encounter Details Date Type Department Care Team (Late st Contact Info) Description 11/09/2023 Telephone Family Medicine [address] [phone] Peace Barnes MD [address] [place], [place] [address] [address] Medication Refill Allergies Active Allergy Reactions [...] Emergency room. 2 Each 2 Active Ipratropium [place] HFA 17 MCG/ACT Inhalation Aerosol Solution (Atrovent [...] Clinical Pharmacy Services (CCPS) 11/17/23 11:32 AM [phone] * Telephone Encounter - Kalli Quiles RP - 11/17/2023 11:26 AM EDT Please submit PA/appeal. Include the following documentation: TE 08/17/23 OV 11/02/22 A1C 11/02/23 Please copy and [...] upon this and route back to the [facility] pool if no decision is made by the insurance by 11/20, after clarifying with the pharmacy that the claim is still not processing. If PA is denied, please also route back to [facility]. Thank you, Kalli Quiles PharmD, TONY Clinical Pharmacist Centralized Clinical Pharmacy Services ([facility]PS) 11/17/23 11:26 AM [phone] * Telephone Encounter - Isaura Wilder PHARM Tech - 11/17/2023 11:03 AM EDT Images from the original note were not included. Checked status of prior authorization for RYBELSUS 3 MG TABLET through PromptPA. Routed high priority to refill call center pharmacist pool due to denial. Denial reason: Thank you, Isaura Wilder [facility] Purchasing Intern Woodworking Belt Sander Centralized Clinical Pharmacy Services ([facility]PS) 11/17/2023,11:03 AM * Telephone Encounter - Danica Aldridge RPh - 11/14/2023 9:09 AM EDT Faxed 05/05/22 OV notes and most recent glucose and A1C. Please begin follow up 11/17/23. Thanks, Danica Aldridge [facility] Clinical Pharmacist Centralized Clinical Pharmacy Services (CCPS) [phone] * Telephone Encounter - Isaura Wilder PHARM Tech - 11/14/2023 8:48 AM EDT EOC# [id number] Due by 10:30 am today This is a request for additional information. Per insurance, they need the following additional information: OV notes Clinical info Please advise. Thank you, Isaura Wilder [facility] Purchasing Intern Woodworking Belt Sander Centralized Clinical Pharmacy Services ([facility]PS) 11/14/2023,8:48 AM * Telephone Encounter - Blanquita Sanchez PHARM Tech - 11/14/2023 8:27 AM EDT Patients insurance would like to inform the office that rybelsus is requiring additional information: c;inical notes and ov. Prior authorization entered in PromptPA at [facility]. EOC# [id number] Please fax to [phone] before 10:30am today. Thanks, Blanquita Sanchez Product Marketing Engineer Centralized Clinical Pharmacy Services (CCPS) 11/14/2023,8:27 AM * Telephone Encounter - America Lao PHARM Tech - 11/12/2023 8:49 AM EDT [facility] needs reason for pt not titrating to 7 mg . Thank you, [facility] Product Marketing Engineer II Centralized Clinical Pharmacy Services (CCPS) [...] Clinical Pharmacist Centralized Clinical Pharmacy Services ([facility]PS) [phone] 11/10/2023, 9:31 AM * Telephone Encounter - José Antonio Willard, line service technician - 11/09/2023 10:28 AM EDT Did you pend patient's preferred pharmacy and medication before forwarding?yes Pharmacy: [facility] Pending Prescriptions: Disp Refills [...] PM EDT Office Visit Family Medicine [address] [place] [phone] Peace Barnes MD [address] [place] [address] [place] [address] 12/29/2023 8:00 AM EDT [facility] [address] [place] [phone] Rodríguez Cota [facility] [place] [address] 12/29/2023 9:00 AM EDT Imaging Radiology [facility] 1st [facility] [place] 132 [facility] [place] [address] 01/04/2024 1:15 PM EDT Office Visit Hematology/Oncology Vandana Delarosa [place] 200 [facility] [place] [phone] Garrison Jalloh MD [address] [place] [address] Health Maintenance Due Date Last Done Comments [...] Primary documented in this encounter Care Teams Tandem Mill Sticker Relationship Specialty Start Date End Date Peace Barnes MD [address] [place] [address] [place] [phone] PCP - General Family Medicine 09/23/21 documented as of this encounter
--- OUTSIDE RECORDS SUMMARY | 2023-12-09 08:48 | External Medical Summary | Summary of Care ---
Author Name Unknown Organization [facility] Address [address] [facility] [place] [place] [address] Phone [phone] Care Team Providers Care Customer Acquisition Manager Name Role Phone Peace Barnes MD Primary Care Prov ider Reason for Visit * Reason Onset Date Comments Medication Problem 11/14/2023 Status Check 11/14/2023 Encounter Details Date Type Department Care Team (Late st Contact Info) Description 11/14/2023 Telephone Family Medicine [address] [phone] Peace Barnes MD [address] [place], [place] [address] [address] Medication Problem; Status Check Allergies Active [...] Emergency room. 2 Each 2 Active Ipratropium [place] HFA 17 MCG/ACT Inhalation Aerosol Solution (Atrovent [...] Miscellaneous Notes * Telephone Encounter - Viviana Chakraborty, [facility] - 11/22/2023 8:25 AM EDT 7mg rx previously sent with future start date. Re-sent with todays date so rx may be filled at pharmacy. See TE 11/09/23. Tried calling patient LMOVM. IF patient returns call to [facility] Please transfer to [facility]. Thank you, Viviana Chakraborty, PharmD Clinical Pharmacist Centralized Clinical Pharmacy Services ([facility]PS) 11/22/23 8:26 AM [phone] * Telephone Encounter - Peace Barnes MD - 11/17/2023 12:27 PM EDT Please pend the exact prescription you recommend and the pharmacy to send this to * Telephone Encounter - Hedy Grullon CPhT - 11/17/2023 11:15 AM EDT Patient should be increased to rybelsus 7 mg per shift manager recommendations. Thank you, Hedy Grullon CPhT Director Of Events III [facility] Clinical Pharmacy Services ([facility]) [address] [place] [address], [address] [place] [phone] * Telephone Encounter - Peace Barnes [...] resubmit if appropriate. Thank you, Fallon Lucero [facility] Director Of Events II Centralized Clinical Pharmacy Services([facility]PS) 11/14/2023,12:11 PM documented in this encounter Plan of Treatment Upcoming Encounters Date Type Department Care Team (Late st Contact Info) Description 12/14/2023 1:40 PM EDT Office Visit Family Medicine [address] [phone] Peace Barnes MD [address] [place] [address] [place] [address] 12/29/2023 8:00 AM EDT Laboratory Laboratory, [address] [phone] [address] [address] 12/29/2023 9:00 AM EDT Imaging Radiology [address] [address] 01/04/2024 1:15 PM EDT Office Visit Hematology/Oncology [address] [place] [phone] Garrison Jalloh MD 200 [facility] [place] [address] Health Maintenance Due Date Last Done Comments Zoster Vaccines (3 of 3) 11/17/2021 09/22/2021, 02/23 COVID-19 Vaccine (2022- season) 2022 03/02/2022, 08/19/2020, 07/17/2020 Depression Screening [...] filedocumented as of this encounter Care Teams Customer Acquisition Manager Relationship Specialty Start Date End Date Peace Barnes MD [address] [place] [address] [place] [address] PCP - General Family Medicine 09/23/21 documented as of this encounter
--- OUTSIDE RECORDS SUMMARY | 2023-12-09 08:49 | External Medical Summary | Summary of Care ---
Author Name Unknown Organization [facility] Address [address] [place] [address] Phone [phone] Care Team Providers Care Housekeeping Supervisor Hotel Name Role Phone Kwabena Barnes MD Primary Care Prov ider Reason for Referral * Medication Prior Authorization - Denied Specialty Diagnoses / Procedures Referred By Contac t Referred To Contact Diagnoses Type 2 diabetes mellitus with stage 3 chronic kidney disease, without long-term current use of insulin, unspecified whether stage 3a or 3b CKD (HCC) Kwabena Barnes MD [address] [place] [address] [place] [address] Referral ID Status Reason Start Date Expiration Date Visits Re quested Visits Authorized [id number] Denied 999 999 Reason for Visit * Reason Onset Date Comments Medication Refill 11/09/2023 Encounter Details Date Type Department Care Team (Late st Contact Info) Description 11/09/2023 Telephone Family Medicine [address] [place] [phone] Kwabena Barnes MD [address] [place] [address] [place] [id number] Medication Refill Allergies Active Allergy Reactions Criticality Noted Date Comments Bee Pollen Edema face/lips/tongue High 09/23/2021 Bee Stings 06/15/1997 Fd&C Yellow #5 (Tartrazine) Edema face/lips/tongue High 05/05/2022 peppers Iodinated Contrast Media Rash 11/13/2009 Latex Rash Low 10/15/2021 Lisinopril Hives 08/15/2018 Penicillins 06/15/1997 Hives as a very young man prior to age 19 Tetanus Toxoid 06/15/1997 documented as of this encounter (statuses as of 11/17/2023) Medications Medication Sig Dispensed Refills Start Date End Date Status EPINEPHrine 0.15 MG/0.3ML Injection Solution Auto-injector (EPINEPHrine (anaphylaxis)) Inject into a large muscle 0.15 mg as needed for Anaphylaxis (severe allergic reaction). For a severe reaction: Inject in outer thigh following instructions on package and go to the Emergency room. 2 Each 07/06/2021 Active Ipratropium [place] HFA 17 MCG/ACT Inhalation Aerosol Solution (Atrovent [...] MOUTH EVERY MORNING 100 Tablet 1 07/12/2023 5 Active Atorvastatin Calcium 10 MG Oral Tablet [...] before bedtime. 270 Tablet 3 11/08/2023 Active Rybelsus 3 MG Oral Tablet (Semaglutide)Ind ications:Type 2 diabetes mellitus with stage 3 chronic kidney disease, without long-term current use of insulin, unspecified whether stage 3a or 3b CKD (HCC) Take 1 tablet by mouth daily first thing in the morning. 30 Tablet 11/11/2023 Active Rybelsus 3 MG Oral Tablet (Semaglutide) Take 1 tablet by mouth daily first thing in the morning. 30 Tablet 07/28/2023 Discontinue d(Refill) documented as of this encounter (statuses as of 11/17/2023) Active Problems Problem Noted Date Diagnosed Date [...] as of this encounter (statuses as of 11/17/2023) Resolved Problems Problem Noted Date Diagnosed Date Resolved Date Colonic mass 09/29/2021 11/12/2021 Uncomplicated asthma 03/20/2021 022 Asthma in remission 03/20/2021 09/23/19 Asthma, mild persistent 03/20/2021 0504/2021 Asthma, severe [...] as of this encounter (statuses as of 11/17/2023) Immunizations Name Administration Dates Next Due COVID-19 [...] Notes * Telephone Encounter - Isaura Wilder brick setter - 11/17/2023 11:03 AM EDT Images from the original note were not included. Checked status of prior authorization for RYBELSUS 3 MG TABLET through [employer]. Routed high priority to refill call center pharmacist pool due to denial. Denial reason: Thank you, Isaura Wilder CPhT Verification Specialist Piano Assembler [facility] 11/17/2023,11:03 AM * Telephone Encounter - Danica Aldridge RPh - 11/14/2023 9:09 AM EDT Faxed 05/05/22 OV notes and most recent glucose and A1C. Please begin follow up 11/17/23. Thanks, Danica Aldridge [facility] Clinical Pharmacist [facility] ([facility]) [phone] * Telephone Encounter - Isaura Wilder PHARM Tech - 11/14/2023 8:48 AM EDT EOC# [id number] Due by 10:30 am today This is a request for additional information. Per insurance, they need the following additional information: OV notes Clinical info Please advise. Thank you, Isaura Wilder CPhT Verification Specialist Piano Assembler [facility]) 11/14/2023,8:48 AM * Telephone Encounter - Blanquita Sanchez PHARM Tech - 11/14/2023 8:27 AM EDT Patients insurance would like to inform the office that rybelsus is requiring additional information: c;inical notes and ov. Prior authorization entered in PromptPA at [facility]. EOC# [id number] Please fax to [phone] before 10:30am today. Thanks, Blanquita Sanchez Sales Representative Health Insurance [facility] ([facility]) 11/14/2023,8:27 AM * Telephone Encounter - America Lao PHARM Tech - 11/12/2023 8:49 AM EDT [facility] needs reason for pt not titrating to 7 mg . Thank you, America Lao,[facility] Sales Representative Health Insurance II [facility] ([facility]) 11/12/2023,8:49 AM * Telephone Encounter - Kwabena Barnes MD - 11/11/2023 3:05 PM EDT Signed Prescriptions: Disp Refills Rybelsus 3 MG Oral Tablet (Semaglutide) 30 Tab*0 Sig: Take 3 mg by mouth daily first thing in the morning. Authorizing Provider: KWABENA BARNES * Telephone Encounter - Berta Chi [facility] - 11/10/2023 9:31 AM EDTPending Prescriptions: Disp [...] Clinical Pharmacist [facility] ([facility]) [phone] 11/10/2023, 9:31 AM * Telephone Encounter - José Antonio Willard, brick setter - 11/09/2023 10:28 AM EDT Did you pend patient's preferred pharmacy and medication before forwarding?yes Pharmacy: [facility] Pending Prescriptions: Disp Refills [...] 1:40 PM EDT Office Visit Family Medicine [address] [phone] Kwabena Barnes MD [address] [place] [address] [place] [address] 12/29/2023 8:00 AM EDT Laboratory Laboratory, [facility] [address] [facility] [place] [phone] Rodríguez Cota [facility] [address] [facility] [place] [address] 12/29/2023 9:00 AM EDT Imaging Radiology [facility] 1st [facility] [address] [place] [address] 01/04/2024 1:15 PM EDT Office Visit Hematology/Oncology [facility] [address] [place] [phone] Garrison Jalloh MD [address] [facility] [place] [address] Health Maintenance Due Date Last Done Comments Zoster Vaccines (3 of 3) 11/17/2021 09/22/2021, 02/23 COVID-19 Vaccine ( - season) 2022 03/02/2022, 08/19/2020, 07/17/2020 Depression Screening [...] Primary documented in this encounter Care Teams Housekeeping Supervisor Hotel Relationship Specialty Start Date End Date Kwabena Barnes MD [address] [place] [address] [place] [address] PCP - General Family Medicine 09/23/21 documented as of this encounter
--- OUTSIDE RECORDS SUMMARY | 2023-12-09 08:49 | External Medical Summary | Summary of Care ---
Author Name Unknown Organization [facility] Address [address] [place] [address] Phone [phone] Care Team Providers Care Eyewear Manufacturing Tech Name Role Phone Kwabena Calloway MD Primary Care Prov ider Reason for Referral * Medication Prior Authorization - Pending Review Specialty Diagnoses / Procedures Referred By Contac t Referred To Contact Diagnoses Type 2 diabetes mellitus with stage 3 chronic kidney disease, without long-term current use of insulin, unspecified whether stage 3a or 3b CKD (HCC) Kwabena Calloway MD [address] [place] [address] [place] [address] Referral ID Status Reason Start Date Expiration Date V isits Requested Visits Authorized [id number] Pending Review 999 999 Reason for Visit * Reason Onset Date Comments Medication Refill 11/09/2023 Encounter Details Date Type Department Care Team (Late st Contact Info) Description 11/09/2023 Telephone Family Medicine [address] [place] [phone] Kwabena Calloway MD [address] [place] [address] [place] [address] Medication Refill Allergies Active Allergy Reactions Criticality Noted Date Comments Bee Pollen Edema face/lips/tongue High 09/23/2021 Bee Stings 06/15/1997 Fd&C Yellow #5 (Tartrazine) Edema face/lips/tongue High 05/05/2022 peppers Iodinated Contrast Media Rash 11/13/2009 Latex Rash Low 10/15/2021 Lisinopril Hives 08/15/2018 Penicillins 06/15/1997 Hives as a very young man prior to age 19 Tetanus Toxoid 06/15/1997 documented as of this encounter (statuses as of 11/14/2023) Medications Medication Sig Dispensed Refills Start Date End Date Status EPINEPHrine 0.15 MG/0.3ML Injection Solution Auto-injector (EPINEPHrine (anaphylaxis)) Inject into a large muscle 0.15 mg as needed for Anaphylaxis (severe allergic reaction). For a severe reaction: Inject in outer thigh following instructions on package and go to the Emergency room. 2 Each 07/06/2021 Active Ipratropium [place] HFA 17 MCG/ACT Inhalation Aerosol Solution (Atrovent [...] stage 3a or 3b CKD (HCC) Take 3 mg by mouth daily first thing in the morning. 30 Tablet 11/11/2023 Active Rybelsus 3 MG Oral Tablet (Semaglutide) Take 1 tablet by mouth daily first thing in the morning. 30 Tablet 07/28/2023 Discontinue d(Refill) documented as of this encounter (statuses as of 11/14/2023) Active Problems Problem Noted Date Diagnosed Date [...] as of this encounter (statuses as of 11/14/2023) Resolved Problems Problem Noted Date Diagnosed Date [...] as of this encounter (statuses as of 11/14/2023) Immunizations Name Administration Dates Next Due COVID-19 [...] Tech - 11/14/2023 8:48 AM EDT EOC# [id number] Due by 10:30 am today This is a request for additional information. Per insurance, they need the following additional information: OV notes Clinical info Please advise. Thank you, Isaura Wilder [facility] Geothermal Production Manager Junior Database Administrator [facility] ([facility]) 11/14/2023,8:48 AM * Telephone Encounter - Blanquita Sanchez PHARM Tech - 11/14/2023 8:27 AM EDT Patients insurance would like to inform the office that rybelsus is requiring additional information: c;inical notes and ov. Prior authorization entered in Prom[employer] at [facility]. EOC# [id number] Please fax to [phone] before 10:30am today. Thanks, Blanquita Sanchez Physical Fitness Trainer [facility] ([facility]) 11/14/2023,8:27 AM * Telephone Encounter - America Lao PHARM Tech - 11/12/2023 8:49 AM EDT [facility] needs reason for pt not titrating to 7 mg . [facility] you, [facility] Physical Fitness Trainer II [facility] ([facility]) 11/12/2023,8:49 AM * Telephone Encounter - Kwabena Calloway MD - 11/11/2023 3:05 PM EDT Signed Prescriptions: Disp Refills Rybelsus 3 MG Oral Tablet (Semaglutide) 30 Tab*0 Sig: Take 3 mg by mouth daily first thing in the morning. Authorizing Provider: KWABENA CALLOWAY * Telephone Encounter - Berta Chi [facility] - 11/10/2023 9:31 AM EDTPending Prescriptions: Disp Refills Rybelsus 3 MG Oral Tablet (Semaglutide) 30 Tab*0 Sig: Take 3 mg by mouth daily first thing in the morning. * Telephone Encounter - Berta Chi [facility] - 11/10/2023 9:30 AM EDT Please advise [...] Clinical Pharmacist [facility] ([facility]) [phone] 11/10/2023, 9:31 AM * Telephone Encounter - José Antonio Willard, corporate security officer - 11/09/2023 10:28 AM EDT Did you [...] 1:40 PM EDT Office Visit Family Medicine [address] [phone] Kwabena Calloway, MD [address] [place] [address] [place] [address] 12/29/2023 8:00 AM EDT Laboratory Laboratory, [facility] [address] [facility] [place] [phone] [facility] [address] [facility] [place] [address] 12/29/2023 9:00 AM EDT Imaging [facility] [address] [facility] [place] [address] 01/04/2024 1:15 PM EDT Office Visit Hematology/Oncology [facility] [address] [place] [phone] Garrison Jalloh MD [address] [place] [address] Health Maintenance Due Date Last Done Comments [...] Primary documented in this encounter Care Teams Eyewear Manufacturing Tech Relationship Specialty Start Date End Date Kwabena Calloway MD [address] [place] [address] [place] [phone] PCP - General Family Medicine 09/23/21 documented as of this encounter
--- OUTSIDE RECORDS SUMMARY | 2023-12-09 08:49 | External Medical Summary | Summary of Care ---
Author Name Unknown Organization [facility] Address [address] [place] [address] Phone [phone] Care Team Providers Care Rhinologist Name Role Phone Kwabena Barnes MD Primary Care Prov ider Reason for Referral * Medication Prior Authorization - Denied Specialty Diagnoses / Procedures Referred By Contac t Referred To Contact Diagnoses Type 2 diabetes mellitus with stage 3 chronic kidney disease, without long-term current use of insulin, unspecified whether stage 3a or 3b CKD (HCC) Kwabena Barnes MD [address] [place] [address] [place] [address] Referral ID Status Reason Start Date Expiration Date Visits Re quested Visits Authorized [id number] Denied 999 999 Reason for Visit * Reason Onset Date Comments Medication Refill 11/09/2023 Encounter Details Date Type Department Care Team (Late st Contact Info) Description 11/09/2023 Telephone Family Medicine [address] [place] [phone] Kwabena Barnes MD [address] [place] [address] [place] [address] Medication Refill Allergies Active Allergy Reactions Criticality [...] Emergency room. 2 Each 07/06/2021 Active Ipratropium [place] HFA 17 MCG/ACT Inhalation Aerosol Solution (Atrovent [...] Notes * Telephone Encounter - Isaura Wilder living skills advisor - 11/17/2023 11:03 AM EDT Checked status of prior authorization for RYBELSUS 3 MG TABLET through [employer]. Routed high priority to refill call center pharmacist pool due to denial. Denial reason: Thank you, Isaura Wilder CPhT Precision Lens Centerer And Edger Electrician Master [facility]) 11/17/2023,11:03 AM * Telephone Encounter - Danica Aldridge RPh - 11/14/2023 9:09 AM EDT Faxed 05/05/22 OV notes and most recent glucose and A1C. Please begin follow up 11/17/23. Thanks, Danica Aldridge [facility] Clinical Pharmacist [facility] ([facility]) [phone] * Telephone Encounter - Isaura Wilder PHARM Tech - 11/14/2023 8:48 AM EDT EOC# [id number] Due by 10:30 am today This is a request for additional information. Per insurance, they need the following additional information: OV notes Clinical info Please advise. Thank you, Isaura Wilder CPhT Precision Lens Centerer And Edger Electrician Master [facility] ([facility]) 11/14/2023,8:48 AM * Telephone Encounter - Blanquita Sanchez PHARM Tech - 11/14/2023 8:27 AM EDT Patients insurance would like to inform the office that rybelsus is requiring additional information: c;inical notes and ov. Prior authorization entered in PromptPA at [facility]. EOC# [id number] Please fax to [phone] before 10:30am today. Thanks, Blanquita Sanchez Dry Wall Plasterer [facility] ([facility]) 11/14/2023,8:27 AM * Telephone Encounter - America Lao PHARM Tech - 11/12/2023 8:49 AM EDT [facility] needs reason for pt not titrating to 7 mg . Thank you, [facility] Dry Wall Plasterer II [facility] ([facility]) 11/12/2023,8:49 AM * Telephone Encounter - Kwabena Barnes MD - 11/11/2023 3:05 PM EDT Signed Prescriptions: Disp Refills Rybelsus 3 MG Oral Tablet (Semaglutide) 30 Tab*0 Sig: Take 3 mg by mouth daily first thing in the morning. Authorizing Provider: KWABENA BARNES * Telephone Encounter - Berta Chi [facility] - 11/10/2023 9:31 AM EDTPending [...] Clinical Pharmacist [facility] ([facility]) [phone] 11/10/2023, 9:31 AM * Telephone Encounter - José Antonio Willard, living skills advisor - 11/09/2023 10:28 AM EDT Did you pend patient's preferred pharmacy and medication before forwarding?yes Pharmacy: [facility] Pending Prescriptions: Disp Refills [...] 1:40 PM EDT Office Visit Family Medicine [address] [place] [phone] Kwabena Barnes MD [address] [place] [address] [place] [address] 12/29/2023 8:00 AM EDT Laboratory Laboratory, [facility] 132 [facility] [place] [phone] [facility] 132 [facility] [place] [address] 12/29/2023 9:00 AM EDT Imaging Radiology [address] [place] [address] 01/04/2024 1:15 PM EDT Office Visit Hematology/Oncology [facility] [place] [phone] Garrison Jalloh MD [address] [place] [address] Health Maintenance Due Date Last Done Comments [...] Primary documented in this encounter Care Teams Rhinologist Relationship Specialty Start Date End Date Kwabena Barnes MD [address] [place] [address] [place] [phone] PCP - General Family Medicine 09/23/21 documented as of this encounter
--- OUTSIDE RECORDS SUMMARY | 2023-12-09 08:49 | External Medical Summary | Summary of Care ---
Author Name Unknown Organization [facility] Address [address] [place] [address] Phone [phone] Care Team Providers Care Control Panel Tester Name Role Phone Peace Barnes MD Primary Care Prov ider Reason for Visit * Reason Onset Date Comments Medication Refill 11/09/2023 Encounter Details Date Type Department Care Team (Late st Contact Info) Description 11/09/2023 Telephone Family Medicine [address] [phone] Peace Barnes MD [address] [place], [place] [address] [address] Medication Refill Allergies Active Allergy Reactions [...] Emergency room. 2 Each 2 Active Ipratropium [place] HFA 17 MCG/ACT Inhalation Aerosol Solution (Atrovent [...] Clinical Pharmacy Services ([facility]) 11/17/23 11:32 AM [phone] * Telephone Encounter - Kalli Quiles RP [...] and route back to the [facility] pool if no decision is made by the insurance by 11/20, after clarifying with the pharmacy that the claim is still not processing. If PA is denied, please also route back to [facility]. Thank you, Kalli Quiles PharmD, TONY Clinical Pharmacist [facility] ([facility]) 11/17/23 11:26 AM [phone] * Telephone Encounter - Isaura Wilder PHARM Tech - 11/17/2023 11:03 AM EDT Images from the original note were not included. Checked status of prior authorization for RYBELSUS 3 MG TABLET through [employer]. Routed high priority to refill call center pharmacist pool due to denial. Denial reason: Thank you, Isaura Wilder [facility] Software Applications Developer Staffing Mgr [facility] ([facility]) 11/17/2023,11:03 AM * Telephone Encounter - Danica Aldridge RPh - 11/14/2023 9:09 AM EDT Faxed 05/05/22 OV notes and most recent glucose and A1C. Please begin follow up 11/17/23. Thanks, Danica Aldridge [facility] Clinical Pharmacist [facility] ([facility]) [phone] * Telephone Encounter - Isaura Wilder PHARM Tech - 11/14/2023 8:48 AM EDT EOC# [id number] Due by 10:30 am today This is a request for additional information. Per insurance, they need the following additional information: OV notes Clinical info Please advise. Thank you, Isaura Wilder [facility] Software Applications Developer Staffing Mgr [facility] ([facility]) 11/14/2023,8:48 AM * Telephone Encounter - Blanquita Sanchez PHARM Tech - 11/14/2023 8:27 AM EDT Patients insurance would like to inform the office that rybelsus is requiring additional information: c;inical notes and ov. Prior authorization entered in PromptPA at [facility]. EOC# [id number] Please fax to [phone] before 10:30am today. Thanks, Blanquita Sanchez Staffing Mgr [facility] ([facility]) 11/14/2023,8:27 AM * Telephone Encounter - America Lao PHARM Tech - 11/12/2023 8:49 AM EDT [facility] needs reason for pt not titrating to 7 mg . Thank you, America [facility] Staffing Mgr II [facility] ([facility]) 11/12/2023,8:49 [...] Clinical Pharmacist [facility] ([facility]) [phone] 11/10/2023, 9:31 AM * Telephone Encounter - José Antonio Willard, pilot control operator - 11/09/2023 10:28 AM EDT Did you pend patient's preferred pharmacy and medication before forwarding?yes Pharmacy: [facility] Pending Prescriptions: Disp Refills [...] 1:40 PM EDT Office Visit Family Medicine [address] [place] [phone] Peace Barnes MD [address] [place] [address] [place] [address] 12/29/2023 8:00 AM EDT [facility] [address] [place] [phone] Rodríguez Cota 132 [facility] [place] [address] 12/29/2023 9:00 AM EDT Imaging Radiology [facility] 1st [facility] [place] 132 [facility] [place] [address] 01/04/2024 1:15 PM EDT Office Visit Hematology/Oncology [facility] [place] 200 [facility] [place] [phone] Garrison Jalloh MD [address] [place] [address] Health Maintenance Due Date Last Done Comments [...] Primary documented in this encounter Care Teams Control Panel Tester Relationship Specialty Start Date End Date Peace Barnes MD [address] [place] [address] [place] [phone] PCP - General Family Medicine 09/23/21 documented as of this encounter
--- OUTSIDE RECORDS SUMMARY | 2023-12-09 08:49 | External Medical Summary | Summary of Care ---
Author Name Unknown Organization [facility] Address [address] [place] [address] Phone [phone] Care Team Providers Care Roll Wrapper Name Role Phone Peace Calloway MD Primary Care Prov ider Reason for Referral * Medication Prior Authorization - Pending Review Specialty Diagnoses / Procedures Referred By Contac t Referred To Contact Diagnoses Type 2 diabetes mellitus with stage 3 chronic kidney disease, without long-term current use of insulin, unspecified whether stage 3a or 3b CKD (HCC) Peace Calloway MD [address] [place] [address] [place] [address] Referral ID Status Reason Start Date Expiration Date V isits Requested Visits Authorized [id number] Pending Review 999 999 Reason for Visit * Reason Onset Date Comments Medication Refill 11/09/2023 Encounter Details Date Type Department Care Team (Late st Contact Info) Description 11/09/2023 Telephone Family Medicine [address] [place] [phone] Peace Calloway MD [address] [place] [address] [place] [address] Medication Refill Allergies Active Allergy Reactions Criticality [...] Emergency room. 2 Each 07/06/2021 Active Ipratropium [place] HFA 17 MCG/ACT Inhalation Aerosol Solution (Atrovent [...] encounter Miscellaneous Notes * Telephone Encounter - Danica Aldridge RPh - 11/14/2023 9:09 AM EDT Faxed 05/05/22 OV notes and most recent glucose and A1C. Please begin follow up 11/17/23. Thanks, Danica Aldridge [facility] Clinical Pharmacist [facility] Clinical Pharmacy Services ([facility]PS) [phone] * Telephone Encounter - Isaura Wilder gang knife fish chopper - 11/14/2023 8:48 AM EDT EOC# [id number] Due by 10:30 am today This is a request for additional information. Per insurance, they need the following additional information: OV notes Clinical info Please advise. Thank you, Isaura Wilder [facility] Edger Machine Setter Major Assembler Centralized Clinical Pharmacy Services (CCPS) 11/14/2023,8:48 AM * Telephone Encounter - Blanquita Sanchez gang knife fish chopper - 11/14/2023 8:27 AM EDT Patients insurance would like to inform the office that shanekali is requiring additional information: c;inical notes and ov. Prior authorization entered in PromptPA at [facility]. EOC# [id number] Please fax to [phone] before 10:30am today. Thanks, Blanquita Sanchez Platform Builder Centralized Clinical Pharmacy Services (CCPS) 11/14/2023,8:27 AM * Telephone Encounter - America Lao gang knife fish chopper - 11/12/2023 8:49 AM EDT Ghp needs reason for pt not titrating to 7 mg . Thank you, America Lao,[facility] Platform Builder II Centralized Clinical Pharmacy Services (CCPS) 11/12/2023,8:49 AM * Telephone Encounter - Peace Calloway MD - 11/11/2023 3:05 PM EDT Signed Prescriptions: Disp Refills Rybelsus 3 MG Oral Tablet (Semaglutide) 30 Tab*0 Sig: Take 3 mg by mouth daily first thing in the morning. Authorizing Provider: PEACE CALLOWAY * Telephone Encounter - Berta Chi RP [...] it does not provide effective glycemic control. Kira, Berta Chi Clinical Pharmacist [facility] Clinical Pharmacy Services ([facility]PS) [phone] 11/10/2023, 9:31 AM * Telephone Encounter - José Antonio Willard, gang knife fish chopper - 11/09/2023 10:28 AM EDT Did you pend patient's preferred pharmacy and medication before forwarding?yes Pharmacy: [facility] Pending Prescriptions: Disp Refills [...] 1:40 PM EDT Office Visit Family Medicine [address] [place] [phone] Peace Calloway MD [address] [place] [address] [place] [address] 12/29/2023 8:00 AM EDT Laboratory Laboratory, [facility] 132 [facility] [place] [phone] [facility] 132 [facility] [address] 12/29/2023 9:00 AM EDT Imaging Radiology [facility] 1st [facility] 132 [facility] [address] 01/04/2024 1:15 PM EDT Office Visit Hematology/Oncology [address] [place] [phone] Garrison Jalloh MD 200 [place] [address] Health Maintenance Due Date Last Done Comments [...] Primary documented in this encounter Care Teams Roll Wrapper Relationship Specialty Start Date End Date Peace Calloway MD [address] [place] [address] [place] [phone] PCP - General Family Medicine 09/23/21 documented as of this encounter
--- OUTSIDE RECORDS SUMMARY | 2023-12-09 08:49 | External Medical Summary | Summary of Care ---
Author Name Unknown Organization [facility] Address [address] [place] [address] Phone [phone] Care Team Providers Care Roll Coating Machine Operator Name Role Phone Peace Barnes MD Primary Care Prov ider Reason for Referral * Medication Prior Authorization - Denied Specialty Diagnoses / Procedures Referred By Contac t Referred To Contact Diagnoses Type 2 diabetes mellitus with stage 3 chronic kidney disease, without long-term current use of insulin, unspecified whether stage 3a or 3b CKD (HCC) Peace Barnes MD [address] [place] [address] [place] [address] Referral ID Status Reason Start Date Expiration Date Visits Re quested Visits Authorized [id number] Denied 999 999 Reason for Visit * Reason Onset Date Comments Medication Refill 11/09/2023 Encounter Details Date Type Department Care Team (Late st Contact Info) Description 11/09/2023 Telephone Family Medicine [address] [place] [phone] Peace Barnes MD [address] [place] [address] [place] [address] Medication Refill Allergies Active Allergy Reactions Criticality [...] Emergency room. 2 Each 07/06/2021 Active Ipratropium [place] HFA 17 MCG/ACT Inhalation Aerosol Solution (Atrovent [...] encounter Miscellaneous Notes * Addendum Note - Kalli Quiles RPh - 11/17/2023 11:33 AM EDTAddended by: KALLI [...] Clinical Pharmacy Services (CCPS) 11/17/23 11:32 AM [phone] * Telephone Encounter - Kalli Quiles RPh [...] upon this and route back to the [facility] pool if no decision is made by the insurance by 11/20, after clarifying with the pharmacy that the claim is still not processing. If PA is denied, please also route back to [facility]. Thank you, Kalli Quiles PharmD, TNOY Clinical Pharmacist [facility] Clinical Pharmacy Services ([facility]PS) 11/17/23 11:26 AM [phone] * Telephone Encounter - Isaura Wilder PHARM Tech - 11/17/2023 11:03 AM EDT Images from the original note were not included. Checked status of prior authorization for RYBELSUS 3 MG TABLET through PromptPA. Routed high priority to refill call center pharmacist pool due to denial. Denial reason: Thank you, Isaura Wilder [facility] Iv Therapy Nurse Dry Finisher Centralized Clinical Pharmacy Services ([facility]PS) 11/17/2023,11:03 AM * Telephone Encounter - Danica Aldridge RPh - 11/14/2023 9:09 AM EDT Faxed 05/05/22 OV notes and most recent glucose and A1C. Please begin follow up 11/17/23. Thanks, Danica Aldridge [facility] Clinical Pharmacist Centralized Clinical Pharmacy Services (CCPS) [phone] * Telephone Encounter - Isaura Wilder PHARM Tech - 11/14/2023 8:48 AM EDT EOC# [id number] Due by 10:30 am today This is a request for additional information. Per insurance, they need the following additional information: OV notes Clinical info Please advise. Thank you, Isaura Wilder [facility] Iv Therapy Nurse Dry Finisher Central[facility] Clinical Pharmacy Services ([facility]PS) 11/14/2023,8:48 AM * Telephone Encounter - Blanquita Sanchez PHARM Tech - 11/14/2023 8:27 AM EDT Patients insurance would like to inform the office that rybelsus is requiring additional information: c;inical notes and ov. Prior authorization entered in PromptPA at [facility]. EOC# [id number] Please fax to [phone] before 10:30am today. Thanks, Blanquita Sanchez Ge[facility] Laboratory Director Centralized Clinical Pharmacy Services ([facility]PS) 11/14/2023,8:27 AM * Telephone Encounter - America Lao PHARM Tech - 11/12/2023 8:49 AM EDT [facility] needs reason for pt not titrating to 7 mg . Thank you, [facility] Ge[facility] Laboratory Director II Centralized Clinical Pharmacy Services ([facility]PS) 11/12/2023,8:49 [...] Clinical Pharmacist [facility] Clinical Pharm[facility] Services ([facility]) [phone] 11/10/2023, 9:31 AM * Telephone Encounter - José Antonio Willard, can sealer - 11/09/2023 10:28 AM EDT Did you pend patient's preferred pharmacy and medication before forwarding?yes Pharmacy: [facility] Pending Prescriptions: Disp Refills [...] 1:40 PM EDT Office Visit Family Medicine [address] [place] [phone] Peace Barnes MD [address] [place] [address] [place] [address] 12/29/2023 8:00 AM EDT Laboratory Laboratory, [facility] [place] [phone] [facility] 132 [facility] [place] [address] 12/29/2023 9:00 AM EDT Imaging Radiology [facility] 1st [facility] [place] 132 [facility] [place] [address] 01/04/2024 1:15 PM EDT Office Visit Hematology/Oncology Vandana Delarosa [place] 200 [facility] [place] [phone] Garrison Jalloh MD 200 [facility] [place] [address] Health Maintenance Due Date Last Done Comments [...] documented in this encounter Care Teams Roll Coating Machine Operator Relationship Specialty Start Date End Date Peace Barnes MD [address] [place] [address] [place] [address] PCP - General Family Medicine 09/23/21 documented as of this encounter
--- OUTSIDE RECORDS SUMMARY | 2023-12-09 08:49 | External Medical Summary | Summary of Care ---
Author Name Unknown Organization [facility] Address [address] [place] [address] Phone [phone] Care Team Providers Care Rad Technologist Name Role Phone Peace Barnes MD Primary Care Prov ider Reason for Visit * Reason Onset Date Comments Medication Problem 11/14/2023 Encounter Details Date Type Department Care Team (Late st Contact Info) Description 11/14/2023 Telephone Family Medicine [address] [phone] Peace Barnes MD [address] [place] [address] [place] [address] Medication Problem Allergies Active Allergy Reactions Criticality Noted Date Comments Bee Pollen Edema face/lips/tongue High 09/23/2021 Bee Stings 06/15/1997 Fd&C Yellow #5 (Tartrazine) Edema face/lips/tongue High 05/05/2022 peppers Iodinated Contrast Media Rash 11/13/2009 Latex Rash Low 10/15/2021 Lisinopril Hives 08/15/2018 Penicillins 06/15/1997 Hives as a very young man prior to age 19 Tetanus Toxoid 06/15/1997 documented as of this encounter (statuses as of 11/16/2023) Medications Medication Sig Dispensed Refills Start Date End Date Status EPINEPHrine 0.15 MG/0.3ML Injection Solution Auto-injector (EPINEPHrine (anaphylaxis)) Inject into a large muscle 0.15 mg as needed for Anaphylaxis (severe allergic reaction). For a severe reaction: Inject in outer thigh following instructions on package and go to the Emergency room. 2 Each 07/06/2021 Active Ipratropium [place] HFA 17 MCG/ACT Inhalation Aerosol Solution (Atrovent [...] 11/08/2023 Active Rybelsus 3 MG Oral Tablet (Semaglutide)Gregoria cations:Type 2 diabetes mellitus with stage 3 chronic kidney disease, without long-term current use of insulin, unspecified whether stage 3a or 3b CKD (HCC) Take 1 tablet by mouth daily first thing in the morning. 30 Tablet 11/11/2023 Active documented as of this encounter (statuses as of 11/16/2023) Active Problems Problem Noted Date Diagnosed Date [...] as of this encounter (statuses as of 11/16/2023) Resolved Problems Problem Noted Date Diagnosed Date Resolved Date Colonic mass 09/29/2021 11/12/2021 Uncomplicated asthma 03/20/2021 022 Asthma in remission 03/20/2021 09/23/19 22 Asthma, mild persistent 03/20/2021 05/04/2021 Asthma, severe persistent 03/20/2021 Intermittent asthma with [...] as of this encounter (statuses as of 11/16/2023) Immunizations Name Administration Dates Next Due COVID-19 [...] and resubmit if appropriate. Thank you, Fallon Lucero, [facility] Elevator Service Technician II Centralized Clinical Pharmacy Services(CCPS) 11/14/2023,12:11 PM documented in this encounter Plan of Treatment Upcoming Encounters Date Type Department Care Team (Late st Contact Info) Description 12/14/2023 1:40 PM EDT Office Visit Family Medicine [address] [phone] Peace Barnes MD [address] [place] [address] [place] [address] 12/29/2023 8:00 AM EDT Laboratory Laboratory, [facility] 132 [facility] [place] [phone] [facility] [address] [facility] [place] [address] 12/29/2023 9:00 AM EDT Imaging Radiology [address] 132 [place] [address] 01/04/2024 1:15 PM EDT Office Visit Hematology/On[facility] [place] [address] [place] [phone] Garrison Jalloh MD 200 [facility] [place] [address] Health Maintenance Due Date Last Done Comments [...] filedocumented as of this encounter Care Teams Rad Technologist Relationship Specialty Start Date End Date Peace Barnes MD [address] [place] [address] [place] [address] PCP - General Family Medicine 09/23/21 documented as of this encounter
--- OUTSIDE RECORDS SUMMARY | 2023-12-09 08:49 | External Medical Summary | Summary of Care ---
Author Name Unknown Organization [facility] Address [address] [place] [place] [address] Phone [phone] Care Team Providers Care Paper Handler Name Role Phone Peace Barnes MD Primary Care Prov ider Reason for Visit * Reason Onset Date Comments Medication Problem 11/14/2023 Status Check 11/14/2023 Encounter Details Date Type Department Care Team (Late st Contact Info) Description 11/14/2023 Telephone Family Medicine [address] [phone] Peace Barnes MD [address] [place], [place] [address] [address] Medication Problem; Status Check Allergies Active [...] Emergency room. 2 Each 07/06/2021 Active Ipratropium [place] HFA 17 MCG/ACT Inhalation Aerosol Solution (Atrovent [...] encounter Miscellaneous Notes * Telephone Encounter - Hedy Grullon CPhT - 11/17/2023 11:15 AM EDT Patient should be increased to rybelsus 7 mg per cnc manager recommendations. Thank you, Hedy Grullon CPhT Condominium Association Manager III Centralized Clinical Pharmacy Services ([facility]) [address] [place] [address], [address] [phone] * Telephone Encounter - Peace Barnes [...] resubmit if appropriate. Thank you, Fallon Lucero, [facility] Condominium Association Manager II Centralized Clinical Pharmacy Services([facility]PS) 11/14/2023,12:11 PM documented in this encounter Plan of Treatment Upcoming Encounters Date Type Department Care Team (Late st Contact Info) Description 12/14/2023 1:40 PM EDT Office Visit Family Medicine [address] [place] [phone] Peace Barnes MD [address] [place] [address] [place] [address] 12/29/2023 8:00 AM EDT [facility], [facility] 132 [facility] [place] [phone] [facility] [address] [place] [address] 12/29/2023 9:00 AM EDT Imaging Radiology [facility] 1st [facility] 132 [place] [address] 01/04/2024 1:15 PM EDT Office Visit Hematology/Oncology [place] 200 [facility] [place] [phone] Garrison Jalloh MD 200 [facility] [place] [address] Health Maintenance Due Date Last Done Comments [...] filedocumented as of this encounter Care Teams Paper Handler Relationship Specialty Start Date End Date Peace Barnes MD [address] [place] [address] [place] [phone] PCP - General Family Medicine 09/23/21 documented as of this encounter
--- OUTSIDE RECORDS SUMMARY | 2023-12-09 08:49 | External Medical Summary | Summary of Care ---
Author Name Unknown Organization [facility] Address [address] [facility] [place] [address] Phone [phone] Care Team Providers Care Blade Grader Operator Name Role Phone Peace Barnes MD Primary Care Prov ider Reason for Visit * Reason Onset Date Comments Medication Problem 11/14/2023 Status Check 11/14/2023 Encounter Details Date Type Department Care Team (Late st Contact Info) Description 11/14/2023 Telephone Family Medicine [address] [phone] Peace Barnes MD [address] [place], [place] [address] [address] Medication Problem; Status Check Allergies Active [...] Emergency room. 2 Each 07/06/2021 Active Ipratropium [place] HFA 17 MCG/ACT Inhalation Aerosol Solution (Atrovent [...] to * Telephone Encounter - Hedy Grullon, [facility] - 11/17/2023 11:15 AM EDT Patient should be increased to rybelsus 7 mg per securities trader recommendations. Thank you, Hedy Grullon CPhT Manufacturing Applications Engineer III Centralized Clinical Pharmacy Services ([facility]) [address] [place] [address], [address] [place] [phone] * Telephone Encounter - Peace Barnes [...] if appropriate. Thank you, Fallon Lucero CPhT Manufacturing Applications Engineer II Centralized Clinical Pharmacy Services([facility]PS) 11/14/2023,12:11 PM documented in this encounter Plan of Treatment Upcoming Encounters Date Type Department Care Team (Late st Contact Info) Description 12/14/2023 1:40 PM EDT Office Visit [address] [phone] Peace Barnes MD [address] [place] [address] [place] [address] 12/29/2023 8:00 AM EDT Laboratory Laboratory, [facility] 132 [facility] [place] [phone] [facility] 132 [facility] [place] [address] 12/29/2023 9:00 AM EDT [facility] 132 [facility] [place] [address] 01/04/2024 1:15 PM EDT Office Visit Hematology/Oncology [facility] [address] [place] [phone] Garrison Jalloh MD [address] [place] [address] Health Maintenance Due Date Last Done Comments [...] filedocumented as of this encounter Care Teams Blade Grader Operator Relationship Specialty Start Date End Date Peace Barnes MD [address] [place] [address] [place] [address] PCP - General Family Medicine 09/23/21 documented as of this encounter
--- OUTSIDE RECORDS SUMMARY | 2023-12-09 08:49 | External Medical Summary | Summary of Care ---
Author Name Unknown Organization [facility] Address [address] [place] [address] Phone [phone] Care Team Providers Care Wet Process Technician Name Role Phone Peace Barnes MD Primary Care Prov ider Reason for Visit * Reason Onset Date Comments Pre Cert/Prior Auth 11/14/2023 Ryblesus 3 m g denial Encounter Details Date Type Department Care Team (Late st Contact Info) Description 11/14/2023 Telephone Family Medicine [address] [phone] Peace Barnes MD [address] [place] [address] [place] [address] Pre Cert/Prior Auth (Ryblesus 3 mg denial) Allergies Active Allergy Reactions Criticality Noted Date [...] Emergency room. 2 Each 07/06/2021 Active Ipratropium [place] HFA 17 MCG/ACT Inhalation Aerosol Solution (Atrovent [...] persistent 03/20/2021 05/04/2021 Asthma, severe persistent 03/20/2021 05 / Intermittent asthma with rel iever use up [...] encounter Miscellaneous Notes * Telephone Encounter - Fallon Lucero PHARM Tech - 11/14/2023 12:11 PM EDT Patients insurance would like to inform the office that rybelsus 3 mg is denied because several. They will fax this info to the office, please review and resubmit if appropriate. Thank you, Fallon Lucero, [facility] Instructor Product Inspection II Centralized Clinical Pharmacy Services([facility]) 11/14/2023,12:11 PM documented in this encounter Plan of Treatment Upcoming Encounters Date Type Department Care Team (Late st Contact Info) Description 12/14/2023 1:40 PM EDT Office Visit Family Medicine [address] [place] [phone] Peace Barnes MD [address] [place] [address] [place] [address] 12/29/2023 8:00 AM EDT Laboratory Laboratory, [facility] 132 [facility] [phone] [facility] 132 [facility] [place] [address] 12/29/2023 9:00 AM EDT Imaging Radiology [facility] 1st [facility] 132 [facility] [place] [address] 01/04/2024 1:15 PM EDT Office Visit Hematology/Oncology [facility] 200 [facility] [place] [address] Garrison Jalloh MD 200 [facility] [place] [address] Health Maintenance Due Date Last Done Comments [...] filedocumented as of this encounter Care Teams Wet Process Technician Relationship Specialty Start Date End Date Peace Barnes MD [address] [place] [address] [place] [address] PCP - General Family Medicine 09/23/21 documented as of this encounter
--- OUTSIDE RECORDS SUMMARY | 2023-12-09 08:49 | External Medical Summary | Summary of Care ---
Author Name Unknown Organization [facility] Address [address] [place] [address] Phone [phone] Care Team Providers Care Baggage Inspector Name Role Phone Peace Barnes MD Primary Care Prov ider Reason for Visit * Reason Onset Date Comments Medication Problem 11/14/2023 Encounter Details Date Type Department Care Team (Late st Contact Info) Description 11/14/2023 Telephone Family Medicine [address] [phone] Peace Barnes MD [address] [place] [address] [place] [address] Medication Problem Allergies Active Allergy Reactions [...] Emergency room. 2 Each 07/06/2021 Active Ipratropium [place] HFA 17 MCG/ACT Inhalation Aerosol Solution (Atrovent [...] encounter Miscellaneous Notes * Telephone Encounter - Marium Scanlon RN [...] resubmit if appropriate. Thank you, Fallon Lucero, [facility] Bi Tri Operator II Centralized Clinical Pharmacy Services([facility]) 11/14/2023,12:11 PM documented in this encounter Plan of Treatment Upcoming Encounters Date Type Department Care Team (Late st Contact Info) Description 12/14/2023 1:40 PM EDT Office Visit Family Medicine [address] [phone] Peace Barnes MD [address] [place] [address] [place] [address] 12/29/2023 8:00 AM EDT Laboratory Laboratory, [facility] 132 [place] [phone] [facility] 132 [place] [address] 12/29/2023 9:00 AM EDT Imaging Radiology [facility] [address] [place] [address] 01/04/2024 1:15 PM EDT Office Visit Hematology/Oncology [facility] [place] [facility] [phone] Garrison Jalloh MD 200 [facility] [address] Health Maintenance Due Date Last Done Comments [...] filedocumented as of this encounter Care Teams Baggage Inspector Relationship Specialty Start Date End Date Peace Barnes MD [address] [place] [address] [place] [address] PCP - General Family Medicine 09/23/21 documented as of this encounter
--- OUTSIDE RECORDS SUMMARY | 2023-12-09 08:50 | External Medical Summary | Summary of Care ---
Author Name Unknown Organization [facility] Address [address] [place] [address] Phone [phone] Care Team Providers Care Trench Digging Machine Operator Name Role Phone Kwabena Calloway MD Primary Care Prov ider Reason for Referral * Medication Prior Authorization - Pending Review Specialty Diagnoses / Procedures Referred By Contac t Referred To Contact Diagnoses Type 2 diabetes mellitus with stage 3 chronic kidney disease, without long-term current use of insulin, unspecified whether stage 3a or 3b CKD (HCC) Kwabena Calloway MD [address] [place] [address] [place] [id number] Referral ID Status Reason Start Date Expiration Date V isits Requested Visits Authorized [id number] Pending Review 999 999 Reason for Visit * Reason Onset Date Comments Medication Refill 11/09/2023 Encounter Details Date Type Department Care Team (Late st Contact Info) Description 11/09/2023 Refill Family Medicine [address] [place] [phone] Kwabena Calloway MD [address] [place] [address] [place] [address] Type 2 diabetes mellitus with stage 3 chronic kidney disease, without long-term current use of insulin, unspecified whether stage 3a or 3b CKD (HCC)* Allergies Active Allergy Reactions Criticality Noted [...] Emergency room. 2 Each 07/06/2021 Active Ipratropium [place] HFA 17 MCG/ACT Inhalation Aerosol Solution (Atrovent [...] MOUTH EVERY MORNING 100 Tablet 1 07/12/2023 Active Atorvastatin Calcium 10 MG Oral Tablet [...] thing in the morning. 30 Tablet 07/28/2023 4 Discontinue d(Refill) documented as of this encounter [...] encounter Miscellaneous Notes * Telephone Encounter - Blanquita Sanchez PHARM Tech - 11/14/2023 8:27 AM EDT Patients insurance would like to inform the office that rybelsus is requiring additional information: c;inical notes and ov. Prior authorization entered in [employer] at [facility]. EOC# [id number] Please fax to [phone] before 10:30am today. Thanks, Blanquita Sanchez Medical Biller [facility] ([facility]) 11/14/2023,8:27 AM * Telephone Encounter - America Lao PHARM Tech - 11/12/2023 8:49 AM EDT [facility] needs reason for pt not titrating to 7 mg . Thank you, America Lao,[facility] Medical Biller II [facility] ([facility]) 11/12/2023,8:49 AM * Telephone Encounter - Kwabena Calloway MD - 11/11/2023 3:05 PM EDT Signed Prescriptions: Disp Refills Rybelsus 3 MG Oral Tablet (Semaglutide) 30 Tab*0 Sig: Take 3 mg by mouth daily first thing in the morning. Authorizing Provider: KWABENA CALLOWAY * Telephone Encounter - Berta Chi RPh - 11/10/2023 9:31 AM EDTPending [...] Clinical Pharmacist [facility] ([facility]) [phone] 11/10/2023, 9:31 AM * Telephone Encounter - José Antonio Willard, otr company driver - 11/09/2023 10:28 AM EDT Did you pend patient's preferred pharmacy and medication before forwarding?yes Pharmacy: [facility] Pending Prescriptions: Disp [...] PM EDT Office Visit Family Medicine [address] [place] [phone] Kwabena Calloway MD [address] [place] [address] [place] [address] 12/29/2023 8:00 AM EDT Laboratory [facility] [address] [place] [phone] [address] [place] [address] 12/29/2023 9:00 AM EDT Imaging Radiology [facility] 1st [facility] [address] [place] [address] 01/04/2024 1:15 PM EDT Office Visit Hematology/Oncology [facility] 200 [facility] [place] [phone] Garrison Jalloh MD 200 [facility] [place] [address] Health Maintenance Due Date Last Done Comments [...] Primary documented in this encounter Care Teams Trench Digging Machine Operator Relationship Specialty Start Date End Date Kwabena Calloway MD [address] [place] [address] [place] [id number] PCP - General Family Medicine 09/23/21 documented as of this encounter
--- OUTSIDE RECORDS SUMMARY | 2023-12-09 08:50 | External Medical Summary | Summary of Care ---
Author Name Unknown Organization [facility] Address [address] [facility] [place] [address] Phone [phone] Care Team Providers Care Migration Specialist Name Role Phone Peace Barnes MD Primary Care Prov ider Encounter Details Date Type Department Care Team (Late st Contact Info) Description 10/17/2023 Population Health External Data Unspecified Department Allergies [...] as of this encounter (statuses as of 10/18/2023) Medications Medication Sig Dispensed Refills Start Date End Date Status EPINEPHrine 0.15 MG/0.3ML Injection Solution Auto-injector (EPINEPHrine (anaphylaxis)) Inject into a large muscle 0.15 mg as needed for Anaphylaxis (severe allergic reaction). For a severe reaction: Inject in outer thigh following instructions on package and go to the Emergency room. 2 Each 07/06/2021 Active Ipratropium [place] HFA 17 MCG/ACT Inhalation Aerosol Solution (Atrovent [...] twice daily 90 Tablet 1 07/27/2023 Active Rybelsus 3 MG Oral Tablet (Semaglutide) Take 1 tablet by mouth daily first thing in the morning. 30 Tablet 07/28/2023 Active Losartan Potassium 50 MG Oral Tablet [...] MOUTH AT BEDTIME 100 Capsule 09/06/2023 Active metFORMIN HCl ER 500 MG Oral Tablet Extended Release 24 Hour (Glucophage XR)Indications: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 90 Tablet 09/08/2023 Active Levothyroxine Sodium 175 MCG Oral Tablet (Levoxyl) TAKE ONE TABLET BY MOUTH EVERY MORNING 100 Tablet 1 09/12/2023 Active Apixaban 2.5 MG Oral Tablet (Eliquis) TAKE ONE TABLET BY MOUTH TWICE A DAY IN THE MORNING AND BEFORE BEDTIME 180 Tablet 10/09/2023 Active documented as of this encounter (statuses as of 10/18/2023) Active Problems Problem Noted Date Diagnosed Date [...] as of this encounter (statuses as of 10/18/2023) Resolved Problems Problem Noted Date Diagnosed Date Resolved Date Colonic mass 09/29/2021 11/12/2021 Uncomplicated asthma 03/20/2021 022 Asthma in remission 03/20/2021 09/23/19 Asthma, mild persistent 03/20/2021 05/04/2021 Asthma, severe [...] as of this encounter (statuses as of 10/18/2023) Immunizations Name Administration Dates Next Due COVID-19 [...] 1:40 PM EDT Office Visit Family Medicine [address] [phone] Peace Barnes MD [address] [place] [address] [place] [address] 12/29/2023 8:00 AM EDT Laboratory Laboratory, [facility] 132 [facility] [place] [phone] [facility] 132 [facility] [place] [address] 12/29/2023 9:00 AM EDT Imaging Radiology [facility] 1st [facility] 132 [facility] [place] [address] 01/04/2024 1:15 PM EDT Office Visit Hematology/Oncology [facility] 200 [address] [place] [phone] Garrison Jalloh MD 200 [facility] [place] [address] Health Maintenance Due Date Last Done Comments Zoster Vaccines (3 of 3) 11/17/2021 09/22/2021, 02/23 COVID-19 Vaccine (4 - 2022- season) 2022 03/02/2022, 08/19/2020, 07/17/2020 Albumin/Creatinine Ratio 02/25/2023 022, 01/14/2022, 02/23/2021, Additional history exists Depression Screening 05/05/2023 05/05/2022 Diabetic Eye Exam 05/05/2023 05/05/2022 HbA1c 05/05/2023 11/02/2022, 04/25, 01/14/2022, Additional history exists TSH 05/05/2023 05/05/2022, 08/24, 10/16/2020, Additional history exists Diabetic Foot Exam 11/03/2023 11/02/2022, 09/22/2021 Influenza Vaccine (FLU shot) (Season Ended) 2023 01/22/2022, 01/14/2022, 02/23/2021, Additional history exists GFR 07/05/2024 07/06/2023, 09/25, 04/23/2022, Additional history exists Pneumococcal Vaccine: 65+ Years Completed 02/06/2018, 07/01/2011, 05/10/1994 GARDASIL-HPV IMMUNIZATION SERIES Aged Out No longer eligible based on patient's age to complete this topic Hepatitis B Aged Out No longer eligi ble based on patient's age to complete this topic MENINGOCOCCAL (MENACTRA/MENVEO) Aged Out No longer eligible based on patient's age to complete this topic documented as of this encounter Medical Devices Not on filedocumented as of this encounter Care Teams Migration Specialist Relationship Specialty Start Date End Date Peace Barnes MD [address] [place] [address] [place] [address] PCP - General Family Medicine 09/23/21 documented as of this encounter
--- OUTSIDE RECORDS SUMMARY | 2023-12-09 08:50 | External Medical Summary | Summary of Care ---
Author Name Unknown Organization [facility] Address [address] [place] [address] Phone [phone] Care Team Providers Care Sew Out Operator Name Role Phone Kwabena Calloway MD Primary Care Prov ider Reason for Referral * Medication Prior Authorization - Pending Review Specialty Diagnoses / Procedures Referred By Contac t Referred To Contact Diagnoses Type 2 diabetes mellitus with stage 3 chronic kidney disease, without long-term current use of insulin, unspecified whether stage 3a or 3b CKD (HCC) Kwabena Calloway MD [address] [place] [address] [place] [address] Referral ID Status Reason Start Date Expiration Date V isits Requested Visits Authorized [id number] Pending Review 999 999 Reason for Visit * Reason Onset Date Comments Medication Refill 11/09/2023 Encounter Details Date Type Department Care Team (Late st Contact Info) Description 11/09/2023 Refill Family Medicine [address] [place] [phone] Kwabena Calloway MD [address] [place] [address] [place] [address] Type 2 diabetes mellitus with stage 3 [...] as of this encounter (statuses as of 11/12/2023) Medications Medication Sig Dispensed Refills Start Date End Date Status EPINEPHrine 0.15 MG/0.3ML Injection Solution Auto-injector (EPINEPHrine (anaphylaxis)) Inject into a large muscle 0.15 mg as needed for Anaphylaxis (severe allergic reaction). For a severe reaction: Inject in outer thigh following instructions on package and go to the Emergency room. 2 Each 07/06/2021 Active Ipratropium [place] HFA 17 MCG/ACT Inhalation Aerosol Solution (Atrovent [...] as of this encounter (statuses as of 11/12/2023) Active Problems Problem Noted Date Diagnosed Date [...] as of this encounter (statuses as of 11/12/2023) Resolved Problems Problem Noted Date Diagnosed Date [...] as of this encounter (statuses as of 11/12/2023) Immunizations Name Administration Dates Next Due COVID-19 [...] encounter Miscellaneous Notes * Telephone Encounter - America Lao PHARM Tech - 11/12/2023 8:49 AM EDT [facility] needs reason for pt not titrating to 7 mg . Thank you, America Lao,[facility] Food Scientist II [facility] ([facility]) 11/12/2023,8:49 AM * Telephone Encounter - Kwabena Calloway MD - 11/11/2023 3:05 PM EDT Signed Prescriptions: Disp Refills Rybelsus 3 MG Oral Tablet (Semaglutide) 30 Tab*0 Sig: Take 3 mg by mouth daily first thing in the morning. Authorizing Provider: KWABENA CALLOWAY * Telephone Encounter - Berta Chi [facility] - 11/10/2023 9:31 AM EDTPending Prescriptions: [...] Clinical Pharmacist [facility] ([facility]) [phone] 11/10/2023, 9:31 AM * Telephone Encounter - José Antonio Willard, ms access database developer - 11/09/2023 10:28 AM EDT Did you pend patient's preferred pharmacy and medication before forwarding?yes Pharmacy: [facility] Pending Prescriptions: Disp Refills [...] PM EDT Office Visit Family Medicine [address] [place] [phone] Kwabena Calloway MD [address] [place] [address] [place] [address] 12/29/2023 8:00 AM EDT Laboratory Laboratory, [facility] 132 [facility] [place] [phone] [facility] 132 [facility] [place] [address] 12/29/2023 9:00 AM EDT Imaging Radiology [address] 132 [facility] [place] [address] 01/04/2024 1:15 PM EDT Office Visit Hematology/Oncology [address] [place] [phone] Garrison Jalloh MD 200 [facility] [place] [address] Health Maintenance Due Date Last Done Comments [...] Primary documented in this encounter Care Teams Sew Out Operator Relationship Specialty Start Date End Date Kwabena Calloway MD [address] [place] [address] [place] [address] PCP - General Family Medicine 09/23/21 documented as of this encounter
--- OUTSIDE RECORDS SUMMARY | 2023-12-09 08:50 | External Medical Summary ---
Author Name Unknown Address Unknown Organization [id number]:LABORATORY [facility] - [facility] [address] [place] [address] Laboratory Report Ordering Provider Test Date Status SE HERNANDEZ 11/02/2023 08:18:28 Final Normal: <30 mg/g creatinine< br/>High: 30-300 mg/g creatinine
Very High: >300 mg/g creatinine
Nephrotic: >2200 mg/g creatinine Observation Date Value Abnormality Reference (Units ) Status Albumin, Urine 11/02/2023 08:18:28 72.87 (mg/dL) Final Creatinine, Urine 11/02/2023 08:18:28 116 (mg/dL) Final Albumin/Creatinine [Mass Ratio] in Urine 11/02/2023 08:18:28 628 Above high normal <30 (mg/g Creat) Final Performing Location LABORATORY [facility] - [facility] [address] [place] [address]
--- OUTSIDE RECORDS SUMMARY | 2023-12-09 08:50 | External Medical Summary ---
Author Name Unknown Address Unknown Organization [id number]:LABORATORY [facility] - [address] [place] [address] Laboratory Report Ordering Provider Test Date Status [place] 11/02/2023 08:18:28 Final Observation Date Value Abnormality Reference (Units ) Status T4, Free 11/02/2023 08:18:28 1.9 Above high normal 0. 9-1.7 (ng/dL) Final Performing Location LABORATORY [facility] - [address] [place] [place] [address]
--- OUTSIDE RECORDS SUMMARY | 2023-12-09 08:50 | External Medical Summary ---
Author Name Unknown Address Unknown Organization [id number]:[facility] [place] [address] [place] [address] Laboratory Report Ordering Provider Test Date Status BISHOP YUAN 11/02/2023 08:18:28 Final Observation Date Value Abnormality Reference (Units ) Status Triglyceride 11/02/2023 08:18:28 147 <=174 ( mg/dL) Final Triglyceride Reference Range s (mg/dL):
<150 Acceptable
150-174 Borderline high
175-499 High
>=500 Very high Cholesterol 11/02/2023 08:18:28 110 <200 (mg /dL) Final Total Cholesterol Reference Ranges (mg/dL):
<200 Desirable
200-239 Borderline high
>=240 High HDL 11/02/2023 08:18:28 32 Below low normal >39 (mg/dL) Final HDL Cholesterol Reference Ra nges (mg/dL):
>=60 High (Desirable)
<50 Low (Undesirable) For Females
<40 Low (Undesirable) For Males NON-HDL CHOLESTEROL 11/02/2023 08:18:28 78 <=159 (mg/dL) Final Non-HDL Cholesterol Referenc e Range (mg/dL):
<100 Target level for high risk ASCVD patient
<130 Optimal for general population
130-159 Near optimal for general population
160-189 Borderline High
190-219 High
>=220 Very High LDL, (calculated) 11/02/2023 08:18:28 49 <= 129 (mg/dL) Final LDL Cholesterol Reference Ra nges (mg/dL):
<70 Target level for high risk ASCVD patient
<100 Optimal for general population
100-129 Near optimal for general population
130-159 Borderline high
160-189 High
>=190 Very high Performing Location [facility] - [address] [facility] [address]
--- OUTSIDE RECORDS SUMMARY | 2023-12-09 08:50 | External Medical Summary ---
Author Name Unknown Address Unknown Organization K01:LABORATORY [place] - 100 [facility] [place] [address] Laboratory Report Ordering Provider Test Date Status BISHOP YUAN 11/02/2023 08:18:28 Final Observation Date Value Abnormality Reference (Units ) Status BUN 11/02/2023 08:18:28 21 Above high normal 6-20 (mg/dL) Final Creatinine 11/02/2023 08:18:28 1.4 Above high normal 0.6-1.2 (mg/dL) Final Glomerular filtration rate/1.73 sq M.predicted [Volume Rate/Area] in Serum, Plasma or Blood by Creatinine-based formula (CKD-EPI) 11/02/2023 08:18:28 50 Below low normal >=60 (mL/min) Final eGFR is calculated based on the CKD-EPI 2020 equation Sodium 11/02/2023 08:18:28 140 135-146 (m mol/L) Final Potassium 11/02/2023 08:18:28 4.5 3.5-5.1 (m mol/L) Final Cl 11/02/2023 08:18:28 102 98-107 (mm ol/L) Final CO2 11/02/2023 08:18:28 25 22-32 (mmo l/L) Final Anion gap 11/02/2023 08:18:28 13 7-15 (mmol /L) Final Glucose 11/02/2023 08:18:28 235 Above high normal 70 -120 (mg/dL) Final Albumin 11/02/2023 08:18:28 4.5 3.8-5.0 (g /dL) Final AST (Aspartate aminotransferase) 11/02/2023 08:18:28 13 10-50 (U/L) Fin al Alk Phos 11/02/2023 08:18:28 73 35-130 (U/ L) Final Bilirubin, Total 11/02/2023 08:18:28 1.0 <=1 .2 (mg/dL) Final Calcium 11/02/2023 08:18:28 9.6 8.4-10.2 ( mg/dL) Final Protein 11/02/2023 08:18:28 7.1 6.0-8.3 (g /dL) Final ALT (Alanine aminotransferase) 11/02/2023 08:18:28 18 10-50 (U/L) Oswaldo milligan Performing Location LABORATORY [place] - [address] [facility] [address]
--- OUTSIDE RECORDS SUMMARY | 2023-12-09 08:50 | External Medical Summary | Summary of Care ---
Author Name Unknown Organization [facility] Address [address] [place] [address] Phone [phone] Care Team Providers Care Certified Lactation Educator Name Role Phone Peace Barnes MD Primary Care Prov ider Reason for Visit * Reason Onset Date Comments Advice 10/31/2023 Encounter Details Date Type Department Care Team (Late st Contact Info) Description 10/31/2023 Telephone Family Medicine [address] [phone] Peace Barnes MD [address] [place] [address] [place] [address] Advice Allergies Active Allergy Reactions Criticality Noted Date Comments Bee Pollen Edema face/lips/tongue High 09/23/2021 Bee Stings 06/15/1997 Fd&C Yellow #5 (Tartrazine) Edema face/lips/tongue High 05/05/2022 peppers Iodinated Contrast Media Rash 11/13/2009 Latex Rash Low 10/15/2021 Lisinopril Hives 08/15/2018 Penicillins 06/15/1997 Hives as a very young man prior to age 20 Tetanus Toxoid 06/15/1997 documented as of this encounter (statuses as of 11/01/2023) Medications Medication Sig Dispensed Refills Start Date End Date Status EPINEPHrine 0.15 MG/0.3ML Injection Solution Auto-injector (EPINEPHrine (anaphylaxis)) Inject into a large muscle 0.15 mg as needed for Anaphylaxis (severe allergic reaction). For a severe reaction: Inject in outer thigh following instructions on package and go to the Emergency room. 2 Each 07/06/2021 Active Ipratropium [place] HFA 17 MCG/ACT Inhalation Aerosol Solution (Atrovent [...] as of this encounter (statuses as of 11/01/2023) Active Problems Problem Noted Date Diagnosed Date [...] as of this encounter (statuses as of 11/01/2023) Resolved Problems Problem Noted Date Diagnosed Date [...] as of this encounter (statuses as of 11/01/2023) Immunizations Name Administration Dates Next Due COVID-19 [...] encounter Miscellaneous Notes * Telephone Encounter - Mara Simental LPN - 11/01/2023 9:22 AM EDT Pt aware there are orders in his chart for labs he can get done and to have a full bladder. * Telephone Encounter - Shannan Poon OSA - 10/31/2023 10:45 AM EDT Patient would like to know if he should have blood work before he needs a refill of the medication Rybelsus or if the blood work should be before his appointment on 12/14/23. documented in this encounter Plan of Treatment Upcoming Encounters Date Type Department Care Team (Late st Contact Info) Description 12/14/2023 1:40 PM EDT Office Visit Family Medicine [address] [place] [phone] Peace Barnes MD [address] [place] [address] [place] [address] 12/29/2023 8:00 AM EDT Laboratory Laboratory, [address] [phone] [address] [address] 12/29/2023 9:00 AM EDT Imaging Radiology [facility] 1st [facility] [place] [address] 01/04/2024 1:15 PM EDT Office Visit Hematology/Oncology [facility] 200 [place] [address] Garrison Jalloh MD 200 [place] [address] Health Maintenance Due Date Last Done Comments Zoster Vaccines (3 of 3) 11/17/2021 09/22/2021, 02/23 COVID-19 Vaccine ( season) 2022 03/02/2022, 08/19/2020, 07/17/2020 Albumin/Creatinine Ratio [...] filedocumented as of this encounter Care Teams Certified Lactation Educator Relationship Specialty Start Date End Date Peace Barnes MD [address] [place] [address] [place] [address] PCP - General Family Medicine 09/23/21 documented as of this encounter
--- OUTSIDE RECORDS SUMMARY | 2023-12-09 08:50 | External Medical Summary ---
Author Name Unknown Address Unknown Organization K01:LABORATORY [facility] - [address] [place] [address] Laboratory Report Ordering Provider Test Date Status [place] 11/02/2023 08:18:28 Final Observation Date Value Abnormality Reference (Units ) Status TSH 11/02/2023 08:18:28 4.92 Above high normal 0. 27-4.20 (uIU/mL) Final Performing Location LABORATORY [facility] - [address] [place] [address]
--- OUTSIDE RECORDS SUMMARY | 2023-12-09 08:50 | External Medical Summary | Summary of Care ---
Author Name Unknown Organization [facility] Address [address] [place] [address] Phone [phone] Care Team Providers Care Pilot Name Role Phone Peace Barnes MD Primary Care Prov ider Reason for Visit * Reason Onset Date Comments Health Maintenance 11/07/2023 Encounter Details Date Type Department Care Team (Late st Contact Info) Description 11/07/2023 Telephone Family Medicine [address] [phone] Peace Barnes MD [address] [place] [address] [place] [address] Health Maintenance Allergies Active Allergy Reactions Criticality Noted Date Comments Bee Pollen Edema face/lips/tongue High 09/23/2021 Bee Stings 06/15/1997 Fd&C Yellow #5 (Tartrazine) Edema face/lips/tongue High 05/05/2022 peppers Iodinated Contrast Media Rash 11/13/2009 Latex Rash Low 10/15/2021 Lisinopril Hives 08/15/2018 Penicillins 06/15/1997 Hives as a very young man prior to age 19 Tetanus Toxoid 06/15/1997 documented as of this encounter (statuses as of 11/07/2023) Medications Medication Sig Dispensed Refills Start Date End Date Status EPINEPHrine 0.15 MG/0.3ML Injection Solution Auto-injector (EPINEPHrine (anaphylaxis)) Inject into a large muscle 0.15 mg as needed for Anaphylaxis (severe allergic reaction). For a severe reaction: Inject in outer thigh following instructions on package and go to the Emergency room. 2 Each 07/06/2021 Active Ipratropium [place] HFA 17 MCG/ACT Inhalation Aerosol Solution (Atrovent [...] at noon and 1 Tablet before bedtime. 90 Tablet 5 11/04/2023 Active documented as of this encounter (statuses as of 11/07/2023) Active Problems Problem Noted Date Diagnosed Date [...] as of this encounter (statuses as of 11/07/2023) Resolved Problems Problem Noted Date Diagnosed Date [...] as of this encounter (statuses as of 11/07/2023) Immunizations Name Administration Dates Next Due COVID-19 [...] encounter Miscellaneous Notes * Telephone Encounter - Tonja Morgan LPN - 11/07/2023 2:56 PM EDT Care Gaps Comprehensive Care Outreach Last Office/Telemedicine Visit: 11/02/2022 (in office), Visit date not found (telemedicine) Next Office Visit: 12/14/2023 Hemoglobin AIC Results: Lab Results Component Value Date/Time HEMOGLOBIN A1C - [facility] 10.1 (H) 11/02/2023 08:18 AM HEMOGLOBIN A1C - [facility] 8.5 (H) 11/02/2022 03:14 PM HEMOGLOBIN A1C - [facility] 7.7 (H) 05/05/2022 11:08 AM BP Readings from Last 1 Encounters: 07/06/23 177/98 Reviewed Health Maintenance below: Health Maintenance Topic Date Due Zoster Vaccines (3 of 3) 11/17/2021 COVID-19 Vaccine (4 - 2022-24 season) 2022 Diabetic Eye Exam 05/05/2023 Depression Screening 05/05/2023 Diabetic Foot Exam 11/03/2023 Influenza Vaccine (FLU shot) (1) 12/25/2023 Eye tele eye awv Care Gap Outreach Action Taken: Left message daughters number documented in this encounter Plan of Treatment Upcoming Encounters Date Type Department Care Team (Late st Contact Info) Description 12/14/2023 1:40 PM EDT Office Visit Family Medicine [address] [phone] Peace Barnes MD [address] [place] [address] [place] [address] 12/29/2023 8:00 AM EDT Laboratory Laboratory, [address] [place] [phone] [address] [place] [address] 12/29/2023 9:00 AM EDT Imaging Radiology [facility] [address] [place] [address] 01/04/2024 1:15 PM EDT Office Visit Hematology/Oncology [facility] [place] [phone] Garrison Jalloh MD 200 [facility] [place] [address] Health Maintenance Due Date Last Done Comments [...] filedocumented as of this encounter Care Teams Pilot Relationship Specialty Start Date End Date Peace Barnes MD [address] [place] [address] [place] [phone] PCP - General Family Medicine 09/23/21 documented as of this encounter
--- OUTSIDE RECORDS SUMMARY | 2023-12-09 08:50 | External Medical Summary | Summary of Care ---
Author Name Unknown Organization [facility] Address [address] [place] [address] Phone [phone] Care Team Providers Care Supervisor Machining Name Role Phone Kwabena Calloway MD Primary Care Prov ider Reason for Referral * Medication Prior Authorization - Pending Review Specialty Diagnoses / Procedures Referred By Contac t Referred To Contact Diagnoses Type 2 diabetes mellitus with stage 3 chronic kidney disease, without long-term current use of insulin, unspecified whether stage 3a or 3b CKD (HCC) Kwabena Calloway MD [address] [place] [address] [place] [address] Referral ID Status Reason Start Date Expiration Date V isits Requested Visits Authorized [id number] Pending Review [id number] Reason for Visit * Reason Onset Date Comments Medication Refill 11/09/2023 Encounter Details Date Type Department Care Team (Late st Contact Info) Description 11/09/2023 Refill Family Medicine [address] [place] [phone] Kwabena Calloway MD [address] [place] [address] [place] [address] Type 2 diabetes mellitus with stage 3 [...] as of this encounter (statuses as of 11/11/2023) Medications Medication Sig Dispensed Refills Start Date End Date Status EPINEPHrine 0.15 MG/0.3ML Injection Solution Auto-injector (EPINEPHrine (anaphylaxis)) Inject into a large muscle 0.15 mg as needed for Anaphylaxis (severe allergic reaction). For a severe reaction: Inject in outer thigh following instructions on package and go to the Emergency room. 2 Each 07/06/2021 Active Ipratropium [place] HFA 17 MCG/ACT Inhalation Aerosol Solution (Atrovent [...] as of this encounter (statuses as of 11/11/2023) Active Problems Problem Noted Date Diagnosed Date [...] as of this encounter (statuses as of 11/11/2023) Resolved Problems Problem Noted Date Diagnosed Date [...] as of this encounter (statuses as of 11/11/2023) Immunizations Name Administration Dates Next Due COVID-19 [...] encounter Miscellaneous Notes * Telephone Encounter - Kwabena Calloway MD [...] mouth daily first thing in the morning. Electronically signed by Berta Chi [facility] at 11/10/2023 9:31 AM EDT * Telephone Encounter - Berta Chi RPh [...] Clinical Pharmacist [facility] ([facility]) [phone] 11/10/2023, 9:31 AM Electronically signed by Berta Chi [facility] at 11/10/2023 9:31 AM EDT * Telephone Encounter - José Antonio Willard PHARM Tech - 11/09/2023 10:28 AM EDT Did you pend patient's preferred pharmacy and medication before forwarding?yes Pharmacy: [facility] Pending Prescriptions: Disp Refills [...] PM EDT Office Visit Family Medicine [address] [place] [phone] Kwabena Calloway MD [address] [place] [address] [place] [address] 12/29/2023 8:00 AM EDT Laboratory Laboratory, [address] [place] [phone] [facility] [place] [address] 12/29/2023 9:00 AM EDT Imaging Radiology [facility] 1st [facility] 132 [facility] [place] [address] 01/04/2024 1:15 PM EDT Office Visit Hematology/Oncology [address] [place] [phone] Garrison Jalloh MD 200 [facility] [place] [address] Health Maintenance Due Date Last Done Comments [...] Primary documented in this encounter Care Teams Supervisor Machining Relationship Specialty Start Date End Date Kwabena Calloway MD [address] [place] [address] [place] [phone] PCP - General Family Medicine 09/23/21 documented as of this encounter
--- OUTSIDE RECORDS SUMMARY | 2023-12-09 08:50 | External Medical Summary | Summary of Care ---
Author Name Unknown Organization [facility] Address [address] [place] [address] Phone [phone] Care Team Providers Care Pie Topper Name Role Phone Peace Barnes MD Primary Care Prov ider Reason for Visit * Reason Onset Date Comments Medication Update 11/04/2023 Encounter Details Date Type Department Care Team (Late st Contact Info) Description 11/04/2023 Telephone Family Medicine [address] [phone] Peace Barnes MD [address] [place] [address] [place] [address] Medication Update Allergies Active Allergy Reactions Criticality Noted Date Comments Bee Pollen Edema face/lips/tongue High 09/23/2021 Bee Stings 06/15/1997 Fd&C Yellow #5 (Tartrazine) Edema face/lips/tongue High 05/05/2022 peppers Iodinated Contrast Media Rash 11/13/2009 Latex Rash Low 10/15/2021 Lisinopril Hives 08/15/2018 Penicillins 06/15/1997 Hives as a very young man prior to age 19 Tetanus Toxoid 06/15/1997 documented as of this encounter (statuses as of 11/08/2023) Medications Medication Sig Dispensed Refills Start Date End Date Status EPINEPHrine 0.15 MG/0.3ML Injection Solution Auto-injector (EPINEPHrine (anaphylaxis)) Inject into a large muscle 0.15 mg as needed for Anaphylaxis (severe allergic reaction). For a severe reaction: Inject in outer thigh following instructions on package and go to the Emergency room. 2 Each 07/06/2021 Active Ipratropium [place] HFA 17 MCG/ACT Inhalation Aerosol Solution (Atrovent [...] before bedtime. 270 Tablet 3 11/08/2023 Active metFORMIN HCl ER 500 MG Oral Tablet Extended Release 24 Hour (Glucophage XR)Indications:T ype 2 diabetes mellitus with stage 3 chronic kidney disease, without long-term current use of insulin, unspecified whether stage 3a or 3b CKD (HCC) Take 1 Tablet by mouth in the morning. 90 Tablet 09/08/2023 4 Discontinue d(Refill) metFORMIN HCl ER 500 MG Oral Tablet Extended Release 24 Hour (Glucophage XR)Indications:T ype 2 diabetes mellitus with stage 3 chronic kidney disease, without long-term current use of insulin, unspecified whether stage 3a or 3b CKD (HCC) Take 1 Tablet by mouth in the morning and 1 Tablet at noon and 1 Tablet before bedtime. 90 Tablet 5 11/04/2023 4 Discontinue d(Refill) documented as of this encounter (statuses as of 11/08/2023) Active Problems Problem Noted Date Diagnosed Date [...] as of this encounter (statuses as of 11/08/2023) Resolved Problems Problem Noted Date Diagnosed Date [...] as of this encounter (statuses as of 11/08/2023) Immunizations Name Administration Dates Next Due COVID-19 [...] Telephone Encounter - Marium Scanlon RN - 11/08/2023 8:59 AM EDT Pt's caregiver aware Script pended, please sing * Telephone Encounter - Peace Barnes MD - 11/04/2023 1:43 PM EDT A1C is high (10). Please advise he increase Metformin - increase to twice daily for a week, and then 3 times daily after that. Total daily dose 1500mg. New Rx sent. Keep upcoming appt to discuss. documented in this encounter Plan of Treatment Upcoming Encounters Date Type Department Care Team (Late st Contact Info) Description 12/14/2023 1:40 PM EDT Office Visit Family Medicine [address] [phone] Peace Barnes MD [address] [place] [address] [place] [address] 12/29/2023 8:00 AM EDT Laboratory Laboratory, [facility] [place] [phone] [facility] 132 [facility] [address] 12/29/2023 9:00 AM EDT Imaging Radiology [address] 132 [facility] [place] [address] 01/04/2024 1:15 PM EDT Office Visit Hematology/Oncology [address] [place] [phone] Garrison Jalloh MD 200 [place] [address] Health Maintenance Due Date Last Done Comments [...] whether stage 3a or 3b CKD (HCC) documented in this encounter Care Teams Pie Topper Relationship Specialty Start Date End Date Peace Barnes MD [address] [place] [address] [place] [phone] PCP - General Family Medicine 09/23/21 documented as of this encounter
--- OUTSIDE RECORDS SUMMARY | 2023-12-09 08:50 | External Medical Summary | Summary of Care ---
Author Name Unknown Organization [facility] Address [address] [place] [address] Phone [phone] Care Team Providers Care Tuckpointer Name Role Phone Kwabena Calloway MD Primary Care Prov ider Reason for Referral * Medication Prior Authorization - Pending Review Specialty Diagnoses / Procedures Referred By Contac t Referred To Contact Diagnoses Type 2 diabetes mellitus with stage 3 chronic kidney disease, without long-term current use of insulin, unspecified whether stage 3a or 3b CKD (HCC) Kwabena Calloway MD [address] [place] [address] [place] [address] Referral ID Status Reason Start Date Expiration Date V isits Requested Visits Authorized [id number] Pending Review 999 999 Reason for Visit * Reason Onset Date Comments Medication Refill 11/09/2023 Encounter Details Date Type Department Care Team (Late st Contact Info) Description 11/09/2023 Refill Family Medicine [address] [place] [phone] Kwabena Calloway MD [address] [place] [address] [place] [address] Type 2 diabetes mellitus with stage 3 [...] Emergency room. 2 Each 07/06/2021 Active Ipratropium [place] HFA 17 MCG/ACT Inhalation Aerosol Solution (Atrovent [...] Clinical Pharmacist [facility] ([facility]) [phone] 11/10/2023, 9:31 AM * Telephone Encounter - José Antonio Willard PHARM Tech - 11/09/2023 10:28 AM EDT Did you pend patient's preferred pharmacy and medication before forwarding?yes Pharmacy: [facility] Pending Prescriptions: Disp Refills [...] 1:40 PM EDT Office Visit Family Medicine [address] [place] [phone] Kwabena Calloway MD [address] [place] [address] [place] [address] 12/29/2023 8:00 AM EDT Laboratory Laboratory, [address] [phone] [facility] [address] 12/29/2023 9:00 AM EDT Imaging Radiology [facility] 1st [facility] 132 [facility] [address] 01/04/2024 1:15 PM EDT Office Visit Hematology/Oncology [address] [place] [phone] Garrison Jalloh MD 200 [facility] [place] [address] Health Maintenance Due Date Last Done Comments [...] Primary documented in this encounter Care Teams Tuckpointer Relationship Specialty Start Date End Date Kwabena Calloway MD [address] [place] [address] [place] [phone] PCP - General Family Medicine 09/23/21 documented as of this encounter
--- OUTSIDE RECORDS SUMMARY | 2023-12-09 08:50 | External Medical Summary | Summary of Care ---
Author Name Unknown Organization [facility] Address [address] [facility] [place] [address] Phone [phone] Care Team Providers Care Freight And Passenger Agent Name Role Phone Peace Barnes MD Primary Care Prov ider Reason for Visit * Reason Comments Outpatient Testing Encounter Details Date Type Department Care Team (Late st Contact Info) Description 11/02/2023 8:20 AM EDT Laboratory Laboratory [address] [place] [phone] [place] [address] Type 2 diabetes mellitus with stage 3 chronic kidney disease, without long-term current use of insulin, unspecified whether stage 3a or 3b CKD (HCC); DM type 2 with diabetic peripheral neuropathy (HCC); Encounter for long-term (current) use of medications; Encounter for long-term (current) use of other medications Allergies Active Allergy Reactions Criticality Noted Date Comments Bee Pollen Edema face/lips/tongue High 09/23/2021 Bee Stings 06/15/1997 Fd&C Yellow #5 (Tartrazine) Edema face/lips/tongue High 05/05/2022 peppers Iodinated Contrast Media Rash 11/13/2009 Latex Rash Low 10/15/2021 Lisinopril Hives 08/15/2018 Penicillins 06/15/1997 Hives as a very young man prior to age 19 Tetanus Toxoid 06/15/1997 documented as of this encounter (statuses as of 11/02/2023) Medications Medication Sig Dispensed Refills Start Date End Date Status EPINEPHrine 0.15 MG/0.3ML Injection Solution Auto-injector (EPINEPHrine (anaphylaxis)) Inject into a large muscle 0.15 mg as needed for Anaphylaxis (severe allergic reaction). For a severe reaction: Inject in outer thigh following instructions on package and go to the Emergency room. 2 Each 07/06/2021 Active Ipratropium [place] HFA 17 MCG/ACT Inhalation Aerosol Solution (Atrovent [...] as of this encounter (statuses as of 11/02/2023) Active Problems Problem Noted Date Diagnosed Date [...] as of this encounter (statuses as of 11/02/2023) Resolved Problems Problem Noted Date Diagnosed Date [...] as of this encounter (statuses as of 11/02/2023) Immunizations Name Administration Dates Next Due COVID-19 [...] 1:40 PM EDT Office Visit Family Medicine [address] [place] [phone] Peace Barnes MD [address] [place] [address] [place] [address] 12/29/2023 8:00 AM EDT Laboratory Laboratory, [facility] [address] [place] [phone] [address] [address] [place] [address] 12/29/2023 9:00 AM EDT Imaging Radiology [address], [place] [address] [place] [address] 01/04/2024 1:15 PM EDT Office Visit Hematology/Oncology [facility] 200 [facility] [place] [phone] Garrison Jalloh MD 200 [facility] [place] [address] Pending Results Name Type Priority Associated Diagnoses Date /Time COMPREHENSIVE METABOLIC PANEL Lab Routine Type 2 diabetes mellitus with stage 3 chronic kidney disease, without long-term current use of insulin, unspecified whether stage 3a or 3b CKD (HCC) 11/02/2023 8:18 AM EDT LIPID PANEL WITH DIRECT LDL IF TG IS HIGH Lab Routine Type 2 diabetes mellitus with stage 3 chronic kidney disease, without long-term current use of insulin, unspecified whether stage 3a or 3b CKD (HCC) 11/02/2023 8:18 AM EDT HEMOGLOBIN A1C Lab Routine Type 2 diabetes mellitus with stage 3 chronic kidney disease, without long-term current use of insulin, unspecified whether stage 3a or 3b CKD (HCC) 11/02/2023 8:18 AM EDT ALBUMIN / CREATININE RATIO, URINE Lab Routine DM type 2 with diabetic peripheral neuropathy (HCC) 11/02/2023 8:18 AM EDT VITAMIN B12 Lab Routine DM type 2 with diabetic peripheral neuropathy (HCC) Encounter for long-term (current) use of medications 11/02/2023 8:18 AM EDT TSH WITH FREE T4 IF INDICATED Lab Routine Encounter for long-term (current) use of other medications 11/02/2023 8:18 AM EDT Health Maintenance Due Date Last Done Comments Zoster Vaccines (3 of 3) 11/17/2021 09/22/2021, 02/23 COVID-19 Vaccine ( season) 2022 03/02/2022, 08/19/2020, 07/17/2020 Albumin/Creatinine Ratio 02/25/20232 022, 01/14/2022, 02/23/2021, Additional history exists Depression [...] whether stage 3a or 3b CKD (HCC) Encounter for long-term (current) use of medications Encounter for long-term (current) use of other medications Encounter for long-term (current) use of other medications documented in this encounter Care Teams Freight And Passenger Agent Relationship Specialty Start Date End Date Peace Barnes MD [address] [place] [address] [place] [phone] PCP - General Family Medicine 09/23/21 documented as of this encounter
--- OUTSIDE RECORDS SUMMARY | 2023-12-09 08:51 | External Medical Summary | Summary of Care ---
Author Name Unknown Organization [facility] Address [address] [place] [address] Phone [phone] Care Team Providers Care Dental Hygiene Teacher Name Role Phone Peace Calloway MD Primary Care Prov ider Reason for Visit * Reason Onset Date Comments Medication Refill 07/28/2023 Pre Cert/Prior Auth 07/27/2023 Rybelsus 3mg Encounter Details Date Type Department Care Team (Late st Contact Info) Description 07/27/2023 Telephone [employer] [facility] [address] [place] [address] Jazmine Unger, [facility] [address] [facility] [address] Medication Refill; Pre Cert/Prior Auth (Ry... Allergies Active Allergy Reactions Criticality Noted Date Comments Bee Pollen Edema face/lips/tongue High 09/23/2021 Bee Stings 06/15/1997 Fd&C Yellow #5 (Tartrazine) Edema face/lips/tongue High 05/05/2022 peppers Iodinated Contrast Media Rash 11/13/2009 Latex Rash Low 10/15/2021 Lisinopril Hives 08/15/2018 Penicillins 06/15/1997 Hives as a very young man prior to age 19 Tetanus Toxoid 06/15/1997 documented as of this encounter (statuses as of 08/01/2023) Medications Medication Sig Dispensed Refills Start Date End Date Status EPINEPHrine 0.15 MG/0.3ML Injection Solution Auto-injector (EPINEPHrine (anaphylaxis)) Inject into a large muscle 0.15 mg as needed for Anaphylaxis (severe allergic reaction). For a severe reaction: Inject in outer thigh following instructions on package and go to the Emergency room. 2 Each 0 07/06/2021 Active Ipratropium [place] HFA 17 MCG/ACT Inhalation Aerosol Solution (Atrovent HFA) Inhale by mouth 2 Puffs every 6 hours . 38.7 g 3 07/06/2021 Active Co Q 10 10 MG Oral Capsule Take 1 Capsule by mouth daily. 0 11/12/2021 Active Multivitamin Adult Oral Tablet Take 1 Tablet by mouth in the morning. 0 11/12/2021 Active Terazosin HCl 10 MG Oral Capsule TAKE ONE CAPSULE BY MOUTH AT BEDTIME 100 Capsule 1 01/11/2023 Active metFORMIN HCl ER 500 MG Oral Tablet Extended Release 24 Hour (Glucophage XR)Indications:T ype 2 diabetes mellitus with stage 3 chronic kidney disease, without long-term current use of insulin, unspecified whether stage 3a or 3b CKD (HCC) Take 1 Tablet by mouth in the morning. 90 Tablet 1 01/11/2023 Active Additional Information Patient taking differently:500 mg OralDINNER, Reported on 07/27/2023 Levothyroxine Sodium 175 MCG Oral Tablet (Levoxyl) TAKE ONE TABLET BY MOUTH EVERY MORNING 100 Tablet 0 06/09/2023 Active Metamucil 0.36 GM Oral Capsule (Psyllium) Take by mouth. 0 Active Fluticasone Propionate 50 MCG/ACT Nasal Suspension (Flonase)Indicat ions:Allergic rhinitis, unspecified seasonality, unspecified trigger ADMINISTER 2 SPRAYS INTO EACH NOSTRIL IN THE MORNING 48 g 1 07/09/2023 Active Apixaban 2.5 MG Oral Tablet (Eliquis) TAKE ONE TABLET BY MOUTH TWICE A DAY IN THE MORNING AND BEFORE BEDTIME 200 Tablet 0 07/11/2023 Active Allopurinol 300 MG Oral Tablet (Zyloprim) [...] first thing in the morning. 30 Tablet 0 07/28/2023 Active Furosemide 20 MG Oral Tablet (Lasix) TAKE ONE TABLET BY MOUTH EVERY DAY NEEDED FOR EDEMA 100 Tablet 1 01/11/2023 4 Discontinue d(Refill) Losartan Potassium 50 MG Oral Tablet (Cozaar)Indicati ons:HTN, goal below 130/80 TAKE ONE TABLET BY MOUTH TWICE A DAY IN THE MORNING AND BEFORE BEDTIME 200 Tablet 1 01/11/2023 4 Discontinue d(Refill) documented as of this encounter (statuses as of 08/01/2023) Active Problems Problem Noted Date Diagnosed Date [...] as of this encounter (statuses as of 08/01/2023) Resolved Problems Problem Noted Date Diagnosed Date [...] as of this encounter (statuses as of 08/01/2023) Immunizations Name Administration Dates Next Due COVID-19 [...] 02/02/2005 TDAP (age 10 and older)(Boostrix) 01/01/2014 TDAP (age 11 and older)(Adacel) 01/01/2014 Tetanus Toxid Adsorbed 09/29/1993 Varicella Zoster [...] money to get more. Never true 06/01/2022 Sex and Gender Information Value Date Recorded Sex Assigned at Male 05/05/2022 12:22 PM EST Gender Identity Male 05/05/2022 12:13 PM EST Sexual Orientation Straight 05/05/2022 12 :13 PM EST Job Start Date Occupation Industry Not on file Not on file Not on file documented as of this encounter Miscellaneous Notes * Telephone Encounter - Santi Jimenez CPhT - 08/01/2023 12:32 PM EDT Submitted information in previous note via [employer]pt[employer] (EOC: [id number]).. Awaiting payer response. We will follow-up with insurance starting 08/02. Per [facility] request, if no decision is received from insurance by 08/03, we will route back to the [facility] after clarifying with the pharmacy that the claim is still not processing. Thank you, Andrew Jimenez ([facility]) Tile Installer III [facility] ([facility]) (formerly Telepharmacy) 08/01/2023, 12:32 PM * Telephone Encounter - Lucy Mercado, [facility] - 07/29/2023 4:28 PM EDT Please submit PA. Include the following documentation: OV Note 11/02/22 A1C 11/02/22 Please copy and paste the following information into PA form: Also taking Metformin What other drugs is there medical record documentation of therapeutic failure on, intolerance to, or contraindication to for this condition? Glipizide Sid as urgent: No Diagnosis/ICD-10 Code(s): E11.42 If instantaneous decision is not received after submitting prior auth, please continue to follow upon this and route back to the [facility] if no decision is made by the insurance by 08/03, after clarifying with the pharmacy that the claim is still not processing. If PA is denied, please also route back to [facility] pool. Thank you, Lucy Mercado PharmD Clinical Pharmacist [facility] ([facility]) (formerly Telepharmacy) 07/29/23 4:28 PM [phone] Electronically signed by Lucy Mercado [facility] at 07/29/2023 4:29 PM EDT * Telephone Encounter - Shanthi Crowley PHARM Tech - 07/29/2023 4:23 PM EDT This is a new PA request. Upon review of this prior authorization request, I verified this request is appropriate. This is prescribed by a department for which [facility] is authorized to review prior authorizations This is not a duplicate encounter regarding the same prior authorization The patient is planning to use insurance The insurance information listed in previous note is correct and the plan that is requiring prior authorization The insurance does not cover either brand or generic forms of this script as written without prior authorization The insurance does not cover any NDCs of this script without prior authorization RX Estimate tool confirms this script needs prior authorization Of note, there is nothing currently pending in [facility] for this request. Please advise how to proceed. Thanks, Shanthi Crowley Tile Installer III [facility] ([facility]) 07/29/2023,4:23 PM * Telephone Encounter - Tonja Deluna CPhT - 07/28/2023 11:40 AM EDT Pharmacy calling to inform doctor that the patient's insurance will not pay for this medication without a completed prior authorization. Did confirm this information with the pharmacy. Pt's current insurance information is as follows: Patient name: Mir Dooley ID number: [id number] BIN number: [id number] PCN number: [id number] Group number: none Subscriber name: Mir Doloey Primary or Secondary Insurance:Primary Medication: Rybelsus 3mg Reason for Request: prior auth required Pharmacy and phone number: [facility] [phone] Rx plan and phone number: [facility] [phone] Is this a new medication for the patient? No. How did the patient obtain the medication on the lastfill? It was filled at a different pharmacy. What alternative medications does the pharmacy have in stock?: none Thank you, Tonja Deluna CphT Tile Installer III [facility]) (formerly Telepharmacy) 07/28/2023,11:40 AM * Telephone Encounter - Peace Calloway MD - 07/28/2023 9:32 AM EDT Signed Prescriptions: Disp Refills Rybelsus 3 MG Oral Tablet (Semaglutide) 30 Tab*0 Sig: Take 3 mgby mouth daily first thing in the morning.Authorizing Provider: PEACE CALLOWAY--------- * Telephone Encounter - Jazmine Unger [facility] - 07/27/2023 11:26 AM EDT Sulaiman I completed an annual medication review with Mr. Dooley today. He is interested in an alternative to the Metformin and mentioned previously trying to start Rybelsus, but there was a supply issue at the pharmacy. He is interested in trying to obtain this medication again, if you are agreeable. Pended below and I will contact him to discuss. Thank you! Electronically signed by Jazmine Unger [facility] at 07/27/2023 11:29 AM EDT documented in this encounter Plan of Treatment Upcoming Encounters Date Type Department Care Team (Late st Contact Info) Description 08/16/2023 11:00 AM EDT Office Visit Cardiology, [facility] [address] [place] [address] Kamran Barbosa DO [address] [place] [address] 12/14/2023 1:40 PM EDT Office Visit Family Medicine [address] [place] [phone] Peace Calloway MD [address] [place] [address] [place] [address] 12/29/2023 8:00 AM EDT Laboratory Laboratory, [address] [place] [phone] [facility] [address] [facility] [place] [address] 12/29/2023 9:00 AM EDT Imaging Radiology [facility] [address] [place] [address] 01/06/2024 3:15 PM EDT Office Visit Hematology/Oncology [facility] [place] [phone] Garrison Jalloh MD [address] [facility] [place] [address] Health Maintenance Due Date Last Done Comments Zoster Vaccines (3 of 3) 11/17/2021 09/22/2021, 02/23 COVID-19 Vaccine (2022-24 season) 2022 03/02/2022, 08/19/2020, 07/17/2020 Albumin/Creatinine Ratio [...] filedocumented as of this encounter Care Teams Dental Hygiene Teacher Relationship Specialty Start Date End Date Peace Calloway MD [address] [place] [address] [place] [address] PCP - General Family Medicine 09/23/21 documented as of this encounter
--- OUTSIDE RECORDS SUMMARY | 2023-12-09 08:51 | External Medical Summary | Summary of Care ---
Author Name Unknown Organization [facility] Address [address] [place] [address] Phone [phone] Care Team Providers Care Lastex Thread Winder Name Role Phone Peace Barnes MD Primary Care Prov ider Reason for Visit * Reason Onset Date Comments Advice 08/09/2023 Encounter Details Date Type Department Care Team (Late st Contact Info) Description 08/09/2023 Telephone Family Medicine [address] [phone] Peace Barnes MD [address] [place] [address] [place] [address] Advice Allergies Active Allergy Reactions Criticality Noted Date Comments Bee Pollen Edema face/lips/tongue High 09/23/2021 Bee Stings 06/15/1997 Fd&C Yellow #5 (Tartrazine) Edema face/lips/tongue High 05/05/2022 peppers Iodinated Contrast Media Rash 11/13/2009 Latex Rash Low 10/15/2021 Lisinopril Hives 08/15/2018 Penicillins 06/15/1997 Hives as a very young man prior to age 19 Tetanus Toxoid 06/15/1997 documented as of this encounter (statuses as of 08/11/2023) Medications Medication Sig Dispensed Refills Start Date End Date Status EPINEPHrine 0.15 MG/0.3ML Injection Solution Auto-injector (EPINEPHrine (anaphylaxis)) Inject into a large muscle 0.15 mg as needed for Anaphylaxis (severe allergic reaction). For a severe reaction: Inject in outer thigh following instructions on package and go to the Emergency room. 2 Each 0 07/06/2021 Active Ipratropium [place] HFA 17 MCG/ACT Inhalation Aerosol Solution (Atrovent [...] the morning. 30 Tablet 0 07/28/2023 Active Losartan Potassium 50 MG Oral Tablet (Cozaar)Indicatio ns:HTN, goal below 130/80 TAKE ONE TABLET BY MOUTH TWICE A DAY IN THE MORNING AND BEFORE BEDTIME 200 Tablet 1 07/29/2023 Active Furosemide 20 MG Oral Tablet (Lasix) TAKE ONE TABLET BY MOUTH EVERY DAY NEEDED FOR EDEMA 100 Tablet 1 07/29/2023 Active documented as of this encounter (statuses as of 08/11/2023) Active Problems Problem Noted Date Diagnosed Date [...] as of this encounter (statuses as of 08/11/2023) Resolved Problems Problem Noted Date Diagnosed Date [...] as of this encounter (statuses as of 08/11/2023) Immunizations Name Administration Dates Next Due COVID-19 [...] 01/01/2014 TDAP (age 11 and older)(Adacel) 01/01/2014 Varicella Zoster Vaccine (Adult) 03/11/2014 Zoster [...] encounter Miscellaneous Notes * Telephone Encounter - Jeane Rodriguez LPN - 08/11/2023 11:42 AM EDT Talked to Liat patient daughter because Mir is Not available at this time She is not sure why he called about the Medication. She said he has Never Voiced any concerns to her. He has been on this Med for Awhile and The PA was Approved for med. I did advise her if he has Concerns about receiving med it was sent in via [facility] pharmacy and he will need to call them about the info * Telephone Encounter - Melissa Tang OSA - 08/09/2023 11:21 AM EDT Pt has questions about taking Redelsis. Please call Pt to discuss [phone] documented in this encounter Plan of Treatment Upcoming Encounters Date Type Department Care Team (Late st Contact Info) Description 12/14/2023 1:40 PM EDT Office Visit Family Medicine [address] [place] [phone] Peace Barnes MD [address] [place] [address] [place] [address] 12/29/2023 8:00 AM EDT Laboratory Laboratory, [facility] 132 [facility] [place] [phone] [facility] 132 [facility] [place] [address] 12/29/2023 9:00 AM EDT Imaging Radiology [facility] 1st [facility] 132 [facility] [place] [address] 01/06/2024 3:15 PM EDT Office Visit Hematology/Oncology [facility] 200 [facility] [place] [phone] Garrison Jalloh MD [facility] [place] [address] Health Maintenance Due Date Last Done Comments [...] filedocumented as of this encounter Care Teams Lastex Thread Winder Relationship Specialty Start Date End Date Peace Barnes MD [address] [place] [address] [place] [phone] PCP - General Family Medicine 09/23/21 documented as of this encounter
--- OUTSIDE RECORDS SUMMARY | 2023-12-09 08:51 | External Medical Summary | Summary of Care ---
Author Name Unknown Organization [facility] Address [address] [place] [address] Phone [phone] Care Team Providers Care Barrel Rifler Operator Name Role Phone Kwabena Calloway MD Primary Care Prov ider Reason for Visit * Reason Comments Medication Refill Encounter Details Date Type Department Care Team (Late st Contact Info) Description 09/10/2023 Refill Family Medicine [address] [phone] Kwabena Calloway MD [address] [place], [place] [address] [address] Allergies Active Allergy Reactions Criticality Noted Date Comments Bee Pollen Edema face/lips/tongue High 09/23/2021 Bee Stings 06/15/1997 Fd&C Yellow #5 (Tartrazine) Edema face/lips/tongue High 05/05/2022 peppers Iodinated Contrast Media Rash 11/13/2009 Latex Rash Low 10/15/2021 Lisinopril Hives 08/15/2018 Penicillins 06/15/1997 Hives as a very young man prior to age 19 Tetanus Toxoid 06/15/1997 documented as of this encounter (statuses as of 09/12/2023) Medications Medication Sig Dispensed Refills Start Date End Date Status EPINEPHrine 0.15 MG/0.3ML Injection Solution Auto-injector (EPINEPHrine (anaphylaxis)) Inject into a large muscle 0.15 mg as needed for Anaphylaxis (severe allergic reaction). For a severe reaction: Inject in outer thigh following instructions on package and go to the Emergency room. 2 Each 07/06/2021 Active Ipratropium [place] HFA 17 MCG/ACT Inhalation Aerosol Solution (Atrovent [...] THE MORNING AND BEFORE BEDTIME 200 Tablet 07/11/2023 Active Allopurinol 300 MG Oral Tablet [...] EVERY MORNING 100 Tablet 1 09/12/2023 Active Levothyroxine Sodium 175 MCG Oral Tablet (Levoxyl) TAKE ONE TABLET BY MOUTH EVERY MORNING 100 Tablet 06/09/2023 Discontinue d(Refill) documented as of this encounter (statuses as of 09/12/2023) Active Problems Problem Noted Date Diagnosed Date [...] as of this encounter (statuses as of 09/12/2023) Resolved Problems Problem Noted Date Diagnosed Date [...] as of this encounter (statuses as of 09/12/2023) Immunizations Name Administration Dates Next Due COVID-19 [...] encounter Miscellaneous Notes * Telephone Encounter - Jazzmine Minaya RPh - 09/12/2023 10:20 AM EDTSigned Prescriptions: Disp Refills Levothyroxine Sodium 175 MCG Oral Tablet (*100 Ta*1 Sig: TAKE ONE TABLET BY MOUTH EVERY MORNINGAuthorizing Provider: KWABENA CALLOWAY User: JAZZMINE MINAYA * Telephone Encounter - Jazzmine Minaya RPh - 09/12/2023 10:18 AM EDT Refills approved until lab appt 12/29/23. Thanks, Andre SaldivarD Clinical Pharmacist [facility] ([facility]) ([facility]) [phone] 09/12/2023 10:19 AM documented in this encounter Plan of Treatment Upcoming Encounters Date Type Department Care Team (Late st Contact Info) Description 12/14/2023 1:40 PM EDT Office Visit Family Medicine [address] [place] [phone] Kwabena Calloway MD [address] [place] [address] [place] [address] 12/29/2023 8:00 AM EDT [address] Laboratory, [address] [phone] [address] [address] 12/29/2023 9:00 AM EDT Imaging Radiology [facility] 1st [facility] [place] [address] 01/04/2024 1:15 PM EDT Office Visit Hematology/Oncology [facility] 200 [facility] [place] [phone] Garrison Jalloh MD [address] [facility] [place] [address] Health Maintenance Due Date Last Done Comments [...] filedocumented as of this encounter Care Teams Barrel Rifler Operator Relationship Specialty Start Date End Date Kwabena Calloway MD [address] [place] [address] [place] [phone] PCP - General Family Medicine 09/23/21 documented as of this encounter
--- OUTSIDE RECORDS SUMMARY | 2023-12-09 08:51 | External Medical Summary | Summary of Care ---
Author Name Unknown Organization [facility] Address [address] [place] [address] Phone [phone] Care Team Providers Care Recreation Counselor Name Role Phone Peace Barnes MD Primary Care Prov ider Encounter Details Date Type Department Care Team (Late st Contact Info) Description 08/15/2023 Telephone [employer] [facility] [address] [place], [place] [phone] [facility] [address] [place] [address] Allergies Active Allergy Reactions Criticality Noted Date Comments Bee Pollen Edema face/lips/tongue High 09/23/2021 Bee Stings 06/15/1997 Fd&C Yellow #5 (Tartrazine) Edema face/lips/tongue High 05/05/2022 peppers Iodinated Contrast Media Rash 11/13/2009 Latex Rash Low 10/15/2021 Lisinopril Hives 08/15/2018 Penicillins 06/15/1997 Hives as a very young man prior to age 19 Tetanus Toxoid 06/15/1997 documented as of this encounter (statuses as of 08/15/2023) Medications Medication Sig Dispensed Refills Start Date End Date Status EPINEPHrine 0.15 MG/0.3ML Injection Solution Auto-injector (EPINEPHrine (anaphylaxis)) Inject into a large muscle 0.15 mg as needed for Anaphylaxis (severe allergic reaction). For a severe reaction: Inject in outer thigh following instructions on package and go to the Emergency room. 2 Each 0 07/06/2021 Active Ipratropium [place] HFA 17 MCG/ACT Inhalation Aerosol Solution (Atrovent [...] as of this encounter (statuses as of 08/15/2023) Active Problems Problem Noted Date Diagnosed Date [...] as of this encounter (statuses as of 08/15/2023) Resolved Problems Problem Noted Date Diagnosed Date [...] as of this encounter (statuses as of 08/15/2023) Immunizations Name Administration Dates Next Due COVID-19 [...] encounter Miscellaneous Notes * Telephone Encounter - Jazmine Unger RPh - 08/15/2023 8:24 AM EDT Called and spoke with patient's daughter regarding Rybelsus. I advised that he can continue metformin until he considers increasing Rybelsus to 7mg, as the 3mg dose is for tolerability and has limited glycemic effect. Counseled on administration and to contact office with any questions or concerns. documented in this encounter Plan of Treatment Upcoming Encounters Date Type Department Care Team (Late st Contact Info) Description 12/14/2023 1:40 PM EDT Office Visit Family Medicine [address] [place] [phone] Peace Barnes MD [address] [place] [address] [place] [address] 12/29/2023 8:00 AM EDT Laboratory Laboratory, [facility] [address] [place] [phone] [address] [place] [address] [place] [address] 12/29/2023 9:00 AM EDT Imaging Radiology [address] [place] [address] 01/06/2024 3:15 PM EDT Office Visit Hematology/Oncology [facility] [place] [facility] [place] [address] Garrison Jalloh MD 200 [facility] [place] [address] Health Maintenance Due Date Last Done Comments [...] filedocumented as of this encounter Care Teams Recreation Counselor Relationship Specialty Start Date End Date Peace Barnes MD [address] [place] [address] [place] [phone] PCP - General Family Medicine 09/23/21 documented as of this encounter
--- OUTSIDE RECORDS SUMMARY | 2023-12-09 08:51 | External Medical Summary | Summary of Care ---
Author Name Unknown Organization [facility] Address [address] [place] [facility] [place] [place] [address] Phone [phone] Care Team Providers Care Composing Room Machinist Apprentice Name Role Phone Peace Barnes MD Primary Care Prov ider Encounter Details Date Type Department Care Team (Latest Contact Info) Description 07/27/2023 Medication Management [facility] [address] [place], [place] [id number] Jazmine Unger, [facility] [address] [place] [address] Referred for management of medication therapy* Allergies Active Allergy Reactions Criticality Noted Date Comments Bee Pollen Edema face/lips/tongue High 09/23/2021 Bee Stings 06/15/1997 Fd&C Yellow #5 (Tartrazine) Edema face/lips/tongue High 05/05/2022 peppers Iodinated Contrast Media Rash 11/13/2009 Latex Rash Low 10/15/2021 Lisinopril Hives 08/15/2018 Penicillins 06/15/1997 Hives as a very young man prior to age 19 Tetanus Toxoid 06/15/1997 documented as of this encounter (statuses as of 08/03/2023) Medications Medication Sig Dispensed Refills Start Date End Date Status EPINEPHrine 0.15 MG/0.3ML Injection Solution Auto-injector (EPINEPHrine (anaphylaxis)) Inject into a large muscle 0.15 mg as needed for Anaphylaxis (severe allergic reaction). For a severe reaction: Inject in outer thigh following instructions on package and go to the Emergency room. 2 Each 0 07/06/2021 Active Ipratropium [place] HFA 17 MCG/ACT Inhalation Aerosol Solution (Atrovent [...] twice daily 90 Tablet 1 07/27/2023 Active Furosemide 20 MG Oral Tablet (Lasix) TAKE ONE TABLET BY MOUTH EVERY DAY NEEDED FOR EDEMA 100 Tablet 1 01/11/2023 4 Discontinue d(Refill) Losartan Potassium 50 MG Oral Tablet (Cozaar)Indicati ons:HTN, goal below 130/80 TAKE ONE TABLET BY MOUTH TWICE A DAY IN THE MORNING AND BEFORE BEDTIME 200 Tablet 1 01/11/2023 4 Discontinue d(Refill) Metoprolol Tartrate 25 MG Oral Tablet (Lopressor) 1/2 tab in am and 1/2 tab before bed 90 Tablet 1 01/11/2023 4 Discontinue d(Refill) documented as of this encounter (statuses as of 08/03/2023) Active Problems Problem Noted Date Diagnosed Date [...] as of this encounter (statuses as of 08/03/2023) Resolved Problems Problem Noted Date Diagnosed Date [...] as of this encounter (statuses as of 08/03/2023) Immunizations Name Administration Dates Next Due COVID-19 [...] as of this encounter Progress Notes * Jazmine Unger, [facility] - 07/27/2023 10:20 AM EDT Mir Dooley is a 83 year old male. Objective: Review of patient's allergies indicates: Allergen Reactions Bee Pollen Edema face/lips/tongue Food Color Yellow [Fd&C Yellow #5 (Tartrazine)] Edema face/lips/tongue peppers Bee Stings Iodinated Contrast Media Rash Lisinopril Hives Penicillins Hives as a very young man prior to age 19 Tetanus Toxoid Latex Rash Current Outpatient Medications - WARNING: List may be incomplete due to filtering Medication Sig Dispense Refill Metoprolol Tartrate 25 MG Oral Tablet (Lopressor) Take one-half tablet by mouth twice daily 90 Tablet 1 Atorvastatin Calcium 10 MG Oral Tablet (Lipitor) TAKE 1 TABLET BY MOUTH IN THE MORNING 90 Tablet 1 Allopurinol 300 MG Oral Tablet (Zyloprim) TAKE ONE TABLET BY MOUTH EVERY MORNING 100 Tablet 1 Apixaban 2.5 MG Oral Tablet (Eliquis) TAKE ONE TABLET BY MOUTH TWICE A DAY IN THE MORNING AND BEFORE BEDTIME 200 Tablet 0 Metamucil 0.36 GM Oral Capsule (Psyllium) Take by mouth. Levothyroxine Sodium 175 MCG Oral Tablet (Levoxyl) TAKE ONE TABLET BY MOUTH EVERY MORNING 100 Tablet 0 metFORMIN HCl ER 500 MG Oral Tablet Extended Release 24 Hour (Glucophage XR) Take 1 Tablet by mouthin the morning. (Patient taking differently: Take 1 Tablet by mouth daily with dinner.) 90 Tablet 1 Terazosin HCl 10 MG Oral Capsule TAKE ONE CAPSULE BY MOUTH AT BEDTIME 100 Capsule 1 Co Q 10 10 MG Oral Capsule Take 1 Capsule by mouth daily. Multivitamin Adult Oral Tablet Take 1 Tablet by mouth in the morning. EPINEPHrine 0.15 MG/0.3ML Injection Solution Auto-injector (EPINEPHrine (anaphylaxis)) Inject into a large muscle 0.15 mg as needed for Anaphylaxis (severe allergic reaction). For a severe reaction: Inject in outer thigh following instructions on package and go to the Emergency room. 2 Each 0 Ipratropium [place] HFA 17 MCG/ACT Inhalation Aerosol Solution (Atrovent HFA) Inhale by mouth 2 Puffs every 6 hours . 38.7 g 3 Furosemide 20 MG Oral Tablet (Lasix) TAKE ONE TABLET BY MOUTH EVERY DAY NEEDED FOR EDEMA 100 Tablet 1 Losartan Potassium 50 MG Oral Tablet (Cozaar) TAKE ONE TABLET BY MOUTH TWICE A DAY IN THE MORNING AND BEFORE BEDTIME 200 Tablet 1 Rybelsus 3 MG Oral Tablet (Semaglutide) Take 1 tablet by mouth daily first thing in the morning. 30Tablet 0 Fluticasone Propionate 50 MCG/ACT Nasal Suspension (Flonase) ADMINISTER 2 SPRAYS INTO EACH NOSTRIL IN THE MORNING 48 g 1 Immunization History Administered Date(s) Administered COVID-19 mRNA, LNP-s, No Preserve, 2-Dose Series (Moderna) 07/17/2020, 08/19/2020 Covid-19, Mrna, Lnp-s, Pf, Bivalent, 50 Mcg, IM, 12 yrs and above (Moderna) 03/02/2022 PPD 10/29/1993, 05/01/2004 Pneumococcal Conjugate Vacc, 13 Valent (Prevnar) 02/06/2018 Pneumococcal Polysaccharide PPV23 (Pneumovax) 05/10/1994, 07/01/2011 Seasonal Influenza Virus Vaccine, Unspecified Formulation 02/13/1997, 02/02/2005, 02/04/2006, 01/30/2007, 01/22/2009, 02/10/2010, 01/26/2011, 02/14/2012, 01/24/2013, 01/28/2014, 04/08/2015, 02/16/2016, 01/14/2017, 02/13/2018 Seasonal Influenza, Quadrivalent Hd (Fluzone Hd) 02/23/2021, 01/14/2022 Seasonal Influenza, Trivalent, Adjuvanted, 65+ yrs 01/22/2022 TD - Tetanus/Diptheria (ADULT) 02/02/2005 TD, Preservative Free 02/02/2005 TDAP (age 10 and older)(Boostrix) 01/01/2014 TDAP (age 11 and older)(Adacel) 01/01/2014 Tetanus Toxid Adsorbed 09/29/1993 Varicella Zoster Vaccine (Adult) 03/11/2014 Zoster Vaccine Recombinant (Shingrix) 09/22/2021 TMR Interventions Incomplete Medication Therapy Recommendations No medication therapy recommendations to display Completed Medication Therapy Recommendations No medication therapy recommendations to display Assessment & Plan Indication, effectiveness, safety and convenience of his medications were reviewed today. The patient's medical conditions were assessed, evaluated, and deemed meeting goals of drug therapy, with thefollowing exceptions. Additional Notes: Allopurinol - Sometimes will split tablet depending on diet Furosemide - Takes as needed, will take half tab and then another half if he's swollen Interested in alternatives to Metformin--> discussed that Rybelsus was previously considered forhim, but was unavailable at pharmacy. Patient is interested in trying. PA required. If denied, can consider SGLT2 pending concerns of Yellow Dye allergy Summary Time Spent: 46 - 60 min Supervising pharmacist who provided the service: Jazmine Unger, PharmD, [facility] Connor Information Who was the recipient of the CMR service: 0 Language Template for the Patient Takeaway: Yakut I attest that I have reviewed and updated the patient's conditions, allergies, and medications to the best of my ability. Patient provided medication list gathered by: Berto Reyes, [employer] Jazmine Unger RPh 07/27/2023, 11:08 AM documented in this encounter Miscellaneous Notes * MTM To-Do-List - Jazmine Unger RPh - 08/03/2023 2:51 PM EDT Images from the original note were not included. What we talked about: What I should do: The importance of taking your medication as prescribed Your medicine works best when taken as prescribed. It can be hard to remember to take daily medications. Consider making it a part of your daily routine. Pair taking your medication with something you do every day, like brushing your teeth or eating a meal. Consider setting daily alarms to help remind yourself when it is time to take your medicine. Using a pill box can also help you organize your medicines. Pill boxes allow you to fill each day slot with your daily medicine and help you track when your next dose is due. * MTM Personal Medication List - Jazmine Unger RPh - 07/27/2023 11:15 AM EDT Medication How I take it Why I use it Prescriber Allopurinol 300 MG Oral Tablet (Zyloprim) Take one tablet by mouth every morning Gout Peace Cardoso MD Apixaban 2.5 MG Oral Tablet (Eliquis) Take one tablet by mouth twice a day in the morning and before bedtime A fib Peace Cardoso MD Atorvastatin Calcium 10 MG Oral Tablet (Lipitor) Take 1 tablet by mouth in the morning Cholesterol Peace Cardoso MD Co Q 10 10 MG Oral Capsule Take 1 capsule by mouth daily. [facility] Larissa Walker PA-C EPINEPHrine 0.15 MG/0.3ML Injection Solution Auto-injector (EPINEPHrine (anaphylaxis)) Inject into a large muscle 0.15 mg as needed for anaphylaxis (severe allergic reaction). For a severe reaction: inject in outer thigh following instructions on package and go to the emergency room. Allergic Reacti on Peace Cardoso MD Furosemide 20 MG Oral Tablet (Lasix) Take 1 tablet by mouth every day as needed for edema Edema Peace Cardoso MD Ipratropium [place] HFA 17 MCG/ACT Inhalation Aerosol Solution (Atrovent HFA) Inhale by mouth 2 puffs every 6 hours as needed. Asthma Peace Cardoso MD Levothyroxine Sodium 175 MCG Oral Tablet (Levoxyl) Take 1 tablet by mouth every morning Hypothyroidism Peace Cardoso MD Losartan Potassium 50 MG Oral Tablet (Cozaar) Take 1 tablet by mouth twice a day in the morning andbefore bedtime Blood Pressure goal below 130/80 Peace Cardoso MD Metamucil 0.36 GM Oral Capsule (Psyllium) Take by mouth. [facility] Self metFORMIN HCl ER 500 MG Oral Tablet Extended Release 24 Hour (Glucophage XR) Take 1 tablet by mouthin the evening. Type 2 diabetes Peace Cardoso MD Metoprolol Tartrate 25 MG Oral Tablet (Lopressor) Take one-half tablet by mouth twice daily [facility] Peace Cardoso MD Multivitamin Adult Oral Tablet Take 1 tablet by mouth in the morning. [facility] Larissa Walker PA-C Terazosin HCl 10 MG Oral Capsule Take 1 capsule by mouth at bedtime Enlarged Prostate Peace Cardoso MD documented in this encounter Plan of Treatment Upcoming Encounters Date Type Department Care Team (Late st Contact Info) Description 08/16/2023 11:00 AM EDT Office Visit Cardiology, [facility] [address] [facility] [place] [address] Kamran Barbosa DO [address] [place] [address] 12/14/2023 1:40 PM EDT Office Visit Family Medicine [address] [place] [phone] Peace Barnes MD [address] [place] [address] [place] [address] 12/29/2023 8:00 AM EDT Laboratory Laboratory, [facility] [address] [facility] [place] [phone] Rodríguez Cota [facility] [address] [facility] [place] [address] 12/29/2023 9:00 AM EDT Imaging Radiology [facility] 1st [facility] [place] [address] [place] [address] 01/06/2024 3:15 PM EDT Office Visit Hematology/Oncology [facility] [place] [facility] [place] [phone] Garrison Jalloh MD [address] [place] [place] [address] Health Maintenance Due Date Last Done Comments [...] as of this encounter Visit Diagnoses Diagnosis Referred for management of medication therapy- Primary Encounter for long-term (current) use of other medications documented in this encounter Care Teams Composing Room Machinist Apprentice Relationship Specialty Start Date End Date Peace Barnes MD [address] [place] [address] [place] [phone] PCP - General Family Medicine 09/23/21 documented as of this encounter
--- OUTSIDE RECORDS SUMMARY | 2023-12-09 08:51 | External Medical Summary | Summary of Care ---
Author Name Unknown Organization [facility] Address [address] [facility] [place] [address] Phone [phone] Care Team Providers Care Mailroom Assistant Name Role Phone Peace Barnes MD Primary Care Prov ider Encounter Details Date Type Department Care Team (Late st Contact Info) Description 09/13/2023 Population Health External Data Unspecified Department Allergies [...] as of this encounter (statuses as of 09/14/2023) Medications Medication Sig Dispensed Refills Start Date End Date Status EPINEPHrine 0.15 MG/0.3ML Injection Solution Auto-injector (EPINEPHrine (anaphylaxis)) Inject into a large muscle 0.15 mg as needed for Anaphylaxis (severe allergic reaction). For a severe reaction: Inject in outer thigh following instructions on package and go to the Emergency room. 2 Each 07/06/2021 Active Ipratropium [place] HFA 17 MCG/ACT Inhalation Aerosol Solution (Atrovent [...] EVERY MORNING 100 Tablet 1 09/12/2023 Active documented as of this encounter (statuses as of 09/14/2023) Active Problems Problem Noted Date Diagnosed Date [...] as of this encounter (statuses as of 09/14/2023) Resolved Problems Problem Noted Date Diagnosed Date [...] as of this encounter (statuses as of 09/14/2023) Immunizations Name Administration Dates Next Due COVID-19 [...] 1:40 PM EDT Office Visit Family Medicine [address] [place] [phone] Peace Barnes MD [address] [place] [address] [place] [address] 12/29/2023 8:00 AM EDT Laboratory Laboratory, [facility] 132 [place] [phone] [address] [place] [address] 12/29/2023 9:00 AM EDT Imaging Radiology [address] [place] [address] 01/04/2024 1:15 PM EDT Office Visit Hematology/Oncology [address] [place] [phone] Garrison Jalloh MD 200 [facility] [place] [address] Health Maintenance Due Date Last Done Comments Zoster Vaccines (3 of 3) 11/17/2021 09/22/2021, 02/23 COVID-19 Vaccine (2022- season) 2022 03/02/2022, 08/19/2020, 07/17/2020 Albumin/Creatinine Ratio [...] filedocumented as of this encounter Care Teams Mailroom Assistant Relationship Specialty Start Date End Date Peace Barnes MD [address] [place] [address] [place] [address] PCP - General Family Medicine 09/23/21 documented as of this encounter
--- OUTSIDE RECORDS SUMMARY | 2023-12-09 08:51 | External Medical Summary | Summary of Care ---
Author Name Unknown Organization [facility] Address [address] [place] [address] Phone [phone] Care Team Providers Care Precipitate Washer Name Role Phone Kwabena Calloway MD Primary Care Prov ider Reason for Visit * Reason Comments Medication Refill Encounter Details Date Type Department Care Team (Late st Contact Info) Description 07/29/2023 Refill Family Medicine [address] [phone] Kwabena Calloway MD [address] [place], [place] [address] [address] HTN, goal below 130/80 Allergies Active Allergy Reactions Criticality Noted Date Comments Bee Pollen Edema face/lips/tongue High 09/23/2021 Bee Stings 06/15/1997 Fd&C Yellow #5 (Tartrazine) Edema face/lips/tongue High 05/05/2022 peppers Iodinated Contrast Media Rash 11/13/2009 Latex Rash Low 10/15/2021 Lisinopril Hives 08/15/2018 Penicillins 06/15/1997 Hives as a very young man prior to age 19 Tetanus Toxoid 06/15/1997 documented as of this encounter (statuses as of 07/29/2023) Medications Medication Sig Dispensed Refills Start Date End Date Status EPINEPHrine 0.15 MG/0.3ML Injection Solution Auto-injector (EPINEPHrine (anaphylaxis)) Inject into a large muscle 0.15 mg as needed for Anaphylaxis (severe allergic reaction). For a severe reaction: Inject in outer thigh following instructions on package and go to the Emergency room. 2 Each 0 07/06/2021 Active Ipratropium [place] HFA 17 MCG/ACT Inhalation Aerosol Solution (Atrovent [...] FOR EDEMA 100 Tablet 1 07/29/2023 Active Furosemide 20 MG Oral Tablet (Lasix) TAKE ONE TABLET BY MOUTH EVERY DAY NEEDED FOR EDEMA 100 Tablet 1 01/11/2023 4 Discontinue d(Refill) Losartan Potassium 50 MG Oral Tablet (Cozaar)Indicati ons:HTN, goal below 130/80 TAKE ONE TABLET BY MOUTH TWICE A DAY IN THE MORNING AND BEFORE BEDTIME 200 Tablet 1 01/11/2023 Discontinue d(Refill) documented as of this encounter (statuses as of 07/29/2023) Active Problems Problem Noted Date Diagnosed Date [...] as of this encounter (statuses as of 07/29/2023) Resolved Problems Problem Noted Date Diagnosed Date [...] as of this encounter (statuses as of 07/29/2023) Immunizations Name Administration Dates Next Due COVID-19 [...] encounter Miscellaneous Notes * Telephone Encounter - Vivian Jackson RPh - 07/29/2023 2:29 PM EDT Signed Prescriptions: Disp Refills Losartan Potassium 50 MG Oral Tablet (Coza*200 Ta*1 Sig: TAKE ONE TABLET BY MOUTH TWICE A DAY IN THE MORNING AND BEFORE BEDTIME Authorizing Provider: KWABENA CALLOWAY Ordering User: VIVIAN JACKSON Furosemide 20 MG Oral Tablet (Lasix) 100 Ta*1 Sig: TAKE ONE TABLET BY MOUTH EVERY DAY NEEDED FOR DALIA MA Authorizing Provider: KWABENA CALLOWAY Ordering User: VIVIAN JACKSON * Telephone Encounter - 07/29/2023 12:13 AM EDTPending Prescriptions: Disp Refills Losartan Potassium 50 MG Oral Tablet (Coza*200 Ta*1 Sig: TAKE ONE TABLET BY MOUTH TWICE A DAY IN THE MORNING AND BEFORE BEDTIME Furosemide 20 MG Oral Tablet (Lasix) 100 Ta*1 Sig: TAKE ONE TABLET BY MOUTH EVERY DAY NEEDED FOR EDEMA documented in this encounter Plan of Treatment Upcoming Encounters Date Type Department Care Team (Late st Contact Info) Description 08/16/2023 11:00 AM EDT Office Visit Cardiology, [facility] [address] [place] [address] Kamran Barbosa DO [address] [place] [address] 12/14/2023 1:40 PM EDT Office Visit Family Medicine [address] [phone] Kwabena Calloway MD [address] [place] [address] [place] [address] 12/29/2023 8:00 AM EDT Laboratory Laboratory, [facility] [address] [place] [phone] Rodríguez Cota [facility] [address] [place] [address] 12/29/2023 9:00 AM EDT Imaging Radiology [facility] 1st [facility] [address] [place] [address] 01/06/2024 3:15 PM EDT Office Visit Hematology/Oncology [place] [facility]iam [place] 200 [place] [address] Garrison Jalloh MD 200 [facility] [place] [address] Health Maintenance Due Date Last Done Comments [...] as of this encounter Visit Diagnoses Diagnosis HTN, goal below 130/80 Unspecified essential hypertension documented in this encounter Care Teams Precipitate Washer Relationship Specialty Start Date End Date Kwabena Calloway MD [address] [place] [address] [place] [address] PCP - General Family Medicine 09/23/21 documented as of this encounter
--- OUTSIDE RECORDS SUMMARY | 2023-12-09 08:51 | External Medical Summary | Summary of Care ---
Author Name Unknown Organization [facility] Address [address] [place] [address] Phone [phone] Care Team Providers Care Satellite Tv Technician Installer Name Role Phone Kwabena Calloway MD Primary Care Prov ider Reason for Visit * Reason Comments Medication Refill Encounter Details Date Type Department Care Team (Late st Contact Info) Description 09/07/2023 Refill Family Medicine [address] [phone] Kwabena Calloway MD [address] [place], [place] [address] [address] Type 2 diabetes mellitus with stage 3 chronic kidney disease, without long-term current use of insulin, unspecified whether stage 3a or 3b CKD (HCC) Allergies Active Allergy Reactions Criticality Noted Date Comments Bee Pollen Edema face/lips/tongue High 09/23/2021 Bee Stings 06/15/1997 Fd&C Yellow #5 (Tartrazine) Edema face/lips/tongue High 05/05/2022 peppers Iodinated Contrast Media Rash 11/13/2009 Latex Rash Low 10/15/2021 Lisinopril Hives 08/15/2018 Penicillins 06/15/1997 Hives as a very young man prior to age 19 Tetanus Toxoid 06/15/1997 documented as of this encounter (statuses as of 09/08/2023) Medications Medication Sig Dispensed Refills Start Date End Date Status EPINEPHrine 0.15 MG/0.3ML Injection Solution Auto-injector (EPINEPHrine (anaphylaxis)) Inject into a large muscle 0.15 mg as needed for Anaphylaxis (severe allergic reaction). For a severe reaction: Inject in outer thigh following instructions on package and go to the Emergency room. 2 Each 0 07/06/2021 Active Ipratropium [place] HFA 17 MCG/ACT Inhalation Aerosol Solution (Atrovent HFA) Inhale by mouth 2 Puffs every 6 hours . 38.7 g 3 07/06/2021 Active Co Q 10 10 MG Oral Capsule Take 1 Capsule by mouth daily. 0 11/12/2021 Active Multivitamin Adult Oral Tablet Take 1 Tablet by mouth in the morning. 0 11/12/2021 Active Levothyroxine Sodium 175 MCG Oral Tablet [...] CAPSULE BY MOUTH AT BEDTIME 100 Capsule 0 09/06/2023 Active metFORMIN HCl ER 500 MG Oral Tablet Extended Release 24 Hour (Glucophage XR)Indications:T ype 2 diabetes mellitus with stage 3 chronic kidney disease, without long-term current use of insulin, unspecified whether stage 3a or 3b CKD (HCC) Take 1 Tablet by mouth in the morning. 90 Tablet 0 09/08/2023 Active metFORMIN HCl ER 500 MG Oral Tablet Extended Release 24 Hour (Glucophage XR)Indications:T ype 2 diabetes mellitus with stage 3 chronic kidney disease, without long-term current use of insulin, unspecified whether stage 3a or 3b CKD (HCC) Take 1 Tablet by mouth in the morning. 90 Tablet 1 01/11/2023 Discontinue d(Refill) documented as of this encounter (statuses as of 09/08/2023) Active Problems Problem Noted Date Diagnosed Date [...] as of this encounter (statuses as of 09/08/2023) Resolved Problems Problem Noted Date Diagnosed Date [...] as of this encounter (statuses as of 09/08/2023) Immunizations Name Administration Dates Next Due COVID-19 [...] encounter Miscellaneous Notes * Telephone Encounter - Sarah Collins RPh - 09/08/2023 1:19 PM EDTSigned Prescriptions: Disp Refills metFORMIN HCl ER 500 MG Oral Tablet Extend*90 Tab*0 Sig: Take 1Tablet by mouth in the morning.Authorizing Provider: KWABENA CALLOWAY User: SARAH COLLINS * Telephone Encounter - Sarah Collins RPh - 09/08/2023 1:18 PM EDT 1 refill approved as pt will be due for office visit and lab work within 3 months. Thank you, Sarah Collins, PharmD Clinical Pharmacist [facility] ([facility]) (Formerly [facility]) [phone] 09/08/2023, 1:19 PM documented in this encounter Plan of Treatment Upcoming Encounters Date Type Department Care Team (Late st Contact Info) Description 12/14/2023 1:40 PM EDT Office Visit Family Medicine [address] [place] [phone] Kwabena Calloway MD [address] [place] [address] [place] [address] 12/29/2023 8:00 AM EDT Laboratory Laboratory, [address] [place] [phone] [facility] [address] 12/29/2023 9:00 AM EDT Imaging Radiology [facility] [address] [place] [address] 01/04/2024 1:15 PM EDT Office Visit Hematology/Oncology [address] [place] [phone] Garrison Jalloh MD [address] [place], [place] [address] [address] Health Maintenance Due Date Last Done Comments [...] (HCC) documented in this encounter Care Teams Satellite Tv Technician Installer Relationship Specialty Start Date End Date Kwabena Calloway MD [address] [place] [address] [place] [address] PCP - General Family Medicine 09/23/21 documented as of this encounter
--- OUTSIDE RECORDS SUMMARY | 2023-12-09 08:51 | External Medical Summary | Summary of Care ---
Author Name Unknown Organization [facility] Address [address] [place] [address] Phone [phone] Care Team Providers Care Oim Architect Name Role Phone Kwabena Calloway MD Primary Care Prov ider Reason for Visit * Reason Onset Date Comments Medication Refill 07/28/2023 Pre Cert/Prior Auth 07/27/2023 Rybelsus 3mg Encounter Details Date Type Department Care Team (Late st Contact Info) Description 07/27/2023 Telephone [employer] [facility] [address] [place] [address] Jazmine Unger, [facility] [address] [facility] [address] Medication Refill; Pre Cert/Prior Auth (Ry... Allergies [...] room. 2 Each 0 07/06/2021 Active Ipratropium [place] HFA 17 MCG/ACT Inhalation Aerosol Solution (Atrovent [...] encounter Miscellaneous Notes * Telephone Encounter - Lucy Mercado [facility] - 07/29/2023 4:28 PM EDT Please submit [...] and route back to the [facility] pool if no decision is made by the insurance by 08/03, after clarifying with the pharmacy that the claim is still not processing. If PA is denied, please also route back to [facility] pool. Thank you, Lucy Mercado, PharmD Clinical Pharmacist [facility] Pharmacy Services (CCPS) (formerly Telepharmacy) 07/29/23 4:28 PM [phone] * Telephone Encounter - Shanthi Crowley PHARM Tech - 07/29/2023 4:23 PM EDT This is a new PA request. Upon review of this prior authorization request, I verified this request is appropriate. This is prescribed by a department for which [facility] is authorized to review prior authorizations This [...] note, there is nothing currently pending in [facility] for this request. Please advise how to proceed. Thanks, Shanthi Crowley Logistics Analyst III Centralized Clinical Pharmacy Services (CCPS) 07/29/2023,4:23 PM * Telephone Encounter - Tonja Deluna CPhT - 07/28/2023 11:40 AM EDT Pharmacy calling to inform doctor that the patient's insurance will not pay for this medication without a completed prior authorization. Did confirm this information with the pharmacy. Pt's current insurance information is as follows: Patient name: Mir Dooley ID number: [id number] BIN number: [id number] PCN number: [id number] Group number: none Subscriber name: Mir Dooley Primary or Secondary Insurance:Primary Medication: Rybelsus 3mg Reason for Request: prior auth required Pharmacy and phone number: [facility] [phone] Rx plan and phone number: [facility] [phone] Is this a new medication for the patient? No. How did the patient obtain the medication on the lastfill? It was filled at a different pharmacy. What alternative medications does the pharmacy have in stock?: none Thank you, Tonja Deluna [facility] Logistics Analyst III Centralized Clinical Pharmacy Services(CCPS) (formerly [facility]) 07/28/2023,11:40 AM * Telephone Encounter - Kwabena Calloway MD - 07/28/2023 9:32 AM EDT Signed Prescriptions: Disp Refills Rybelsus 3 MG Oral Tablet (Semaglutide) 30 Tab*0 Sig: Take 3 mg by mouth daily first thing in the morning.Authorizing Provider: KWABENA CALLOWAY * Telephone Encounter - Jazmine Unger RPh - 07/27/2023 11:26 AM EDT Sulaiman, I completed an annual medication review with Mr. Dooley today. He is interested in an alternative to the Metformin and mentioned previously trying to start Rybelsus, but there was a supply issue at the pharmacy. He is interested in trying to obtain this medication again, if you are agreeable. Pended below and I will contact him to discuss. Thank you! documented in this encounter Plan of Treatment Upcoming Encounters Date Type Department Care Team (Late st Contact Info) Description 08/16/2023 11:00 AM EDT Office Visit Cardiology, [facility] [address] [place] [address] Kamran Barbosa DO [address] [place] [address] 12/14/2023 1:40 PM EDT Office Visit Family Medicine [address] [phone] Kwabena Calloway MD [address] [place] [address] [place] [address] 12/29/2023 8:00 AM EDT Laboratory Laboratory, [facility] 132 [facility] [phone] [facility] 132 [facility] [place] [address] 12/29/2023 9:00 AM EDT Imaging Radiology [facility]st [facility] 132 [facility] [place] [address] 01/06/2024 3:15 PM EDT Office Visit Hematology/Oncology [facility] [address] [facility] [place] [phone] Garrison Jalloh MD [address] [facility] [place] [address] Health Maintenance Due Date Last Done Comments [...] filedocumented as of this encounter Care Teams Oim Architect Relationship Specialty Start Date End Date Kwabena Calloway MD [address] [place] [address] [place] [address] PCP - General Family Medicine 09/23/21 documented as of this encounter
--- OUTSIDE RECORDS SUMMARY | 2023-12-09 08:51 | External Medical Summary | Summary of Care ---
Author Name Unknown Organization [facility] Address [address] [place] [address] Phone [phone] Care Team Providers Care Cool Roofing Installer Name Role Phone Peace Calloway MD Primary Care Prov ider Reason for Visit * Reason Comments Medication Refill Encounter Details Date Type Department Care Team (Late st Contact Info) Description 10/08/2023 Refill Family Medicine [address] [phone] Peace Calloway MD [address] [place], [place] [address] [address] Allergies Active Allergy Reactions Criticality Noted Date Comments Bee Pollen Edema face/lips/tongue High 09/23/2021 Bee Stings 06/15/1997 Fd&C Yellow #5 (Tartrazine) Edema face/lips/tongue High 05/05/2022 peppers Iodinated Contrast Media Rash 11/13/2009 Latex Rash Low 10/15/2021 Lisinopril Hives 08/15/2018 Penicillins 06/15/1997 Hives as a very young man prior to age 19 Tetanus Toxoid 06/15/1997 documented as of this encounter (statuses as of 10/09/2023) Medications Medication Sig Dispensed Refills Start Date End Date Status EPINEPHrine 0.15 MG/0.3ML Injection Solution Auto-injector (EPINEPHrine (anaphylaxis)) Inject into a large muscle 0.15 mg as needed for Anaphylaxis (severe allergic reaction). For a severe reaction: Inject in outer thigh following instructions on package and go to the Emergency room. 2 Each 07/06/2021 Active Ipratropium [place] HFA 17 MCG/ACT Inhalation Aerosol Solution (Atrovent [...] AND BEFORE BEDTIME 180 Tablet 10/09/2023 Active Apixaban 2.5 MG Oral Tablet (Eliquis) TAKE ONE TABLET BY MOUTH TWICE A DAY IN THE MORNING AND BEFORE BEDTIME 200 Tablet 07/11/2023 Discontinue d(Refill) documented as of this encounter (statuses as of 10/09/2023) Active Problems Problem Noted Date Diagnosed Date [...] as of this encounter (statuses as of 10/09/2023) Resolved Problems Problem Noted Date Diagnosed Date [...] as of this encounter (statuses as of 10/09/2023) Immunizations Name Administration Dates Next Due COVID-19 [...] encounter Miscellaneous Notes * Telephone Encounter - Joselyn Araya RPh - 10/09/2023 9:14 AM EDTSigned Prescriptions: Disp Refills Apixaban 2.5 MG Oral Tablet (Eliquis) 180 Ta*0 Sig: TAKE ONE TABLET BY MOUTH TWICE A DAY IN THE MORNING AND BEFORE BEDTIMEAuthorizing Provider: Denise CALLOWAY User: JOSELYN ARAYA * Telephone Encounter - Joselyn Araya RPh - 10/09/2023 9:13 AM EDT RX authorized. Zero refills given until upcoming appt. 12/14/2023 Thank you, Joselyn Araya, PharmD Clinical Pharmacist Centralized Clinical Pharmacy Services ([facility]PS) 10/09/23 9:14 AM [phone] documented in this encounter Plan of Treatment Upcoming Encounters Date Type Department Care Team (Late st Contact Info) Description 12/14/2023 1:40 PM EDT Office Visit Family Medicine [address] [place] [phone] Peace Calloway MD [address] [place] [address] [place] [address] 12/29/2023 8:00 AM EDT Laboratory Laboratory, [facility] 132 [facility] [phone] [facility] 132 [facility] [place] [address] 12/29/2023 9:00 AM EDT Imaging Radiology [address] [place] [address] 01/04/2024 1:15 PM EDT Office Visit Hematology/Oncology [facility] 200 [place] [phone] Garrison Jalloh MD 200 [facility] [place] [address] Health Maintenance Due Date Last Done Comments [...] filedocumented as of this encounter Care Teams Cool Roofing Installer Relationship Specialty Start Date End Date Peace Calloway MD [address] [place] [address] [place] [address] PCP - General Family Medicine 09/23/21 documented as of this encounter
--- OUTSIDE RECORDS SUMMARY | 2023-12-09 08:51 | External Medical Summary | Summary of Care ---
Author Name Unknown Organization [facility] Address [address] [place] [address] Phone [phone] Care Team Providers Care Facilities Maintenance Technician Name Role Phone Kwabena Calloway MD Primary Care Prov ider Reason for Visit * Reason Comments Medication Refill Encounter Details Date Type Department Care Team (Late st Contact Info) Description 09/05/2023 Refill Family Medicine [address] [phone] Kwabena Calloway MD [address] [place], [place] [address] [address] Allergies Active Allergy Reactions Criticality Noted Date Comments Bee Pollen Edema face/lips/tongue High 09/23/2021 Bee Stings 06/15/1997 Fd&C Yellow #5 (Tartrazine) Edema face/lips/tongue High 05/05/2022 peppers Iodinated Contrast Media Rash 11/13/2009 Latex Rash Low 10/15/2021 Lisinopril Hives 08/15/2018 Penicillins 06/15/1997 Hives as a very young man prior to age 19 Tetanus Toxoid 06/15/1997 documented as of this encounter (statuses as of 09/06/2023) Medications Medication Sig Dispensed Refills Start Date End Date Status EPINEPHrine 0.15 MG/0.3ML Injection Solution Auto-injector (EPINEPHrine (anaphylaxis)) Inject into a large muscle 0.15 mg as needed for Anaphylaxis (severe allergic reaction). For a severe reaction: Inject in outer thigh following instructions on package and go to the Emergency room. 2 Each 0 07/06/2021 Active Ipratropium [place] HFA 17 MCG/ACT Inhalation Aerosol Solution (Atrovent HFA) Inhale by mouth 2 Puffs every 6 hours . 38.7 g 3 07/06/2021 Active Co Q 10 10 MG Oral Capsule Take 1 Capsule by mouth daily. 0 11/12/2021 Active Multivitamin Adult Oral Tablet Take 1 Tablet by mouth in the morning. 0 11/12/2021 Active metFORMIN HCl ER 500 MG Oral [...] AT BEDTIME 100 Capsule 0 09/06/2023 Active Terazosin HCl 10 MG Oral Capsule TAKE ONE CAPSULE BY MOUTH AT BEDTIME 100 Capsule 1 01/11/2023 Discontinue d(Refill) documented as of this encounter (statuses as of 09/06/2023) Active Problems Problem Noted Date Diagnosed Date [...] as of this encounter (statuses as of 09/06/2023) Resolved Problems Problem Noted Date Diagnosed Date [...] as of this encounter (statuses as of 09/06/2023) Immunizations Name Administration Dates Next Due COVID-19 [...] encounter Miscellaneous Notes * Telephone Encounter - Delores Kate RP - 09/06/2023 7:54 AM EDTSigned Prescriptions: Disp Refills Terazosin HCl 10 MG Oral Capsule 100 Ca*0 Sig: TAKE ONE CAPSULE BY MOUTH AT BEDTIMEAuthorizing Provider: KWABENA CALLOWAY User: DELORES KATE * Telephone Encounter - Delores Kate RP - 09/06/2023 7:54 AM EDT RX authorized. Zero refills given until upcoming appt. documented in this encounter Plan of Treatment Upcoming Encounters Date Type Department Care Team (Late st Contact Info) Description 12/14/2023 1:40 PM EDT Office Visit Family Medicine [address] [phone] Kwabena Calloway MD [address] [place] [address] [place] [address] 12/29/2023 8:00 AM EDT Laboratory Laboratory, [facility] 132 [facility] [place] [phone] [facility] 132 [facility] [place] [address] 12/29/2023 9:00 AM EDT Imaging Radiology [facility]st [facility] 132 [facility] [place] [address] 01/04/2024 1:15 PM EDT Office Visit Hematology/Oncology [facility] 200 [place] [phone] Garrison Jalloh MD [address] [place] [address] Health Maintenance Due Date Last Done Comments [...] filedocumented as of this encounter Care Teams Facilities Maintenance Technician Relationship Specialty Start Date End Date Kwabena Calloway MD [address] [place] [address] [place] [phone] PCP - General Family Medicine 09/23/21 documented as of this encounter
--- OUTSIDE RECORDS SUMMARY | 2023-12-09 08:51 | External Medical Summary | Summary of Care ---
Author Name Unknown Organization [facility] Address [address] [place] [address] Phone [phone] Care Team Providers Care Stock Crane Operator Name Role Phone Peace Barnes MD Primary Care Prov ider Reason for Visit * Reason Onset Date Comments Medication Refill 07/28/2023 Pre Cert/Prior Auth 07/27/2023 Rybelsus 3mg Encounter Details Date Type Department Care Team (Late st Contact Info) Description 07/27/2023 Telephone [employer] [facility] [address] [place] [address] Jazmine Unger, [facility] [address] [facility] [address] Medication Refill; Pre Cert/Prior Auth (Ry... Allergies [...] room. 2 Each 0 07/06/2021 Active Ipratropium [place] HFA 17 MCG/ACT Inhalation Aerosol Solution (Atrovent [...] Telephone Encounter - Santi Jimenez CPhT - 08/03/2023 6:37 PM EDT Patients insurance would like to inform the office that Rybelsus 3mg is approved until open ended .Patient and pharmacy made aware by me. Information will be faxed to the office. M/O made aware Thank you, Andrew Jimenez (cone picker) Lehr Loader III Centralized Clin[facility] Pharmacy Services (CCPS) (formerly Telepharmacy) 08/03/2023, 6:37 PM * Telephone Encounter - Sanit Jimenez CPhT - 08/01/2023 12:32 PM EDT Submitted information in previous note via [employer] (EOC: [id number]).. Awaiting payer response. We will follow-up with insurance starting 08/02. Per [facility] request, if no decision is received from insurance by 08/03, we will route back to the [facility] after clarifying with the pharmacy that the claim is still not processing. Thank you, Andrew Jimenez ([facility]) Lehr Loader III Centralized Clincal Pharmacy Services (CCPS) (formerly Telepharmacy) 08/01/2023, 12:32 PM * Telephone Encounter - Lucy Mercado [facility] - 07/29/2023 4:28 PM EDT Please [...] and route back to the [facility] pool if no decision is made by the insurance by 08/03, after clarifying with the pharmacy that the claim is still not processing. If PA is denied, please also route back to [facility] pool. Thank you, Lucy Mercado PharmD Clinical Pharmacist Centralized Clinical Pharmacy Services (CCPS) (formerly Telepharmacy) 07/29/23 4:28 PM [phone] * Telephone Encounter - Shanthi Crowley PHARM Tech - 07/29/2023 4:23 PM EDT This is a new PA request. Upon review of this prior authorization request, I verified this request is appropriate. This is prescribed by a department for which [facility] is authorized to review prior authorizations This [...] note, there is nothing currently pending in [facility] for this request. Please advise how to proceed. Thanks, Shanthi Crowley Lehr Loader III Centralized Clinical Pharmacy Services (CCPS) 07/29/2023,4:23 PM * Telephone Encounter - Tonja Deluna CPhT - 07/28/2023 11:40 AM EDT Pharmacy calling to inform doctor that the patient's insurance will not pay for this medication without a completed prior authorization. Did confirm this information with the pharmacy. Pt's current insurance information is as follows: Patient name: Mir Dooley ID number: [id number] BIN number: [id number] PCN number: [id number] Group number: none Subscriber name: Mir Dooley Primary or Secondary Insurance:Primary Medication: Rybelsus 3mg Reason for Request: prior auth required Pharmacy and phone number: [facility] [phone] Rx plan and phone number: [facility] [phone] Is this a new medication for the patient? No. How did the patient obtain the medication on the lastfill? It was filled at a different pharmacy. What alternative medications does the pharmacy have in stock?: none Thank you, Tonja Deluna [facility] Lehr Loader III Centralized Clinical Pharmacy Services(CCPS) (formerly Telepharmacy) 07/28/2023,11:40 AM * Telephone Encounter - Peace Barnes MD - 07/28/2023 9:32 AM EDT Signed Prescriptions: Disp Refills Rybelsus 3 MG Oral Tablet (Semaglutide) 30 Tab*0 Sig: Take 3 mgby mouth daily first thing in the morning.Authorizing Provider: PEACE BARNES--------- * Telephone Encounter - Jazmine Unger [facility] - 07/27/2023 11:26 AM EDT Sulaiman, I [...] 08/16/2023 11:00 AM EDT Office Visit Cardiology, [facility] [address] [place] [address] Kamran Barbosa, [address] [place] [address] 12/14/2023 1:40 PM EDT Office Visit Family Medicine [address] [place] [phone] Peace Barnes MD [address] [place] [address] [place] [address] 12/29/2023 8:00 AM EDT Laboratory Laboratory, [facility] [address] [place] [phone] [employer] [facility] [address] [place] [address] 12/29/2023 9:00 AM EDT Imaging Radiology [address] 132 [facility] [place] [address] 01/06/2024 3:15 PM EDT Office Visit Hematology/Oncology [facility] [place] [address] [place] [address] Garrison Jalloh MD 200 [facility] [place] [address] Health Maintenance Due Date Last Done Comments [...] filedocumented as of this encounter Care Teams Stock Crane Operator Relationship Specialty Start Date End Date Peace Barnes MD [address] [place] [address] [place] [phone] PCP - General Family Medicine 09/23/21 documented as of this encounter
--- OUTSIDE RECORDS SUMMARY | 2023-12-09 08:51 | External Medical Summary | Summary of Care ---
Author Name Unknown Organization [facility] Address [address] [place] [address] Phone [phone] Care Team Providers Care Public Health Engineer Name Role Phone Kwabena Calloway MD Primary Care Prov ider Reason for Visit * Reason Onset Date Comments Medication Refill 07/28/2023 Pre Cert/Prior Auth 07/27/2023 Rybelsus 3mg Encounter Details Date Type Department Care Team (Late st Contact Info) Description 07/27/2023 Telephone [employer] [facility] [address] [place] [address] Jazmine Unger, [facility] [address] [facility] [address] Medication Refill; Pre Cert/Prior Auth (Ry... Allergies [...] room. 2 Each 0 07/06/2021 Active Ipratropium [place] HFA 17 MCG/ACT Inhalation Aerosol Solution (Atrovent [...] encounter Miscellaneous Notes * Telephone Encounter - Shanthi Crowley knitted garment finisher - 07/29/2023 4:23 PM EDT This is a new PA request. Upon review of this prior authorization request, I verified this request is appropriate. This is prescribed by a department for which [facility] is authorized to review prior [...] note, there is nothing currently pending in [facility] for this request. Please advise how to proceed. Thanks, Shanthi Crowley Medical Office Technician III Centralized Clinical Pharmacy Services (CCPS) 07/29/2023,4:23 PM * Telephone Encounter - Tonja Deluna CPhT - 07/28/2023 11:40 AM EDT Pharmacy calling to inform doctor that the patient's insurance will not pay for this medication without a completed prior authorization. Did confirm this information with the pharmacy. Pt's current insurance information is as follows: Patient name: Mir Dooley ID number: [id number] BIN number: [id number] PCN number: [id number] Group number: none Subscriber name: Mir Dooley Primary or Secondary Insurance:Primary Medication: Rybelsus 3mg Reason for Request: prior auth required [facility] [phone] Rx plan and phone number: [facility] [phone] Is this a new medication for the patient? No. How did the patient obtain the medication on the lastfill? It was filled at a different pharmacy. What alternative medications does the pharmacy have in stock?: none Thank you, Tonja Deluna [facility] Medical Office Technician III Centralized Clinical Pharmacy Services(CCPS) (formerly Telepharmacy) 07/28/2023,11:40 AM * Telephone Encounter - Kwabena Calloway MD - 07/28/2023 9:32 AM EDT Signed Prescriptions: Disp Refills Rybelsus 3 MG Oral Tablet (Semaglutide) 30 Tab*0 Sig: Take 3 mg by mouth daily first thing in the morning.Authorizing Provider: KWABENA CALLOWAY * Telephone Encounter - Jazmine Unger [facility] - 07/27/2023 11:26 AM EDT Hello, I completed an annual medication review with [...] 08/16/2023 11:00 AM EDT Office Visit Cardiology, [facility] [address] [place] [address] Kamran Barbosa DO [address] [place] [address] 12/14/2023 1:40 PM EDT Office Visit Family Medicine [address] [phone] Kwabena Calloway MD [address] [place] [address] [place] [address] 12/29/2023 8:00 AM EDT Laboratory Laboratory, [facility] [address] [place] [phone] [facility] 132 [facility] [place] [address] 12/29/2023 9:00 AM EDT Imaging Radiology [facility] 1st [facility] [address] [place] [address] 01/06/2024 3:15 PM EDT Office Visit Hematology/Oncology [facility] [address] [place] [address] [place] [phone] Garrison Jalloh MD 200 [facility] [place] [address] Health Maintenance Due Date Last Done Comments [...] filedocumented as of this encounter Care Teams Public Health Engineer Relationship Specialty Start Date End Date Kwabena Calloway MD [address] [place] [address] [place] [address] PCP - General Family Medicine 09/23/21 documented as of this encounter
--- OUTSIDE RECORDS SUMMARY | 2023-12-09 08:52 | External Medical Summary | Summary of Care ---
Author Name Unknown Organization [facility] Address [address] [place] [place] [address] Phone [phone] Care Team Providers Care [employer] Name Role Phone Peace Barnes MD Primary Care Prov ider Reason for Visit * Reason Comments Outpatient Testing Encounter Details Date Type Department Care Team (Late st Contact Info) Description 07/06/2023 9:10 AM EDT Laboratory Laboratory [facility] [address] [place] [phone] [place] [address] [place] [address] Arrived Allergies Active Allergy Reactions Criticality Noted Date Comments Bee Pollen Edema face/lips/tongue High 09/23/2021 Bee Stings 06/15/1997 Fd&C Yellow #5 (Tartrazine) Edema face/lips/tongue High 05/05/2022 peppers Iodinated Contrast Media Rash 11/13/2009 Latex Rash Low 10/15/2021 Lisinopril Hives 08/15/2018 Penicillins 06/15/1997 Hives as a very young man prior to age 19 Tetanus Toxoid 06/15/1997 documented as of this encounter (statuses as of 07/06/2023) Medications Medication Sig Dispensed Refills Start Date End Date Status EPINEPHrine 0.15 MG/0.3ML Injection Solution Auto-injector (EPINEPHrine (anaphylaxis)) Inject into a large muscle 0.15 mg as needed for Anaphylaxis (severe allergic reaction). For a severe reaction: Inject in outer thigh following instructions on package and go to the Emergency room. 2 Each 0 07/06/2021 Active Ipratropium [place] HFA 17 MCG/ACT Inhalation Aerosol Solution (Atrovent HFA) Inhale by mouth 2 Puffs every 6 hours . 38.7 g 3 07/06/2021 Active Additional Information Patient not taking.Reported on 05/05/2022 Co Q 10 10 MG Oral Capsule Take 1 Capsule by mouth daily. 0 11/12/2021 Active Multivitamin Adult Oral Tablet Take 1 Tablet by mouth in the morning. 0 11/12/2021 Active Allopurinol 300 MG Oral Tablet (Zyloprim) TAKE ONE TABLET BY MOUTH EVERY MORNING 100 Tablet 1 11/02/2022 11/02/2023 Active Terazosin HCl 10 MG Oral Capsule TAKE ONE CAPSULE BY MOUTH AT BEDTIME 100 Capsule 1 01/11/2023 Active Furosemide 20 MG Oral Tablet (Lasix) TAKE ONE TABLET BY MOUTH EVERY DAY NEEDED FOR EDEMA 100 Tablet 1 01/11/2023 Active Apixaban 2.5 MG Oral Tablet (Eliquis) TAKE ONE TABLET BY MOUTH TWICE A DAY IN THE MORNING AND BEFORE BEDTIME 200 Tablet 1 01/11/2023 01/11/2024 Active Losartan Potassium 50 MG Oral Tablet (Cozaar)Indicatio ns:HTN, goal below 130/80 TAKE ONE TABLET BY MOUTH TWICE A DAY IN THE MORNING AND BEFORE BEDTIME 200 Tablet 1 01/11/2023 Active Fluticasone Propionate 50 MCG/ACT Nasal Suspension (Flonase)Indicati ons:Allergic rhinitis, unspecified seasonality, unspecified trigger ADMINISTER 2 SPRAYS INTO EACH NOSTRIL IN THE MORNING 48 g 1 01/11/2023 Active Metoprolol Tartrate 25 MG Oral Tablet (Lopressor) 1/2 tab in am and 1/2 tab before bed 90 Tablet 1 01/11/2023 Active metFORMIN HCl ER 500 MG Oral Tablet Extended Release 24 Hour (Glucophage XR)Indications: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 90 Tablet 1 01/11/2023 Active Atorvastatin Calcium 10 MG Oral Tablet (Lipitor) TAKE 1 TABLET BY MOUTH IN THE MORNING 90 Tablet 01/11/2023 Active Levothyroxine Sodium 175 MCG Oral Tablet (Levoxyl) TAKE ONE TABLET BY MOUTH EVERY MORNING 100 Tablet 0 06/09/2023 Active Metamucil 0.36 GM Oral Capsule (Psyllium) Take by mouth. 0 Active documented as of this encounter (statuses as of 07/06/2023) Active Problems Problem Noted Date Diagnosed Date [...] as of this encounter (statuses as of 07/06/2023) Resolved Problems Problem Noted Date Diagnosed Date [...] as of this encounter (statuses as of 07/06/2023) Immunizations Name Administration Dates Next Due COVID-19 [...] yrs 01/22/2022 TD - Tetanus/Diptheria (ADULT) 02/02/2005 TDAP (age 10 and older)(Boostrix) 01/01/2014 [...] Care Team (Late st Contact Info) Description 08/11/2023 9:00 AM EDT Imaging Radiology [facility] [facility] [address] [facility] [place] [address] 08/16/2023 11:00 AM EDT Office Visit Cardiology, [facility] [address] [facility] [place] [id number] Kamran Barbosa, [address] [facility] [place] [address] 12/14/2023 1:40 PM EDT Office Visit Family Medicine [address] [phone] Peace Barnes MD [address] [place] [address] [place] [id number] 01/06/2024 3:15 PM EDT Office Visit Hematology/Oncology [facility] Miriam Delarosa [address] [place] [address] [place] [phone] Garrison Jalloh MD [address] [facility] [place] [id number] Health Maintenance Due Date Last Done Comments Zoster Vaccines (3 of 3) 11/17/2021 09/22/2021, 02/23 COVID-19 Vaccine ( season) 2022 03/02/2022, 08/19/2020, 07/17/2020 Influenza Vaccine (FLU shot) (#1) 2022 01/22/2022, 01/14/2022, 02/23/2021, Additional history exists Albumin/Creatinine Ratio 02/25/2023 022, 01/14/2022, 02/23/2021, Additional history exists Depression Screening 05/05/2023 05/05/2022 Diabetic Eye Exam 05/05/2023 05/05/2022 HbA1c 05/05/2023 11/02/2022, 04/25, 01/14/2022, Additional history exists TSH 05/05/2023 05/05/2022, 08/24, 10/16/2020, Additional history exists GFR 10/23/2023 10/22/2022, 03/27, 01/14/2022, Additional history exists Diabetic Foot Exam 11/03/2023 11/02/2022, 09/22/2021 Pneumococcal Vaccine: 65+ Years Completed 02/06/2018, 07/01/2011, [...] filedocumented as of this encounter Care Teams [employer] Mechan[employer] Relationship Specialty Start Date End Date Peace Barnes MD [address] [place] [address] [place] [id number] PCP - General Family Medicine 09/23/21 documented as of this encounter
--- OUTSIDE RECORDS SUMMARY | 2023-12-09 08:52 | External Medical Summary | Summary of Care ---
Author Name Unknown Organization [facility] Address [address] [place] [facility] [place] [address] Phone [phone] Care Team Providers Care Soakers Supervisor Name Role Phone Peace Barnes MD Primary Care Prov ider Reason for Referral * Precert (Within 10 days (routine)) - Pending Review Specialty Diagnoses / Procedures Referred By Contac t Referred To Contact Radiology Diagnoses History of colon cancer Lung nodules Procedures CT CHEST/ABDOMEN/PELVIS WITHOUT IV CONTRAST WITH ORAL CONTRAST Garrison Jalloh MD [address] [facility] [place] [id number] Referral ID Status Reason Start Date Expiration Date V isits Requested Visits Authorized [id number] Pending Review 07/06/2023 999 999 Reason for Visit * Reason Comments Follow Up Encounter Details Date Type Department Care Team (Late st Contact Info) Description 07/06/2023 8:15 AM EDT Office Visit Hematology/Oncology [facility] [address] [place] [phone] Garrison Jalloh MD [address] [facility] [place] [address] History of colon cancer*; Lung nodules Allergies Active Allergy Reactions Criticality Noted Date [...] room. 2 Each 0 07/06/2021 Active Ipratropium [place] HFA 17 MCG/ACT Inhalation Aerosol Solution (Atrovent [...] MOUTH IN THE MORNING 90 Tablet 1 01/11/2023 Active Levothyroxine Sodium 175 MCG Oral [...] Date Smoking Tobacco: Never Smokeless Tobacco: Never Tobacco Cessation:Counseling Given: Not Answered Alcohol Use Standard Drinks/Week Comments No 0 [...] on file documented as of this encounter Last Filed Vital Signs Vital Sign Reading Time Taken Comments Blood Pressure 177/98 07/06/2023 8:16 AM EDT Pulse 97 07/06/2023 8:16 AM EDT Temperature 36.6 C (97.8 F) 07/06/2023 8:16 AM ED T Respiratory Rate - - Oxygen Saturation 97% 07/06/2023 8:16 AM EDT Inhaled Oxygen Concentration - - Weight 136.5 kg (301 lb) 07/06/2023 8:16 AM EDT Height - - Body Mass Index 42.88 11/10/2021 9:23 AM EDT documented in this encounter Progress Notes * Garrison Jalloh MD - 07/06/2023 8:15 AM EDT MIR BYRNE MR # [id number] :1940 83-year-old male, Date of consultation:11/10/2021 DIAGNOSIS: - 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 Cavanaugh. (10/16/2021), - he presented with iron deficiency anemia, received 3 units of PRBC and IV iron treatment when he was in hospital at [facility]. -final pathology showed T3 N0, 11 lymph nodes negative. -BRAF positive -preoperative CEA level around 25. 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 He was then admitted at [facility], I reviewed hospitalrecords as follows: CT scan of the abdomen and pelvis (09/23/2021: - 1. The liver is enlarged and heterogeneous. Mild nodularity of the surface contour suggests early morphologic change of cirrhosis. 2. The gallbladder is not distended and likely contains internal debris/stones. There is infiltration around the gallbladder and in the artur hepatis which is nonspecific, and may be related to hepatocellular disease. If there is clinical concern for biliary pathology a right upper quadrant ultrasound should be considered. 3. Trace perihepatic and pelvic ascites. 4. Cardiomegaly. - focal narrowing seen in the right colon at the hepatic flexure. Colonoscopic examination (09/25/[address] Sawyer) -hepatic flexure mass --> at least adenoma with high-grade dysplasia. -transverse colon: Polypectomy --> tubular adenoma. He received 3 units of PRBC, IV iron treatment Laparoscopic Right hemicolectomy (10/16/[address] Cavanaugh: -moderate differentiated adenocarcinoma. -6 x 3.5 x 1 cm -no lymphovascular invasion -no pain invasion -negative margin. -11 lymph nodes negative for metastatic disease -pathological T3 N0. Immunohistochemistry (IHC) Testing for Mismatch Repair (MMR) Proteins: MLH1: Loss of nuclear expression MSH2: Intact nuclear expression MSH6: Intact nuclear expression PMS2: Loss of nuclear expression -BRAF positive. - MLH1 Methylation: Detected - CEA level --> 25.7 (09/25/2021) OTHER IMPORTANT HISTORY: - lung nodules, asbestos exposure in the past. Followed up with business teacher at [facility]. He also had bronchoscopic evaluation. I do not have those records for the review. -diabetes mellitus, on oral hypoglycemic agent. -hyperlipidemia -hypothyroidism -obesity -sleep apnea. -chronic renal insufficiency, serum creatinine around 1.5 - 1.9 mg/dL. INTERVAL HISTORY: He has come the clinic for the follow-up, accompanied by daughter in the office. Overall he is doing well, ambulates with the help of the cane, And sometimes uses wheelchair for the ambulation, no new bleeding from the sites, no nausea, no vomiting, good appetite, mild leg edema,current weight is around 301 lb, he lives by himself. Has underlying sleep apnea, using CPAP. No blood in the stool. No fever, no recent hospitalization. Past Medical History: Diagnosis Date Adenocarcinoma of [...] BMI not known PAF (paroxysmal atrial fibrillation) (HCC) Sleep apnea Past Surgical History: Procedure Laterality Date HEART ELECTROCONVERSION, EXTERNAL 02/03/2010 DC CARDIOVERSION performed by TERRY POLO IV at CARDIAC [facility] MT ENTRC RESCJ SMALL INTESTINE 1 RESCJ & ANAST 10/2021 Dr. Cavanaugh [facility] REMOVAL OF KIDNEY STONE Kidney Stone Removal Current Outpatient Medications Medication Sig Dispense Refill EPINEPHrine 0.15 MG/0.3ML Injection Solution Auto-injector (EPINEPHrine (anaphylaxis)) Inject into a large muscle 0.15 mg as needed for Anaphylaxis (severe allergic reaction). For a severe reaction: Inject in outer thigh following instructions on package and go to the Emergency room. 2 Each 0 Ipratropium Herndon HFA 17 MCG/ACT Inhalation Aerosol Solution (Atrovent HFA) Inhale by mouth 2 Puffs every 6 hours . (Patient not taking: Reported on 01/14/2022) 38.7 g 3 Co Q 10 10 MG Oral Capsule Take 1 Capsule by mouth daily. Multivitamin Adult Oral Tablet Take 1 Tablet by mouth in the morning. Allopurinol 300 MG Oral Tablet (Zyloprim) TAKE ONE TABLET BY MOUTH EVERY MORNING 100 Tablet 1 Terazosin HCl 10 MG Oral Capsule TAKE ONE CAPSULE BY MOUTH AT BEDTIME 100 Capsule 1 Furosemide 20 MG Oral Tablet (Lasix) TAKE ONE TABLET BY MOUTH EVERY DAY NEEDED FOR EDEMA 100 Tablet 1 Apixaban 2.5 MG Oral Tablet (Eliquis) TAKE ONE TABLET BY MOUTH TWICE A DAY IN THE MORNING AND BEFORE BEDTIME 200 Tablet 1 Losartan Potassium 50 MG Oral Tablet (Cozaar) TAKE ONE TABLET BY MOUTH TWICE A DAY IN THE MORNING AND BEFORE BEDTIME 200 Tablet 1 Fluticasone Propionate 50 MCG/ACT Nasal Suspension (Flonase) ADMINISTER 2 SPRAYS INTO EACH NOSTRIL IN THE MORNING 48 g 1 Metoprolol Tartrate 25 MG Oral Tablet (Lopressor) 1/2 tab in am and 1/2 tab before bed 90 Tablet 1 metFORMIN HCl ER 500 MG Oral Tablet Extended Release 24 Hour (Glucophage XR) Take 1 Tablet by mouthin the morning. 90 Tablet 1 Atorvastatin Calcium 10 MG Oral Tablet (Lipitor) TAKE 1 TABLET BY MOUTH IN THE MORNING 90 Tablet 1 Levothyroxine Sodium 175 MCG Oral Tablet (Levoxyl) TAKE ONE TABLET BY MOUTH EVERY MORNING 100 Tablet 0 No current facility-administered medications for this visit. Family History Problem Relation Age of Onset Cancer Mother ovarian Heart disease Father Heart disease Sister Seizures Brother Social History Socioeconomic History Marital status: Spouse name: Not on file Number of children: Not on file Years of education: Not on file Highest education level: Not on file Occupational History Not on file Tobacco Use Smoking status: Never Smokeless tobacco: Never Vaping Use Vaping Use: Never used Substance and Sexual Activity Alcohol use: No Drug use: No Sexual activity: Not on file Other Topics Concern Not on file Social History Narrative passed 7yrs ago, as of 05/05/2022 Social Determinants of Health Financial Resource Strain: Not on file Food Insecurity: No Food Insecurity (06/01/2022) Hunger Vital Sign Worried About Running Out of Food in the Last Year: Never true Ran Out of Food in the Last Year: Never true Transportation Needs: Not on file Physical Activity: Not on file Stress: Not on file Social Connections: Not on file Intimate Partner Violence: Not on file Housing Stability: Not on file On Exam: BP 177/98 (BP Site: Left Arm, BP Position: Sitting, BP Cuff Size: Large) | Pulse 97 | Temp 36.6 C(97.8 F) (Tympanic) | Wt (!) 136.5 kg (301 lb) | SpO2 97% | BMI 42.88 kg/m | BSA 2.6 m Constitutional: Patient is alert, cooperative and oriented x 3. Well built man, Patient is in no acute distress. HEENT:No icterus, no pallor, Throat and pharynx normal. Sinuses are non-tender. Neck: Supple and without lymphadenopathy or masses. No JVD. No Palpable supraclavicular lymph nodes. Lungs: Emphysematous chest noted Cardiovascular: Normal heart sounds, no murmurs.Regular rate and rhythm. Abdomen: soft, nontender, no hepatomegaly, no splenomegaly. Bowel sounds are normal. Neurological: No gross focal neurological deficit; walks with help of the cane. Extremities: No finger clubbing, No cyanosis. No leg edema. Skin:: No skin rash. SPINE: No spinal or paraspinal tenderness. LABS: Blood workup done on 11/10/2021: -WBC 5000, H&H of 12/40.6, Platelet 182,000 -BUN/Creat: 18/1.4, normal liver function test, Calcium 9.4 -Serum iron: 38, TIBC 256, iron saturation 15% -Ferritin level --> 62 -Vitamin B12 --> 403 -CEA level --> 4.8 which is in the normal range. ( normal value would be less than 5.2). Repeat blood workup done on 01/12/2022 showed hemoglobin level of 12.1, MCV 92.8. -Ferritin level --> 186, Serum iron 25, TIBC 228, iron saturation 11%. Blood workup done on 04/23/2022: - CEA level --> 2.4 which is in the normal range. - Chronic renal insufficiency noted, serum creatinine is around 1.6 mg/dL. - Normal LFT. - Mild anemia with hemoglobin around 12 g/dL, related to the abnormal kidney function test. Blood workup done on 10/22/2022: -CEA level --> 2.4 - BUN/Creat: 29/1.7, normal liver function test. - WBC 5800, H&H of 12.3/39.3, Platelet count of 159260. He will have CBCD comprehensive metabolic panel, CEA level today. IMAGING: CT scan of the chest, abdomen pelvis (02/09/2022). 1. Postsurgical findings of right hemicolectomy. 2. No metastatic disease identified. 3. Ascending thoracic aortic aneurysm 4.7 cm. 4. Dilated main pulmonary artery 3.8 cm. 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 - DJD of the lumbar spine. ASSESSMENT AND PLAN: 83-year-old male, a case of hepatic flexure adenocarcinoma S/P laparoscopic right hemicolectomy by Dr. Cavanaugh on 10/16/2021, final pathology showed T3 N0, 11 lymph nodes negative for metastatic disease. -before that he received 3 units of PRBC and iron treatment. -preoperative CEA level is around 25 -BRAF positive. -- MLH1 Methylation: Detected - Loss of MLH1 and PMS2 noted. Presently he is under observation since September 2021. Overall he has done well, gained weight , ambulates slowly with the help of the cane, DJD involvingthe knee joint, has underlying gout. No new GI symptoms, no blood in the stool Will check CBCD, comprehensive metabolic panel, CEA level today. Reviewed with them regarding the last CT scan of chest, abdomen pelvis done in January 2023 Overall no evidence of recurrent disease. Will continue to observe Planning for another CT scan of chest, abdomen pelvis without intravenous contrast in July of 2023. He does not have any active colonic symptoms, will hold for colonoscopic evaluation at this time. I am planning to see him back in the clinic in about 6 months. Will talk to him about getting colonoscopic at that time. Dr. Garrison Jalloh Hem/Onc (This note was completed using the dictation program Fluency Direct. As such, there may be misspellings word substitutions, or other variations that should not change the essence of the clinical content of this encounter note. If there is need for further clarification, please direct questions to the provider listed above.) documented in this encounter Nursing Notes * Nelsy Bonilla LPN - 07/06/2023 8:22 AM EDT Patient identifed by name and birthdate Do you have any concerns about pain management for today's visit? Yes. Patient instructed to discuss pain concerns with provider during the visit today Living Will or Advance Directive for Health Care as noted on the problem list. [facility] is a way you can talk to your provider on line through e-mail. Would you like to sign up? I can activate it for you? DECLINES Filed Vitals: 07/06/23 0816 BP: 177/98 Pulse: 97 Temp: 36.6 C (97.8 F) TempSrc: Tympanic SpO2: 97% Weight: (!) 136.5 kg (301 lb) Patient was instructed to not get up on the exam table/exam chair until directed and assisted by their provider; patient is to remain seated in the chair/ wheelchair/ exam table/ exam chair for fall prevention and safety reasons. Patient is aware to have assistance to step down off exam table/exam chair with personnel. Patient voiced full comprehension of instructions. documented in this encounter Plan of Treatment Upcoming Encounters Date Type Department Care Team (Late st Contact Info) Description 08/11/2023 9:00 AM EDT Imaging Radiology [address] [facility] [place] [address] 08/16/2023 11:00 AM EDT Office Visit Cardiology, [facility] 132 [facility] [place] [address] Kamran Barbosa DO [address] [facility] [place] [address] 12/14/2023 1:40 PM EDT Office Visit Family Medicine [address] [phone] Peace Barnes MD [address] [place], [place] [address] [address] 01/06/2024 3:15 PM EDT Office Visit Hematology/Oncology [address] [place] [phone] Garrison Jalloh MD [address] [facility] [place] [address] Pending Results Name Type Priority Associated Diagnoses Date /Time CEA Lab Routine History of colon cancer Lung nodules 07/06/2023 8:55 AM EDT Scheduled Orders Name Type Priority Associated Diagnoses Orde r Schedule CT CHEST/ABDOMEN/PELVIS WITHOUT IV CONTRAST WITH ORAL CONTRAST Medical Imaging Routine History of colon cancer Lung nodules Expected: 07/06/2023, Expires: 07/05/2024 Health Maintenance Due Date Last Done Comments [...] exists Diabetic Foot Exam 11/03/2023 11/02/2022, 09/22/2021 GFR 07/05/2024 07/06/2023, 09/25, 04/23/2022, Additional history [...] Not on filedocumented as of this encounter Procedures Procedure Name Priority Date/Time Associated Diagnosis Comments DIFFERENTIAL, AUTOMATED STAT 07/06/2023 8:55 AM EDT History of colon cancer Lung nodules COMPREHENSIVE METABOLIC PANEL STAT 07/06/2023 8:55 AM EDT History of colon cancer Lung nodules CBC STAT 07/06/2023 8:55 AM EDT History of colon cancer Lung nodules CBC STAT 07/06/2023 8:55 AM EDT History of colon cancer Lung nodules documented in this encounter Results * (ABNORMAL) DIFFERENTIAL, AUTOMATED (07/06/2023 8:55 AM EDT) WBC 4.92 4.00 - 10.80 K/uL 07/06/2023 9:01 AM EDT [facility] 56-02 Neutrophils % 72.6 40.0 - 75.0 % 07/06/2023 9:01 AM EDT LAB[facility]ATORY [facility] 56-02 Lymphocytes % 17.9(L) 18.0 - 42.0 % 07/06/2023 9:01 AM EDT LABORATORY [facility] 56-02 Monocytes % 7.3 1.0 - 11.0 % 07/06/2023 9:01 AM EDT [facility] 56-02 Eosinophils % 1.8 0.0 - 6.0 % 07/06/2023 9:01 AM EDT [facility] 56-02 Basophils % 0.4 0.0 - 2.0 % 07/06/2023 9:01 AM EDT LABORATORY [facility] 56-02 Absolute Neutrophils 3.57 1.80 - 7.70 K/uL 07/06/2023 9:01 AM EDT LABORATORY [facility] 56-02 Absolute Lymphocytes 0.88(L) 1.00 - 4.80 K/ul 07/06/2023 9:01 AM EDT LABORATORY [facility] 56-02 Absolute Monocytes 0.36 0.00 - 1.10 K/uL 07/06/2023 9:01 AM EDT [facility] 56-02 Absolute Eosinophils 0.09 0.00 - 0.70 K/uL 07/06/2023 9:01 AM EDT LABORATORY [facility] 56-02 Absolute Basophils 0.02 0.00 - 0.20 K/uL 07/06/2023 9:01 AM EDT [facility] 56-02 Blood Venous blood specimen / Unknown Venipuncture / Unknown 07/06/2023 8:55 AM EDT 07/06/2023 8:55 AM EDT Garrison Jalloh MD LAB BLOOD ORDERABLES [facility] 56- [address] [place] [address] * (ABNORMAL) CBC (07/06/2023 8:55 AM EDT) [facility] WBC 4.92 4.00 - 10.80 K/uL 07/06/2023 9:01 AM EDT [facility] 56- RBC 4.98 4.50 - 5.25 M/uL 07/06/2023 9:01 AM EDT [facility] 56- HGB 13.6(L) 14.0 - 16.8 g/dL 07/06/2023 9:01 AM EDT [facility] 56- HCT 43.3 40.0 - 48.4 % 07/06/2023 9:01 AM EDT [facility] 56- MCV 86.9 82.0 - 99.5 fL 07/06/2023 9:01 AM EDT [facility] 56- MCH 27.3 27.0 - 34.0 pg 07/06/2023 9:01 AM EDT [facility] 56 MCHC 31.4 32.0 - 36.0 g/dL 07/06/2023 9:01 AM EDT [facility] 56- RDW 15.3 11.5 - 15.5 % 07/06/2023 9:01 AM EDT [facility] 56- PLT 155 140 - 400 K/uL 07/06/2023 9:01 AM EDT [facility] 56 MPV 9.7 6.6 - 11.1 fL 07/06/2023 9:01 AM EDT [facility] 56-02 Blood Venous blood specimen / Unknown Venipuncture / Unknown 07/06/2023 8:55 AM EDT 07/06/2023 8:55 AM EDT Garrison Jalloh MD LAB BLOOD ORDERABLES [facility] [address]- [address] [place] [address] * (ABNORMAL) COMPREHENSIVE METABOLIC PANEL (07/06/2023 8:55 AM EDT) BUN 15 6 - 20 mg/dL 07/06/2023 9:20 AM [facility] 56 Creatinine 1.3(H) 0.6 - 1.2 mg/dL 07/06/2023 9:20 AM [facility] 56 Estimated Glomerular Filtration Rate 54(L) >=60 mL/min 07/06/2023 9:20 AM [facility] 56 Comment:eGFR is calculated b ased on the CKD-EPI 2020 equation Sodium 138 135 - 146 mmol/L 07/06/2023 9:20 AM [facility] 56 Potassium 4.3 3.5 - 5.1 mmol/L 07/06/2023 9:20 AM [facility] 56 Chloride 103 98 - 107 mmol/L 07/06/2023 9:20 AM [facility] 56 CO2 26 22 - 32 mmol/L 07/06/2023 9:20 AM [facility] 56 Anion Gap 9 7 - 15 mmol/L 07/06/2023 9:20 AM [facility] 56 Glucose 239(H) 70 - 120 mg/dL 07/06/2023 9:20 AM [facility] 56 Albumin 4.0 3.8 - 5.0 g/dL 07/06/2023 9:20 AM [facility] 56 AST 12 10 - 50 U/L 07/06/2023 9:20 AM [facility] 56 Alkaline Phosphatase 69 35 - 130 U/L 07/06/2023 9:20 AM [facility] 56 Bilirubin, Total 0.7 <=1.2 mg/dL 07/06/2023 9:20 AM [facility] 56 Calcium 9.7 8.4 - 10.2 mg/dL 07/06/2023 9:20 AM [facility] 56 Protein 7.4 6.0 - 8.3 g/dL 07/06/2023 9:20 AM [facility] 56 ALT 6(L) 10 - 50 U/L 07/06/2023 9:20 AM [facility] 56 Blood Venous blood specimen / Unknown Venipuncture / Unknown 07/06/2023 8:55 AM EDT 07/06/2023 8:55 AM EDT Garrison Jalloh MD LAB BLOOD ORDERABLES [facility] [address] [place] [address] documented in this encounter Visit Diagnoses Diagnosis History of colon cancer- Primary Personal history of malignant neoplasm of large intestine Lung nodules Other nonspecific abnormal finding of lung field documented in this encounter Care Teams Soakers Supervisor Relationship Specialty Start Date End Date Peace Barnes MD [address] [place] [address] [place] [address] PCP - General Family Medicine 09/23/21 documented as of this encounter"
--- OUTSIDE RECORDS SUMMARY | 2023-12-09 08:52 | External Medical Summary | Summary of Care ---
Author Name Unknown Organization [facility] Address [address] [place] [address] Phone [phone] Care Team Providers Care Barrelhead Inspector Name Role Phone Peace Calloway MD Primary Care Prov ider Reason for Visit * Reason Comments Medication Refill Encounter Details Date Type Department Care Team (Late st Contact Info) Description 07/10/2023 Refill Family Medicine [address] [phone] Peace Calloway MD [address] [place], [place] [address] [address] Allergies Active Allergy Reactions Criticality Noted Date Comments Bee Pollen Edema face/lips/tongue High 09/23/2021 Bee Stings 06/15/1997 Fd&C Yellow #5 (Tartrazine) Edema face/lips/tongue High 05/05/2022 peppers Iodinated Contrast Media Rash 11/13/2009 Latex Rash Low 10/15/2021 Lisinopril Hives 08/15/2018 Penicillins 06/15/1997 Hives as a very young man prior to age 19 Tetanus Toxoid 06/15/1997 documented as of this encounter (statuses as of 07/11/2023) Medications Medication Sig Dispensed Refills Start Date End Date Status EPINEPHrine 0.15 MG/0.3ML Injection Solution Auto-injector (EPINEPHrine (anaphylaxis)) Inject into a large muscle 0.15 mg as needed for Anaphylaxis (severe allergic reaction). For a severe reaction: Inject in outer thigh following instructions on package and go to the Emergency room. 2 Each 0 07/06/2021 Active Ipratropium [place] HFA 17 MCG/ACT Inhalation Aerosol Solution (Atrovent [...] MOUTH EVERY MORNING 100 Tablet 1 11/02/2022 Active Terazosin HCl 10 MG Oral Capsule TAKE ONE CAPSULE BY MOUTH AT BEDTIME 100 Capsule 1 01/11/2023 Active Furosemide 20 MG Oral Tablet (Lasix) TAKE ONE TABLET BY MOUTH EVERY DAY NEEDED FOR EDEMA 100 Tablet 1 01/11/2023 Active Losartan Potassium 50 MG Oral Tablet (Cozaar)Indicati ons:HTN, goal below 130/80 TAKE ONE TABLET BY MOUTH TWICE A DAY IN THE MORNING AND BEFORE BEDTIME 200 Tablet 1 01/11/2023 Active Metoprolol Tartrate 25 MG [...] BEFORE BEDTIME 200 Tablet 0 07/11/2023 Active Apixaban 2.5 MG Oral Tablet (Eliquis) TAKE ONE TABLET BY MOUTH TWICE A DAY IN THE MORNING AND BEFORE BEDTIME 200 Tablet 1 01/11/2023 Discontinue d(Refill) documented as of this encounter (statuses as of 07/11/2023) Active Problems Problem Noted Date Diagnosed Date [...] as of this encounter (statuses as of 07/11/2023) Resolved Problems Problem Noted Date Diagnosed Date [...] as of this encounter (statuses as of 07/11/2023) Immunizations Name Administration Dates Next Due COVID-19 [...] encounter Miscellaneous Notes * Telephone Encounter - Corona Coppola [facility] - 07/11/2023 2:41 PM EDTSigned Prescriptions: Disp Refills Apixaban 2.5 MG Oral Tablet (Eliquis) 200 Ta*0 Sig: TAKE ONE TABLET BY MOUTH TWICE A DAY IN THE MORNING AND BEFORE BEDTIMEAuthorizing Provider: Denise CALLOWAY User: CORONA COPPOLA documented in this encounter Plan of Treatment Upcoming Encounters Date Type Department Care Team (Late st Contact Info) Description 08/16/2023 11:00 AM EDT Office Visit Cardiology, [facility] 132 [place] [address] Kamran Barbosa DO 132 [place] [address] 12/14/2023 1:40 PM EDT Office Visit Family Medicine [address] [address] Peace Calloway MD [address] [place] [address] [place] [address] 12/29/2023 8:00 AM EDT Laboratory Laboratory, [facility] 132 [facility] [place] [phone] [facility] 132 [facility] [place] [address] 12/29/2023 9:00 AM EDT Imaging Radiology [facility] 1st [facility] 132 [facility] [place] [address] 01/06/2024 3:15 PM EDT Office Visit Hematology/Oncology [facility] 200 [facility] [place] [phone] Garrison Jalloh MD [address] [place] [address] Health Maintenance Due Date Last Done Comments [...] filedocumented as of this encounter Care Teams Barrelhead Inspector Relationship Specialty Start Date End Date Peace Calloway MD [address] [place] [address] [place] [phone] PCP - General Family Medicine 09/23/21 documented as of this encounter
--- OUTSIDE RECORDS SUMMARY | 2023-12-09 08:52 | External Medical Summary | Summary of Care ---
Author Name Unknown Organization [facility] Address [address] [place] [address] Phone [phone] Care Team Providers Care Physical Chemist Name Role Phone Kwabena Calloway MD Primary Care Prov ider Reason for Visit * Reason Comments Medication Refill Encounter Details Date Type Department Care Team (Late st Contact Info) Description 07/09/2023 Refill Family Medicine [address] [phone] Kwabena Calloway MD [address] [place], [place] [address] [address] Allergic rhinitis, unspecified seasonality, unspecified trigger Allergies Active Allergy Reactions Criticality Noted Date Comments Bee Pollen Edema face/lips/tongue High 09/23/2021 Bee Stings 06/15/1997 Fd&C Yellow #5 (Tartrazine) Edema face/lips/tongue High 05/05/2022 peppers Iodinated Contrast Media Rash 11/13/2009 Latex Rash Low 10/15/2021 Lisinopril Hives 08/15/2018 Penicillins 06/15/1997 Hives as a very young man prior to age 19 Tetanus Toxoid 06/15/1997 documented as of this encounter (statuses as of 07/09/2023) Medications Medication Sig Dispensed Refills Start Date End Date Status EPINEPHrine 0.15 MG/0.3ML Injection Solution Auto-injector (EPINEPHrine (anaphylaxis)) Inject into a large muscle 0.15 mg as needed for Anaphylaxis (severe allergic reaction). For a severe reaction: Inject in outer thigh following instructions on package and go to the Emergency room. 2 Each 0 07/06/2021 Active Ipratropium [place] HFA 17 MCG/ACT Inhalation Aerosol Solution (Atrovent [...] MOUTH EVERY MORNING 100 Tablet 1 11/02/2022 4 Active Terazosin HCl 10 MG Oral [...] BEFORE BEDTIME 200 Tablet 1 01/11/2023 4 Active Losartan Potassium 50 MG Oral [...] THE MORNING 48 g 1 07/09/2023 Active Fluticasone Propionate 50 MCG/ACT Nasal Suspension (Flonase)Indicat ions:Allergic rhinitis, unspecified seasonality, unspecified trigger ADMINISTER 2 SPRAYS INTO EACH NOSTRIL IN THE MORNING 48 g 1 01/11/2023 Discontinue d(Refill) documented as of this encounter (statuses as of 07/09/2023) Active Problems Problem Noted Date Diagnosed Date [...] as of this encounter (statuses as of 07/09/2023) Resolved Problems Problem Noted Date Diagnosed Date [...] as of this encounter (statuses as of 07/09/2023) Immunizations Name Administration Dates Next Due COVID-19 [...] encounter Miscellaneous Notes * Telephone Encounter - Nan Calle RPh - 07/09/2023 1:54 PM EDTSigned Prescriptions: Disp Refills Fluticasone Propionate 50 MCG/ACT Nasal [place]*48 g 1 Sig: ADMINISTER 2 SPRAYS INTO EACH NOSTRIL IN THE MORNINGAuthorizing Provider: KWABENA CALLOWAYOrderingUser: NAN CALLE documented in this encounter Plan of Treatment Upcoming Encounters Date Type Department Care Team (Late st Contact Info) Description 08/11/2023 9:00 AM EDT Imaging Radiology [facility] 1st [facility] 132 [facility] [place] [address] 08/16/2023 11:00 AM EDT Office Visit Cardiology, [address] [place] [address] Kamran Barbosa, DO [address] [place] [address] 12/14/2023 1:40 PM EDT Office Visit Family Medicine [address] [place] [phone] Kwabena Calloway MD [address] [place] [address] [place] [address] 01/06/2024 3:15 PM EDT Office Visit Hematology/Oncology [facility] 200 [facility] [place] [address] Garrison Jalloh MD 200 [facility] [address] Health Maintenance Due Date Last Done Comments [...] as of this encounter Visit Diagnoses Diagnosis Allergic rhinitis, unspecified seasonality, unspecified trigger documented in this encounter Care Teams Physical Chemist Relationship Specialty Start Date End Date Kwabena Calloway MD [address] [place] [address] [place] [phone] PCP - General Family Medicine 09/23/21 documented as of this encounter
--- OUTSIDE RECORDS SUMMARY | 2023-12-09 08:52 | External Medical Summary | Summary of Care ---
Author Name Unknown Organization [facility] Address [address] [place] [address] Phone [phone] Care Team Providers Care Strap Sewer Name Role Phone Kwabena Calloway MD Primary Care Prov ider Reason for Visit * Reason Onset Date Comments Medication Refill 07/28/2023 Pre Cert/Prior Auth 07/27/2023 Rybelsus 3mg Encounter Details Date Type Department Care Team (Late st Contact Info) Description 07/27/2023 Telephone [place] [facility] [address] [place] [address] Jazmine Unger, [facility] [address] [facility] [address] Medication Refill; Pre Cert/Prior Auth (Ry... Allergies [...] as of this encounter (statuses as of 07/28/2023) Medications Medication Sig Dispensed Refills Start Date End Date Status EPINEPHrine 0.15 MG/0.3ML Injection Solution Auto-injector (EPINEPHrine (anaphylaxis)) Inject into a large muscle 0.15 mg as needed for Anaphylaxis (severe allergic reaction). For a severe reaction: Inject in outer thigh following instructions on package and go to the Emergency room. 2 Each 0 07/06/2021 Active Ipratropium [place] HFA 17 MCG/ACT Inhalation Aerosol Solution (Atrovent [...] BEFORE BEDTIME 200 Tablet 1 01/11/2023 Active metFORMIN HCl ER [...] the morning. 30 Tablet 0 07/28/2023 Active documented as of this encounter (statuses as of 07/28/2023) Active Problems Problem Noted Date Diagnosed Date [...] as of this encounter (statuses as of 07/28/2023) Resolved Problems Problem Noted Date Diagnosed Date [...] as of this encounter (statuses as of 07/28/2023) Immunizations Name Administration Dates Next Due COVID-19 [...] Miscellaneous Notes * Telephone Encounter - Tonja Deluna CPhT - 07/28/2023 11:40 AM EDT Pharmacy calling to inform doctor that the patient's insurance will not pay for this medication without a completed prior authorization. Did confirm this information with the pharmacy. Pt's current insurance information is as follows: Patient name: Mir Dooley ID number: [id number] BIN number: [id number] PCN number: [id number] Group number: none Subscriber name: Mir Dooley Primary or Secondary Insurance:Primary Medication: Rybelsus 3mg Reason for Request: prior auth required Pharmacy and phone number: [facility] [phone] Rx plan and phone number: [facility] [phone] Is this a new medication for the patient? No. How did the patient obtain the medication on the lastfill? It was filled at a different pharmacy. What alternative medications does the pharmacy have in stock?: none Thank you, Tonja Deluna CphT Ceo And Founder III [facility]) (formerly Telepharmacy) 07/28/2023,11:40 AM * Telephone Encounter - Kwabena Calloway MD - 07/28/2023 9:32 AM EDT Signed Prescriptions: Disp Refills Rybelsus 3 MG Oral Tablet (Semaglutide) 30 Tab*0 Sig: Take 3 mg by mouth daily first thing in the morning.Authorizing Provider: KWABENA CALLOWAY * Telephone Encounter - Jazmine Unger [facility] - 07/27/2023 11:26 AM EDT Sulaiman I [...] 08/16/2023 11:00 AM EDT Office Visit Cardiology, [facility] [address] [place] [address] Kamran Barbosa, 132 [place] [address] 12/14/2023 1:40 PM EDT Office Visit Family Medicine [address] [place] [address] Kwabena Calloway MD [address] [place] [address] [place] 12/29/2023 8:00 AM EDT Laboratory Laboratory, [facility] 132 [facility] [place] [phone] [facility] 132 [facility] [place] [address] 12/29/2023 9:00 AM EDT Imaging Radiology [facility] 1st [facility] 132 [facility] [place] [address] 01/06/2024 3:15 PM EDT Office Visit Hematology/Oncology [facility] [address] [place] [phone] Garrison Jalloh MD [address] [place] [address] Health Maintenance Due Date Last Done Comments [...] filedocumented as of this encounter Care Teams Strap Sewer Relationship Specialty Start Date End Date Kwabena Calloway MD [address] [place] [address] [place] [address] PCP - General Family Medicine 09/23/21 documented as of this encounter
--- OUTSIDE RECORDS SUMMARY | 2023-12-09 08:52 | External Medical Summary | Summary of Care ---
Author Name Unknown Organization [facility] Address [address] [place] [address] Phone [phone] Care Team Providers Care Grounding Engineer Name Role Phone Kwabena Calloway MD Primary Care Prov ider Reason for Visit * Reason Comments Medication Refill Encounter Details Date Type Department Care Team (Late st Contact Info) Description 07/22/2023 Refill Family Medicine [address] [phone] Kwabena Calloway MD [address] [place], [place] [address] [address] Allergies Active Allergy Reactions Criticality Noted Date Comments Bee Pollen Edema face/lips/tongue High 09/23/2021 Bee Stings 06/15/1997 Fd&C Yellow #5 (Tartrazine) Edema face/lips/tongue High 05/05/2022 peppers Iodinated Contrast Media Rash 11/13/2009 Latex Rash Low 10/15/2021 Lisinopril Hives 08/15/2018 Penicillins 06/15/1997 Hives as a very young man prior to age 19 Tetanus Toxoid 06/15/1997 documented as of this encounter (statuses as of 07/22/2023) Medications Medication Sig Dispensed Refills Start Date End Date Status EPINEPHrine 0.15 MG/0.3ML Injection Solution Auto-injector (EPINEPHrine (anaphylaxis)) Inject into a large muscle 0.15 mg as needed for Anaphylaxis (severe allergic reaction). For a severe reaction: Inject in outer thigh following instructions on package and go to the Emergency room. 2 Each 0 07/06/2021 Active Ipratropium [place] HFA 17 MCG/ACT Inhalation Aerosol Solution (Atrovent [...] the morning. 90 Tablet 1 01/11/2023 Active Levothyroxine Sodium [...] THE MORNING 90 Tablet 1 07/22/2023 Active Atorvastatin Calcium 10 MG Oral Tablet (Lipitor) TAKE 1 TABLET BY MOUTH IN THE MORNING 90 Tablet 1 01/11/2023 4 Discontinue d(Refill) documented as of this encounter (statuses as of 07/22/2023) Active Problems Problem Noted Date Diagnosed Date [...] as of this encounter (statuses as of 07/22/2023) Resolved Problems Problem Noted Date Diagnosed Date [...] as of this encounter (statuses as of 07/22/2023) Immunizations Name Administration Dates Next Due COVID-19 [...] encounter Miscellaneous Notes * Telephone Encounter - Benjamín Galo [facility] - 07/22/2023 1:24 PM EDTSigned Prescriptions: Disp Refills Atorvastatin Calcium 10 MG Oral Tablet (Li*90 Tab*1 Sig: TAKE 1 TABLET BY MOUTH IN THE MORNINGAuthorizing Provider: KWABENA CALLOWAY User: BENJAMÍN GALO * Telephone Encounter - Benjamín Galo [facility] - 07/22/2023 1:23 PM EDT 90+1 approved. Lipid panel already ordered, due to patient's age he may complete with next routine. Thank you, Benjamín Galo, PharmD Clinical Pharmacist [facility] ([facility]) (Formerly Telepharmacy) [phone] 07/22/2023, 1:24 PM documented in this encounter Plan of Treatment Upcoming Encounters Date Type Department Care Team (Late st Contact Info) Description 08/16/2023 11:00 AM EDT Office Visit Cardiology, [facility] 132 [facility] [place] [address] Kamran Barbosa DO [facility] [place] [address] 12/14/2023 1:40 PM EDT Office Visit Family Medicine [address] [place] [phone] Kwabena Calloway MD [address] [place] [address] [place] [address] 12/29/2023 8:00 AM EDT Laboratory Laboratory, [address] [place] [phone] [facility] 132 [facility] [place] [address] 12/29/2023 9:00 AM EDT Imaging Radiology [facility] [address]st [address] [place] [address] 01/06/2024 3:15 PM EDT Office Visit Hematology/Oncology [facility] 200 [place] [phone] Garrison Jalloh MD 200 [facility] [address] Health Maintenance Due Date Last Done Comments Zoster Vaccines (3 of 3) 11/17/2021 09/22/2021, 02/23 COVID-19 Vaccine ( season) 2022 03/02/2022, 08/19/2020, 07/17/2020 Influenza Vaccine (FLU shot) (#1) 2022 01/22/2022, 01/14/2022, 02/23/2021, Additional history exists Albumin/Creatinine Ratio 02/25/20232 022, 01/14/2022, 02/23/2021, Additional [...] filedocumented as of this encounter Care Teams Grounding Engineer Relationship Specialty Start Date End Date Kwabena Calloway MD [address] [place] [address] [place] [address] PCP - General Family Medicine 09/23/21 documented as of this encounter
--- OUTSIDE RECORDS SUMMARY | 2023-12-09 08:52 | External Medical Summary | Summary of Care ---
Author Name Unknown Organization [facility] Address [address] [facility] [place] [address] Phone [phone] Care Team Providers Care President And Ceo Name Role Phone Peace Barnes MD Primary Care Prov ider Reason for Visit * Reason Onset Date Comments Test Results Lab 07/11/2023 Encounter Details Date Type Department Care Team (Late st Contact Info) Description 07/11/2023 Telephone Hematology/Oncology [facility] 200 [facility] [place] [phone] Garrison [facility]alloh MD 200 [facility] [address] Test Results Lab Allergies Active Allergy Reactions Criticality Noted Date [...] room. 2 Each 0 07/06/2021 Active Ipratropium [place] HFA 17 MCG/ACT Inhalation Aerosol Solution (Atrovent [...] THE MORNING 48 g 1 07/09/2023 Active documented as of this encounter (statuses [...] encounter Miscellaneous Notes * Telephone Encounter - Tavia Jones OSA - 07/11/2023 12:49 PM EDT Called daughter rescheduled CT for sept along with labs They are aware of prep and have no other questions at this time * Telephone Encounter - Rachelle Hinson RN - 07/11/2023 11:27 AM EDT Called Liat. Reviewed that CEA level is not definitive- imaging is needed to best see what is going on with patients cancer. She states that her dad wanted to cancel the CT scan before even leaving the office 07/06/23 but she told him to leave it as scheduled. Once he knows that CEA level is normal, she knows he will want to cancel it. Advised her that this is his choice- would recommend still having scan now, but if he doesn't want to we can see about even moving it back. She would like to have this rescheduled to prior to office visit 01/06/24 as she feels that she can talk him into having the scan then, but knows he does not want to have a scan now. Scheduling: please follow up with Liat to reschedule CT scan to prior to office visit 01/06/24. Patient will also need repeat labs (CBCd, CMP, CEA) prior to office visit. Thanks! * Telephone Encounter - Chanel Malagon LPN - 07/11/2023 10:42 AM EDT Called and spoke with Patient's daughter Liat. Made her aware of test result message from Dr. Jalloh below. Liat verbalized understanding. Dr. Jalloh: Patient's Daughter is asking if the patient "has to have the CT scan"? Please advise * Telephone Encounter - Chanel Malagon LPN - 07/11/2023 10:38 AM EDT ----- Message from Garrison Jalloh MD sent at 07/08/2023 5:02 PM EDT ----- Blood workup done on 07/06/2023: -WBC 4900, H&H of 13.6/43.3, Platelet count of 957035 -BUN/Creat: 15/1.3, normal liver function test -Cancer marker CEA level --> 1.5 which is in normal range. Overall stable blood test results noted. documented in this encounter Plan of Treatment Upcoming Encounters Date Type Department Care Team (Late st Contact Info) Description 08/16/2023 11:00 AM EDT Office Visit Cardiology, [facility] 132 [facility] [place] [address] Kamran Barbosa, [address] [place] [address] 12/14/2023 1:40 PM EDT Office Visit Family Medicine [address] [place] [phone] Peace Barnes MD [address] [place] [address] [place] [address] 12/29/2023 8:00 AM EDT Laboratory Laboratory, [facility] [address] [place] [address] [facility] 132 [place] [address] 12/29/2023 9:00 AM EDT Imaging Radiology [facility] 1st [facility] 132 [place] [address] 01/06/2024 3:15 PM EDT Office Visit Hematology/Oncology [facility] [place] 200 [facility] [place] [address] Garrison Jalloh MD 200 [facility] [place] [address] Scheduled Orders Name Type Priority Associated Diagnoses Orde r Schedule CBC WITH WBC DIFFERENTIAL Lab STAT Adenocarcinoma of colon (HCC) Expected: 01/02/2024 (Approximate), Expires: 07/10/2024 COMPREHENSIVE METABOLIC PANEL Lab STAT Adenocarcinoma of colon (HCC) Expected: 01/02/2024 (Approximate), Expires: 07/10/2024 CEA Lab STAT Adenocarcinoma of colon (HCC) Expected: 01/02/2024 (Approximate), Expires: 07/10/2024 Health Maintenance Due Date Last Done Comments [...] as of this encounter Visit Diagnoses Diagnosis Adenocarcinoma of colon (HCC)- Primary Malignant neoplasm of colon, unspecified site documented in this encounter Care Teams President And Ceo Relationship Specialty Start Date End Date Peace Barnes MD [address] [place] [address] [place] [address] PCP - General Family Medicine 09/23/21 documented as of this encounter
--- OUTSIDE RECORDS SUMMARY | 2023-12-09 08:52 | External Medical Summary ---
Author Name Unknown Address Unknown Organization [facility] [address] [place] [address] Laboratory Report Ordering Provider Test Date Status KENDALL MONSON 07/06/2023 08:55:32 Final Observation Date Value Abnormality Reference (Units ) Status BUN 07/06/2023 08:55:32 15 6-20 (mg/dL) Final Creatinine 07/06/2023 08:55:32 1.3 Above high normal 0.6-1.2 (mg/dL) Final Glomerular filtration rate/1.73 sq M.predicted [Volume Rate/Area] in Serum, Plasma or Blood by Creatinine-based formula (CKD-EPI) 07/06/2023 08:55:32 54 Below low normal >=60 (mL/min) Final eGFR is calculated based on the CKD-EPI 2020 equation SODIUM 07/06/2023 08:55:32 138 135-146 (m mol/L) Final Potassium 07/06/2023 08:55:32 4.3 3.5-5.1 (m mol/L) Final Cl 07/06/2023 08:55:32 103 98-107 (mm ol/L) Final CO2 07/06/2023 08:55:32 26 22-32 (mmo l/L) Final Anion gap 07/06/2023 08:55:32 9 7-15 (mmol /L) Final Glucose 07/06/2023 08:55:32 239 Above high normal 70 -120 (mg/dL) Final Albumin 07/06/2023 08:55:32 4.0 3.8-5.0 (g /dL) Final AST (Aspartate aminotransferase) 07/06/2023 08:55:32 12 10-50 (U/L) Fin al Alk Phos 07/06/2023 08:55:32 69 35-130 (U/ L) Final Bilirubin, Total 07/06/2023 08:55:32 0.7 <=1 .2 (mg/dL) Final Calcium 07/06/2023 08:55:32 9.7 8.4-10.2 ( mg/dL) Final Protein 07/06/2023 08:55:32 7.4 6.0-8.3 (g /dL) Final ALT (Alanine aminotransferase) 07/06/2023 08:55:32 6 Below low normal 10-50 (U/L) Final Performing Location [facility] [place] [address]
--- OUTSIDE RECORDS SUMMARY | 2023-12-09 08:52 | External Medical Summary | Summary of Care ---
Author Name Unknown Organization [facility] Address [address] [place] [address] Phone [phone] Care Team Providers Care Blending Machine Operator Name Role Phone Kwabena Calloway MD Primary Care Prov ider Encounter Details Date Type Department Care Team (Late st Contact Info) Description 07/27/2023 Refill Contact At Once! [facility] CMR [address] [place], [place] [id number] Jazmine Unger, [facility] [address] [place] [address] Allergies Active Allergy Reactions Criticality Noted Date [...] room. 2 Each 0 07/06/2021 Active Ipratropium [place] HFA 17 MCG/ACT Inhalation Aerosol Solution (Atrovent [...] Rybelsus 3 MG Oral Tablet (Semaglutide) Take 3 mg by mouth daily first [...] Unger RPh - 07/27/2023 11:26 AM EDT Sulaiman I completed an annual medication review with Mr. Doloey today. He is interested in an alternative [...] 08/16/2023 11:00 AM EDT Office Visit Cardiology, [facility] [address] [place] [address] Kamran Barbosa DO [address] [place] [address] 12/14/2023 1:40 PM EDT Office Visit Family Medicine [address] [place] [phone] Kwabena Calloway MD [address] [place] [address] [place] [address] 12/29/2023 8:00 AM EDT Laboratory Laboratory, [facility] 132 [facility] [place] [phone] [facility] [place] [address] 12/29/2023 9:00 AM EDT Imaging Radiology [facility] 1st [facility] [place] [address] 01/06/2024 3:15 PM EDT Office Visit Hematology/Oncology [facility] 200 [facility] [place] [phone] Garrisno Jalloh MD 200 [facility] [place] [address] Health Maintenance Due Date Last Done Comments [...] filedocumented as of this encounter Care Teams Blending Machine Operator Relationship Specialty Start Date End Date Kwabena Calloway MD [address] [place] [address] [place] [address] PCP - General Family Medicine 09/23/21 documented as of this encounter
--- OUTSIDE RECORDS SUMMARY | 2023-12-09 08:52 | External Medical Summary | Summary of Care ---
Author Name Unknown Organization [facility] Address [address] [place] [address] Phone [phone] Care Team Providers Care Bioinformatics Support Specialist Name Role Phone Kwabena Calloway MD Primary Care Prov ider Reason for Visit * Reason Comments Medication Refill Encounter Details Date Type Department Care Team (Late st Contact Info) Description 06/08/2023 Refill Family Medicine [address] [phone] Kwabena Calloway MD [address] [place] [address] [place] [address] Encounter for long-term (current) use of other medications* Allergies Active Allergy Reactions Criticality Noted Date Comments Bee Pollen Edema face/lips/tongue High 09/23/2021 Bee Stings 06/15/1997 Fd&C Yellow #5 (Tartrazine) Edema face/lips/tongue High 05/05/2022 peppers Iodinated Contrast Media Rash 11/13/2009 Latex Rash Low 10/15/2021 Lisinopril Hives 08/15/2018 Penicillins 06/15/1997 Hives as a very young man prior to age 19 Tetanus Toxoid 06/15/1997 documented as of this encounter (statuses as of 06/22/2023) Medications Medication Sig Dispensed Refills Start Date End Date Status EPINEPHrine 0.15 MG/0.3ML Injection Solution Auto-injector (EPINEPHrine (anaphylaxis)) Inject into a large muscle 0.15 mg as needed for Anaphylaxis (severe allergic reaction). For a severe reaction: Inject in outer thigh following instructions on package and go to the Emergency room. 2 Each 0 07/06/2021 Active Ipratropium [place] HFA 17 MCG/ACT Inhalation Aerosol Solution (Atrovent [...] and 1/2 tab before bed 90 Tablet 01/11/2023 Active metFORMIN HCl ER 500 MG [...] EVERY MORNING 100 Tablet 0 06/09/2023 Active Levothyroxine Sodium 175 MCG Oral Tablet (Levoxyl) TAKE ONE TABLET BY MOUTH EVERY MORNING 100 Tablet 0 03/01/2023 4 Discontinue d(Refill) documented as of this encounter (statuses as of 06/22/2023) Active Problems Problem Noted Date Diagnosed Date [...] as of this encounter (statuses as of 06/22/2023) Resolved Problems Problem Noted Date Diagnosed Date [...] as of this encounter (statuses as of 06/22/2023) Immunizations Name Administration Dates Next Due COVID-19 [...] Miscellaneous Notes * Telephone Encounter - Sarah Osorio - 06/22/2023 6:04 AM EST Received message from [facility] regarding patient needing labs. Patient was notified. Successfully contacted patient and provided [facility] message. * Telephone Encounter - Vivian Jackson [facility] - 06/09/2023 8:26 AM EST Signed Prescriptions: Disp Refills Levothyroxine Sodium 175 MCG Oral Tablet (*100 Ta*0 Sig: TAKE ONE TABLET BY MOUTH EVERY MORNING Authorizing Provider: KWABENA CALLOWAY Ordering User: VIVIAN JACKSON * Telephone Encounter - Vivian Jackson [facility] - 06/09/2023 8:25 AM EST Provided 100 days supply with 0 refill(s). Per refill protocol patient should have TSH on file within past year. Reviewed AMP report, Care Gaps/Health Maintenance, medications list, and for any routine labs typically ordered for this patient. Lab orders placed. Please contact patient to advise of labs ordered for blood draw. Fasting is not required. Advise toobtain labs before requesting the next refill. Thanks, Vivian Jackson, PharmD Clinical Pharmacist [facility](formerly telepharmacy) [phone] 06/09/2023, 8:25 AM documented in this encounter Plan of Treatment Upcoming Encounters Date Type Department Care Team (Late st Contact Info) Description 07/06/2023 8:15 AM EDT Office Visit Hematology/Oncology [facility] 200 [facility] [place] [phone] Garrison Jalloh MD 200 [facility] [place] [address] 08/16/2023 11:00 AM EDT Office Visit Cardiology [address] [place] [address] Tien Nickerson, DO [address] [place] [address] 12/14/2023 1:40 PM EDT Office Visit Family Medicine [address] [place] [phone] Kwabena Calloway MD [address] [place] [address] [place] [address] Scheduled Orders Name Type Priority Associated Diagnoses Orde r Schedule TSH WITH FREE T4 IF INDICATED Lab Routine Encounter for long-term (current) use of other medications Expected: 06/16/2023 (Approximate), Expires: 06/09/2024 Health Maintenance Due Date Last Done Comments [...] as of this encounter Visit Diagnoses Diagnosis Encounter for long-term (current) use of other medications- Primary documented in this encounter Care Teams Bioinformatics Support Specialist Relationship Specialty Start Date End Date Kwabena Calloway MD [address] [place] [address] [place] [address] PCP - General Family Medicine 09/23/21 documented as of this encounter
--- OUTSIDE RECORDS SUMMARY | 2023-12-09 08:52 | External Medical Summary ---
Author Name Unknown Address Unknown Organization K09:[facility] [place] [address] Laboratory Report Ordering Provider Test Date Status KENDALL MONSON 07/06/2023 08:55:32 Final Observation Date Value Abnormality Reference (Units ) Status SYNC LEUKOCYTES IN BLOOD BY AUTOMATED COUNT 07/06/2023 08:55:32 4.92 4.00-10.80 (K/uL) Final Segs 07/06/2023 08:55:32 72.6 40.0-75.0 (%) Final Lymphs % 07/06/2023 08:55:32 17.9 Below low normal 18.0-42.0 (%) Final Monos 07/06/2023 08:55:32 7.3 1.0-11.0 (%) Final Eosinophils 07/06/2023 08:55:32 1.8 0.0-6.0 (%) Final Basos 07/06/2023 08:55:32 0.4 0.0-2.0 (%) Final Absolute Segs 07/06/2023 08:55:32 3.57 1.80-7.70 (K/uL) Final Lymphs, absolute 07/06/2023 08:55:32 0.88 Below low normal 1.00-4.80 (K/ul) Final Monos, Abs 07/06/2023 08:55:32 0.36 0.00-1.10 (K/uL) Final Eos, Abs 07/06/2023 08:55:32 0.09 0.00-0.70 (K/uL) Final Basos, Abs 07/06/2023 08:55:32 0.02 0.00-0.20 (K/uL) Final Performing Location [facility] [address]
--- OUTSIDE RECORDS SUMMARY | 2023-12-09 08:52 | External Medical Summary | Summary of Care ---
Author Name Unknown Organization [facility] Address [address] [facility] [place] [address] Phone [phone] Care Team Providers Care Barrel Washer Machine Name Role Phone Peace Barnes MD Primary Care Prov ider Reason for Visit * Reason Onset Date Comments Appointment 07/06/2023 Encounter Details Date Type Department Care Team (Late st Contact Info) Description 07/06/2023 Telephone Hematology/Oncology [facility] [place] [address] [place] [phone] Garrison Jalloh MD [address] [facility] [address] Appointment Allergies Active Allergy Reactions Criticality Noted Date [...] room. 2 Each 0 07/06/2021 Active Ipratropium [place] HFA 17 MCG/ACT Inhalation Aerosol Solution (Atrovent [...] Miscellaneous Notes * Telephone Encounter - Tavia Ta OSA - 07/06/2023 8:[address] (cap) was scheduled on 08-11-23 AT 9:00am [facility] Pt given prep instructions documented in this encounter Plan of Treatment Upcoming Encounters Date Type Department Care Team (Late st Contact Info) Description 07/06/2023 9:10 AM EDT Laboratory Laboratory [facility] [address] [place] [phone] [facility] [address] [place] [address] Arrived 08/11/2023 9:00 AM EDT Imaging Radiology [address] 132 [facility] [place] [address] 08/16/2023 11:00 AM EDT Office Visit Cardiology, [facility] 132 [facility] [place] [address] Kamran Barbosa, DO [address] [place] [address] 12/14/2023 1:40 PM EDT Office Visit Family Medicine [address] [place] [phone] Peace Barnes MD [address] [place] [address] [place] [address] 01/06/2024 3:15 PM EDT Office Visit Hematology/Oncology [facility] [place] 200 [facility] [place] [phone] Garrison Jalloh MD 200 [facility] [place], [place] [address] Health Maintenance Due Date Last Done Comments [...] as of this encounter Care Teams Barrel Washer Machine Relationship Specialty Start Date End Date Peace Barnes MD [address] [place] [address] [place] [address] PCP - General Family Medicine 09/23/21 documented as of this encounter
--- OUTSIDE RECORDS SUMMARY | 2023-12-09 08:52 | External Medical Summary | Summary of Care ---
Author Name Unknown Organization [facility] Address [address] [place] [address] Phone [phone] Care Team Providers Care Transmission Repairer Name Role Phone Kwabena Calloway MD Primary Care Prov ider Reason for Visit * Reason Comments Medication Refill Encounter Details Date Type Department Care Team (Late st Contact Info) Description 07/11/2023 Refill Family Medicine [address] [phone] Kwabena Calloway MD [address] [place], [place] [address] [address] Allergies Active Allergy Reactions Criticality Noted Date Comments Bee Pollen Edema face/lips/tongue High 09/23/2021 Bee Stings 06/15/1997 Fd&C Yellow #5 (Tartrazine) Edema face/lips/tongue High 05/05/2022 peppers Iodinated Contrast Media Rash 11/13/2009 Latex Rash Low 10/15/2021 Lisinopril Hives 08/15/2018 Penicillins 06/15/1997 Hives as a very young man prior to age 19 Tetanus Toxoid 06/15/1997 documented as of this encounter (statuses as of 07/12/2023) Medications Medication Sig Dispensed Refills Start Date End Date Status EPINEPHrine 0.15 MG/0.3ML Injection Solution Auto-injector (EPINEPHrine (anaphylaxis)) Inject into a large muscle 0.15 mg as needed for Anaphylaxis (severe allergic reaction). For a severe reaction: Inject in outer thigh following instructions on package and go to the Emergency room. 2 Each 0 07/06/2021 Active Ipratropium [place] HFA 17 MCG/ACT Inhalation Aerosol Solution (Atrovent [...] MORNING 100 Tablet 1 07/12/2023 5 Active Allopurinol 300 MG Oral Tablet (Zyloprim) TAKE ONE TABLET BY MOUTH EVERY MORNING 100 Tablet 1 11/02/2022 4 Discontinue d(Refill) documented as of this encounter (statuses as of 07/12/2023) Active Problems Problem Noted Date Diagnosed Date [...] as of this encounter (statuses as of 07/12/2023) Resolved Problems Problem Noted Date Diagnosed Date [...] as of this encounter (statuses as of 07/12/2023) Immunizations Name Administration Dates Next Due COVID-19 [...] encounter Miscellaneous Notes * Telephone Encounter - Jessie Byrd RPh - 07/12/2023 7:38 AM EDTSigned Prescriptions: Disp Refills Allopurinol 300 MG Oral Tablet (Zyloprim) 100 Ta*1 Sig: TAKE ONE TABLET BY MOUTH EVERY MORNINGAuthorizing Provider: KWABENA CALLOWAY User: JESSIE BYRD documented in this encounter Plan of Treatment Upcoming Encounters Date Type Department Care Team (Late st Contact Info) Description 08/16/2023 11:00 AM EDT Office Visit Cardiology, [facility] [address] [place] [address] Kamran Barbosa DO 132 [place] [address] 12/14/2023 1:40 PM EDT Office Visit Family Medicine [address] [phone] Kwabena Calloway MD [address] [place] [address] [place] [address] 12/29/2023 8:00 AM EDT Laboratory Laboratory, [facility] [address] [facility] [place] [phone] [facility] [address] [facility] [place] [address] 12/29/2023 9:00 AM EDT [facility] [address] [facility] [place] [address] 01/06/2024 3:15 PM EDT Office Visit Hematology/Oncology [facility] 200 [facility] [place] [phone] Garrison Jalloh MD [address] [place] [address] Health Maintenance Due Date Last Done Comments [...] filedocumented as of this encounter Care Teams Transmission Repairer Relationship Specialty Start Date End Date Kwabena Calloway MD [address] [place] [address] [place] [address] PCP - General Family Medicine 09/23/21 documented as of this encounter
--- OUTSIDE RECORDS SUMMARY | 2023-12-09 08:52 | External Medical Summary ---
Author Name Unknown Address Unknown Organization K01:[facility] [address] [place] [address] Laboratory Report Ordering Provider Test Date Status KENDALL MONSON 07/06/2023 08:55:32 Final Observation Date Value Abnormality Reference (Units ) Status CEA 07/06/2023 08:55:32 1.5 <=5.2 (ng/ mL) Final Performing Location [facility] [address] [place] [address]
--- OUTSIDE RECORDS SUMMARY | 2023-12-09 08:52 | External Medical Summary | Summary of Care ---
Author Name Unknown Organization [facility] Address [address] [facility] [place] [address] Phone [phone] Care Team Providers Care X Ray Technologist Name Role Phone Peace Barnes MD Primary Care Prov ider Encounter Details Date Type Department Care Team (Late st Contact Info) Description 07/21/2023 Population Health External Data Unspecified Department Allergies [...] as of this encounter (statuses as of 07/26/2023) Medications Medication Sig Dispensed Refills Start Date End Date Status EPINEPHrine 0.15 MG/0.3ML Injection Solution Auto-injector (EPINEPHrine (anaphylaxis)) Inject into a large muscle 0.15 mg as needed for Anaphylaxis (severe allergic reaction). For a severe reaction: Inject in outer thigh following instructions on package and go to the Emergency room. 2 Each 0 07/06/2021 Active Ipratropium [place] HFA 17 MCG/ACT Inhalation Aerosol Solution (Atrovent [...] MORNING 100 Tablet 1 07/12/2023 07/11/2024 Active documented as of this encounter (statuses as of 07/26/2023) Active Problems Problem Noted Date Diagnosed Date [...] as of this encounter (statuses as of 07/26/2023) Resolved Problems Problem Noted Date Diagnosed Date [...] as of this encounter (statuses as of 07/26/2023) Immunizations Name Administration Dates Next Due COVID-19 [...] 08/16/2023 11:00 AM EDT Office Visit Cardiology, [facility] 132 [facility] [place] [address] Kamran Barbosa DO 132 [facility] [place] [address] 12/14/2023 1:40 PM EDT Office Visit Family Medicine [address] [place] [phone] Peace Barnes MD [address] [place] [address] [place] [address] 12/29/2023 8:00 AM EDT Laboratory Laboratory, [address] [place] [phone] [address] [place] [address] 12/29/2023 9:00 AM EDT Imaging Radiology [facility] [address] [place] [address] 01/06/2024 3:15 PM EDT Office Visit Hematology/Oncology [address] [place] [phone] Garrison Jalloh MD 200 [facility] [place] [address] Health Maintenance Due Date Last Done Comments [...] filedocumented as of this encounter Care Teams X Ray Technologist Relationship Specialty Start Date End Date Peace Barnes MD [address] [place] [address] [place] [phone] PCP - General Family Medicine 09/23/21 documented as of this encounter
--- OUTSIDE RECORDS SUMMARY | 2023-12-09 08:53 | External Medical Summary | Summary of Care ---
Author Name Unknown Organization [facility] Address [address] [facility] [place] [address] Phone [phone] Care Team Providers Care Network Solutions Architect Name Role Phone Peace Barnes MD Primary Care Prov ider Encounter Details Date Type Department Care Team (Late st Contact Info) Description 06/14/2023 Population Health External Data Unspecified Department Allergies [...] as of this encounter (statuses as of 06/15/2023) Medications Medication Sig Dispensed Refills Start Date End Date Status EPINEPHrine 0.15 MG/0.3ML Injection Solution Auto-injector (EPINEPHrine (anaphylaxis)) Inject into a large muscle 0.15 mg as needed for Anaphylaxis (severe allergic reaction). For a severe reaction: Inject in outer thigh following instructions on package and go to the Emergency room. 2 Each 0 07/06/2021 Active Ipratropium [place] HFA 17 MCG/ACT Inhalation Aerosol Solution (Atrovent [...] EVERY MORNING 100 Tablet 0 06/09/2023 Active documented as of this encounter (statuses as of 06/15/2023) Active Problems Problem Noted Date Diagnosed Date [...] as of this encounter (statuses as of 06/15/2023) Resolved Problems Problem Noted Date Diagnosed Date [...] as of this encounter (statuses as of 06/15/2023) Immunizations Name Administration Dates Next Due COVID-19 [...] 07/06/2023 8:15 AM EDT Office Visit Hematology/Oncology [facility] [phone] Garrison Jalloh MD 200 [facility] [address] 08/16/2023 11:00 AM EDT Office Visit Cardiology [address] [place] [address] Tien Nickerson, DO [address] [place] [address] 12/14/2023 1:40 PM EDT Office Visit Family Medicine [address] [place] [phone] Peace Barnes MD [address] [place] [address] [place] [address] Health Maintenance Due Date Last Done Comments [...] filedocumented as of this encounter Care Teams Network Solutions Architect Relationship Specialty Start Date End Date Peace Barnes MD [address] [place] [address] [place] [phone] PCP - General Family Medicine 09/23/21 documented as of this encounter
--- OUTSIDE RECORDS SUMMARY | 2023-12-09 08:53 | External Medical Summary | Summary of Care ---
Author Name Unknown Organization [facility] Address [address] [facility] [place] [address] Phone [phone] Care Team Providers Care Glass Cut Off Supervisor Name Role Phone Peace Barnes MD Primary Care Prov ider Encounter Details Date Type Department Care Team (Late st Contact Info) Description 06/13/2023 Orders Only PATIENT PORTAL DO NOT DELETE THIS DEPT USED BY [place] [id number] Allergies Active Allergy Reactions Criticality Noted Date Comments Bee Pollen Edema face/lips/tongue High 09/23/2021 Bee Stings 06/15/1997 Fd&C Yellow #5 (Tartrazine) Edema face/lips/tongue High 05/05/2022 peppers Iodinated Contrast Media Rash 11/13/2009 Latex Rash Low 10/15/2021 Lisinopril Hives 08/15/2018 Penicillins 06/15/1997 Hives as a very young man prior to age 19 Tetanus Toxoid 06/15/1997 documented as of this encounter (statuses as of 06/13/2023) Medications Medication Sig Dispensed Refills Start Date End Date Status EPINEPHrine 0.15 MG/0.3ML Injection Solution Auto-injector (EPINEPHrine (anaphylaxis)) Inject into a large muscle 0.15 mg as needed for Anaphylaxis (severe allergic reaction). For a severe reaction: Inject in outer thigh following instructions on package and go to the Emergency room. 2 Each 0 07/06/2021 Active Ipratropium [place] HFA 17 MCG/ACT Inhalation Aerosol Solution (Atrovent [...] as of this encounter (statuses as of 06/13/2023) Active Problems Problem Noted Date Diagnosed Date [...] as of this encounter (statuses as of 06/13/2023) Resolved Problems Problem Noted Date Diagnosed Date [...] as of this encounter (statuses as of 06/13/2023) Immunizations Name Administration Dates Next Due COVID-19 [...] 07/06/2023 8:15 AM EDT Office Visit Hematology/Oncology [facility] 200 [facility] [place] [address] Garrison Jalloh MD 200 [facility] [place] [address] 08/16/2023 11:00 AM EDT Office Visit Cardiology [address] [place] [address] Tien Nickerson, DO [address] [place] [address] 12/14/2023 1:40 PM EDT Office Visit Family Medicine [address] [place] [phone] Peace Barnes MD [address] [place] [address] [place] [address] Health Maintenance Due Date Last Done Comments Zoster Vaccines (3 of 3) 11/17/2021 09/22/2021, 02/23 COVID-19 Vaccine ( season) 2022 03/02/2022, 08/19/2020, 07/17/2020 Influenza Vaccine (FLU shot) (#1) 2022 01/22/2022, 01/14/2022, 02/23/2021, Additional history exists Albumin/Creatinine Ratio 02/25/202302/25/2 022, 01/14/2022, 02/23/2021, Additional history exists Depression [...] filedocumented as of this encounter Care Teams Glass Cut Off Supervisor Relationship Specialty Start Date End Date Peace Barnes MD [address] [place] [address] [place] [address] PCP - General Family Medicine 09/23/21 documented as of this encounter
[2023-12-09] MEDS: LANTUS PER UNIT CHARGE SQ SCH ×2 (09:46→20:44)
[2023-12-09] MEDS: APIXABAN 2.5 MG TAB PO SCH (10:14)
[2023-12-09] MEDS: DOXYCYCLINE HYCLATE 100 MG in DEXTROSE 5% MINI-B 100 ML IV STA (10:28)
[2023-12-09] MEDS ORDERED: GLUCOSE 10 TAB/TUBE PO PRN (12:11)
[2023-12-09] MEDS ORDERED: GLUCOSE 40% GEL 15 GM TUBE PO PRN (12:11)
[2023-12-09] MEDS ORDERED: DEXTROSE 50% 50 ML SYRINGE IV PRN (12:11)
[2023-12-09] MEDS ORDERED: GLUCAGON FOR INJ 1 MG VIAL SQ PRN (12:11)
[2023-12-09] MEDS ORDERED: CARBOHYDRATES FOR HYPOGLYCEMIA PO PRN (12:11)
--- NOTE | 2023-12-09 12:29 | Communication Note ---
Date of Service: December 09, 2023 Evaluated patient at bedside. Reports feeling chest tightness and SOB for a few days, similar to presentation "years ago" He recalls his metoprolol being reduced around his "colectomy'--since then he states he felt fine from a cardiac standpoint and was lost to follow up with Cards (2019) He endorses chronic sinus congestion--perhaps some increase cough and subjective fever v chills. He is a poor historian as conversation often tangential to initial question asked. Denies active pain at this time Tele with rates in 110s-120s Only given PO 25 metoprolol and 2.5 IV push Hypertensive to 160s Febrile? TMAX 38.5 CT abp without localizing source, CT chest questionable UA negative #Atrial Fibrillation with RVR Unclear if infection driving issues at this time given fever, unclear localizing cause, no wounds/cellulitis/WBC TSH 3.2 CTX empirically while blood culture pends Metoprolol 25 q6h Apixaban 2.5mg BID started, dose reduced 2/2 renal fx/age Cards #Fever unclear eitology, known history of malignancy which is concerning as alternative cause, follows Dr. Shubham Abad reviewed chest CT and no concern for resp infection CTM fever curve, d/c CTX as able rest of plan per HP
[2023-12-09] MEDS: FLUTICASONE PROPIONATE NA SPR 16 GM BTL SCH (12:59)
[2023-12-09] MEDS: MULTIVITAMIN TAB PO SCH (13:00)
[2023-12-09] MEDS: METOPROLOL TARTRATE 25 MG TAB PO SCH (13:00)
[2023-12-09] MEDS: ACETAMINOPHEN 325 MG TAB PO PRN (13:17)
[2023-12-09] MEDS: INSULIN ASPART PER UNIT CHARGE SC SCH (13:21)
[2023-12-09] MEDS: LEVOTHYROXINE SODIUM 175 MCG TABLET PO SCH (13:22)
--- NOTE | 2023-12-09 14:05 | Cardiology Consultation ---
Date of Consultation December 09, 2023 Assessment & Plan (1) Sepsis: (2) Mediastinal adenopathy: (3) Fever: (4) Palpitation: (5) Atrial fibrillation: Plan Mr. Mir Dooley is an 83-year-old male who began to feel unwell on , December 08, 2023 with shortness of breath, nonproductive cough, fatigue, weakness, fevers, chills, soaking sweats, tachypalpitations, and right- sided chest discomfort prompting him to call EMS. Patient febrile and tachycardic on presentation. Patient admitted with a working diagnosis of sepsis secondary to bronchitis/atypical pneumonia. Blood cultures obtained. EKG without acute ST segment change. High-sensitivity troponin normal x 2. Cardiology consultation requested due to history of paroxysmal atrial fibrillation with atrial fibrillation with a rapid ventricular response noted on presentation. Chart review reveals patient was previously followed by Dr. Murguia and most recently cared for by Dr. Nickerson with last evaluation in July 2018 at which time patient was noted to be in asymptomatic atrial fibrillation with a controlled ventricular response. At that time, July 2018, the decision was made to no longer pursue a rhythm control strategy. He was also noted to be in atrial fibrillation with a controlled ventricular response when hospitalized in September 2021. With the diagnosis of chronic/permanent atrial fibrillation I suspect the rapid ventricular response reflects the stress of the acute underlying infectious process. Agree with titration of metoprolol, increasing as needed for heart rate and blood pressure control. Patient chronically prescribed reduced dose apixaban (Eliquis) given age greater than 80 and renal dysfunction. Resting echocardiography requested. Further recommendations pending evaluation by Dr. Foster and patient's ongoing hospital course. Supervising Physician Co-Signing Physician Notes Patient was seen and personally examined. Full assessment and plan as outlined above. Care and management discussed in detail with advanced provider and personally endorsed 83-year-old male who presents acutely ill, febrile and tachycardic mildly confused. Longstanding history of persistent/chronic atrial fibrillation with elevated ventricular response rate secondary to demands of acute illness Agree with upward titration of beta-dandre for blood pressure and heart rate control Treat underlying illness Will review echocardiogram as available Chronically anticoagulated with Eliquis History of Present Illness Reason for Consultation: History of paroxysmal atrial fibrillation, atrial fibrillation with a rapid ventricular response Requesting Physician: Dr. Radha Valdes Attending Physician: Radha Valdes MD History of Present Illness November began to feel unwell with shortness of breath, nonproductive cough, fatigue, weakness, fevers, chills, soaking sweats, tachypalpitations, and right-sided chest discomfort. Took a whole pill of metoprolol yesterday morning to aid palpitations Presented to [facility] ER via EMS due to the above EKG on presentation revealed atrial fibrillation with a ventricular rate of 97 bpm, right bundle branch block High-sensitivity troponin normal, 17.8 and then 15.7 pg/mL Chest x-ray without acute chest disease Chest CT with minimal bronchial wall thickening and mosaic attenuation possibly reflecting infectious/inflammatory airways disease and numerous enlarged lymph nodes in the mediastinum and right subclavian station CT of abdomen pelvis without free air, bowel obstruction, or diverticulitis, revealing a moderate fat-containing right inguinal hernia, right cholecystectomy, and diverticulosis Cardiology consultation requested due to atrial fibrillation with a rapid ventricular response, history of paroxysmal atrial fibrillation Decreased appetite and oral intake over the last week, attributed to Rybelsus which was started 2 weeks ago. Tick bite on the left forearm circa 2 weeks ago, not engorged. Past Medical and Surgical History Atrial fibrillation, unspecified Remote history of atrial flutter Paroxysmal ascending aortic aneurysm, 4.6 cm via August 2021 resting echocardiogram Preserved LV systolic function Chronic diastolic heart failure Hypertension Dyslipidemia Type 2 diabetes mellitus Aortic stenosis Pulmonary hypertension Obstructive sleep apnea, CPAP therapy Adenocarcinoma of the colon status post right hemicolectomy in 2021 Stage III chronic kidney disease Chronic anemia Hepatic steatosis Renal cyst Kidney stones status post extraction BPH Asbestosis Hypothyroidism Gout Diverticulosis Family History: Father with CAD. Mother with ovarian cancer. Sister with CAD. Brother with seizure disorder Social History: Never smoker. Never smokeless tobacco user. Rare alcohol. No illegal drug use. 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 Lives in [place]. Allergies Allergy/AdvReac Type Severity Reaction Status Date / Time bee pollen Allergy Severe flushing Verified 12/09/23 00:10 and facial swelling Iodinated Contrast Media Allergy Severe flushing Verified 12/09/23 00:10 and facial swelling lisinopril Allergy Severe Hives Verified 12/09/23 00:10 tetanus toxoid, adsorbed Allergy Intermediate HIVES Verified 12/09/23 00:10 latex Allergy Mild skin Verified 12/09/23 00:10 irritation Penicillins Allergy Mild UNKNOWN Verified 12/09/23 00:10 Home Medications Medication Instructions Recorded Confirmed Type atorvastatin 10 mg tablet 10 mg PO HS 12/12/18 12/09/23 History epinephrine 0.3 mg/0.3 mL 0.3 mg IM .INJECT 0.3ML INTRAMU 12/12/18 12/09/23 History injection, auto-injector PRN Allergic Reaction losartan 50 mg tablet 50 mg PO BID #90 tabs 12/12/18 12/09/23 History terazosin 10 mg capsule 10 mg PO HS 12/12/18 12/09/23 History allopurinol 300 mg tablet 300 mg PO HS 12/13/18 12/09/23 History furosemide 20 mg tablet 20 mg PO QAM PRN Fluid Retention 09/23/21 12/09/23 History apixaban 2.5 mg tablet (Eliquis) 2.5 mg PO BID #60 tabs 09/26/21 12/09/23 Rx levothyroxine 175 mcg tablet 175 mcg PO QAM 10/12/21 12/09/23 History metoprolol tartrate 25 mg tablet 12.5 mg PO DAILY 10/28/21 12/09/23 History coenzyme Q10 100 mg capsule 0 mg PO DAILY 12/08/23 12/09/23 History (CoQ-10) fluticasone propionate 50 2 spray intranasal QAM 12/08/23 12/09/23 History mcg/actuation nasal spray,suspension metformin 500 mg tablet,extended 500 mg PO TID 12/08/23 12/09/23 History release 24 hr multivitamin 1 tab PO DAILY 12/08/23 12/09/23 History semaglutide 7 mg tablet 7 mg PO QAM 12/08/23 12/09/23 History Patient History Medical History Aortic stenosis Borderline to mild aortic stenosis per 09/17/21 ECHO Aortic aneurysm 4.6cm per August 2021 ECHO On anticoagulant therapy Anemia S/p 2 units of pRBC's on admission 09/23/21 and 1 unit of pRBC's prior to discharge 09/26/21 from [facility]. Also had IV iron while admitted History of recent hospitalization 09/23/21 at [facility] for GI Bleed and anemia GI bleed September 2021 inpatient at [facility] Seasonal allergies Hx of nephrolithotomy with removal of calculi History of kidney stones Multiple lung nodules on CT Lactase deficiency Asbestos exposure Angioedema History of Encounter for pre-operative examination Abnormal CT of the abdomen Anemia requiring transfusions VILLALBA (dyspnea on exertion) Weakness GI (gastrointestinal bleed) Surgical History History of esophagogastroduodenoscopy (EGD) History of lithotripsy S/P surgical removal of pilonidal cyst History of colonoscopy History of cardioversion 2009 Family History Mother Cancer Father Heart disease Sister Heart disease Brother Seizure Other No family history of adverse response to anesthesia Social History Smoking Status: Never smoker Second Hand Exposure: No; Do You Dip or Chew Tobacco: No; Hx Alcohol Use: No Hx Substance Use: No Preferred Language: Chinese Communication Ability: Effective Visual Impairment: No Limitations Exercise Rider Required: No Beliefs That Will Affect Care: None marital status: / Current Living Situation: Alone Current Living Situation Comment: lives by self and his daughter helps as needed current occupational status: retired How many Children do You have: 2 Feels Safe at Home: Yes Diet: diabetic during the past year weight has: decreased > 10 lbs Assistive Devices: Cane, CPAP, Walker and Wheelchair Review of Systems Review of Systems: Complete Review of Systems is as stated above, negative, or noncontributory. Physical Exam Physical Exam: General: A&Ox3. NAD. HENT: Normocephalic. Atraumatic. Eyes: PER. Conjunctiva pink, sclera clear. Neck: No carotid bruits. No JVD. Heart: Irregularly irregular at 110 bpm. Grade I/ systolic ejection murmur. No diastolic murmur. No rub. Lungs: Decreased. No wheeze. No rales. Abdomen: +BS. Soft. Nontender. No masses or organomegaly. Extremities: Trivial edema. No clubbing. No cyanosis Limited neurological examination is without focal deficits. Pulses: Posterior tibial=1/4. Results & Data Vital Signs (Past 12 Hours) Vital Signs Temp Pulse Pulse Resp BP BP Pulse Ox 12/09/23 12:26 38.5 C H 115 H 162/98 H 92 12/09/23 11:54 12/09/23 11:26 106 H 22 96 12/09/23 11:00 147/110 H 12/09/23 10:54 103 H 26 H 94 12/09/23 10:03 121 H 19 96 12/09/23 10:01 154/82 H 12/09/23 09:57 109 H 34 H 95 12/09/23 09:28 94 H 167/88 H 12/09/23 09:18 104 H 22 96 12/09/23 09:06 167/88 H 12/09/23 08:39 102 H 22 93 12/09/23 08:11 90 12/09/23 08:05 105 H 20 95 12/09/23 08:03 95 H 17 99 12/09/23 08:00 154/111 H 12/09/23 07:57 98 H 36 H 93 12/09/23 07:06 100 H 22 98 12/09/23 07:01 149/80 H 12/09/23 06:33 97 12/09/23 06:15 98 12/09/23 05:18 98 H 29 H 97 12/09/23 05:15 172/93 H 12/09/23 05:15 172/93 H 12/09/23 05:00 126 H 26 H 172/93 H 98 12/09/23 04:45 120 H 32 H 95 12/09/23 04:00 95 12/09/23 03:19 83 L 12/09/23 03:06 113 H 19 72 L 12/09/23 03:03 124/101 H 12/09/23 03:03 124/101 H 12/09/23 03:00 112 H 22 124/101 H 97 12/09/23 02:51 90 30 H 91 12/09/23 02:06 90 28 H 94 O2 Del Method O2 Flow Rate FiO2 12/09/23 12:26 Room Air 12/09/23 11:54 Room Air 12/09/23 11:26 21 12/09/23 11:00 12/09/23 10:54 12/09/23 10:03 12/09/23 10:01 12/09/23 09:57 12/09/23 09:28 12/09/23 09:18 12/09/23 09:06 12/09/23 08:39 12/09/23 08:11 12/09/23 08:05 Room Air 12/09/23 08:03 12/09/23 08:00 12/09/23 07:57 12/09/23 07:06 12/09/23 07:01 12/09/23 06:33 12/09/23 06:15 12/09/23 05:18 12/09/23 05:15 12/09/23 05:15 12/09/23 05:00 Nasal Cannula 3 12/09/23 04:45 12/09/23 04:00 12/09/23 03:19 Room Air 12/09/23 03:06 12/09/23 03:03 12/09/23 03:03 12/09/23 03:00 Nasal Cannula 3 12/09/23 02:51 12/09/23 02:06 Laboratory Results Cardiac Enzymes 12/08/23 12/09/23 Range/Units 20:21 00:02 AST 14 (13-39) U/L Troponin I High Sens 17.8 15.7 (0-20) pg/ml B-Natriuretic Peptide 100 (0-100) pg/ml Coagulation 12/08/23 Range/Units 20:21 PT 12.2 H (9.0-12.0) Seconds B-Natriuretic Peptide 100 (0-100) pg/ml CBC 12/08/23 12/09/23 Range/Units 20:21 06:24 WBC 10.10 10.77 (4.8-10.8) K/ul RBC 4.33 L 4.16 L (4.70-6.10) M/uL Hgb 12.7 L 12.3 L (14.0-18.0) g/dl Hct 38.4 L 36.1 L (42.0-52.0) % Plt Count 147 143 (130-400) K/uL Neut # (Auto) 8.55 H 9.48 H (1.40-6.50) K/uL Lymph # (Auto) 0.62 L 0.39 L (1.20-3.40) K/uL [place] # (Auto) 0.80 H 0.75 H (0.11-0.59) K/uL Eos # (Auto) 0.04 0.03 (0.00-0.50) K/uL Baso # (Auto) 0.05 0.05 (0.00-0.20) K/uL Comprehensive Metabolic Panel 12/08/23 12/09/23 Range/Units 20:21 04:32 Sodium 130 L 132 L (136-145) mmol/L Potassium 3.9 3.9 (3.5-5.1) mmol/L Chloride 98 98 (98-107) mmol/L Carbon Dioxide 24 25 (21-32) mmol/L BUN 21 22 (6-23) mg/dl Creatinine 1.55 H 1.73 H (0.6-1.4) mg/dl Glucose 238 H 252 H (70-99(Fasting)) mg/dl Calcium 8.6 8.6 (8.6-10.3) mg/dl AST 14 (13-39) U/L ALT 13 (7-52) U/L Alkaline Phosphatase 61 (34-104) U/L Total Protein 7.0 (6.0-8.3) gm/dl Albumin 3.8 (3.4-5.0) gm/dl Intake and Output 12/08/23 12/09/23 12/09/23 22:59 06:59 14:59 Intake Total 100 / 700 600 / 700 100 / 100 Balance 100 / 700 600 / 700 100 / 100 Intake: IV 100 / 700 600 / 700 100 / 100 Acetaminophen 1,000 mg In 100 100 / 100 ml @ 400 mls/hr IV NOW STA Rx#: [id number] Magnesium Sulfate / D5w 1 gm In 100 / 100 100 / 100 100 ml @ 50 mls/hr IV Q2H [facility] Rx#:[id number] Sodium Chloride 0.9% 500 ml @ 500 / 500 999 mls/hr IV .Q31M ONE Rx#: [id number] Other: # Unmeasured Voids 2 Weight 135.8 kg 133.3 kg Weight Measurement Method Built in Bedscale Standing Scale Patient Weight 12/10/23 06:59 Weight 133.3 kg
--- NOTE | 2023-12-09 15:26 | Electrocardiogram Report ---
Test Reason : Blood Pressure : */* mmHG Vent. Rate : 97 BPM Atrial Rate : * BPM P-R Int : * ms QRS Dur : 146 ms QT Int : 380 ms P-R-T Axes : * 92 -9 degrees QTcB Int : 482 ms Atrial fibrillation Right bundle branch block Abnormal ECG When compared with ECG of 23-Sep-2021 12:13, Vent. rate has increased by 37 bpm Right bundle branch block is now Present Confirmed by Antwan Murguia ([id number]) on 12/09/2023 3:26:09 PM Referred By: REFERRED SELF Confirmed By: Antwan Murguia
[2023-12-09] MEDS: cefTRIAXone SODIUM 2,000 MG/50 ML BAG IV SCH (15:56)
[2023-12-09] MEDS: TERAZOSIN HCL 5 MG CAP PO SCH (20:43)
[2023-12-09] MEDS: ATORVASTATIN 10 MG TAB PO SCH (20:43)
[2023-12-09] MEDS: allopurinoL 300 MG TAB PO SCH (20:44)
[2023-12-09] MEDS ORDERED: DOXYCYCLINE HYCLATE 100 MG CAP PO SCH (21:00)
[2023-12-09] MEDS ORDERED: METOPROLOL TARTRATE 25 MG TAB PO SCH (21:00)
[2023-12-10 06:52] LABS: Mean Corpuscular Hemoglobin 29.1 pg (25.0-34.0); Mean Corpuscular Hgb Conc 32.4 g/dL (32.0-36.0); Mean Corpuscular Volume 89.6 fL (80.0-100.0); Mean Platelet Volume 10.6 fL (9.4-12.4); Platelet Count 144 K/uL (130-400); RDW Coefficient of Variation 14.3 % (11.5-14.5); Red Blood Count 4.13 M/uL (4.70-6.10); White Blood Count 12.35 K/ul (4.8-10.8)
[2023-12-10 07:26] LABS: BUN Creatinine Ratio 13.6 (10-20); Calcium 8.1 mg/dl (8.6-10.3); Creatinine Clr Calc Pharmacy 34.3 ml/min; Est GFR (African American) 30.6 ml/min; Est GFR (Non-African American) 26.4 ml/min; Magnesium 2.2 mg/dl (1.7-2.4); Phosphorus 2.9 mg/dl (2.5-4.9); Potassium 4.1 mmol/L (3.5-5.1)
[2023-12-10 07:43] LABS: Folate (Folic Acid),Ser orPlas 11.78 ng/ml (>5.38)
[2023-12-10] MEDS: DOXYCYCLINE HYCLATE 100 MG CAP PO SCH (08:22)
[2023-12-10] MEDS: SODIUM CHLORIDE 0.9% 500 ML IV ONE (08:23)
[2023-12-10 09:59] LABS: Appearance Urine Turbid (Clear); Bacteria Urine Automated None Seen (None Seen); Bilirubin Urine 1+ (Negative); Blood Urine Negative (Negative); Cast Urine Automated >20 /lpf (0-2); Color Urine Dark Yellow; Epithelial Cell Urine Auto 0-2 /hpf (0-2); Glucose Urine UA Negative (Negative); Granular Casts Urine Present /lpf (None Prsent); Hyaline Casts Urine Present /lpf (None Presnt); Ketones Urine Trace (Negative); Leukocyte Esterase Urine 1+ (Negative); Nitrite Urine Positive (Negative); Protein Urine 3+ (Negative); RBC Urine Automated 0-2 /hpf (0-2); Specific Gravity Urine 1.024 (1.000-1.030); Urobilinogen Urine Negative (Negative); WBC Urine Automated 21-50 /hpf (0-5); White Blood Cell Casts Urine Present /lpf (None Prsent)
[2023-12-10 10:10] LABS: Urine Chloride < 15 mmol/L; Urine Potassium 56.4 mmol/L; Urine Sodium 27 mmol/L
--- NOTE | 2023-12-10 10:20 | Hospitalist Progress Note ---
Date of Service December 10, 2023 Assessment & Plan (1) Sepsis: Plan: Mr. Dooley 83-year-old male with PMHx of paroxysmal A. fib on Eliquis, HTN, HLD, DM type II, asthma, hypothyroidism, BPH, Rapid A-fib secondary to illness and uncontrolled BP, history of cardioversion who is admitted for a fib rvr. Patient noted to have ongoing fevers likely precipitating RVR. Rates better controlled with metoprolol titration. No clear source of infection at this time outside of generalized URI like symptoms. Pulm consulted given abnormal/Mediastinal adenopathy on CT imaging, however, low suspicion for a pneumonia noted or any changes from prior imaging. Patient continued on abx given persistent fevers. course complicated by MICHAEL. #MICHAEL on CKD III likely prerenal iso dehydration Repeat labs gentle bolus and encourage po intake acvoid nephrotoxic agents #Atrial Fibrillation with RVR Unclear if infection driving issues at this time given fever, unclear localizing cause, no wounds/cellulitis/WBC TSH 3.2 CTX and doxy empirically while blood culture pends Apixaban 2.5mg BID continue, dose reduced 2/2 renal fx/age Cards consulted -Agreed with metoprolol changes Transition to Metoprolol XL 50mg BID TSH wnl #Fever #History of colon cancer s/p hemicolectomy unclear eitology, known history of malignancy which is concerning as alternative cause, follows Dr. Jalloh Pulm reviewed chest CT and no concern for resp infection CTM fever curve, d/c CTX as able UA questionable, culture pending Continue abx empirically in interim with goal of afebrile for >24-48 hours prior to PO regimen #chronic diastolic heart failure (EF 55%, TTE 2021) #valvular heart disease (mild MR//TR, TTE 2021) #HLD Continue statin, monitor volume status #abnormal chest CT #Mildly enlarged mediastinal adenopathy #Apical left pleural bleb Pulm consulted--recommend repeat CT scan of the chest in 6 months. Pulm follow up for BiPAP and above findings #JAYCOB bipap qhs #chronic normocytic anemia stable, ctm #DMTII hold home medications basal bolus DVT eliquis Admission and Anticipated Discharge Date Admission Date: December 09, 2023 Subjective febrile to 38.5 /16 around noon Ongoing atrial fibrillation with better rate control Patient reports feeling subjectively improved, noting improvement in cough Does note very dark urine this am denies dysuria, gi upset notes drenching sweat last evening with fever Physical Exam Constitutional: WD/WN, vitals as above Respiratory: normal respiratory effort, lungs clear to auscultation Cardiovascular: irregularly irregular Gastrointestinal (Abdomen): normal bowel sounds, soft, nontender, no hepatosplenomegaly Results & Data Results & Data Vital Signs (Past 12 Hours) Vital Signs Temp Pulse Pulse Resp BP Pulse Ox O2 Del Method 12/10/23 07:53 36.5 C 84 18 118/66 95 CPAP 12/10/23 04:04 80 26 H 93 12/10/23 03:28 37.2 C 93 H 22 125/66 93 CPAP 12/09/23 23:48 96 H 12/09/23 23:42 37.8 C H 104 H 24 146/64 H 93 CPAP FiO2 12/10/23 07:53 12/10/23 04:04 21 12/10/23 03:28 12/09/23 23:48 12/09/23 23:42 Laboratory Results Short CBC 12/10/23 Range/Units 05:41 WBC 12.35 H (4.8-10.8) K/ul Hgb 12.0 L (14.0-18.0) g/dl Hct 37.0 L (42.0-52.0) % Plt Count 144 (130-400) K/uL BMP 12/10/23 05:41 Sodium 130 L Potassium 4.1 Chloride 99 Carbon Dioxide 21 BUN 30 H Creatinine 2.21 H D Glucose 191 H Calcium 8.1 L Urine 12/10/23 Range/Units Unknown Urine Color Dark Yellow Urine Appearance Turbid A (Clear) Urine pH 5.0 (4.5-7.5) Ur Specific [place] 1.024 (1.000-1.030) Urine Protein 3+ H (Negative) Urine Glucose (UA) Negative (Negative) Medications Administered Home Medications Medication Instructions Recorded Confirmed Last Taken atorvastatin 10 mg tablet 10 mg PO HS 12/12/18 12/09/23 10/14/21 19:00 epinephrine 0.3 mg/0.3 mL 0.3 mg IM .INJECT 0.3ML INTRAMU 12/12/18 12/09/23 Unknown injection, auto-injector PRN Allergic Reaction losartan 50 mg tablet 50 mg PO BID #90 tabs 12/12/18 12/09/23 10/14/21 19:00 terazosin 10 mg capsule 10 mg PO HS 12/12/18 12/09/23 10/14/21 19:00 allopurinol 300 mg tablet 300 mg PO HS 12/13/18 12/09/23 10/14/21 19:00 furosemide 20 mg tablet 20 mg PO QAM PRN Fluid Retention 09/23/21 12/09/23 10/14/21 07:00 apixaban 2.5 mg tablet (Eliquis) 2.5 mg PO BID #60 tabs 09/26/21 12/09/23 10/12/21 07:00 levothyroxine 175 mcg tablet 175 mcg PO QAM 10/12/21 12/09/23 10/15/21 07:00 metoprolol tartrate 25 mg tablet 12.5 mg PO DAILY 10/28/21 12/09/23 Unknown coenzyme Q10 100 mg capsule 0 mg PO DAILY 12/08/23 12/09/23 Unknown (CoQ-10) fluticasone propionate 50 2 spray intranasal QAM 12/08/23 12/09/23 Unknown mcg/actuation nasal spray,suspension metformin 500 mg tablet,extended 500 mg PO TID 12/08/23 12/09/23 Unknown release 24 hr multivitamin 1 tab PO DAILY 12/08/23 12/09/23 Unknown semaglutide 7 mg tablet 7 mg PO QAM 12/08/23 12/09/23 Unknown Active Medications Generic Name Dose Route Start Last Admin Trade Name Freq PRN Reason Stop Dose Admin Acetaminophen 650 mg 12/09/23 05:05 12/09/23 23:53 Acetaminophen 325 Mg Tab PO 01/08/24 05:04 650 mg QID PRN Administration pain/fever Allopurinol 300 mg 12/09/23 21:00 12/09/23 20:44 Allopurinol 300 Mg Tab PO 01/08/24 20:59 300 mg HS OTTO Administration Apixaban 2.5 mg 12/09/23 09:30 12/10/23 07:31 Apixaban 2.5 Mg Tab PO 01/08/24 09:29 2.5 mg BID OTTO Administration Atorvastatin Calcium 10 mg 12/09/23 21:00 12/09/23 20:43 Atorvastatin 10 Mg Tab PO 01/08/24 20:59 10 mg HS OTTO Administration Doxycycline Hyclate 100 mg 12/10/23 09:00 12/10/23 08:22 Doxycycline Hyclate 100 Mg Cap PO 12/17/23 08:59 100 mg BID OTTO Administration Fluticasone Propionate 2 sprays 12/09/23 12:30 12/10/23 07:31 Fluticasone Propionate Na Spr 16 Gm Btl NA 01/08/24 12:29 2 sprays QAM OTTO Administration Ceftriaxone Sodium 2,000 mg in 50 mls @ 100 mls/hr 12/09/23 14:00 12/10/23 15:07 Rocephin IV 12/11/23 13:59 Infused Q24H O[facility]O Infusion Insulin Aspart 0 units 12/09/23 12:30 12/10/23 11:57 Insulin Aspart Per Unit Charge SC 01/08/24 12:29 7 units ACHS OTTO Administration Insulin Glargine 5 units 12/09/23 21:00 12/10/23 07:40 Lantus Per Unit Charge SQ 01/08/24 20:59 5 units BID OTTO Administration Levothyroxine Sodium 175 mcg 12/09/23 13:30 12/10/23 07:30 Levothyroxine Sodium 175 Mcg Tablet PO 01/08/24 13:29 175 mcg DAILY@0730 OTTO Administration Multivitamins 1 tab 12/09/23 12:30 12/10/23 07:31 Multivitamin Tab PO 01/08/24 12:29 1 tab DAILY OTTO Administration Terazosin HCl 10 mg 12/09/23 21:00 12/09/23 20:43 Terazosin Hcl 5 Mg Cap PO 01/08/24 20:59 10 mg HS OTTO Administration
--- NOTE | 2023-12-10 11:28 | Cardiology Progress Note ---
Date of Service December 10, 2023 Assessment & Plan Plan Permanent AFIB HTN JAYCOB on CPAP RBBB -Heart rate remains high normal, patient with bronchitis which is likely driving heart rate -Echocardiogram with preserved LV EF and normal systolic function metoprolol tartrate 25mg q6 -Anticoagulated with Eliquis 2.5mg BID (appropriate given age, sCr) Case discussed with Dr. Parmar. I spent a total of 36 minutes on the date of service in preparation, delivery, and documentation of the care provided to this patient, excluding any time spent in the performance of separately billed services. Lety Brown PA-C Department of Cardiology, [facility] This chart was completed in part utilizing Speech Voice Recognition Software. Grammatical errors, random word insertions, pronoun errors, and incomplete sentences are an occasional consequence of this system due to software limitations, ambient noise, and hardware issues. Any formal questions or concerns about the content, text, or information contained within the body of this dictation should be directly addressed to the provider for clarification. Admission and Anticipated Discharge Date Admission Date: December 09, 2023 Subjective Patient reports feeling back to baseline. Breathing has improved. He does report having fever overnight, reports he was given tylenol then had significant sweating. This has resolved Denies dizziness, lightheadedness, chest pain, palpitations, syncope Review of Systems Review of Systems: All systems reviewed & are unremarkable except as noted in HPI & below Physical Exam Constitutional: well developed and + overweight; no acute distress Eyes: PERRL, conjunctivae normal, anicteric sclerae Respiratory: normal respiratory effort, lungs clear to auscultation Auscultation: no crackles, no rales and no wheezes Cardiovascular: Rate/Rhythm: + tachycardic and + irregularly irregular Heart Sounds: normal S1 and normal S2; no murmur Vessels: no JVD Extremities: no edema Skin: no rashes, warm and dry Psychiatric: A+Ox3, euthymic affect Results & Data Vital Signs (Past 12 Hours) Vital Signs Temp Pulse Pulse Resp BP Pulse Ox O2 Del Method 12/10/23 07:53 36.5 C 84 18 118/66 95 CPAP 12/10/23 07:30 103 H 12/10/23 07:30 Room Air 12/10/23 04:04 80 26 H 93 12/10/23 03:28 37.2 C 93 H 22 125/66 93 CPAP 12/09/23 23:48 96 H 12/09/23 23:42 37.8 C H 104 H 24 146/64 H 93 CPAP FiO2 12/10/23 07:53 12/10/23 07:30 12/10/23 07:30 12/10/23 04:04 21 12/10/23 03:28 12/09/23 23:48 12/09/23 23:42 Laboratory Results Cardiac Enzymes 12/09/23 Range/Units 20:11 Troponin I High Sens 38.1 H D (0-20) pg/ml CBC 12/10/23 Range/Units 05:41 WBC 12.35 H (4.8-10.8) K/ul RBC 4.13 L (4.70-6.10) M/uL Hgb 12.0 L (14.0-18.0) g/dl Hct 37.0 L (42.0-52.0) % Plt Count 144 (130-400) K/uL Comprehensive Metabolic Panel 12/10/23 Range/Units 05:41 Sodium 130 L (136-145) mmol/L Potassium 4.1 (3.5-5.1) mmol/L Chloride 99 (98-107) mmol/L Carbon Dioxide 21 (21-32) mmol/L BUN 30 H (6-23) mg/dl Creatinine 2.21 H D (0.6-1.4) mg/dl Glucose 191 H (70-99(Fasting)) mg/dl Calcium 8.1 L (8.6-10.3) mg/dl Intake and Output 12/09/23 12/10/23 12/10/23 22:59 06:59 14:59 Intake Total 1027.5 / 1427.5 500 / 500 Output Total 150 / 150 Balance 1027.5 / 1277.5 -150 / 1277.5 500 / 500 Intake: IV 1027.5 / 1127.5 500 / 500 Nss + 20Meq KCl 20 meq In 1,000 977.5 / 977.5 ml @ 75 mls/hr IV .[id number] ONE Rx#:[id number] Sodium Chloride 0.9% 500 ml @ 500 / 500 999 mls/hr IV .Q31M ONE Rx#: [id number] cefTRIAXone SODIUM 2,000 mg In 50 / 50 50 ml @ 100 mls/hr IV Q24H [facility] Rx#:[id number] Output: Urine 150 / 150 Other: # Unmeasured Voids 1 Weight 134.2 kg Diagnostic Findings ECHO 12/09/2023 the LV is normal sized mild concentric LVH study technically difficult Refused definity contrast due to fear of allergic reaction No regional WMA LVEF 55-60% Left atrium is moderately dilated Moderate aortic valve sclerosis without aortic valve stenosis mild mitral annular calcification trace mitral regurgitation IVC is moderately dilated EKG 12/09/2023 AFIB 96bpm RBBB
--- NOTE | 2023-12-10 14:49 | Electrocardiogram Report ---
Test Reason : Blood Pressure : */* mmHG Vent. Rate : 96 BPM Atrial Rate : 55 BPM P-R Int : * ms QRS Dur : 156 ms QT Int : 394 ms P-R-T Axes : * 86 15 degrees QTcB Int : 497 ms Atrial fibrillation Right bundle branch block Abnormal ECG When compared with ECG of 08-Dec-2023 20:17, No significant change was found Confirmed by Deny Bess ([id number]) on 12/10/2023 2:49:15 PM Referred By: REFERRED SELF Confirmed By: Deny Bess
[2023-12-10] MEDS: ACETAMINOPHEN 325 MG TAB PO PRN (15:38)
[2023-12-10 16:31] LABS: Calcium 8.3 mg/dl (8.6-10.3); Creatinine Clr Calc Pharmacy 33.1 ml/min; Est GFR (African American) 29.3 ml/min; Est GFR (Non-African American) 25.3 ml/min; Potassium 4.7 mmol/L (3.5-5.1)
[2023-12-10] MEDS: METOPROLOL SUCC 50MG EXT REL TAB PO SCH (21:23)
[2023-12-11 06:40] LABS: Hematocrit (blood only) 33.8 % (42.0-52.0); Hemoglobin 11.1 g/dl (14.0-18.0); Mean Corpuscular Hgb Conc 32.8 g/dL (32.0-36.0); Mean Corpuscular Volume 88.3 fL (80.0-100.0); Mean Platelet Volume 10.3 fL (9.4-12.4); Platelet Count 158 K/uL (130-400); RDW Coefficient of Variation 14.2 % (11.5-14.5); RDW Standard Deviation 45.7 fL (36.4-46.3); Red Blood Count 3.83 M/uL (4.70-6.10); White Blood Count 10.08 K/ul (4.8-10.8)
[2023-12-11 07:06] LABS: BUN Creatinine Ratio 19.2 (10-20); Creatinine Clr Calc Pharmacy 36.5 ml/min; Est GFR (African American) 32.9 ml/min; Est GFR (Non-African American) 28.4 ml/min; Magnesium 2.1 mg/dl (1.7-2.4); Phosphorus 2.7 mg/dl (2.5-4.9); Potassium 3.9 mmol/L (3.5-5.1)
[2023-12-11 07:35] LABS: Albumin Level 3.2 gm/dl (3.4-5.0); Bilirubin Direct 0.2 mg/dl (0-0.2); Bilirubin,Total 0.8 mg/dl (0.2-1.0); C Reactive Protein 27.27 mg/dl (0-0.5); Total Protein 6.4 gm/dl (6.0-8.3)
--- NOTE | 2023-12-11 08:40 | Nephrology Consultation ---
Date of Consultation December 11, 2023 Assessment & Plan (1) Acute kidney injury superimposed on stage 3b chronic kidney disease: Acute kidney injury on CKD 3B/ -CKD stage 3 w/ Baseline cr in mid to late i.0s. This was at baseline on admission which has Peaked to 2.29 yesterday, improved to 2.08 today.Anisa hemodynamically mediated 2/ Afib with RVR and HTN.There is a pre renal component as well as his oral intake has not been good over the last few days. - Would give him another 500 mls of Isolyte, encourage oral intake and fluids( @ 1.5 lit/ 24 hr) - DAILY Bmp - Hold home furosemide - Avoid contarst/ nephrotoxics - Renally dose Abx. (2) Atrial fibrillation: As primary/ Cardiology (3) Hyponatremia: Anisa prerenal , improved w/ fluid. - Another bolus of 500 mls today - Encourage oral intake and 3 times meala. History of Present Illness Reason for Consultation: Acute Kidney injury, Hyponatremai Attending Physician: Radha Valdes MD History of Present Illness 83 yr old w/ who was a/ with 2-3 days history productive cough with Right- sided chest pain and SOB. Patient febrile and tachycardic on presentation. Patient admitted with a working diagnosis of sepsis secondary to bronchitis/atypical pneumonia. Chest x-ray without acute chest disease Chest CT showed minimal bronchial wall thickening and mosaic attenuation ,reflecting infectious/inflammatory airways disease and numerous enlarged lymph nodes in the mediastinum with atrophic kidneys without hydronephrosis. No renal calculi were identified. 2 left renal cysts measure up to 3.0 cm..He was found to be in Afb w/ RVR, Seen by cardiology, HR controlled now. Comfortbable , with no chest pain and and SOB on exam today. CKD stage 3 w/ Baseline cr in mid to late i.0s. Renal fucntions was at baseline on admission which Peaked to 2.29 on 12/09, improved to 2.08 today.Previou h/o renal stones needing lithotripsy( [facility])and ? some surgical intervention @ 20 years bfore, Has been stone free since them Normal sodium before, a/w na- 130 , nephrology consulted when na fell to 126 12/09.Improved to 129 today Was give 500 mg of normal saline, Concentrated urine w. 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 Allergies Allergy/AdvReac Type Severity Reaction Status Date / Time bee pollen Allergy Severe flushing Verified 12/09/23 00:10 and facial swelling Iodinated Contrast Media Allergy Severe flushing Verified 12/09/23 00:10 and facial swelling lisinopril Allergy Severe Hives Verified 12/09/23 00:10 tetanus toxoid, adsorbed Allergy Intermediate HIVES Verified 12/09/23 00:10 latex Allergy Mild skin Verified 12/09/23 00:10 irritation Penicillins Allergy Mild UNKNOWN Verified 12/09/23 00:10 Home Medications Medication Instructions Recorded Confirmed Type atorvastatin 10 mg tablet 10 mg PO HS 12/12/18 12/09/23 History epinephrine 0.3 mg/0.3 mL 0.3 mg IM .INJECT 0.3ML INTRAMU 12/12/18 12/09/23 History injection, auto-injector PRN Allergic Reaction losartan 50 mg tablet 50 mg PO BID #90 tabs 12/12/18 12/09/23 History terazosin 10 mg capsule 10 mg PO HS 12/12/18 12/09/23 History allopurinol 300 mg tablet 300 mg PO HS 12/13/18 12/09/23 History furosemide 20 mg tablet 20 mg PO QAM PRN Fluid Retention 09/23/21 12/09/23 History apixaban 2.5 mg tablet (Eliquis) 2.5 mg PO BID #60 tabs 09/26/21 12/09/23 Rx levothyroxine 175 mcg tablet 175 mcg PO QAM 10/12/21 12/09/23 History metoprolol tartrate 25 mg tablet 12.5 mg PO DAILY 10/28/21 12/09/23 History coenzyme Q10 100 mg capsule 0 mg PO DAILY 12/08/23 12/09/23 History (CoQ-10) fluticasone propionate 50 2 spray intranasal QAM 12/08/23 12/09/23 History mcg/actuation nasal spray,suspension metformin 500 mg tablet,extended 500 mg PO TID 12/08/23 12/09/23 History release 24 hr multivitamin 1 tab PO DAILY 12/08/23 12/09/23 History semaglutide 7 mg tablet 7 mg PO QAM 12/08/23 12/09/23 History Patient History Medical History Aortic stenosis Borderline to mild aortic stenosis per 09/17/21 ECHO Aortic aneurysm 4.6cm per August 2021 ECHO On anticoagulant therapy Anemia S/p 2 units of pRBC's on admission 09/23/21 and 1 unit of pRBC's prior to discharge 09/26/21 from [facility]. Also had IV iron while admitted History of recent hospitalization 09/23/21 at [facility] for GI Bleed and anemia GI bleed September 2021 inpatient at [facility] Seasonal allergies Hx of nephrolithotomy with removal of calculi History of kidney stones Multiple lung nodules on CT Lactase deficiency Asbestos exposure Angioedema History of Encounter for pre-operative examination Abnormal CT of the abdomen Anemia requiring transfusions VILLALBA (dyspnea on exertion) Weakness GI (gastrointestinal bleed) Surgical History History of esophagogastroduodenoscopy (EGD) History of lithotripsy S/P surgical removal of pilonidal cyst History of colonoscopy History of cardioversion 2009 Family History Mother Cancer Father Heart disease Sister Heart disease Brother Seizure Other No family history of adverse response to anesthesia Social History Smoking Status: Never smoker Second Hand Exposure: No; Do You Dip or Chew Tobacco: No; Hx Alcohol Use: No Hx Substance Use: No Preferred Language: Belarusian Communication Ability: Effective Visual Impairment: No Limitations Hairspring Vibrator Required: No Beliefs That Will Affect Care: None marital status: / Current Living Situation: Alone Current Living Situation Comment: lives by self and his daughter helps as needed current occupational status: retired How many Children do You have: 2 Feels Safe at Home: Yes Diet: diabetic during the past year weight has: decreased > 10 lbs Assistive Devices: Cane, CPAP, Walker and Wheelchair Review of Systems 2 Review of Systems: All systems reviewed & are unremarkable except as noted in HPI & below Physical Exam 2 Physical Exam: GENERAL: Comfortable, morbidly obese, unkempt NECK : Supple, short neck, no tenderness CHEST : Decreased breath sounds, no tenderness HEART : Irregular, no murmur ABDOMEN : abdominal distention, nontender EXTREMITIES : Trace edema NEUROLOGIC : Coherent, no facial asymmetry, no other gross focality Results & Data Vital Signs (Past 12 Hours) Vital Signs Temp Pulse Pulse Resp BP BP Pulse Ox 12/11/23 07:22 37.6 C H 89 22 146/81 H 98 12/11/23 03:55 37.6 C H 119 H 20 114/73 97 12/11/23 00:08 37.7 C H 96 H 23 147/87 H 97 12/10/23 23:49 103 H 12/10/23 23:09 12/10/23 21:00 112 H 24 92 O2 Del Method FiO2 12/11/23 07:22 Room Air 12/11/23 03:55 Room Air 12/11/23 00:08 CPAP 12/10/23 23:49 12/10/23 23:09 Room Air, BiPAP 12/10/23 21:00 21 Laboratory Results 12/11/23 05:58 12/11/23 05:58
--- NOTE | 2023-12-11 10:17 | Discharge Summary ---
Discharge Summary Date of Service December 11, 2023 Principal Dx & Hospital Course #1 = Principal Diagnosis (1) Sepsis: Mr. Dooley 83-year-old male with PMHx of paroxysmal A. fib on Eliquis, HTN, HLD, DM type II, asthma, hypothyroidism, BPH, Rapid A-fib secondary to illness and uncontrolled BP, history of cardioversion who is admitted for a fib rvr. Patient noted to have ongoing fevers likely precipitating RVR. Rates better controlled with metoprolol titration. No clear source of infection at this time outside of generalized URI like symptoms. Pulm consulted given abnormal/Mediastinal adenopathy on CT imaging, however, low suspicion for a pneumonia noted or any changes from prior imaging. Patient continued on abx given persistent fevers. course complicated by MICHAEL which was prerenal in nature. Patient continued to fever without localizing symptoms. Discussed potentially reaching out to [facility] for ?IR biopsy of lymph node, however, patient wished to forgo and discuss with Dr. Jalloh as OP. Discussed final recommendations with Cardiology who state patient should follow up with Cardiology in 1 week and up titrate metoprolol. On day of discharge, patient states he feels at baseline without acute concerns. #MICHAEL on CKD III *improving likely prerenal iso dehydration Repeat labs in 1 week gentle bolus and encourage po intake acvoid nephrotoxic agents #Atrial Fibrillation with RVR Unclear if infection driving issues at this time given fever, unclear localizing cause, no wounds/cellulitis/WBC TSH 3.2 CTX and doxy empirically while blood culture pends Apixaban 2.5mg BID continue, dose reduced 2/2 renal fx/age Cards consulted -Agreed with metoprolol changes Transition to Metoprolol XL 75mg BID TSH wnl #Fever #History of colon cancer s/p hemicolectomy unclear eitology, known history of malignancy which is concerning as alternative cause, follows Dr. Jalloh Pulm reviewed chest CT and no concern for resp infection CTM fever curve, d/c CTX as able UA questionable, culture pending Continue abx empirically in interim with goal of afebrile for >24-48 hours prior to PO regimen #chronic diastolic heart failure (EF 55%, TTE 2021) #valvular heart disease (mild MR//TR, TTE 2021) #HLD Continue statin, monitor volume status #abnormal chest CT #Mildly enlarged mediastinal adenopathy #Apical left pleural bleb Pulm consulted--recommend repeat CT scan of the chest in 6 months. 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 Jalloh Follow up with Cards in 1 week Follow up labs (BMP) in [address] Chest in 6 months if no further imaging pursued sooner for FUO "Mediastinum and lissette: Numerous mediastinal lymph nodes measure up to 20 mm in diameter. Chest wall and lower neck: Right subclavian lymph node measures 13 mm." Medication Changes From Visit Transition to Metoprolol XL 75mg BID Continue short course of doxycycline Hold lasix Hold home losartan 50mg BID Admission HPI Per Admitting Provider History obtained from patient and records. 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 Few days history of junky cough symptoms with achy right-sided chest pain going to the neck and SOB. Palpitations from A-fib as per patient. No headache, no abdominal pain. No aspiration as per patient. Patient compliant with home medications. 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 Admission Exam Per Admitting Provider GENERAL: Slightly uncomfortable, morbidly obese, unkempt, episodic tachypnea SKIN: Pallor, warm HEENT: Partial alopecia, pale palpebral conjunctivae, no ptosis, dry buccal mucosa NECK : Supple, short neck, no tenderness CHEST : Decreased breath sounds, no tenderness HEART : Irregular, no murmur ABDOMEN : abdominal distention, nontender EXTREMITIES : Minimal LE swelling without tenderness, no other conspicuous deformities noted NEUROLOGIC : Coherent, no facial asymmetry, no other gross focality Discharge Exam Constitutional WD/WN, vitals as above Respiratory normal respiratory effort, lungs clear to auscultation Cardiovascular irregularly irregular Gastrointestinal (Abdomen) normal bowel sounds, soft, nontender, no hepatosplenomegaly Updated Medication List Medication Instructions Recorded Confirmed Type atorvastatin 10 mg tablet 10 mg PO HS 12/12/18 12/09/23 History epinephrine 0.3 mg/0.3 mL 0.3 mg IM .INJECT 0.3ML INTRAMU 12/12/18 12/09/23 History injection, auto-injector PRN Allergic Reaction terazosin 10 mg capsule 10 mg PO HS 12/12/18 12/09/23 History allopurinol 300 mg tablet 300 mg PO HS 12/13/18 12/09/23 History furosemide 20 mg tablet 20 mg PO QAM PRN Fluid Retention 09/23/21 12/09/23 History apixaban 2.5 mg tablet (Eliquis) 2.5 mg PO BID #60 tabs 09/26/21 12/09/23 Rx levothyroxine 175 mcg tablet 175 mcg PO QAM 10/12/21 12/09/23 History coenzyme Q10 100 mg capsule 0 mg PO DAILY 12/08/23 12/09/23 History (CoQ-10) fluticasone propionate 50 2 spray intranasal QAM 12/08/23 12/09/23 History mcg/actuation nasal spray,suspension metformin 500 mg tablet,extended 500 mg PO TID 12/08/23 12/09/23 History release 24 hr multivitamin 1 tab PO DAILY 12/08/23 12/09/23 History semaglutide 7 mg tablet 7 mg PO QAM 12/08/23 12/09/23 History doxycycline hyclate 100 mg capsule 100 mg PO BID #5 caps 12/11/23 Rx metoprolol succinate 50 mg 75 mg (1.5 x 50 mg) PO BID #90 tabs 12/11/23 Rx tablet,extended release 24 hr Hospital Stay Data Consultations 12/09/23 03:54 ED Decision to Admit Stat 12/09/23 07:27 Consult Pulmonology Routine 12/09/23 12:46 Consult Cardiology Routine 12/10/23 16:55 Consult Nephrology Routine Diagnostic Imagining Performed 12/09/23 00:11 CT abd pelvis wo con Stat 12/09/23 04:51 CT chest diagnostic wo con Stat Pending Results Patient Have Any Pending Studies at Discharge: No Discharge Instructions Given to Patient (Per Discharging Provider) You were admitted for shortness of breath and found to be in atrial fibrillation with a rapid heart rate. Your metoprolol was increased to 75 mg two times a day. A new script was sent to your pharmacy. Given your dehydration, you can hold your semaglutide and resume your home metformin. A follow up with your PCP will be coordinated as well as a follow up with Cardiology in [address] was abnormal, however, you were evaluated by Pulmonology who felt it was fairly stable and should be repeated in 6 months. You were noted to have a kidney injury, which was likely due to dehydration as the numbers improved with oral intake. Please hold your water pill (lasix) until follow up with Cardiology. Please hold your losartan 50mg two times a day. You were noted to have low grade fevers persistently through out your admission. There were no clear sources of infection outside of questionable upper respiratory symptoms without definitive pneumonia. You reported night sweats for over a month. You will complete a course of doxycycline; however, it is strongly recommended you follow up with Dr. Jalloh to discuss fevers given your history with malignancy. He may recommend further imaging or evaluation if warranted. Total Time Total Time Spent Total Time Spent (In Minutes): 45
[2023-12-11] MEDS: PLASMA-LYTE A 500 ML IV ONE (10:38)
[2023-12-11] MEDS: METOPROLOL SUCC 25MG EXT REL TAB PO STA (10:40)
[2023-12-11 11:20] VITALS: BP 160/78; PULSE 91; RESP 14; TEMP 97.9; O2SAT 93
[2023-12-11] MEDS ORDERED: METOPROLOL SUCC 25MG EXT REL TAB PO SCH (21:00)
[2023-12-13 02:01] LABS: Babesia microti DNA Not Detected (Not Detected)
[2023-12-13 12:26] LABS: Urea Nitrogen, Random Urine 587 mg/dL
== END 2023-12-11 12:35 | disposition home or self-care (01) | DRG 872 ==
LOC: ED 20:11 → 2E 12-09 07:29

== ENCOUNTER 2024-11-17 10:53 | Inpatient (IN) ==
[2024-11-17] MEDS ORDERED: STAT IV Infusion **Titration per Protocol STA (10:57)
[2024-11-17] MEDS: ATROPINE SO4 1 MG/ML 1ML VIAL IV STA (10:57)
--- NOTE | 2024-11-17 11:02 | Emergency Department Note ---
ED DC CONDITION Conditon at Discharge Condition at Discharge: Serious Impression & Plan Symptomatic bradycardia Admission ED Provider Note HPI: History obtained from patient, EMS report. The patient is a 84-year-old gentleman who presents the emergency department with symptomatic bradycardia. Per EMS report, they were called to the residence of the patient for 3 days of shortness of breath. Upon arrival the patient was noted to have a heart rate in the 20s and was hypoxic in the upper 80s. Patient was placed on nasal cannula oxygen with good improvement. Patient was given atropine and heart rate initially responded per EMS report. He did have a transient episode of hypotension en route and transcutaneous pacing was initiated. On arrival here to the ED the patient is lethargic appearing, he is alert to verbal stimuli, he is being transcutaneously paced. Blood pressure is stable on arrival. Patient arrives on 3 L nasal cannula oxygen with saturations in the low 90s on my initial evaluation ROS: - Per HPI Differential Diagnosis: Symptomatic bradycardia/high degree heart block, CHF/pulmonary edema, ACS, critical electrolyte abnormalities, amongst other potential pathologies. *Outpatient medications and allergy history reviewed. 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 Blood pressure is stable, patient saturating well on supplemental oxygen. Twelve-lead EKG from the field was reviewed, this did show evidence of a high degree heart block. I suspect the patient symptoms are secondary to symptomatic bradycardia. IV was established and lab work ordered. Chest x-ray was obtained that shows evidence of CHF. Patient's mental status did improve while he was here in the ED. I did discuss the patient's CODE STATUS with his daughter over the phone and he is to be full code. Patient was maintained on transcutaneous pacing, I did discuss the patient's presentation and EKG with on-call interventional cardiology, Dr. Ortega, and he did recommend activating a heart alert and said he would be in to see the patient to arrange for temporary pacemaker placement. Patient's family later arrived to the ED, they were in agreement to this plan, patient's lab work otherwise did not show any critical findings, his creatinine appears to be at baseline at 2.4 with history of CKD, troponin was negative x 1, BNP was elevated at 294. Patient was transported to the cardiac catheterization lab for further management via interventional cardiology. I did also discuss patient's presentation and plan with the on-call hospitalist, Dr. Charles, and the patient was placed for admission Consultants/Discussions held with other healthcare providers: - Interventional Cardiology, Dr. Oretga - Hospitalist, Dr. Charles Disposition discussion held by myself with: - Patient and patient's family * CRITICAL CARE TIME: ( 42 ) minutes - Time spent in management of critically ill patient with high degree heart block requiring discussion with interventional cardiology in regards to emergent pacemaker placement, time spent with family and discussion of the patient's status and treatment plan, interpretation of diagnostic studies including field EKG, arrangement of admission/disposition. Diagnosis: 1. Symptomatic bradycardia, acute 2. Third degree heart block, acute Disposition: Admission Sid Guevara DO Emergency Medicine Past Med/Surg History Problem List (Updated 11/17/24 @ 15:57 by Sid Guevara DO) Symptomatic bradycardia (Acute) Acute hypoxic respiratory failure Heart block AV third degree Acute kidney injury superimposed on stage 3b chronic kidney disease Atrial fibrillation Mediastinal adenopathy Fever (Acute) Fatigue (Acute) H/O hemicolectomy (10/16/21) Laparoscopic extended Right Hemicolectomy - eRne Cavanaugh DO Chronic a-fib (Acute) Colonic mass Morbid obesity CKD (chronic kidney disease) Stage III per records -- monitors with [facility] Nephrology Obesity Type 2 diabetes mellitus NIDDM Paroxysmal atrial fibrillation Recently set [place] [facility] [place]. (hx of following with Dr Murguia) Rate well controlled and on Eliquis per 10/09/21 cardio note Obstructive sleep apnea Uses cpap nightly Hypertension Hyperlipidemia Chronic gout Asthma, moderate persistent well controlled BPH without obstruction/lower urinary tract symptoms Hypothyroidism Medical History Hyponatremia Sepsis Abnormal CT scan of lung Palpitation Chest pain Aortic stenosis Borderline to mild aortic stenosis per 09/17/21 ECHO Aortic aneurysm 4.6cm per August 2021 ECHO On anticoagulant therapy Anemia S/p 2 units of pRBC's on admission 09/23/21 and 1 unit of pRBC's prior to discharge 09/26/21 from [facility]. Also had IV iron while admitted History of recent hospitalization 09/23/21 at [facility] for GI Bleed and anemia GI bleed September 2021 inpatient at [facility] Seasonal allergies Hx of nephrolithotomy with removal of calculi History of kidney stones Multiple lung nodules on CT Lactase deficiency Asbestos exposure Angioedema History of Encounter for pre-operative examination Abnormal CT of the abdomen Anemia requiring transfusions VILLALBA (dyspnea on exertion) Weakness GI (gastrointestinal bleed) Surgical History History of esophagogastroduodenoscopy (EGD) History of lithotripsy S/P surgical removal of pilonidal cyst History of colonoscopy History of cardioversion 2009 Family History Mother Cancer Father Heart disease Sister Heart disease Brother Seizure Other No family history of adverse response to anesthesia Social History Smoking Status: Unknown if ever smoked Second Hand Exposure: No; Do You Dip or Chew Tobacco: No; Hx Alcohol Use: No Hx Substance Use: No Preferred Language: Citizen Of [place] Communication Ability: Effective Visual Impairment: No Limitations Electrical Supervisor Required: No Beliefs That Will Affect Care: None marital status: / Current Living Situation: Alone Current Living Situation Comment: lives by self and his daughter helps as needed current occupational status: retired How many Children do You have: 2 Feels Safe at Home: Yes Diet: diabetic during the past year weight has: decreased > 10 lbs Assistive Devices: Cane, CPAP, Walker and Wheelchair Allergies Allergies Allergy/AdvReac Type Severity Reaction Status Date / Time bee pollen Allergy Severe flushing Verified 12/09/23 00:10 and facial swelling Iodinated Contrast Media Allergy Severe flushing Verified 12/09/23 00:10 and facial swelling lisinopril Allergy Severe Hives Verified 12/09/23 00:10 tetanus toxoid, adsorbed Allergy Intermediate HIVES Verified 12/09/23 00:10 latex Allergy Mild skin Verified 12/09/23 00:10 irritation Penicillins Allergy Mild UNKNOWN Verified 12/09/23 00:10 Home Meds Home Medications Medication Instructions Recorded Confirmed atorvastatin 10 mg tablet 10 mg PO HS 12/12/18 11/17/24 epinephrine 0.3 mg/0.3 mL 0.3 mg IM .INJECT 0.3ML INTRAMU 12/12/18 12/09/23 injection, auto-injector PRN Allergic Reaction terazosin 10 mg capsule 10 mg PO HS 12/12/18 11/17/24 allopurinol 300 mg tablet 300 mg PO HS 12/13/18 11/17/24 furosemide 20 mg tablet 20 mg PO QAM PRN Fluid Retention 09/23/21 11/17/24 levothyroxine 175 mcg tablet 175 mcg PO QAM 10/12/21 11/17/24 coenzyme Q10 100 mg capsule 0 mg PO DAILY 12/08/23 11/17/24 (CoQ-10) fluticasone propionate 50 2 spray intranasal QAM 12/08/23 11/17/24 mcg/actuation nasal spray,suspension metformin 500 mg tablet,extended 500 mg PO TID 12/08/23 12/09/23 release 24 hr multivitamin 1 tab PO DAILY 12/08/23 11/17/24 semaglutide 7 mg tablet 7 mg PO QAM 12/08/23 12/09/23 Previous Rx's Medication Instructions Recorded apixaban 2.5 mg tablet (Eliquis) 2.5 mg PO BID #60 tabs 09/26/21 doxycycline hyclate 100 mg capsule 100 mg PO BID #5 caps 12/11/23 metoprolol succinate 50 mg 75 mg (1.5 x 50 mg) PO BID #90 tabs 12/11/23 tablet,extended release 24 hr Results & Data (ED) Vital Signs Vital Signs - 24 hr 11/17/24 10:55 11/17/24 10:55 11/17/24 10:56 Temperature 36.6 C Temperature Source Oral Pulse Rate 77 28 L Pulse Rate [Apical] Respiratory Rate 22 Respiratory Effort / Characteristics Non-Labored Respiratory Depth Shallow Respiratory Pattern Blood Pressure 124/84 Blood Pressure [Right Arm] Blood Pressure Mean 97 Blood Pressure Mean [Right Arm] Blood Pressure Position [Right Arm] Pulse Oximetry 89 L 89 L Oxygen Delivery Method Nasal Cannula Nasal Cannula Oxygen Flow Rate 6 6 Sepsis Recent Fever Within 48 Hours No Sepsis New/Unexplained Change in Mental Status Yes Sepsis Action Taken by Nursing No Action Required Oxygen Flow Rate - Titration 10 Pulse Oximetry Post Tiitration 92 11/17/24 10:57 11/17/24 11:20 Temperature Temperature Source Pulse Rate 72 Pulse Rate [Apical] 73 Respiratory Rate 27 H Respiratory Effort / Characteristics Non-Labored Spontaneous Respiratory Depth Normal Respiratory Pattern Regular Blood Pressure Blood Pressure [Right Arm] 130/50 L Blood Pressure Mean Blood Pressure Mean [Right Arm] 76 Blood Pressure Position [Right Arm] Lying Pulse Oximetry Oxygen Delivery Method Oxygen Flow Rate Sepsis Recent Fever Within 48 Hours Sepsis New/Unexplained Change in Mental Status Sepsis Action Taken by Nursing Oxygen Flow Rate - Titration Pulse Oximetry Post Tiitration Laboratory Data 11/17/24 11:00 11/17/24 11:00 Lab Results 11/17/24 11/17/24 Range/Units 11:00 11:08 WBC 6.66 (4.8-10.8) K/ul RBC 4.54 L (4.70-6.10) M/uL Hgb 12.9 L (14.0-18.0) g/dl POC Hgb 14.6 (14.0-18.0) g/dl Hct 40.7 L (42.0-52.0) % POC Hct 43 (42-52) % MCV 89.6 (80.0-100.0) fL MCH 28.4 (25.0-34.0) pg MCHC 31.7 L (32.0-36.0) g/dL RDW Std Deviation 54.1 H (36.4-46.3) fL RDW Coeff of Chris 16.6 H (11.5-14.5) % Plt Count 118 L (130-400) K/uL MPV 9.9 (9.4-12.4) fL Immature Gran % (Auto) 0.5 % Neut % (Auto) 82.5 % Lymph % (Auto) 9.0 % [place] % (Auto) 7.5 % Eos % (Auto) 0.2 % Baso % (Auto) 0.3 % Neut # (Auto) 5.50 (1.40-6.50) K/uL Lymph # (Auto) 0.60 L (1.20-3.40) K/uL [place] # (Auto) 0.50 (0.11-0.59) K/uL Eos # (Auto) 0.01 (0.00-0.50) K/uL Baso # (Auto) 0.02 (0.00-0.20) K/uL Immature Gran # (Auto) 0.03 (0.01-0.20) K/uL PT 12.9 H (9.0-12.0) Seconds INR 1.2 H (0.9-1.1) POC Sodium 132 L (135-144) mmol/L Sodium 132 L (136-145) mmol/L POC Potassium 5.0 (3.3-5.0) mmol/L Potassium 5.0 (3.5-5.1) mmol/L POC Chloride 100 L (101-112) mmol/L Chloride 99 (98-107) mmol/L Carbon Dioxide 21 (21-32) mmol/L POC Total CO2 20 L (24-31) mmol/L Anion Gap 12 H (3-11) POC Anion Gap 18.0 (16-25) mmol/L POC BUN 26 H (7-18) mg/dl BUN 26 H (6-23) mg/dl Creatinine 2.40 H (0.6-1.4) mg/dl POC Creatinine 2.3 H (0.6-1.3) mg/dl Est Cr Clr Drug Dosing 33.9 ml/min eGFR 25.80 BUN/Creatinine Ratio 10.8 (10-20) Glucose 240 H (70-99(Fasting)) mg/dl POC Glucose (other) 229 H (70-99) mg/dl Calcium 9.8 (8.6-10.3) mg/dl POC Ioniz Calcium [place] 1.22 (1.12-1.32) mmol/l Total Bilirubin 1.2 H (0.2-1.0) mg/dl AST 25 (13-39) U/L ALT 16 (7-52) U/L Alkaline Phosphatase 57 (34-104) U/L Troponin I High Sens 10.6 (0-20) pg/ml Total Protein 7.1 (6.0-8.3) gm/dl Albumin 3.8 (3.4-5.0) gm/dl Globulin 3.3 (2.5-4.0) gm/dl Albumin/Globulin Ratio 1.2 (0.9-2) Lipase 18 (11-82) U/L TSH 7.085 H (0.300-4.500) uIu/ml Lyme Disease Screen Negative (Negative) Administered Medications Miscellaneous (Icu Protocol For Hyperglycemia) 1 each N/A ACHS OTTO Stop: 11/19/24 16:29 Last Admin: 11/17/24 15:46 Dose: Not Given Documented By: MTP Discontinued Medications Atropine Sulfate (Atropine So4 1 Mg/Ml 1ml Vial) 1 mg IV NOW STA Stop: 11/17/24 11:39 Last Admin: 11/17/24 10:57 Dose: 1 mg Documented By: FELIZ Dopamine HCl/Dextrose (Dopamine 400mg / 250ml D5w) Confirm Administered Dose 400 mg IV .STK-MED ONE Stop: 11/17/24 10:49 Last Admin: 11/17/24 11:21 Dose: Not Given Documented By: FELIZ Fentanyl Citrate (Fentanyl Citrate Pf 100 Mcg/2 Ml Vial) Confirm Administered Dose 100 mcg .ROUTE .STK-MED ONE Stop: 11/17/24 11:28 Last Increment: 11/17/24 12:36 Dose: 25 mcg Documented By: DEMAR Heparin Sodium (Porcine) (Heparin (Porcine) 1000 Unit/Ml 10 Ml (Inventory Clerk Use Only)) Confirm Administered Dose 10,000 units .ROUTE .STK-MED ONE Stop: 11/17/24 11:28 Last Admin: 11/17/24 12:36 Dose: Not Given Documented By: DEMAR Dopamine HCl/Dextrose (Dopamine / D5w) 400 mg in 250 mls @ 0 mls/hr IV .Q0M OTTO; Protocol Stop: 12/17/24 10:59 Last Titration: 11/17/24 12:36 Dose: 0 mcg/kg/min, 0 mls/hr Documented By: Admin: 11/17/24 11:01 Dose: 5 mcg/kg/min, 28.1 mls/hr Documented By: FELIZ Co-signed By: [facility]ME Sodium Chloride (Nss) 500 mls @ 999 mls/hr IV .Q31M STA Stop: 11/17/24 11:30 Last Infusion: 11/17/24 11:41 Dose: Infused Documented By: Admin: 11/17/24 11:05 Dose: 999 mls/hr Documented By: FELIZ Midazolam HCl (Midazolam Hcl 1 Mg/Ml 2ml Vial) Confirm Administered Dose 2 mg .ROUTE .STK-MED ONE Stop: 11/17/24 11:28 Last Increment: 11/17/24 12:36 Dose: 1 mg Documented By: DEMAR Miscellaneous (Rapid Sequence Induction Bag) Confirm Administered Dose 1 each N/A .STK-MED ONE Stop: 11/17/24 10:52 Last Admin: 11/17/24 15:45 Dose: Not Given Documented By: [facility] Imaging Data Radiologist's Impression: Chest X-Ray 11/17/24 11:00 XR chest 1V portable CLINICAL HISTORY: franki COMPARISON STUDY: 12/08/2023 FINDINGS: Stable cardiomegaly with increased pulmonary vascular congestion. Inspiration is shallow. No consolidation or pleural effusion seen. No pneumothorax. IMPRESSION: CHF. ACT 112: Negative or not required by law. Electronically signed by: Alejandro Verma M.D. 11/17/2024 11:28 AM Discharge Plan Visit Data Chief Complaint: Bradycardia ED Provider: Sid Guevara Discharge Problem: Symptomatic bradycardia Patient Disposition: Admitted As Inpatient Condition: Serious Discharge Instructions Interventions: ED Discharge Assessment Last Done: 11/17/24 12:15
[2024-11-17] MEDS: SODIUM CHLORIDE 0.9% 500 ML IV STA (11:05)
[2024-11-17 11:19] LABS: Hematocrit (blood only) 40.7 % (42.0-52.0); Hemoglobin 12.9 g/dl (14.0-18.0); Immature Granulocytes # (auto) 0.03 K/uL (0.01-0.20); Immature Granulocytes % (auto) 0.5 %; Mean Corpuscular Hemoglobin 28.4 pg (25.0-34.0); Mean Corpuscular Volume 89.6 fL (80.0-100.0); Platelet Count 118 K/uL (130-400); RDW Standard Deviation 54.1 fL (36.4-46.3); Red Blood Count 4.54 M/uL (4.70-6.10); White Blood Count 6.66 K/ul (4.8-10.8)
[2024-11-17] MEDS: DOPamine 400MG / 250ML D5W IV ONE (11:21)
--- NOTE | 2024-11-17 11:29 | XRay Report ---
XR chest 1V portable CLINICAL HISTORY: franki COMPARISON STUDY: 12/08/2023 FINDINGS: Stable cardiomegaly with increased pulmonary vascular congestion. Inspiration is shallow. N o consolidation or pleural effusion seen. No pneumothorax. IMPRESSION: CHF. ACT 112: Negative or not required by law. Electronically signed by: Alejandro Verma M.D. 11/17/2024 11:28 AM
[2024-11-17 11:36] LABS: Alanine Aminotransferase 16.0 U/L (7-52); Albumin Globulin Ratio 1.2 (0.9-2); Alkaline Phosphatase 57.0 U/L (34-104); Anion Gap 12.0 (3-11); Bilirubin,Total 1.2 mg/dl (0.2-1.0); Blood Urea Nitrogen 26.0 mg/dl (6-23); Calcium 9.8 mg/dl (8.6-10.3); Carbon Dioxide 21.0 mmol/L (21-32); Chloride 99.0 mmol/L (98-107); Creatinine Clr Calc Pharmacy 33.9 ml/min; Globulin 3.3 gm/dl (2.5-4.0); Glucose 240.0 mg/dl (70-99(Fasting)); Lipase 18.0 U/L (11-82); Potassium 5.0 mmol/L (3.5-5.1); Sodium 132.0 mmol/L (136-145); Total Protein 7.1 gm/dl (6.0-8.3)
[2024-11-17 11:47] LABS: INR 1.2 (0.9-1.1); Prothrombin Time 12.9 Seconds (9.0-12.0)
--- NOTE | 2024-11-17 11:58 | Critical Care Consultation ---
Date of Consultation November 17, 2024 Assessment & Plan (1) Acute hypoxic respiratory failure: (2) Heart block AV third degree: (3) Acute kidney injury superimposed on stage 3b chronic kidney disease: (4) Atrial fibrillation: (5) Obstructive sleep apnea: (6) Hypothyroidism: (7) Hypertension: Plan Reason Critically Ill: 84-year-old male presented to the hospital for shortness of breath. Was found to be in complete heart block, had temporary intravenous pacemaker placed, sent to ICU for further management Past medical history: A-fib on anticoagulation, hypertension, JAYCOB on CPAP, diabetes type 2, dyslipidemia, hypothyroidism, BPH, CKD Neuro - [facility] ICU: Negative Cardiac - -- Third-degree heart block S/p temporary venous pacemaker 11/17/2024 TSH 7.08, follow-up free T4 Lyme disease screen negative -- History of HFpEF, hypertension and dyslipidemia On metoprolol 75 twice daily, Lasix 20 mg daily 2D echo 12/09/2023: EF 55-60%, RV normal in size and function, mild concentric LVH, --A-fib On Eliquis Respiratory - -- Acute hypoxic respiratory failure Likely secondary to HFpEF from complete heart block BNP 294 Continue with O2 supplementation BiPAP nightly apparent shortness of breath Diuretics as tolerated --JAYCOB On CPAP at home Continue with the same settings here GI - -- No acute issues RENAL/LYTES - -- MICHAEL on CKD Likely secondary to cardiorenal from complete heart block Monitor BUN/creatinine Avoid nephrotoxic medications Strict ins and outs --Gout On allopurinol at home - -- BPH Continue with terazosin 10 mg ENDO - -- Diabetes type 2 Continue with ICU hypoglycemia protocol --Hypothyroidism On levothyroxine 125 mcg at home HEME - -- Normocytic anemia Monitor H&H --Thrombocytopenia Seems to be new in onset Continue to trend --History of adenocarcinoma of colon S/p hemicolectomy 09/2023 ID - -- No clear source of infection --Prophylaxis VTE: Eliquis on hold, will start heparin drip GI: None Lines: Peripheral with right IJ pacer Diet: Cardiac Plan: Strict ins and out Follow-up urine lites Follow-up Free T4 CPAP nightly and as needed shortness of breath. Patient is going to bring his own CPAP Will keep an eye on urine output, if it is not good then I will give Lasix IV Hold Eliquis, start the patient on heparin drip with no bolus Blood pressure is running on the higher side, will avoid beta-blockers and DONNA inhibitors for the time being DC IV fluids Start the patient on cardiac diet I have personally spent 45 minutes of critical care time in the direct management of this patient. This is a life/limb threatening event. This includes time spent evaluating patient, direct bedside care, chart review, placing orders, interpretation of diagnostic studies, discussion with consultants, patient, and family members, as well as other required patient management activities. This time is exclusive of all separately billable procedures, and teaching time and separate from and in addition to any other critical care service time. History of Present Illness Attending Physician: Hamilton Ortega MD History of Present Illness 84-year-old male presented to the hospital for shortness of breath. Was found to be in complete heart block, had temporary intravenous pacemaker placed, sent to ICU for further management Past medical history: A-fib on anticoagulation, hypertension, JAYCOB on CPAP, diabetes type 2, dyslipidemia, hypothyroidism, BPH, CKD At the time of examination patient had paced rhythm at 60 Systolic blood pressure was in the 180s. He was not in any respiratory distress. Saturating 99% on 5 L oxygen, I took him off oxygen he was desaturating in the 90s Patient's daughter was in the room He denies any chest pain, no shortness of breath No dizziness, no nausea or vomiting No blurry vision. His speech was a little bit slurred but cranial nerves were intact and he was able to move all extremities He did not have difficulty in answering any of the questions or following any commands No dysuria or diarrhea in the recent past No fever or chills Social history: Lifetime non-smoker Used to work in [employer] for approximately 40 years with exposure to asbestos Allergies Allergy/AdvReac Type Severity Reaction Status Date / Time bee pollen Allergy Severe flushing Verified 12/09/23 00:10 and facial swelling Iodinated Contrast Media Allergy Severe flushing Verified 12/09/23 00:10 and facial swelling lisinopril Allergy Severe Hives Verified 12/09/23 00:10 tetanus toxoid, adsorbed Allergy Intermediate HIVES Verified 12/09/23 00:10 latex Allergy Mild skin Verified 12/09/23 00:10 irritation Penicillins Allergy Mild UNKNOWN Verified 12/09/23 00:10 Home Medications Medication Instructions Recorded Confirmed Type atorvastatin 10 mg tablet 10 mg PO HS 12/12/18 11/17/24 History epinephrine 0.3 mg/0.3 mL 0.3 mg IM .INJECT 0.3ML INTRAMU 12/12/18 12/09/23 History injection, auto-injector PRN Allergic Reaction terazosin 10 mg capsule 10 mg PO HS 12/12/18 11/17/24 History allopurinol 300 mg tablet 300 mg PO HS 12/13/18 11/17/24 History furosemide 20 mg tablet 20 mg PO QAM PRN Fluid Retention 09/23/21 11/17/24 History apixaban 2.5 mg tablet (Eliquis) 2.5 mg PO BID #60 tabs 09/26/21 11/17/24 Rx levothyroxine 175 mcg tablet 175 mcg PO QAM 10/12/21 11/17/24 History coenzyme Q10 100 mg capsule 0 mg PO DAILY 12/08/23 11/17/24 History (CoQ-10) fluticasone propionate 50 2 spray intranasal QAM 12/08/23 11/17/24 History mcg/actuation nasal spray,suspension metformin 500 mg tablet,extended 500 mg PO TID 12/08/23 12/09/23 History release 24 hr multivitamin 1 tab PO DAILY 12/08/23 11/17/24 History semaglutide 7 mg tablet 7 mg PO QAM 12/08/23 12/09/23 History doxycycline hyclate 100 mg capsule 100 mg PO BID #5 caps 12/11/23 Rx metoprolol succinate 50 mg 75 mg (1.5 x 50 mg) PO BID #90 tabs 12/11/23 11/17/24 Rx tablet,extended release 24 hr Patient History Medical History Hyponatremia Sepsis Abnormal CT scan of lung Palpitation Chest pain Aortic stenosis Borderline to mild aortic stenosis per 09/17/21 ECHO Aortic aneurysm 4.6cm per August 2021 ECHO On anticoagulant therapy Anemia S/p 2 units of pRBC's on admission 09/23/21 and 1 unit of pRBC's prior to discharge 09/26/21 from [facility]. Also had IV iron while admitted History of recent hospitalization 09/23/21 at [facility] for GI Bleed and anemia GI bleed September 2021 inpatient at [facility] Seasonal allergies Hx of nephrolithotomy with removal of calculi History of kidney stones Multiple lung nodules on CT Lactase deficiency Asbestos exposure Angioedema History of Encounter for pre-operative examination Abnormal CT of the abdomen Anemia requiring transfusions VILLALBA (dyspnea on exertion) Weakness GI (gastrointestinal bleed) Surgical History History of esophagogastroduodenoscopy (EGD) History of lithotripsy S/P surgical removal of pilonidal cyst History of colonoscopy History of cardioversion 2009 Family History Mother Cancer Father Heart disease Sister Heart disease Brother Seizure Other No family history of adverse response to anesthesia Social History Smoking Status: Unknown if ever smoked Second Hand Exposure: No; Do You Dip or Chew Tobacco: No; Hx Alcohol Use: No Hx Substance Use: No Preferred Language: Arabic Communication Ability: Effective Visual Impairment: No Limitations Professor Of Pathology Required: No Beliefs That Will Affect Care: None marital status: / Current Living Situation: Alone Current Living Situation Comment: lives by self and his daughter helps as needed current occupational status: retired How many Children do You have: 2 Feels Safe at Home: Yes Diet: diabetic during the past year weight has: decreased > 10 lbs Assistive Devices: Cane, CPAP, Walker and Wheelchair Review of Systems 2 Review of Systems: All systems reviewed & are unremarkable except as noted in HPI & below Physical Exam 2 Physical Exam: Constitutional: No acute distress HEENT: EOMI, PERRLA, hard to hear, slight slurred speech Respiratory system: Good air entry bilaterally, no wheeze, no rhonchi, no crackles CVS: S1-S2 positive, no murmurs or gallops Abdomen: Soft, nontender, nondistended, positive bowel sounds x4, obese Extremities: +2 pulses bilaterally radialis/ dorsalis pedis, no cyanosis, +2 pitting edema bilateral extremity Neuro: Awake alert oriented x3, cranial nerves II through XII grossly intact Psych: Normal mood and affect G/U: Positive for Skin: no rashes, warm and dry Lymphatic: no cervical or axillary lymphadenopathy Results & Data Results & Data Vital Signs (Past 12 Hours) Vital Signs Temp Pulse Pulse Resp BP BP Pulse Ox 11/17/24 11:20 73 27 H 130/50 L 11/17/24 10:57 72 11/17/24 10:56 28 L 11/17/24 10:55 89 L 11/17/24 10:55 36.6 C 77 22 124/84 89 L O2 Del Method O2 Flow Rate 11/17/24 11:20 11/17/24 10:57 11/17/24 10:56 11/17/24 10:55 Nasal Cannula 6 11/17/24 10:55 Nasal Cannula 6 Laboratory Results 11/17/24 11:00 11/17/24 11:00 Coding Level of Care Code 48785 CRITICAL CARE 1ST 30-74M Diagnoses Acute hypoxic respiratory failure J96.01 Heart block AV third degree I44.2 Acute kidney injury superimposed on stage 3b chronic kidney disease N17.9; N18.32 Atrial fibrillation I48.91 Obstructive sleep apnea G47.33 Hypothyroidism E03.9 Hypertension I10
--- NOTE | 2024-11-17 11:59 | Pre Anesthesia Assessment ---
Date of Service November 17, 2024 Pre Sedation Assessment Vital Signs Temp Pulse Pulse Resp BP BP Pulse Ox 11/17/24 11:20 73 27 H 130/50 L 11/17/24 10:57 72 11/17/24 10:56 28 L 11/17/24 10:55 89 L 11/17/24 10:55 97.9 F 77 22 124/84 89 L O2 Del Method O2 Flow Rate 11/17/24 11:20 11/17/24 10:57 11/17/24 10:56 11/17/24 10:55 Nasal Cannula 6 11/17/24 10:55 Nasal Cannula 6 Cardiovascular + bradycardic Respiratory + labored breathing Pre-Sedation Airway Assessment Smoking Status: Unknown if ever smoked Hx Sleep Apnea: Yes Hx Difficult Intubation: No Short, Thick Neck: No Thyromental Distance: < 3.5 Finger Breadths ASA: ASA3 Procedure Planning Contraindications for Sedation: none Current Medications Reviewed: Yes Notes The planned sedation has been discussed with the patient. Informed Consent was obtained. I have identified the patient, determined the appropriateness of sedation and have assessed the patient immediately prior to the procedure. All medicine(s) and interventions are by my order.
--- NOTE | 2024-11-17 12:01 | Cardiology Consultation ---
Date of Consultation November 17, 2024 History of Present Illness Attending Physician: Hamilton Ortega MD History of Present Illness Mr. Dooley Allergies Allergy/AdvReac Type Severity Reaction Status Date / Time bee pollen Allergy Severe flushing Verified 12/09/23 00:10 and facial swelling Iodinated Contrast Media Allergy Severe flushing Verified 12/09/23 00:10 and facial swelling lisinopril Allergy Severe Hives Verified 12/09/23 00:10 tetanus toxoid, adsorbed Allergy Intermediate HIVES Verified 12/09/23 00:10 latex Allergy Mild skin Verified 12/09/23 00:10 irritation Penicillins Allergy Mild UNKNOWN Verified 12/09/23 00:10 Home Medications Medication Instructions Recorded Confirmed Type atorvastatin 10 mg tablet 10 mg PO HS 12/12/18 12/09/23 History epinephrine 0.3 mg/0.3 mL 0.3 mg IM .INJECT 0.3ML INTRAMU 12/12/18 12/09/23 History injection, auto-injector PRN Allergic Reaction terazosin 10 mg capsule 10 mg PO HS 12/12/18 12/09/23 History allopurinol 300 mg tablet 300 mg PO HS 12/13/18 12/09/23 History furosemide 20 mg tablet 20 mg PO QAM PRN Fluid Retention 09/23/21 12/09/23 History apixaban 2.5 mg tablet (Eliquis) 2.5 mg PO BID #60 tabs 09/26/21 12/09/23 Rx levothyroxine 175 mcg tablet 175 mcg PO QAM 10/12/21 12/09/23 History coenzyme Q10 100 mg capsule 0 mg PO DAILY 12/08/23 12/09/23 History (CoQ-10) fluticasone propionate 50 2 spray intranasal QAM 12/08/23 12/09/23 History mcg/actuation nasal spray,suspension metformin 500 mg tablet,extended 500 mg PO TID 12/08/23 12/09/23 History release 24 hr multivitamin 1 tab PO DAILY 12/08/23 12/09/23 History semaglutide 7 mg tablet 7 mg PO QAM 12/08/23 12/09/23 History doxycycline hyclate 100 mg capsule 100 mg PO BID #5 caps 12/11/23 Rx metoprolol succinate 50 mg 75 mg (1.5 x 50 mg) PO BID #90 tabs 12/11/23 Rx tablet,extended release 24 hr Patient History Medical History Aortic stenosis Borderline to mild aortic stenosis per 09/17/21 ECHO Aortic aneurysm 4.6cm per August 2021 ECHO On anticoagulant therapy Anemia S/p 2 units of pRBC's on admission 09/23/21 and 1 unit of pRBC's prior to discharge 09/26/21 from [facility]. Also had IV iron while admitted History of recent hospitalization 09/23/21 at [facility] for GI Bleed and anemia GI bleed September 2021 inpatient at [facility] Seasonal allergies Hx of nephrolithotomy with removal of calculi History of kidney stones Multiple lung nodules on CT Lactase deficiency Asbestos exposure Angioedema History of Encounter for pre-operative examination Abnormal CT of the abdomen Anemia requiring transfusions VILLALBA (dyspnea on exertion) Weakness GI (gastrointestinal bleed) Surgical History History of esophagogastroduodenoscopy (EGD) History of lithotripsy S/P surgical removal of pilonidal cyst History of colonoscopy History of cardioversion 2009 Family History Mother Cancer Father Heart disease Sister Heart disease Brother Seizure Other No family history of adverse response to anesthesia Social History Smoking Status: Unknown if ever smoked Second Hand Exposure: No; Do You Dip or Chew Tobacco: No; Hx Alcohol Use: No Hx Substance Use: No Preferred Language: Polish Communication Ability: Effective Visual Impairment: No Limitations Controls Designer Required: No Beliefs That Will Affect Care: None marital status: / Current Living Situation: Alone Current Living Situation Comment: lives by self and his daughter helps as needed current occupational status: retired How many Children do You have: 2 Feels Safe at Home: Yes Diet: diabetic during the past year weight has: decreased > 10 lbs Assistive Devices: Cane, CPAP, Walker and Wheelchair Results & Data Vital Signs (Past 12 Hours) Vital Signs Temp Pulse Pulse Resp BP BP Pulse Ox 11/17/24 11:20 73 27 H 130/50 L 11/17/24 10:57 72 11/17/24 10:56 28 L 11/17/24 10:55 89 L 11/17/24 10:55 97.9 F 77 22 124/84 89 L O2 Del Method O2 Flow Rate 11/17/24 11:20 11/17/24 10:57 11/17/24 10:56 11/17/24 10:55 Nasal Cannula 6 11/17/24 10:55 Nasal Cannula 6 PG Care Time/CCT Total # of Minutes Spent Total Time Spent with Patient: Total time spent is greater than 50% in coordination of care (as documented) at patient's floor/unit and/or counseling patient: Coding
[2024-11-17 12:18] LABS: Thyroid Stimulating Hormone 7.085 uIu/ml (0.300-4.500)
--- NOTE | 2024-11-17 12:18 | Communication Note ---
Date of Service: November 17, 2024 Attending Addendum: Case reviewed with the advanced practitioner. I have personally performed a history and physical examination on the patient. I have reviewed the advanced practitioner's documentation on the date of service referenced in note, and I agree with, and take responsibility for the plan of care. please refer to her notes for full details patient seen and examined, records reviewed by myself as well on exam, patient seen, resting in bed, on non rebreather mask somewhat drowsy but able to open eyes, answer simple questions oriented mostly denies chest pain, shortness of breath no cough, fever/chills, nausea/diarrhea per family (as interviewed by ITZEL Esteves) no other symptoms VS noted and reviewed oriented x2 , drowsy, not in distress, speaks in sentences with no effort nor accessory muscle use normal rate, regular rhythm, no murmurs clear breath sounds bilaterally non distended, soft, nontender no bipedal edema, erythema, warmth no neuro deficits all labs, imaging noted and reviewed ASSESSMENT AND PLAN> 84 year old male with history of A fib on Metoprolol and Eliquis, CHF Diastolic Type, Valvular Heart Disease, Ascending Aortic Aneurysm, DM 2, HTN, CKD 3, Hypothyroidism, JAYCOB on CPAP presenting with shortness of breath x 2-[address]. 3RD DEGREE AV BLOCK s/p Atropine and Transcutaneous PM placement by EMS Heart Alert called, patient taken to OR for temporary pacemaker placement 1st trop negative, trend x 2 check TSH, Lyme Echo discussed with Dr. Hamilton Ortega- Wood Technologist and Dr. Zhang- Post Anesthesia Nurse/Pulm Cardiology consult hold Metoprolol and Eliquis ACUTE HYPOXIC RESPIRATORY FAILURE POSSIBLE MILD ACUTE ON CHRONIC DIASTOLIC CHF EXACERBATION CXR: possible mild CHF Biofire pending diuretics per Cardiology SVC ACUTE KIDNEY INJURY ON CKD 3 likely secondary to #1 no vomiting, diarrhea per family baseline crea 1.4, now 2.3 check UA other chronic medical problems: Valvular Heart Disease Ascending Aortic Aneurysm, DM 2 HTN CKD 3 Hypothyroidism JAYCOB on CPAP other diagnoses and plan of care as per advanced practitioner's notes I spent a total of 60 minutes coordinating, documenting, and providing care for this patient, excluding time spent in the performance of separately billed services or time spent by another provider/QHP. Rocky Charles MD
[2024-11-17] MEDS: MIDAZOLAM HCL 1 MG/ML 2ML VIAL ONE (12:36)
[2024-11-17] MEDS: HEPARIN (PORCINE) 1000 UNIT/ML 10 ML (CATH LAB USE ONLY) ONE (12:36)
--- NOTE | 2024-11-17 12:45 | Post Anesthesia Assessment ---
Date of Service November 17, 2024 Post Sedation Assessment Vital Signs Temp Pulse Pulse Resp BP BP Pulse Ox 11/17/24 11:20 73 27 H 130/50 L 11/17/24 10:57 72 11/17/24 10:56 28 L 11/17/24 10:55 89 L 11/17/24 10:55 97.9 F 77 22 124/84 89 L O2 Del Method O2 Flow Rate 11/17/24 11:20 11/17/24 10:57 11/17/24 10:56 11/17/24 10:55 Nasal Cannula 6 11/17/24 10:55 Nasal Cannula 6 Recovery Score Activity: Moves 4 extremities Respiration: Deep Breath/Cough Circulation: +/-20% PreAnes Value Consciousness: Fully Awake Oxygen Saturation: O2 needed for >90% Discharge Sedation Level of Care: Fast Track Phase II
--- NOTE | 2024-11-17 12:51 | History & Physical Report ---
Date of Service November 17, 2024 Assessment & Plan (1) Heart block AV third degree: Plan: Patient is a 84 year old M with a past medical history of Diastolic HF, paroxysmal Afib on rate control and anticoagulation, HTN, aortic aneurysm without rupture, JAYCOB with home CPAP, DM Type II non-insulin dependent, HLD, hypothyroidism, BPH, CKD Stage III, presenting with bradycardia and shortness and breath. Patient has been short of breath x 3 days, mostly with ambulating short distances and needed CPAP machine this morning when sitting in his chair. Per family report, the patient felt his heart rate was low this morning, monitored via smartwatch marques, so he took partial dose of metoprolol (50 mg). Family unsure whether eliquis or diuretics were taken as well. Patient denies chest pain. Arrived via EMS. Heart rate in 20's upon EM arrival to the home. Atropine given with external pacing enroute to hospital. Found to have 3rd degree heart block. Versed given in the ambulance for anxiety. Additional atropine x1 and dopamine given when he arrived to the ED with HR increase to 70's. Drowsy in the ED, possibly from Versed. Arousable and talking. He was hypoxic and required 6LPM O2 via Oxymask to maintain sats >90%. 500ml NSS given. Heart block AV Third Degree #Paroxysmal AFib * Admit to ICU following external pacemaker placement for 3rd degree heart block * Temporary pacemaker placement today with Dr. Ortega; plan for permanent pa cemaker on Tuesday * Holding home Metoprolol and Eliquis * Trop stable 10.6; serial Trop ordered x 2 * Cardiology consult ordered * Echo routine, ordered * TSH elevated 7.085, Free T4 pending- resumed home levothyroxine for now * Lyme pending #Acute Hypoxic respiratory failure #JAYCOB * Hypoxic upon arrival to ED, requiring 6 LPM O2 via Oxymask to maintain sats >90% * Chest Xray showing CHF * Biofire ordered and pending * CPAP at home, well controlled until today * Resume CPAP while inpatient; RT protocol for settings #Acute kidney injury superimposed on CKD Stg III * MICHAEL noted on lab workup- Creatinine 2.4, baseline 1.4 per external chart review. * 500 ml NSS given in ED * Holding home diuretics * UA ordered, results pending #HTN * BP stable upon arrival to ED 124/84; Goal BP 130/80 * Managed at home with diuretic and metoprolol--> holding now #Hyperlipidemia * Continue home statin #Chronic Gout * Hold home allopurinol until kidney functioning stabilized DVT Ppx: Scds Code status: Full PCP: Dr. Cindi Duke Dispo: Admit to ICU Patient seen in collaboration with Dr. Charles. Please see addendum.I spent a total of 45 minutes coordinating, documenting and providing care for this patient excluding time spent in the performance of separately billed services or time spent by another provider/QHP. (2) Paroxysmal atrial fibrillation: (3) Acute hypoxic respiratory failure: (4) Acute kidney injury superimposed on stage 3b chronic kidney disease: (5) Obstructive sleep apnea: (6) Hypertension: (7) Hyperlipidemia: (8) Chronic gout: History of Present Illness Primary Care Provider: Peace Duke MD Patient is a 84 year old M with a past medical history of Diastolic HF, paroxysmal Afib on rate control and anticoagulation, HTN, aortic aneurysm without rupture, JAYCOB with home CPAP, DM Type II non-insulin dependent, HLD, hypothyroidism, BPH, CKD Stage III, presenting with bradycardia and shortness and breath. Patient has been short of breath x 3 days, mostly with ambulating short distances and needed CPAP machine this morning when sitting in his chair. Per family report, the patient felt his heart rate was low this morning, monitored via smartwatch marques, so he took partial dose of metoprolol (50 mg). Family unsure whether eliquis or diuretics were taken as well. Patient denies chest pain. Arrived via EMS. Heart rate in 20's upon EM arrival to the home. Atropine given with external pacing enroute to hospital. Found to have 3rd degree heart block. Versed given in the ambulance for anxiety. Additional atropine x1 and dopamine given when he arrived to the ED with HR increase to 70's. Drowsy in the ED, possibly from Versed. Arousable and talking. He was hypoxic and required 6LPM O2 via Oxymask to maintain sats >90%. 500ml NSS given. Chest XRay showing increased pulmonary vascular congestion. Trop stable at 10.6. MICHAEL noted on lab workup- Creatinine 2.4, baseline 1.4 per external chart review. TSH elevated 7.085, Free T4 pending. Review of systems performed with the family, no fever, chills, sick contacts, N/V/D, cognitive deficits, urinary concerns. [facility] for external pacemaker with Dr. Ortega. ICU [facility] contacted by Hospitalist for admission following. History obtained primarily from the patient's family, daughter and son, who are medical POA. External chart review obtained from [facility]. Allergies Allergy/AdvReac Type Severity Reaction Status Date / Time bee pollen Allergy Severe flushing Verified 12/09/23 00:10 and facial swelling Iodinated Contrast Media Allergy Severe flushing Verified 12/09/23 00:10 and facial swelling lisinopril Allergy Severe Hives Verified 12/09/23 00:10 tetanus toxoid, adsorbed Allergy Intermediate HIVES Verified 12/09/23 00:10 latex Allergy Mild skin Verified 12/09/23 00:10 irritation Penicillins Allergy Mild UNKNOWN Verified 12/09/23 00:10 Home Medications Medication Instructions Recorded Confirmed Type atorvastatin 10 mg tablet 10 mg PO HS 12/12/18 11/17/24 History epinephrine 0.3 mg/0.3 mL 0.3 mg IM .INJECT 0.3ML INTRAMU 12/12/18 12/09/23 History injection, auto-injector PRN Allergic Reaction terazosin 10 mg capsule 10 mg PO HS 12/12/18 11/17/24 History allopurinol 300 mg tablet 300 mg PO HS 12/13/18 11/17/24 History furosemide 20 mg tablet 20 mg PO QAM PRN Fluid Retention 09/23/21 11/17/24 History apixaban 2.5 mg tablet (Eliquis) 2.5 mg PO BID #60 tabs 09/26/21 11/17/24 Rx levothyroxine 175 mcg tablet 175 mcg PO QAM 10/12/21 11/17/24 History coenzyme Q10 100 mg capsule 0 mg PO DAILY 12/08/23 11/17/24 History (CoQ-10) fluticasone propionate 50 2 spray intranasal QAM 12/08/23 11/17/24 History mcg/actuation nasal spray,suspension metformin 500 mg tablet,extended 500 mg PO TID 12/08/23 12/09/23 History release 24 hr multivitamin 1 tab PO DAILY 12/08/23 11/17/24 History semaglutide 7 mg tablet 7 mg PO QAM 12/08/23 12/09/23 History doxycycline hyclate 100 mg capsule 100 mg PO BID #5 caps 12/11/23 Rx metoprolol succinate 50 mg 75 mg (1.5 x 50 mg) PO BID #90 tabs 12/11/23 11/17/24 Rx tablet,extended release 24 hr Past Med/Surg History Problem List (Updated 11/17/24 @ 15:57 by Sid Guevara DO) Symptomatic bradycardia (Acute) Acute hypoxic respiratory failure Heart block AV third degree Acute kidney injury superimposed on stage 3b chronic kidney disease Atrial fibrillation Mediastinal adenopathy Fever (Acute) Fatigue (Acute) H/O hemicolectomy (10/16/21) Laparoscopic extended Right Hemicolectomy - Rene Cavanaugh DO Chronic a-fib (Acute) Colonic mass Morbid obesity CKD (chronic kidney disease) Stage III per records -- monitors with [facility] Nephrology Obesity Type 2 diabetes mellitus NIDDM Paroxysmal atrial fibrillation Recently set up with [facility] Cardiology. (hx of following with Dr Murguia) Rate well controlled and on Eliquis per 10/09/21 cardio note Obstructive sleep apnea Uses cpap nightly Hypertension Hyperlipidemia Chronic gout Asthma, moderate persistent well controlled BPH without obstruction/lower urinary tract symptoms Hypothyroidism Medical History Hyponatremia Sepsis Abnormal CT scan of lung Palpitation Chest pain Aortic stenosis Borderline to mild aortic stenosis per 09/17/21 ECHO Aortic aneurysm 4.6cm per August 2021 ECHO On anticoagulant therapy Anemia S/p 2 units of pRBC's on admission 09/23/21 and 1 unit of pRBC's prior to discharge 09/26/21 from [facility]. Also had IV iron while admitted History of recent hospitalization 09/23/21 at [facility] for GI Bleed and anemia GI bleed September 2021 inpatient at [facility] Seasonal allergies Hx of nephrolithotomy with removal of calculi History of kidney stones Multiple lung nodules on CT Lactase deficiency Asbestos exposure Angioedema History of Encounter for pre-operative examination Abnormal CT of the abdomen Anemia requiring transfusions VILLALBA (dyspnea on exertion) Weakness GI (gastrointestinal bleed) Surgical History History of esophagogastroduodenoscopy (EGD) History of lithotripsy S/P surgical removal of pilonidal cyst History of colonoscopy History of cardioversion 2009 Family History Mother Cancer Father Heart disease Sister Heart disease Brother Seizure Other No family history of adverse response to anesthesia Social History Smoking Status: Unknown if ever smoked Second Hand Exposure: No; Do You Dip or Chew Tobacco: No; Hx Alcohol Use: No Hx Substance Use: No Preferred Language: Yi Communication Ability: Effective Visual Impairment: No Limitations 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 WEIGHT/BMI reviewed. GEN: Overweight, well-developed -Head: NC/AT; -Eyes: PERRL, EOMI. No discharge or redn ess; -Ears: External ears are normal. -Nose: Normal nares. -Mouth and throat: MMM. Normal gums, muc jaycob, palate,. Good dentition. NECK: Supple, with no masses. CV: External pacer, no swelling LUNGS: Clear, wearing oxymask, sats 90% with 6 LPM, + accessory muscle use ABD: Soft, NT/ND, NBS, no masses or organomegaly. : urine cath intact SKIN: Warm, well perfused. No skin rashes or abnormal lesions. MSK: No deformities EXT: No clubbing, cyanosis, or edema. NEURO: Normal muscle strength and tone. No focal deficits. Results & Data Results & Data Vital Signs (Past 12 Hours) Vital Signs Temp Pulse Pulse Resp BP BP Pulse Ox 11/17/24 11:20 73 27 H 130/50 L 11/17/24 10:57 72 11/17/24 10:56 28 L 11/17/24 10:55 89 L 11/17/24 10:55 36.6 C 77 22 124/84 89 L O2 Del Method O2 Flow Rate 11/17/24 11:20 11/17/24 10:57 11/17/24 10:56 11/17/24 10:55 Nasal Cannula 6 11/17/24 10:55 Nasal Cannula 6 Laboratory Results Short CBC 11/17/24 Range/Units 11:00 WBC 6.66 (4.8-10.8) K/ul Hgb 12.9 L (14.0-18.0) g/dl Hct 40.7 L (42.0-52.0) % Plt Count 118 L (130-400) K/uL BMP 11/17/24 11:00 Sodium 132 L Potassium 5.0 Chloride 99 Carbon Dioxide 21 BUN 26 H Creatinine 2.40 H Glucose 240 H Calcium 9.8 Liver Function 11/17/24 Range/Units 11:00 Total Bilirubin 1.2 H (0.2-1.0) mg/dl AST 25 (13-39) U/L ALT 16 (7-52) U/L Alkaline Phosphatase 57 (34-104) U/L Albumin 3.8 (3.4-5.0) gm/dl Diagnostic Findings Chest X-Ray 11/17/24 11:00 XR chest 1V portable CLINICAL HISTORY: franki COMPARISON STUDY: 12/08/2023 FINDINGS: Stable cardiomegaly with increased pulmonary vascular congestion. Inspiration is shallow. No consolidation or pleural effusion seen. No pneumothorax. IMPRESSION: CHF. ACT 112: Negative or not required by law. Electronically signed by: Alejandro Verma M.D. 11/17/2024 11:28 AM Code Status & VTE Plan VTE Prophylaxis Plan VTE Prophylaxis will be ordered: Yes
--- NOTE | 2024-11-17 12:54 | Cardiac Catheterization ---
[facility] Data: Single Corner Cutter Cardiac Status Clinical evaluation leading to the procedure CAD Presenation: Sx unlikely to be ischemic Anginal Classification: No Symptoms Diagnostic Physicians Name: Hamilton Ortega MD Closure Device Recommendations: Medical Therapy and/or Counseling Cardiac Cath Procedure Full Procedure Date November 17, 2024 Pre-Procedure Diagnosis Pre-Procedure Diagnosis: Arrhythmia AUC Score AUC Score: 7 Post-Procedure Diagnosis Post-Procedure Diagnosis: Cardiothoracic Finding (Symptomatic Bradycardia) Procedure(s) Performed Procedure(s) Performed: Temporary Pacemaker and Ultrasound Guided Vascular Access Senior Credit Analyst Hamilton Ortega MD Anodizer(s) Showers Estimated Blood Loss Estimated Blood Loss: 10 Medication(s) Medication(s): Lidocaine 1% and Versed Summary of Findings Transvenous Temporary Pacemaker Indication: Symptomatic bradycardia, AF with slow ventricular response Procedure: Moderate sedation with fentanyl versed Local anesthesia with 1% lidocaine Under ultrasound guidance right IJ accessed with micropuncture 6 Fr sheath placed in right IJ Transvenous temporary pacing wire navigated into RV Adequate pacing confirmed to outputs less than 0.5 mA Pacer, sheath sutured and secured in place Patient tolerated procedure well and dopamine weaned off Final pacemaker settings: VVI 60, output 5 mA Summary: 1. Successful placement of temporary transvenous pacemaker Recommendations: Evaluate for possible reversible causes of symptomatic bradycardia Trend troponin check echocardiogram. Likely permanent pacemaker on Tuesday Hemodynamics Rest Ao:: -- Final Ao: -- LV: -- Recommendations Recommendations: Medical Therapy and/or Counseling Radiation Exposure (mGy) 206 Contrast (mls) -- Anesthesia Moderate [id number] Procedural Complication(s) None Disposition ICU I attest to the content of the Intraoperative Record and any orders documented therein. Any exceptions are noted below. [facility] Card Cath Procedure Codes Therapeutic Services & Ancillary Procedure 1: Cardiovascular Tx and Anc Procedures: 50282 Ultrasonic Guidance Vascular Access Procedure 2: Cardiovascular Tx and Anc Procedures: 61762 Temp Pacer Insert Moderate Sedation Procedure 1: Sedation/Anesthesia: 52278 Mod Sedation by the same physician;Init15 Min Child Age 5 & Up Procedure 2: Sedation/Anesthesia: 57666 Mod Sedation by the same physician; Ea [id number] Minutes PG Care Time/CCT Total # of Minutes Spent Total Time Spent with Patient: Total time spent is greater than 50% in coordination of care (as documented) at patient's floor/unit and/or counseling patient:
--- NOTE | 2024-11-17 14:10 | Cardiology Consultation ---
Date of Consultation November 17, 2024 Assessment & Plan (1) Heart block AV third degree: (2) Atrial fibrillation: (3) Acute hypoxic respiratory failure: (4) Acute kidney injury superimposed on stage 3b chronic kidney disease: (5) Hypothyroidism: Plan Assessment: 84 year old male presents with 2 days of increasing weakness and feeling "ill", found to be in 3rd degree heart block upon EMS arrival. Received Atropine x2 doses and dopamine, externally paced and taken emergently to the laborer hoisting for temporary transvenous pacer wire placement. Plan: 1. Heart block AV Third degree 2. Atrial fibrillation, permanent. -Patient has an underlying history of permeant Atrial fibrillation with concerns of progression of further conduction system disease. Recent OP protracted cardiac monitoring shows no evidence of heart block. -Denies any recent acute infection concerns. labs due not suggest an infectious process. No evidence of profound electrolyte imbalance. TSH; however, is elevated. further work up by primary team -metoprolol placed on hold and will allow wash out. -Lyme test pending. Patient and family deny any concerns of tick exposure. -Initial troponin negative. Trend troponin. -Obtain echocardiogram to assess overall structure and function. -Maintain ICU status with temp pacer in place. Tentative plan is for patient to be NPO after midnight tuesday night for permanent pacemaker placement in Tuesday. Will discuss case with Dr. Lula Mullins on hold in lieu of possible procedure Tuesday. -Continue to hold Metoprolol 3. Acute hypoxic respiratory failure -Hypoxic in the setting of poor profusion and MICHAEL -Chest xray suggestive of CHF -Bio-fire panel is pending -Patient does not exhibit overt overload on exam. -Monitor renal function in AM, and will reassess to determine if diuretics are needed. -Patient takes Furosemide 20mg daily only as needed for fluid retention at home. 4. MICHAEL on CKD -poor oral intake over past 24 hours, but more concerning is poor profusion s/t heart block -monitor renal function closely. 5. Hypothyroidism -Elevated TSH, Free T3 and 4 pending? Continued management per primary team. Case has been discussed with Dr. Cotton. Further recommendations regarding plan of care as per her assessment. I spent a total of 55 minutes on the date of service in preparation, delivery, documentation of the care provided to the patient excluding any time spent in the performance of separately billed services. ITZEL Gómez [facility] Cardiology [facility] Supervising Physician Co-Signing Physician Notes I have reviewed the advanced practitioner's documentation on the date of service referenced in note, and I agree with, and take responsibility for the plan of care. I spent a total of [25] minutes coordinating, documenting, and providing care for this patient excluding time spent in the performance of separately billed services or time spent by another provider. 84-year-old male with known history of paroxysmal atrial fibrillation, heart failure with preserved ejection fraction, hypertension, aortic aneurysm, obstructive sleep apnea, diabetes mellitus, obesity, dyslipidemia, chronic kidney disease presents with shortness of breath that started 1 day ago and noted to be in complete heart block with symptomatic bradycardia received 2 atropine's underwent temporary pacemaker wire by Dr. Ortega currently is pacing at 60 bpm denies chest pain or shortness of breath Echocardiogram : No significant valvular abnormality EF around 50% with abnormal wall motion secondary dyssynchrony due to paced rhythm Plan for permanent pacemaker on Tuesday History of Present Illness Reason for Consultation: 3rd degree heart block Requesting Physician: [facility] hospitalist Attending Physician: Rocky Charles MD History of Present Illness HPI: patient is a plesant 84 year old male with PMHx as outlined below that presented to the ER this morning via EMS with profound weakness, dizziness, and evidence of heart block by EMS. He had received Atropine and was externally paced in route to the ER as he had a heart rate in the 20's. Patient is drowsy and is newly post post temp pacer wire placement at time of my examination. History was obtained at bedside by his family. Per son, patient had called them last evening stating that he felt poorly. Endorses profound fatigue, weakness and some dizziness. He also endorses significant shortness of breath attempting to ambulate down a short vasques way in his home to his recliner. Attempted to use his CPAP while in recliner with no relief. Family arrived shortly there after and stayed the night with him. They said he had little to no appetite, but no acute GI distress. No recent acute URI symptoms, no fever or chills, no recent tick bites. Son states that his father isn't extremely active at baseline and is not outdoors for prolonged periods of time to raise concern for tick bites. Patient and son deny any recent medication changes, although did take only a partial dose of his metoprolol last evening because he felt his heart rate was in the 50's. He has a home environmental monitoring technician which this morning was sending alerts of "bradycardia" and "tachycardia", but no other details. They opted to call 911 at that time. Patient received Versed in the ambulance due to increased anxiety, he received an addition dose of atropine and dopamine was administered upon arrival to the ER. Initially heart rate was in the 70's. O2 was applied due to hypoxia and he received a 500cc fluid bolus. A heart alert was called and patient was taken emergently to the cardiac catheterization lab by the heart team and Dr. Hamilton Ortega. He underwent a temporary transvenous pacemaker for symptomatic bradycardia. Tolerated procedure well and was taken to the ICU for further monitoring. Final pacemaker settings: VVI 60, output 5 mA Past Medical and Surgical History: 1. Permanent atrial fibrillation 2. Remote history of atrial flutter 3. Chronic diastolic heart failure 4. Preserved LV systolic function 5. Ascending aortic aneurysm 6. Hypertension 7. Dyslipidemia 8. Type 2 diabetes mellitus 9. Pulmonary hypertension 10. Obstructive sleep apnea, CPAP therapy 11. Adenocarcinoma of the colon status post right hemicolectomy in 2021 12. Stage III chronic kidney disease 13. Chronic anemia, followed by Hematology 14. Hepatic steatosis 15. Renal cyst 16. Kidney stones status post extraction 17. BPH 18. Asbestosis 19. Hypothyroidism 20. Gout 21. Diverticulosis Last seen in our office by Sid Godwin 08/07/24. He had endorsed fatigue and Sid placed patient on a ZIO monitor for further evaluation. No acute findings to suggest high grade heart block at time of monitoring. No changes made at that time. Patient is groggy, but wakes to verbal stimuli. He denies any chest pain, pressure or palpitations, reports no dizziness at this time. Denies shortness of breath, and no recent syncopal episodes. Review of telemetry shows paced rhythm 60bpm Allergies Allergy/AdvReac Type Severity Reaction Status Date / Time bee pollen Allergy Severe flushing Verified 12/09/23 00:10 and facial swelling Iodinated Contrast Media Allergy Severe flushing Verified 12/09/23 00:10 and facial swelling lisinopril Allergy Severe Hives Verified 12/09/23 00:10 tetanus toxoid, adsorbed Allergy Intermediate HIVES Verified 12/09/23 00:10 latex Allergy Mild skin Verified 12/09/23 00:10 irritation Penicillins Allergy Mild UNKNOWN Verified 12/09/23 00:10 Home Medications Medication Instructions Recorded Confirmed Type atorvastatin 10 mg tablet 10 mg PO HS 12/12/18 11/17/24 History epinephrine 0.3 mg/0.3 mL 0.3 mg IM .INJECT 0.3ML INTRAMU 12/12/18 12/09/23 History injection, auto-injector PRN Allergic Reaction terazosin 10 mg capsule 10 mg PO HS 12/12/18 11/17/24 History allopurinol 300 mg tablet 300 mg PO HS 12/13/18 11/17/24 History furosemide 20 mg tablet 20 mg PO QAM PRN Fluid Retention 09/23/21 11/17/24 History apixaban 2.5 mg tablet (Eliquis) 2.5 mg PO BID #60 tabs 09/26/21 11/17/24 Rx levothyroxine 175 mcg tablet 175 mcg PO QAM 10/12/21 11/17/24 History coenzyme Q10 100 mg capsule 0 mg PO DAILY 12/08/23 11/17/24 History (CoQ-10) fluticasone propionate 50 2 spray intranasal QAM 12/08/23 11/17/24 History mcg/actuation nasal spray,suspension metformin 500 mg tablet,extended 500 mg PO TID 12/08/23 12/09/23 History release 24 hr multivitamin 1 tab PO DAILY 12/08/23 11/17/24 History semaglutide 7 mg tablet 7 mg PO QAM 12/08/23 12/09/23 History doxycycline hyclate 100 mg capsule 100 mg PO BID #5 caps 12/11/23 Rx metoprolol succinate 50 mg 75 mg (1.5 x 50 mg) PO BID #90 tabs 12/11/23 11/17/24 Rx tablet,extended release 24 hr Patient History Medical History Hyponatremia Sepsis Abnormal CT scan of lung Palpitation Chest pain Aortic stenosis Borderline to mild aortic stenosis per 09/17/21 ECHO Aortic aneurysm 4.6cm per August 2021 ECHO On anticoagulant therapy Anemia S/p 2 units of pRBC's on admission 09/23/21 and 1 unit of pRBC's prior to discharge 09/26/21 from [facility]. Also had IV iron while admitted History of recent hospitalization 09/23/21 at [facility] for GI Bleed and anemia GI bleed September 2021 inpatient at [facility] Seasonal allergies Hx of nephrolithotomy with removal of calculi History of kidney stones Multiple lung nodules on CT Lactase deficiency Asbestos exposure Angioedema History of Encounter for pre-operative examination Abnormal CT of the abdomen Anemia requiring transfusions VILLALBA (dyspnea on exertion) Weakness GI (gastrointestinal bleed) Surgical History History of esophagogastroduodenoscopy (EGD) History of lithotripsy S/P surgical removal of pilonidal cyst History of colonoscopy History of cardioversion 2009 Family History Mother Cancer Father Heart disease Sister Heart disease Brother Seizure Other No family history of adverse response to anesthesia Social History Smoking Status: Unknown if ever smoked Second Hand Exposure: No; Do You Dip or Chew Tobacco: No; Hx Alcohol Use: No Hx Substance Use: No Preferred Language: Kiswahili Communication Ability: Effective Visual Impairment: No Limitations Coach Driver Required: No Beliefs That Will Affect Care: None marital status: / Current Living Situation: Alone Current Living Situation Comment: lives by self and his daughter helps as needed current occupational status: retired How many Children do You have: 2 Feels Safe at Home: Yes Diet: diabetic during the past year weight has: decreased > 10 lbs Assistive Devices: Cane, CPAP, Walker and Wheelchair Review of Systems Review of Systems: All systems reviewed & are unremarkable except as noted in HPI & below (groggy, but appropriate in response to questions) Physical Exam Constitutional: well developed, well nourished and + ill appearing; no acute distress Neck: normal visual inspection and trachea midline Respiratory: normal respiratory effort, lungs clear to auscultation Cardiovascular: Rate/Rhythm: regular rate (paced with temp pacer rate 60) Heart Sounds: normal S1, normal S2 and + murmur (+1/6 systolic) Vessels: dorsalis pedis pulses present; no JVD Extremities: no edema Skin: normal turgor Right IJ temp pacer wire in place, site is clean/dry and intake with Opsite in place. Psychiatric: Orientation: alert (groggy, but responds to verbal stimuli ), oriented to person, oriented to place and cooperative Results & Data Vital Signs (Past 12 Hours) Vital Signs Temp Pulse Pulse Resp BP BP Pulse Ox 11/17/24 11:20 73 27 H 130/50 L 11/17/24 10:57 72 11/17/24 10:56 28 L 11/17/24 10:55 89 L 11/17/24 10:55 36.6 C 77 22 124/84 89 L O2 Del Method O2 Flow Rate 11/17/24 11:20 11/17/24 10:57 11/17/24 10:56 11/17/24 10:55 Nasal Cannula 6 11/17/24 10:55 Nasal Cannula 6 Laboratory Results Cardiac Enzymes 11/17/24 Range/Units 11:00 AST 25 (13-39) U/L Troponin I High Sens 10.6 (0-20) pg/ml Coagulation 11/17/24 Range/Units 11:00 PT 12.9 H (9.0-12.0) Seconds CBC 11/17/24 Range/Units 11:00 WBC 6.66 (4.8-10.8) K/ul RBC 4.54 L (4.70-6.10) M/uL Hgb 12.9 L (14.0-18.0) g/dl Hct 40.7 L (42.0-52.0) % Plt Count 118 L (130-400) K/uL Neut # (Auto) 5.50 (1.40-6.50) K/uL Lymph # (Auto) 0.60 L (1.20-3.40) K/uL Jennings # (Auto) 0.50 (0.11-0.59) K/uL Eos # (Auto) 0.01 (0.00-0.50) K/uL Baso # (Auto) 0.02 (0.00-0.20) K/uL Comprehensive Metabolic Panel 11/17/24 Range/Units 11:00 Sodium 132 L (136-145) mmol/L Potassium 5.0 (3.5-5.1) mmol/L Chloride 99 (98-107) mmol/L Carbon Dioxide 21 (21-32) mmol/L BUN 26 H (6-23) mg/dl Creatinine 2.40 H (0.6-1.4) mg/dl Glucose 240 H (70-99(Fasting)) mg/dl Calcium 9.8 (8.6-10.3) mg/dl AST 25 (13-39) U/L ALT 16 (7-52) U/L Alkaline Phosphatase 57 (34-104) U/L Total Protein 7.1 (6.0-8.3) gm/dl Albumin 3.8 (3.4-5.0) gm/dl Intake and Output 11/16/24 11/17/24 11/17/24 22:59 06:59 14:59 Intake Total 544.492 / 544.492 Balance 544.492 / 544.492 Intake: IV 544.492 / 544.492 DOPamine / D5W 400 mg In 250 ml 44.492 / 44.492 @ 5 MCG/KG/MIN 28.125 mls/hr IV .Q8H54M [facility] Rx#:[id number] Sodium Chloride 0.9% 500 ml @ 500 / 500 999 mls/hr IV .Q31M [facility] Rx#: [id number] Other: Weight 150 kg Weight Measurement Method Built in [facility] Patient Weight 11/18/24 06:59 Weight 150 kg Diagnostic Findings December 09, 2023 TTE ([facility], Dr. Foster): Normal-sized left ventricle. Mild concentric LVH. Technically difficult study. Definity contrast refused due to fear of allergic reaction. No regional wall motion abnormalities noted. Left ventricular ejection fraction 55 to 60%. Moderately dilated left atrium. Moderate aortic valve sclerosis without significant stenosis. Mild mitral annular calcification. Trace mitral regurgitation. Moderately dilated IVC. August 07, 2024 EKG: Atrial fibrillation with a ventricular rate of 60 bpm, right bundle branch block. QTc 458 ms. ZIO monitor 08/07/2024 CONCLUSIONS: Preliminary Findings Prepared by Rob Wright, CCT 08/20/24 Atrial Fibrillation occurred continuously (100% burden), ranging from 37- 147 bpm (avg of 63 bpm). Isolated VEs were rare (<1.0%, 1774), VE Couplets were rare (<1.0%, 55), and VE Triplets were rare (<1.0%, 11). PG Care Time/CCT Total # of Minutes Spent Total Time Spent with Patient: Total time spent is greater than 50% in coordination of care (as documented) at patient's floor/unit and/or counseling patient: [place] [address] IN/OBS CONSULT LVL 5,80M Patient Type New Diagnoses Heart block AV third degree I44.2 Atrial fibrillation I48.91 Acute hypoxic respiratory failure J96.01 Acute kidney injury superimposed on stage 3b chronic kidney disease N17.9; N18.32 Hypothyroidism E03.9 Time Spent (min) 55
[2024-11-17 15:29] LABS: Thyroid Stimulating Hormone 5.247 uIu/ml (0.300-4.500)
[2024-11-17] MEDS: RAPID SEQUENCE INDUCTION BAG ONE (15:45)
[2024-11-17] MEDS: HEPARIN 25000 UNIT/500 ML D5W 25,000 UNITS/500 ML BAG IV SCH (15:55)
[2024-11-17] MEDS: Heparin IV Adult Wt-Based Standard *NO* INITIAL Bolus Protocol IV STA (15:56)
[2024-11-17 17:12] LABS: Appearance Urine Cloudy (Clear); Bacteria Urine Automated None Seen (None Seen); Cast Urine Automated >20 /lpf (0-2); Glucose Urine UA Negative (Negative); RBC Urine Automated >20 /hpf (0-2)
[2024-11-17 17:44] LABS: Chlamydia pneumoniae PCR Not Detected (NotDetected); Coronavirus 229E PCR Not Detected (NotDetected); Coronavirus CoV-2 (COVID19)PCR Not Detected (NotDetected); Coronavirus HKU1 PCR Not Detected (NotDetected); Coronavirus NL63 PCR Not Detected (NotDetected); Coronavirus OC43PCR Not Detected (NotDetected); Human Metapneumovirus PCR Not Detected (NotDetected); Parainfluenza Virus 1 PCR Not Detected (NotDetected); Parainfluenza Virus 2 PCR Not Detected (NotDetected); Parainfluenza Virus 3 PCR Not Detected (NotDetected); Parainfluenza Virus 4 PCR Not Detected (NotDetected); Respiratory Syncytial VirusPCR Not Detected (NotDetected); Rhinovirus/Enterovirus PCR Not Detected (NotDetected)
[2024-11-17] MEDS: ATORVASTATIN 10 MG TAB PO SCH (20:17)
[2024-11-18 00:45] LABS: ANTI-Xa, UFH(UnfractionatedHep 0.72 IU/ml (0.3-0.7)
[2024-11-18 04:56] LABS: Hematocrit (blood only) 36.5 % (42.0-52.0); Hemoglobin 11.9 g/dl (14.0-18.0); Immature Granulocytes # (auto) 0.04 K/uL (0.01-0.20); Immature Granulocytes % (auto) 0.6 %; Mean Corpuscular Hemoglobin 28.5 pg (25.0-34.0); Mean Corpuscular Volume 87.3 fL (80.0-100.0); Platelet Count 113 K/uL (130-400); RDW Standard Deviation 53.0 fL (36.4-46.3); Red Blood Count 4.18 M/uL (4.70-6.10); White Blood Count 7.00 K/ul (4.8-10.8)
[2024-11-18 05:10] LABS: Anion Gap 9.0 (3-11); Blood Urea Nitrogen 29.0 mg/dl (6-23); Calcium 9.5 mg/dl (8.6-10.3); Carbon Dioxide 24.0 mmol/L (21-32); Chloride 99.0 mmol/L (98-107); Creatinine Clr Calc Pharmacy 37.5 ml/min; Glucose 193.0 mg/dl (70-99(Fasting)); Magnesium 1.9 mg/dl (1.7-2.4); Potassium 4.8 mmol/L (3.5-5.1); Sodium 132.0 mmol/L (136-145)
[2024-11-18] MEDS: LEVOTHYROXINE SODIUM 175 MCG TABLET PO SCH (06:05)
[2024-11-18 07:33] LABS: ANTI-Xa, UFH(UnfractionatedHep 0.56 IU/ml (0.3-0.7)
[2024-11-18] MEDS ORDERED: DEXTROSE 50% 50 ML SYRINGE IV PRN ×2 (07:50→07:57)
[2024-11-18] MEDS ORDERED: CARBOHYDRATES FOR HYPOGLYCEMIA PO PRN ×2 (07:50→07:57)
[2024-11-18] MEDS ORDERED: GLUCAGON FOR INJ 1 MG VIAL SQ PRN ×2 (07:50→07:57)
[2024-11-18] MEDS ORDERED: GLUCOSE 40% GEL 15 GM TUBE PO PRN (07:50)
[2024-11-18] MEDS ORDERED: GLUCOSE 10 TAB/TUBE PO PRN ×2 (07:50→07:57)
--- NOTE | 2024-11-18 08:11 | Critical Care Progress Note ---
Date of Service November 18, 2024 Assessment & Plan (1) Acute hypoxic respiratory failure: (2) Heart block AV third degree: (3) Acute kidney injury superimposed on stage 3b chronic kidney disease: (4) Atrial fibrillation: (5) Obstructive sleep apnea: (6) Hypothyroidism: (7) Hypertension: Plan Reason Critically Ill: 84-year-old male presented to the hospital for shortness of breath. Was found to be in complete heart block, had temporary intravenous pacemaker placed, sent to ICU for further management Past medical history: A-fib on anticoagulation, hypertension, JAYCOB on CPAP, diabetes type 2, dyslipidemia, hypothyroidism, BPH, CKD Neuro - [facility] ICU: Negative Cardiac - -- Third-degree heart block S/p temporary venous pacemaker 11/17/2024 TSH 5.247, free T4 within normal limit Lyme disease screen negative -- History of HFpEF, hypertension and dyslipidemia On metoprolol 75 twice daily, Lasix 20 mg daily 2D echo 12/09/2023: EF 55-60%, RV normal in size and function, mild concentric LVH, --A-fib On Eliquis Respiratory - -- Acute hypoxic respiratory failure Likely secondary to HFpEF from complete heart block BNP 294 Continue with O2 supplementation BiPAP nightly apparent shortness of breath Diuretics as tolerated --JAYCOB On CPAP at home Continue with the same settings here GI - -- No acute issues RENAL/LYTES - -- MICHAEL on CKD --> improving Likely secondary to cardiorenal from complete heart block Urine sodium 63, urine osmolality 416 Monitor BUN/creatinine Avoid nephrotoxic medications Strict ins and outs --Gout On allopurinol at home - -- BPH Continue with terazosin 10 mg ENDO - -- Diabetes type 2 Continue with ICU hypoglycemia protocol --Hypothyroidism On levothyroxine 125 mcg at home HEME - -- Normocytic anemia Monitor H&H --Thrombocytopenia Seems to be new in onset Continue to trend --History of adenocarcinoma of colon S/p hemicolectomy 09/2023 ID - -- No clear source of infection --Prophylaxis VTE: Eliquis on hold, heparin drip GI: None Lines: Peripheral with right IJ pacer Diet: Cardiac Plan: In/out: +364, urine output 1635 Creatinine is improving Resume Lasix 40 mg Blood pressure is a bit on the higher side. Amlodipine 10 mg has been added Will consider adding hydralazine. Beta-blockers will be resumed once patient gets permanent pacemaker Avoid DONNA or ARB given MICHAEL on CKD Magnesium being replaced For permanent pacemaker tomorrow. N.p.o. postmidnight I have personally spent 32 minutes of critical care time in the direct management of this patient. This is a life/limb threatening event. This includes time spent evaluating patient, direct bedside care, chart review, placing orders, interpretation of diagnostic studies, discussion with consultants, patient, and family members, as well as other required patient management activities. This time is exclusive of all separately billable procedures, and teaching time and separate from and in addition to any other critical care service time. Admission and Anticipated Discharge Date Admission Date: November 17, 2024 Subjective Patient seen and examined at bedside. No acute distress, no adverse events overnight Systolic blood pressure was in the 160s at the time of examination, he was saturating 98% on 2 L, and went down to 1 L He stated that overall he is feeling better Denied any nausea or vomiting Uses CPAP overnight. Fair appetite No difficulty swallowing Mild discomfort at the right neck where the temporary pacemaker is placed Review of Systems 2 Review of Systems: All systems reviewed & are unremarkable except as noted in Subjective Physical Exam 2 Physical Exam: Constitutional: No acute distress HEENT: EOMI, PERRLA, hard to hear, slight slurred speech Respiratory system: Good air entry bilaterally, no wheeze, no rhonchi, minimal crackles bilateral lower lobes CVS: S1-S2 positive, no murmurs or gallops Abdomen: Soft, nontender, nondistended, positive bowel sounds x4, obese Extremities: +2 pulses bilaterally radialis/ dorsalis pedis, no cyanosis, +2 pitting edema bilateral extremity Neuro: Awake alert oriented x3, cranial nerves II through XII grossly intact Psych: Normal mood and affect G/U: Positive Plummer Skin: no rashes, warm and dry Lymphatic: no cervical or axillary lymphadenopathy Results & Data Results & Data Vital Signs (Past 12 Hours) Vital Signs Temp Pulse Pulse Resp BP BP Pulse Ox 11/18/24 07:33 23 94 11/18/24 07:30 37.3 C 18 11/18/24 07:06 60 29 H 93 11/18/24 07:01 181/84 H 11/18/24 06:36 60 28 H 95 11/18/24 06:03 62 21 95 11/18/24 06:01 168/84 H 11/18/24 06:00 36.5 C 60 24 168/84 H 96 11/18/24 05:51 60 12 95 11/18/24 05:30 60 21 94 11/18/24 05:03 60 21 96 11/18/24 05:00 178/93 H 11/18/24 05:00 60 22 178/93 H 95 11/18/24 04:45 60 17 97 11/18/24 04:42 60 21 95 11/18/24 04:01 169/85 H 11/18/24 04:00 60 22 89 L 11/18/24 04:00 36.6 C 60 21 169/85 H 96 11/18/24 03:33 60 16 89 L 11/18/24 03:00 178/89 H 11/18/24 03:00 60 27 H 95 11/18/24 02:30 60 22 93 11/18/24 02:03 60 22 95 11/18/24 02:01 164/85 H 11/18/24 02:00 36.5 C 60 21 164/85 H 95 11/18/24 01:48 60 22 99 11/18/24 01:45 60 16 98 11/18/24 01:12 60 25 H 98 11/18/24 01:00 188/96 H 11/18/24 00:54 60 19 97 11/18/24 00:30 60 18 98 11/18/24 00:03 60 18 95 11/18/24 00:01 156/80 H 11/18/24 00:00 60 11/18/24 00:00 60 24 156/60 H 95 11/17/24 23:54 60 23 93 11/17/24 23:36 60 20 92 11/17/24 23:06 60 23 96 11/17/24 23:00 174/90 H 11/17/24 23:00 36.5 C 60 22 174/90 H 96 11/17/24 22:51 60 15 94 11/17/24 22:49 60 11/17/24 22:30 60 23 96 11/17/24 22:15 60 23 97 11/17/24 22:01 166/87 H 11/17/24 22:00 60 24 166/87 H 98 11/17/24 21:57 60 19 97 11/17/24 21:33 60 27 H 97 11/17/24 21:00 170/95 H 11/17/24 21:00 60 22 170/87 H 98 O2 Del Method O2 Flow Rate 11/18/24 07:33 11/18/24 07:30 11/18/24 07:06 11/18/24 07:01 11/18/24 06:36 11/18/24 06:03 11/18/24 06:01 11/18/24 06:00 Nasal Cannula 3 11/18/24 05:51 11/18/24 05:30 11/18/24 05:03 11/18/24 05:00 11/18/24 05:00 BiPAP 3 11/18/24 04:45 11/18/24 04:42 11/18/24 04:01 11/18/24 04:00 11/18/24 04:00 BiPAP 3 11/18/24 03:33 11/18/24 03:00 11/18/24 03:00 11/18/24 02:30 11/18/24 02:03 11/18/24 02:01 11/18/24 02:00 BiPAP 3 11/18/24 01:48 11/18/24 01:45 11/18/24 01:12 11/18/24 01:00 11/18/24 00:54 11/18/24 00:30 11/18/24 00:03 11/18/24 00:01 11/18/24 00:00 11/18/24 00:00 BiPAP 3 11/17/24 23:54 11/17/24 23:36 11/17/24 23:06 11/17/24 23:00 11/17/24 23:00 BiPAP 3 11/17/24 22:51 11/17/24 22:49 11/17/24 22:30 11/17/24 22:15 11/17/24 22:01 11/17/24 22:00 BiPAP 3 11/17/24 21:57 11/17/24 21:33 11/17/24 21:00 11/17/24 21:00 BiPAP 3 Laboratory Results 11/18/24 04:26 11/18/24 04:26 Coding Level of Care Code 00348 CRITICAL CARE 1ST 30-74M Diagnoses Acute hypoxic respiratory failure J96.01 Heart block AV third degree I44.2 Acute kidney injury superimposed on stage 3b chronic kidney disease N17.9; N18.32 Atrial fibrillation I48.91 Obstructive sleep apnea G47.33 Hypothyroidism E03.9 Hypertension I10
[2024-11-18] MEDS: ACETAMINOPHEN 325 MG TAB PO PRN (08:12)
--- NOTE | 2024-11-18 08:13 | Cardiology Progress Note ---
Date of Service November 18, 2024 Assessment & Plan (1) Heart block AV third degree: (2) Atrial fibrillation: (3) Acute hypoxic respiratory failure: (4) Acute kidney injury superimposed on stage 3b chronic kidney disease: (5) Hypothyroidism: Plan Assessment: 84 year old male presents with 2 days of increasing weakness and feeling "ill", found to be in 3rd degree heart block upon EMS arrival. Received Atropine x2 doses and dopamine, externally paced and taken emergently to the lab support service tech for temporary transvenous pacer wire placement. Plan: 1. Heart block AV Third degree 2. Atrial fibrillation, permanent. -Patient has an underlying history of permeant Atrial fibrillation with concerns of progression of further conduction system disease. Recent OP protracted cardiac monitoring shows no evidence of heart block. -Denies any recent acute infection concerns. labs due not suggest an infectious process. No evidence of profound electrolyte imbalance. TSH; however, is elevated. further work up by primary team -metoprolol placed on hold and will allow wash out. -Lyme test pending. Patient and family deny any concerns of tick exposure. -Initial troponin negative. Trend troponin. -Obtain echocardiogram to assess overall structure and function. -Maintain ICU status with temp pacer in place. Tentative plan is for patient to be NPO after midnight tuesday night for permanent pacemaker placement in Tuesday. Will discuss case with Dr. Lula Mullins on hold in lieu of possible procedure Tuesday. -Continue to hold Metoprolol 3. Acute hypoxic respiratory failure -Hypoxic in the setting of poor profusion and MICHAEL -Chest xray suggestive of CHF -Bio-fire panel is pending -Patient does not exhibit overt overload on exam. -Monitor renal function in AM, and will reassess to determine if diuretics are needed. -Patient takes Furosemide 20mg daily only as needed for fluid retention at home. 4. MICHAEL on CKD -poor oral intake over past 24 hours, but more concerning is poor profusion s/t heart block -monitor renal function closely. 5. Hypothyroidism -Elevated TSH, Free T3 and 4 pending? Continued management per primary team. 11/18/2024: -Patient is resting comfortably in bed at this time. mentation has improved significantly -Continues with temporary transvenous pacer. Review of telemetry shows no acute changes. -Case was discussed with Dr. Cotton. She has reached out to EP, Dr. Chandra with plan for PPM tomorrow. Will need to speak with lab support service tech staff for scheduling time-frame -Dr. Chandra has advised us to stop heparin gtt and given one time dose of Eliquis 5mg now. No Eliquis tonight. -NPO after midnight except medications -beta dandre remains on hold -Continue Furosemide 40mg PO QAM. No evidence of overt overload -Continue amlodipine for BP. -Continue Atorvastatin -Goal serum K > 4.0 and Serum mag > 2.0. currently receiving IV mag supplementation -Renal function improving Case has been discussed with Dr. Cotton. Further recommendations regarding plan of care as per her assessment. I spent a total of 35 minutes on the date of service in preparation, delivery, documentation of the care provided to the patient excluding any time spent in the performance of separately billed services. ITZEL Gómez [facility] Cardiology [facility] Admission and Anticipated Discharge Date Admission Date: November 17, 2024 Supervising Physician Co-Signing Physician Notes I have reviewed the advanced practitioner's documentation on the date of service referenced in note, and I agree with, and take responsibility for the plan of care. I spent a total of [20] minutes coordinating, documenting, and providing care for this patient excluding time spent in the performance of separately billed services or time spent by another provider. 84-year-old male with known history of persistent atrial fibrillation, heart failure with preserved ejection fraction, hypertension, aortic aneurysm, obstructive sleep apnea, diabetes mellitus, obesity, dyslipidemia, chronic kidney disease presents with shortness of breath that started 1 day ago and noted to be in complete heart block with symptomatic bradycardia heart rate in 20 received 2 atropine's underwent temporary pacemaker wire by Dr. Ortega 11/17 currently is pacing at 60 bpm denies chest pain , has sob Echocardiogram : No significant valvular abnormality EF around 50% with abnormal wall motion secondary dyssynchrony due to paced rhythm has volume overload agree with IV lasix 40 bid plan for permanent pacemaker tomorrow . discussed with Dr. Chandra heparin to be switched to eliquis , one dose of eliquis today only discussed with patient and family NPO midnight Subjective 11/18/24: Patient seen and examined in follow up today. Feeling better today compared to arrival. His mentation has improved significantly and he states "I don't have a clue what happened yesterday" Denies any chest pain, pressure or palpitations. No shortness of breath, PND, pre-syncope, syncope or edema today Labs, vitals, diagnostics, telemetry and documentation reviewed. Telemetry reviewed showing paced 60bpm Hypertensive this AM, but had not received oral medications. Patient's metoprolol on hold s/t heart block and home Terazosin on hold per primary team Review of Systems Review of Systems: All systems reviewed & are unremarkable except as noted in HPI & below Physical Exam Constitutional: well developed, well nourished and + ill appearing; no acute distress Neck: normal visual inspection and trachea midline Respiratory: normal respiratory effort, lungs clear to auscultation Cardiovascular: Rate/Rhythm: regular rate (paced with temp pacer rate 60) Heart Sounds: normal S1, normal S2 and + murmur (+1/6 systolic) Vessels: dorsalis pedis pulses present; no JVD Extremities: no edema Skin: normal turgor Psychiatric: A+Ox3, euthymic affect Orientation: cooperative Results & Data Vital Signs (Past 12 Hours) Vital Signs Temp Pulse Pulse Resp BP BP Pulse Ox 11/18/24 07:33 23 94 11/18/24 07:30 37.3 C 18 11/18/24 07:06 60 29 H 93 11/18/24 07:01 181/84 H 11/18/24 06:36 60 28 H 95 11/18/24 06:03 62 21 95 11/18/24 06:01 168/84 H 11/18/24 06:00 36.5 C 60 24 168/84 H 96 11/18/24 05:51 60 12 95 11/18/24 05:30 60 21 94 11/18/24 05:03 60 21 96 11/18/24 05:00 178/93 H 11/18/24 05:00 60 22 178/93 H 95 11/18/24 04:45 60 17 97 11/18/24 04:42 60 21 95 11/18/24 04:01 169/85 H 11/18/24 04:00 60 22 89 L 11/18/24 04:00 36.6 C 60 21 169/85 H 96 11/18/24 03:33 60 16 89 L 11/18/24 03:00 178/89 H 11/18/24 03:00 60 27 H 95 11/18/24 02:30 60 22 93 11/18/24 02:03 60 22 95 11/18/24 02:01 164/85 H 11/18/24 02:00 36.5 C 60 21 164/85 H 95 11/18/24 01:48 60 22 99 11/18/24 01:45 60 16 98 11/18/24 01:12 60 25 H 98 11/18/24 01:00 188/96 H 11/18/24 00:54 60 19 97 11/18/24 00:30 60 18 98 11/18/24 00:03 60 18 95 11/18/24 00:01 156/80 H 11/18/24 00:00 60 11/18/24 00:00 60 24 156/60 H 95 11/17/24 23:54 60 23 93 11/17/24 23:36 60 20 92 11/17/24 23:06 60 23 96 11/17/24 23:00 174/90 H 11/17/24 23:00 36.5 C 60 22 174/90 H 96 11/17/24 22:51 60 15 94 11/17/24 22:49 60 11/17/24 22:30 60 23 96 11/17/24 22:15 60 23 97 11/17/24 22:01 166/87 H 11/17/24 22:00 60 24 166/87 H 98 11/17/24 21:57 60 19 97 11/17/24 21:33 60 27 H 97 11/17/24 21:00 170/95 H 11/17/24 21:00 60 22 170/87 H 98 O2 Del Method O2 Flow Rate 11/18/24 07:33 11/18/24 07:30 11/18/24 07:06 11/18/24 07:01 11/18/24 06:36 11/18/24 06:03 11/18/24 06:01 11/18/24 06:00 Nasal Cannula 3 11/18/24 05:51 11/18/24 05:30 11/18/24 05:03 11/18/24 05:00 11/18/24 05:00 BiPAP 3 11/18/24 04:45 11/18/24 04:42 11/18/24 04:01 11/18/24 04:00 11/18/24 04:00 BiPAP 3 11/18/24 03:33 11/18/24 03:00 11/18/24 03:00 11/18/24 02:30 11/18/24 02:03 11/18/24 02:01 11/18/24 02:00 BiPAP 3 11/18/24 01:48 11/18/24 01:45 11/18/24 01:12 11/18/24 01:00 11/18/24 00:54 11/18/24 00:30 11/18/24 00:03 11/18/24 00:01 11/18/24 00:00 11/18/24 00:00 BiPAP 3 11/17/24 23:54 11/17/24 23:36 11/17/24 23:06 11/17/24 23:00 11/17/24 23:00 BiPAP 3 11/17/24 22:51 11/17/24 22:49 11/17/24 22:30 11/17/24 22:15 11/17/24 22:01 11/17/24 22:00 BiPAP 3 11/17/24 21:57 11/17/24 21:33 11/17/24 21:00 11/17/24 21:00 BiPAP 3 Laboratory Results Cardiac Enzymes 11/17/24 11/17/24 11/17/24 Range/Units 11:00 13:22 14:01 AST 25 (13-39) U/L Troponin I High Sens 10.6 19.4 D (0-20) pg/ml B-Natriuretic Peptide 294 H (0-100) pg/ml 11/17/24 Range/Units 17:01 AST (13-39) U/L Troponin I High Sens 26.3 H (0-20) pg/ml B-Natriuretic Peptide (0-100) pg/ml Coagulation 11/17/24 11/17/24 Range/Units 11:00 14:01 PT 12.9 H (9.0-12.0) Seconds B-Natriuretic Peptide 294 H (0-100) pg/ml CBC 11/17/24 11/18/24 Range/Units 11:00 04:26 WBC 6.66 7.00 (4.8-10.8) K/ul RBC 4.54 L 4.18 L (4.70-6.10) M/uL Hgb 12.9 L 11.9 L (14.0-18.0) g/dl Hct 40.7 L 36.5 L (42.0-52.0) % Plt Count 118 L 113 L (130-400) K/uL Neut # (Auto) 5.50 5.56 (1.40-6.50) K/uL Lymph # (Auto) 0.60 L 0.76 L (1.20-3.40) K/uL [place] # (Auto) 0.50 0.51 (0.11-0.59) K/uL Eos # (Auto) 0.01 0.09 (0.00-0.50) K/uL Baso # (Auto) 0.02 0.04 (0.00-0.20) K/uL Comprehensive Metabolic Panel 11/17/24 11/18/24 Range/Units 11:00 04:26 Sodium 132 L 132 L (136-145) mmol/L Potassium 5.0 4.8 (3.5-5.1) mmol/L Chloride 99 99 (98-107) mmol/L Carbon Dioxide 21 24 (21-32) mmol/L BUN 26 H 29 H (6-23) mg/dl Creatinine 2.40 H 2.01 H D (0.6-1.4) mg/dl Glucose 240 H 193 H (70-99(Fasting)) mg/dl Calcium 9.8 9.5 (8.6-10.3) mg/dl AST 25 (13-39) U/L ALT 16 (7-52) U/L Alkaline Phosphatase 57 (34-104) U/L Total Protein 7.1 (6.0-8.3) gm/dl Albumin 3.8 (3.4-5.0) gm/dl Intake and Output 11/17/24 11/18/24 11/18/24 22:59 06:59 14:59 Intake Total 526.541 / 1998.400 603.367 / 1998.400 Output Total 310 / 1635 1200 / 1635 Balance 216.541 / 364.400 -596.633 / 364.400 Intake: IV 126.541 / 1074.400 403.367 / 1074.400 DOPamine / D5W 400 mg In 250 ml 0.508 / 45.000 @ 0 MCG/KG/MIN IV .Q0M [facility] Rx# :[id number] Heparin 89143 Unit/500 ml D5w 126.033 / 529.400 403.367 / 529.400 25,000 units In 500 ml @ 1,800 UNITS/HR 36 mls/hr IV .[id number] [facility] Rx#:[id number] Oral 400 / 925 200 / 925 Output: Urine 125 / 250 Urine Amount (Catheter) 185 / 1385 1200 / 1385 [place]/Indwelling 185 / 1385 1200 / 1385 Other: Weight 137.6 kg Weight Measurement Method Built in [facility] Diagnostic Findings Echocardiogram 11/17/24 LVEF 50-55% septal motion consistent with conduction abnormality Aortic valve sclerosis moderate, without stenosis Mild MR PG Care Time/CCT Total # of Minutes Spent Total Time Spent with Patient: Total time spent is greater than 50% in coordination of care (as documented) at patient's floor/unit and/or counseling patient: Coding [place] [address] SUB INP/OBS CARE 3/50MIN Patient Type Established Diagnoses Heart block AV third degree I44.2 Atrial fibrillation I48.91 Acute hypoxic respiratory failure J96.01 Acute kidney injury superimposed on stage 3b chronic kidney disease N17.9; N18.32 Hypothyroidism E03.9
[2024-11-18] MEDS: FUROSEMIDE 40 MG TAB PO SCH (08:14)
[2024-11-18] MEDS: INSULIN ASPART PER UNIT CHARGE SC SCH (08:18)
[2024-11-18] MEDS: MAGNESIUM SULFATE / D5W 1 GM/100 ML BAG IV SCH (10:42)
--- NOTE | 2024-11-18 12:20 | Hospitalist Progress Note ---
Date of Service November 18, 2024 Assessment & Plan (1) Heart block AV third degree: Plan: Patient is a 84 year old M with a past medical history of Diastolic HF, paroxysmal Afib on rate control and anticoagulation, HTN, aortic aneurysm without rupture, JAYCOB with home CPAP, DM Type II non-insulin dependent, HLD, hypothyroidism, BPH, CKD Stage III, presenting with bradycardia and shortness and breath. Patient has been short of breath x 3 days, mostly with ambulating short distances and needed CPAP machine this morning when sitting in his chair. Per family report, the patient felt his heart rate was low this morning, monitored via smartwatch marques, so he took partial dose of metoprolol (50 mg). Family unsure whether eliquis or diuretics were taken as well. Patient denies chest pain. Arrived via EMS. Heart rate in 20's upon EM arrival to the home. Atropine given with external pacing enroute to hospital. Found to have 3rd degree heart block. Versed given in the ambulance for anxiety. Additional atropine x1 and dopamine given when he arrived to the ED with HR increase to 70's. Drowsy in the ED, possibly from Versed. Arousable and talking. He was hypoxic and required 6LPM O2 via Oxymask to maintain sats >90%. 500ml NSS given. Heart block AV Third Degree Presyncope H/O AFib --S/P Successful placement of temporary transvenous pacemaker on 11/17 -TSH 5.2, free T4 1.5 - Lyme screen negative -ECHO: EF 50 to 55%. Septal motion is consistent with conduction abnormality. Aortic valve sclerosis moderate, without significant valvular stenosis. Mild mitral regurgitation. - Hold metoprolol -Avoid AV any AV breanna blocking agents - Appreciate cardiology, critical care help - N.p.o. after midnight for pacemaker placement tomorrow - Eliquis on hold, IV heparin for anticoagulation for now Acute Hypoxic respiratory failure JAYCOB Could have underlying obesity hypoventilation Likely due to above, diastolic heart failure contributing as well -BioFire negative -Chest CT: Numerous enlarged lymph nodes in the mediastinum and right subclavian station may represent infectious/inflammatory disease, however malignancy cannot be excluded, clinical correlation is recommended. No airspace disease is seen. There is minimal bronchial wall thickening and mosaic attenuation which may reflect infectious/inflammatory airways disease. - Started on Lasix 40 mg daily --Monitor volume status, I's and O's, -- Continue CPAP at bedtime --Check procalcitonin Acute kidney injury superimposed on CKD Stg III Cr 2.4>>2.0 today Monitor renal function Avoid nephrotoxic agents as able Allopurinol, metformin on hold Monitor urine output HTN Continue amlodipine Also on diuretics Monitor Adjust medications as needed Hypothyroidism Continue levothyroxine Hyperlipidemia Continue atorvastatin at bedtime Gout Resume allopurinol as able Morbid obesity BMI 43 Lifestyle changes DVT Px: IV heparin Code status: Full Code (2) Paroxysmal atrial fibrillation: (3) Acute hypoxic respiratory failure: (4) Acute kidney injury superimposed on stage 3b chronic kidney disease: (5) Obstructive sleep apnea: (6) Hypertension: (7) Hyperlipidemia: (8) Chronic gout: Admission and Anticipated Discharge Date Admission Date: November 17, 2024 Subjective Patient is seen and examined at bed side States feeling better Dyspnea much improved Denies any dizziness today Still has minimal cough No other complaints today Denies any chest pain, nausea, vomiting, abdominal pain Review of Systems Review of Systems: All systems reviewed & are unremarkable except as noted in Subjective Physical Exam Physical Exam: Physical Exam: Vitals signs as noted above General Appearance:Morbidly Obese, no apparent distress Head: normocephalic, Atraumatic Eyes: normal inspection, EOMI Neck: supple, Trachea midline Respiratory/Chest: Normal breath sounds, CTA,+Pacer, No accessory muscle use Cardiovascular: S1, S2, +murmur Abdomen/GI:Soft, Non tender, Bowel sounds present Extremities/Musculoskeletal:normal inspection, 1-2+ edema Neurologic/Psych:AAOX3, grossly no focal neurological deficits Skin: normal color, warm Results & Data Results & Data Vital Signs (Past 12 Hours) Vital Signs Temp Pulse Pulse Resp BP BP Pulse Ox 11/18/24 11:00 155/77 H 11/18/24 11:00 60 27 H 89 L 11/18/24 10:39 60 20 92 11/18/24 10:01 165/88 H 11/18/24 10:00 60 25 H 95 11/18/24 09:33 165/77 H 11/18/24 09:33 60 20 96 11/18/24 09:03 60 25 H 96 11/18/24 09:01 160/77 H 11/18/24 08:42 60 23 96 11/18/24 08:30 60 27 H 96 11/18/24 08:03 60 28 H 95 11/18/24 08:01 163/104 H 11/18/24 07:33 23 94 11/18/24 07:30 37.3 C 18 11/18/24 07:06 60 29 H 93 11/18/24 07:01 181/84 H 11/18/24 06:36 60 28 H 95 11/18/24 06:03 62 21 95 11/18/24 06:01 168/84 H 11/18/24 06:00 36.5 C 60 24 168/84 H 96 11/18/24 05:51 60 12 95 11/18/24 05:30 60 21 94 11/18/24 05:03 60 21 96 11/18/24 05:00 178/93 H 11/18/24 05:00 60 22 178/93 H 95 11/18/24 04:45 60 17 97 11/18/24 04:42 60 21 95 11/18/24 04:01 169/85 H 11/18/24 04:00 60 22 89 L 11/18/24 04:00 36.6 C 60 21 169/85 H 96 11/18/24 03:33 60 16 89 L 11/18/24 03:00 178/89 H 11/18/24 03:00 60 27 H 95 11/18/24 02:30 60 22 93 11/18/24 02:03 60 22 95 11/18/24 02:01 164/85 H 11/18/24 02:00 36.5 C 60 21 164/85 H 95 11/18/24 01:48 60 22 99 11/18/24 01:45 60 16 98 11/18/24 01:12 60 25 H 98 11/18/24 01:00 188/96 H 11/18/24 00:54 60 19 97 11/18/24 00:30 60 18 98 O2 Del Method O2 Flow Rate 11/18/24 11:00 11/18/24 11:00 11/18/24 10:39 11/18/24 10:01 11/18/24 10:00 11/18/24 09:33 11/18/24 09:33 11/18/24 09:03 11/18/24 09:01 11/18/24 08:42 11/18/24 08:30 11/18/24 08:03 11/18/24 08:01 11/18/24 07:33 11/18/24 07:30 11/18/24 07:06 11/18/24 07:01 11/18/24 06:36 11/18/24 06:03 11/18/24 06:01 11/18/24 06:00 Nasal Cannula 3 11/18/24 05:51 11/18/24 05:30 11/18/24 05:03 11/18/24 05:00 11/18/24 05:00 BiPAP 3 11/18/24 04:45 11/18/24 04:42 11/18/24 04:01 11/18/24 04:00 11/18/24 04:00 BiPAP 3 11/18/24 03:33 11/18/24 03:00 11/18/24 03:00 11/18/24 02:30 11/18/24 02:03 11/18/24 02:01 11/18/24 02:00 BiPAP 3 11/18/24 01:48 11/18/24 01:45 11/18/24 01:12 11/18/24 01:00 11/18/24 00:54 11/18/24 00:30 Laboratory Results Short CBC 11/18/24 Range/Units 04:26 WBC 7.00 (4.8-10.8) K/ul Hgb 11.9 L (14.0-18.0) g/dl Hct 36.5 L (42.0-52.0) % Plt Count 113 L (130-400) K/uL BMP 11/18/24 04:26 Sodium 132 L Potassium 4.8 Chloride 99 Carbon Dioxide 24 BUN 29 H Creatinine 2.01 H D Glucose 193 H Calcium 9.5 Urine 11/17/24 Range/Units 16:29 Urine Color Dark Yellow Urine Appearance Cloudy A (Clear) Urine pH 5.0 (4.5-7.5) Ur Specific [place] 1.018 (1.000-1.030) Urine Protein 3+ H (Negative) Urine Glucose (UA) Negative (Negative)
[2024-11-18] MEDS: APIXABAN 5 MG TABLET PO ONE (13:24)
[2024-11-19 04:53] LABS: Hematocrit (blood only) 34.7 % (42.0-52.0); Hemoglobin 11.4 g/dl (14.0-18.0); Mean Corpuscular Hemoglobin 28.8 pg (25.0-34.0); Mean Corpuscular Volume 87.6 fL (80.0-100.0); Platelet Count 117 K/uL (130-400); RDW Standard Deviation 52.6 fL (36.4-46.3); Red Blood Count 3.96 M/uL (4.70-6.10); White Blood Count 6.33 K/ul (4.8-10.8)
[2024-11-19 05:07] LABS: Anion Gap 9.0 (3-11); Blood Urea Nitrogen 27.0 mg/dl (6-23); Calcium 8.9 mg/dl (8.6-10.3); Carbon Dioxide 24.0 mmol/L (21-32); Chloride 98.0 mmol/L (98-107); Creatinine Clr Calc Pharmacy 42.7 ml/min; Glucose 167.0 mg/dl (70-99(Fasting)); Magnesium 1.9 mg/dl (1.7-2.4); Potassium 4.2 mmol/L (3.5-5.1); Sodium 131.0 mmol/L (136-145)
--- NOTE | 2024-11-19 07:21 | Pre Anesthesia Assessment ---
Date of Service November 19, 2024 Pre Sedation Assessment Vital Signs Temp Pulse Pulse Resp BP BP Pulse Ox 11/19/24 07:17 60 16 168/77 H 92 11/19/24 06:00 60 160/77 H 97 11/19/24 05:00 36.5 C 60 24 137/70 94 11/19/24 04:00 60 22 144/77 H 98 11/19/24 03:00 60 21 146/73 H 97 11/19/24 02:00 36.5 C 60 21 135/70 98 11/19/24 01:00 60 20 123/74 99 11/19/24 00:00 60 22 135/67 99 11/18/24 23:19 60 11/18/24 23:00 36.8 C 60 23 139/75 98 11/18/24 22:33 11/18/24 22:00 60 24 143/66 H 97 11/18/24 20:00 36.8 C 60 23 145/78 H 98 11/18/24 18:00 148/68 H 11/18/24 18:00 60 26 H 91 11/18/24 17:57 60 17 88 L 11/18/24 17:06 24 92 11/18/24 17:00 152/79 H 11/18/24 16:51 60 19 91 11/18/24 16:42 66 19 93 11/18/24 16:03 60 28 H 95 11/18/24 16:00 161/76 H 11/18/24 15:57 60 25 H 94 11/18/24 15:33 60 27 H 95 11/18/24 15:03 60 28 H 94 11/18/24 15:01 160/74 H 11/18/24 14:45 60 27 H 94 11/18/24 14:30 60 29 H 95 11/18/24 14:15 60 16 93 11/18/24 14:00 142/84 H 11/18/24 13:51 60 24 95 11/18/24 13:36 60 25 H 95 11/18/24 13:03 60 26 H 94 11/18/24 13:01 146/68 H 11/18/24 12:54 60 19 94 11/18/24 12:36 60 27 H 94 11/18/24 12:03 60 19 93 11/18/24 12:01 134/80 11/18/24 11:57 60 18 92 11/18/24 11:30 60 20 94 11/18/24 11:00 155/77 H 11/18/24 11:00 155/77 H 11/18/24 11:00 60 27 H 89 L 11/18/24 10:39 60 20 92 11/18/24 10:01 165/88 H 11/18/24 10:00 60 25 H 95 11/18/24 09:33 165/77 H 11/18/24 09:33 60 20 96 11/18/24 09:03 60 25 H 96 11/18/24 09:01 160/77 H 11/18/24 08:42 60 23 96 11/18/24 08:30 60 27 H 96 11/18/24 08:03 60 28 H 95 11/18/24 08:01 163/104 H 11/18/24 07:33 23 94 11/18/24 07:30 11/18/24 07:30 37.3 C 18 O2 Del Method O2 Flow Rate 11/19/24 07:17 Room Air 11/19/24 06:00 Nasal Cannula 2 11/19/24 05:00 BiPAP 2 11/19/24 04:00 BiPAP 2 11/19/24 03:00 BiPAP 2 11/19/24 02:00 BiPAP 2 11/19/24 01:00 BiPAP 2 11/19/24 00:00 BiPAP 3 11/18/24 23:19 11/18/24 23:00 BiPAP 3 11/18/24 22:33 Nasal Cannula, BiPAP 3 11/18/24 22:00 Room Air, BiPAP 3 11/18/24 20:00 BiPAP 3 11/18/24 18:00 11/18/24 18:00 11/18/24 17:57 11/18/24 17:06 11/18/24 17:00 11/18/24 16:51 11/18/24 16:42 11/18/24 16:03 11/18/24 16:00 11/18/24 15:57 11/18/24 15:33 11/18/24 15:03 11/18/24 15:01 11/18/24 14:45 11/18/24 14:30 11/18/24 14:15 11/18/24 14:00 11/18/24 13:51 11/18/24 13:36 11/18/24 13:03 11/18/24 13:01 11/18/24 12:54 11/18/24 12:36 11/18/24 12:03 11/18/24 12:01 11/18/24 11:57 11/18/24 11:30 11/18/24 11:00 11/18/24 11:00 11/18/24 11:00 11/18/24 10:39 11/18/24 10:01 11/18/24 10:00 11/18/24 09:33 11/18/24 09:33 11/18/24 09:03 11/18/24 09:01 11/18/24 08:42 11/18/24 08:30 11/18/24 08:03 11/18/24 08:01 11/18/24 07:33 11/18/24 07:30 BiPAP 3 11/18/24 07:30 Cardiovascular + bradycardic and + irregularly irregular Respiratory normal respiratory effort, lungs clear to auscultation Pre-Sedation Airway Assessment Smoking Status: Never smoker Hx Sleep Apnea: Yes Hx Difficult Intubation: No Short, Thick Neck: Yes Thyromental Distance: > or= 3.5 Finger Breadths Oral Cavity: + WNL Mallampati Class: II ASA: ASA2E NPO Status Date of Last Intake of Fluids: 11/18/24 Time of Last Intake of Fluids: 19:00 Date of Last Intake of Solid Food: 11/18/24 Time of Last Intake of Solid Foods: 19:00 Procedure Planning Contraindications for Sedation: none Current Medications Reviewed: Yes Notes The planned sedation has been discussed with the patient. Informed Consent was obtained. I have identified the patient, determined the appropriateness of sedation and have assessed the patient immediately prior to the procedure. All medicine(s) and interventions are by my order.
--- NOTE | 2024-11-19 07:21 | History & Physical Bridge Note ---
Date of Service November 19, 2024 History & Physical Bridge Note I have examined the patient, reviewed the History & Physical and in the interval since the performance of the History & Physical I have noted the following changes of clinical significance: Pt with CHB and permanent AF who underwent a TVP over the weekend. He is now recommended a permanent pacemaker prior to hospital discharge. Discussed the procedure and potential risks the patient expressed an understanding and consents signed.
--- NOTE | 2024-11-19 07:53 | Cardiology Progress Note ---
Date of Service November 19, 2024 Assessment & Plan (1) Symptomatic bradycardia: Plan 84-year-old male Presenting with dyspnea; dizziness Consult - Complete heart block - HR 20's - symptomatic * Temporary pacemaker wire by Dr. Ortega 11/17 currently is pacing at 60 bpm * Echocardiogram: No significant valvular abnormality EF around 50% with abnormal wall motion secondary dyssynchrony due to paced rhythm * Volume overload agree with IV lasix 40 bid * Creatinine trending down - 1.7 - was 2.1 * Permanent pacemaker placed (Dr. Chandra) on 11-19-2024 * Post implant CXR - reviewed - Single lead in place; no PTX * Post implant interrogation * DOAC for afib - will resume when approved by EP * 51 min spent addressing challenges, educating and advancing daily plan of care Kodi Molina Admission and Anticipated Discharge Date Admission Date: November 17, 2024 Subjective Events Overnight: * None * Permanent Pacer Placed Subjective: * No complaints Review of Systems Review of Systems: All systems reviewed & are unremarkable except as noted in HPI & below Physical Exam Physical Exam: Obese No elevation in JVP S1S2 CTA B on anterior exam No C/C/E Warm and perfused Results & Data Vital Signs (Past 12 Hours) Vital Signs Temp Pulse Pulse Resp BP Pulse Ox O2 Del Method 11/19/24 07:17 60 16 168/77 H 92 Room Air 11/19/24 06:00 60 160/77 H 97 Nasal Cannula 11/19/24 05:00 36.5 C 60 24 137/70 94 BiPAP 11/19/24 04:00 60 22 144/77 H 98 BiPAP 11/19/24 03:00 60 21 146/73 H 97 BiPAP 11/19/24 02:00 36.5 C 60 21 135/70 98 BiPAP 11/19/24 01:00 60 20 123/74 99 BiPAP 11/19/24 00:00 60 22 135/67 99 BiPAP 11/18/24 23:19 60 11/18/24 23:00 36.8 C 60 23 139/75 98 BiPAP 11/18/24 22:33 Nasal Cannula, BiPAP 11/18/24 22:00 60 24 143/66 H 97 Room Air, BiPAP 11/18/24 20:00 36.8 C 60 23 145/78 H 98 BiPAP O2 Flow Rate 11/19/24 07:17 07/28/25 06:00 2 11/19/24 05:00 2 11/19/24 04:00 2 11/19/24 03:00 2 11/19/24 02:00 2 11/19/24 01:00 2 11/19/24 00:00 3 11/18/24 23:19 11/18/24 23:00 3 11/18/24 22:33 3 11/18/24 22:00 3 11/18/24 20:00 3 Laboratory Results CBC 11/19/24 Range/Units 04:13 WBC 6.33 (4.8-10.8) K/ul RBC 3.96 L (4.70-6.10) M/uL Hgb 11.4 L (14.0-18.0) g/dl Hct 34.7 L (42.0-52.0) % Plt Count 117 L (130-400) K/uL Comprehensive Metabolic Panel 11/19/24 Range/Units 04:13 Sodium 131 L (136-145) mmol/L Potassium 4.2 (3.5-5.1) mmol/L Chloride 98 (98-107) mmol/L Carbon Dioxide 24 (21-32) mmol/L BUN 27 H (6-23) mg/dl Creatinine 1.77 H (0.6-1.4) mg/dl Glucose 167 H (70-99(Fasting)) mg/dl Calcium 8.9 (8.6-10.3) mg/dl Intake and Output 11/18/24 11/19/24 11/19/24 22:59 06:59 14:59 Intake Total 715.6 / 1785.6 Output Total 1250 / 3925 1200 / 3925 Balance -534.4 / -2139.4 -1200 / -2139.4 Intake: IV 100.6 / 200.6 Heparin 55576 Unit/500 ml D5w 0.6 / 0.6 25,000 units In 500 ml @ 1,800 UNITS/HR 36 mls/hr IV .[id number] [facility] Rx#:[id number] Magnesium Sulfate / D5w 1 gm In 100 / 200 100 ml @ 50 mls/hr IV Q2H [facility] Rx#:[id number] Oral 615 / 1585 Output: Urine Amount (Catheter) 1250 / 3925 1200 / 3925 Plummer/Indwelling 1250 / 3925 1200 / 3925 Other: Weight 137.2 kg Weight Measurement Method Built in [facility] Diagnostic Findings ECHOcardiogram: 11-17-2024 * LVEF 50-55% * Septal motion c/w pacing * Aortic sclerosis - moderate - no stenosis * MR - mild Medications Administered Current Inpatient Medications Acetaminophen (Acetaminophen 325 Mg Tab) 650 mg PO Q6H PRN PRN Reason: Mild-Mod Pain (Scale 1-6) Stop: 12/17/24 15:28 Last Admin: 11/18/24 20:07 Dose: 650 mg Amlodipine Besylate (Amlodipine Besylate 5 Mg Tab) 10 mg PO QAM [facility] Stop: 12/17/24 14:59 Last Admin: 11/18/24 08:14 Dose: 10 mg Atorvastatin Calcium (Atorvastatin 10 Mg Tab) 10 mg PO HS [facility] Stop: 12/17/24 20:59 Last Admin: 11/18/24 20:09 Dose: 10 mg Dextrose (Dextrose 50% 50 Ml Syringe) 25 - 50 ml IV UD PRN; Protocol PRN Reason: Hypoglycemia Protocol Stop: 12/18/24 07:49 Docusate Sodium (Docusate Sodium 100 Mg Cap) 100 mg PO BID [facility] Stop: 12/19/24 08:59 Furosemide (Furosemide 40 Mg Tab) 40 mg PO QAM [facility] Stop: 12/18/24 08:59 Last Admin: 11/18/24 08:14 Dose: 40 mg Glucagon (Glucagon For Inj 1 Mg Vial) 1 mg SQ UD PRN; Protocol PRN Reason: Hypoglycemia Protocol Stop: 12/18/24 07:49 Glucose (Glucose 40% Gel 15 Gm Tube) 15 - 30 gm PO UD PRN; Protocol PRN Reason: Hypoglycemia Protocol Stop: 12/18/24 07:49 Glucose (Glucose 10 Tab/Tube) 4 - 8 tab PO UD PRN; Protocol PRN Reason: Hypoglycemia Protocol Stop: 12/18/24 07:49 Insulin Aspart (Insulin Aspart Per Unit Charge) 0 units SC ACHS [facility] Stop: 12/18/24 07:59 Last Admin: 11/18/24 20:26 Dose: 2 units Levothyroxine Sodium (Levothyroxine Sodium 175 Mcg Tablet) 175 mcg PO DAILYBB [facility] Stop: 12/18/24 06:29 Last Admin: 11/19/24 06:03 Dose: 175 mcg Miscellaneous (Carbohydrates For Hypoglycemia ) 15 - 30 gm PO UD PRN PRN Reason: Hypoglycemia Protocol Stop: 12/18/24 07:49 Polyethylene Glycol (Polyethylene (Miralax) 17 Gm Pack) 17 gm PO DAILY [facility] Stop: 12/19/24 08:59 Sennosides (Senna 8.6 Mg Tab) 8.6 mg PO QAM [facility] Stop: 12/19/24 08:59 PG Care Time/CCT Total # of Minutes Spent Total Time Spent with Patient: Total time spent is greater than 50% in coordination of care (as documented) at patient's floor/unit and/or counseling patient: Coding Level of Care Code 68669 SUB INP/OBS CARE 3/50MIN Diagnoses Symptomatic bradycardia R00.1
--- NOTE | 2024-11-19 08:30 | Post Anesthesia Assessment ---
Date of Service November 19, 2024 Post Sedation Assessment Vital Signs Temp Pulse Pulse Resp BP BP Pulse Ox 11/19/24 07:17 60 16 168/77 H 92 11/19/24 06:00 60 160/77 H 97 11/19/24 05:00 36.5 C 60 24 137/70 94 11/19/24 04:00 60 22 144/77 H 98 11/19/24 03:00 60 21 146/73 H 97 11/19/24 02:00 36.5 C 60 21 135/70 98 11/19/24 01:00 60 20 123/74 99 11/19/24 00:00 60 22 135/67 99 11/18/24 23:19 60 11/18/24 23:00 36.8 C 60 23 139/75 98 11/18/24 22:33 11/18/24 22:00 60 24 143/66 H 97 11/18/24 20:00 36.8 C 60 23 145/78 H 98 11/18/24 18:00 148/68 H 11/18/24 18:00 60 26 H 91 11/18/24 17:57 60 17 88 L 11/18/24 17:06 24 92 11/18/24 17:00 152/79 H 11/18/24 16:51 60 19 91 11/18/24 16:42 66 19 93 11/18/24 16:03 60 28 H 95 11/18/24 16:00 161/76 H 11/18/24 15:57 60 25 H 94 11/18/24 15:33 60 27 H 95 11/18/24 15:03 60 28 H 94 11/18/24 15:01 160/74 H 11/18/24 14:45 60 27 H 94 11/18/24 14:30 60 29 H 95 11/18/24 14:15 60 16 93 11/18/24 14:00 142/84 H 11/18/24 13:51 60 24 95 11/18/24 13:36 60 25 H 95 11/18/24 13:03 60 26 H 94 11/18/24 13:01 146/68 H 11/18/24 12:54 60 19 94 11/18/24 12:36 60 27 H 94 11/18/24 12:03 60 19 93 11/18/24 12:01 134/80 11/18/24 11:57 60 18 92 11/18/24 11:30 60 20 94 11/18/24 11:00 155/77 H 11/18/24 11:00 155/77 H 11/18/24 11:00 60 27 H 89 L 11/18/24 10:39 60 20 92 11/18/24 10:01 165/88 H 11/18/24 10:00 60 25 H 95 11/18/24 09:33 165/77 H 11/18/24 09:33 60 20 96 11/18/24 09:03 60 25 H 96 11/18/24 09:01 160/77 H 11/18/24 08:42 60 23 96 11/18/24 08:30 60 27 H 96 O2 Del Method O2 Flow Rate 11/19/24 07:17 Room Air 11/19/24 06:00 Nasal Cannula 2 11/19/24 05:00 BiPAP 2 11/19/24 04:00 BiPAP 2 11/19/24 03:00 BiPAP 2 11/19/24 02:00 BiPAP 2 11/19/24 01:00 BiPAP 2 11/19/24 00:00 BiPAP 3 11/18/24 23:19 11/18/24 23:00 BiPAP 3 11/18/24 22:33 Nasal Cannula, BiPAP 3 11/18/24 22:00 Room Air, BiPAP 3 11/18/24 20:00 BiPAP 3 11/18/24 18:00 11/18/24 18:00 11/18/24 17:57 11/18/24 17:06 11/18/24 17:00 11/18/24 16:51 11/18/24 16:42 11/18/24 16:03 11/18/24 16:00 11/18/24 15:57 11/18/24 15:33 11/18/24 15:03 11/18/24 15:01 11/18/24 14:45 11/18/24 14:30 11/18/24 14:15 11/18/24 14:00 11/18/24 13:51 11/18/24 13:36 11/18/24 13:03 11/18/24 13:01 11/18/24 12:54 11/18/24 12:36 11/18/24 12:03 11/18/24 12:01 11/18/24 11:57 11/18/24 11:30 11/18/24 11:00 11/18/24 11:00 11/18/24 11:00 11/18/24 10:39 11/18/24 10:01 11/18/24 10:00 11/18/24 09:33 11/18/24 09:33 11/18/24 09:03 11/18/24 09:01 11/18/24 08:42 11/18/24 08:30 Recovery Score Activity: Moves 4 extremities Respiration: Deep Breath/Cough Circulation: +/-20% PreAnes Value Consciousness: Fully Awake Oxygen Saturation: O2 needed for >90% Discharge Sedation Level of Care: Fast Track Phase II Post Sedation Plan On clinical assessment, the patient appears to have tolerated the sedation without complications. Patient is recovering as anticipated. Patient will continue to be monitored by nursing and may be discharged when sedation discharge criteria are met per below protocol. Upon Completions of procedure up to 15 minutes continue every 5 minute vital signs and the P.A.R. score; then discharge to a Phase I or Fast Track to Phase II per the following guidelines: * Discharge Patient to appropriate Phase II area if PAR is 8 or greater or return to pre- procedure baseline. The post - procedure orders will be as directed. * If PAR score is less than 8 or not return to pre-procedure baseline then patient will follow Phase I monitoring till PAR is reached for Phase II. The Phase I may be done in procedure room or may call to secure a Phase I area. * If naloxone or flumazenil are used for reversal, hold in Phase I for continued monitoring from when last reversal dose was given for a minimum of 60 minutes or longer pending the nurse and/or physician discretion of patient condition before discharge to Phase II. Please call the Sedation Physician to re-evaluate and complete post-note for discharge to Phase II area. Do NOT discharge from procedure sedation or Phase 1 until post- sedation evaluation note is complete by procedure /sedation MD Sedation Discharge Instructions to be given to the patient at discharge to home.
[2024-11-19] MEDS: CLINDAMYCIN 900 MG/D5W 50 ML BAG IV ONE (08:31)
[2024-11-19] MEDS: diphenhydrAMINE 50 MG/ML VIAL ONE (08:31)
[2024-11-19] MEDS: MIDAZOLAM HCL 5 MG/ML 1 ML VIAL ONE (08:31)
[2024-11-19] MEDS: LIDOCAINE 1% LOCAL 20 ML VIAL ONE (08:33)
[2024-11-19] MEDS: BUPIVACAINE 0.25% PF 30 ML VIAL ONE (08:33)
[2024-11-19] MEDS: VANCOMYCIN HCL 1000MG/20ML VIAL ONE (08:34)
[2024-11-19] MEDS: WATER, STERILE FOR INJ 10 ML VIAL ONE (08:34)
--- NOTE | 2024-11-19 10:44 | XRay Report ---
XR chest 1V portable CLINICAL HISTORY: s/p ppm ensure no PTX COMPARISON STUDY: 11/17/2024 FINDINGS: There is an interval left-sided single lead pacemaker. There is no pneumothorax. No consoli dation or pleural effusion. IMPRESSION: No pneumothorax seen. ACT 112: Negative or not required by law. Electronically signed by: Alejandro Verma M.D. 11/19/2024 10:43 AM
[2024-11-19] MEDS ORDERED: ATROPINE SULFATE 0.1 MG/ML 10ML SYR IV ONE (10:52)
[2024-11-19] MEDS: DOCUSATE SODIUM 100 MG CAP PO SCH (11:15)
[2024-11-19] MEDS: SENNA 8.6 MG TAB PO SCH (11:15)
[2024-11-19] MEDS: POLYETHYLENE (MIRALAX) 17 GM PACK PO SCH (11:16)
--- NOTE | 2024-11-19 14:03 | Hospitalist Progress Note ---
Date of Service November 19, 2024 Assessment & Plan (1) Heart block AV third degree: Plan: Patient is a 84 year old M with a past medical history of Diastolic HF, paroxysmal Afib on rate control and anticoagulation, HTN, aortic aneurysm without rupture, JAYCOB with home CPAP, DM Type II non-insulin dependent, HLD, hypothyroidism, BPH, CKD Stage III, presenting with bradycardia and shortness and breath. Patient has been short of breath x 3 days, mostly with ambulating short distances and needed CPAP machine this morning when sitting in his chair. Per family report, the patient felt his heart rate was low this morning, monitored via smartwatch marques, so he took partial dose of metoprolol (50 mg). Family unsure whether eliquis or diuretics were taken as well. Patient denies chest pain. Arrived via EMS. Heart rate in 20's upon EM arrival to the home. Atropine given with external pacing enroute to hospital. Found to have 3rd degree heart block. Versed given in the ambulance for anxiety. Additional atropine x1 and dopamine given when he arrived to the ED with HR increase to 70's. Drowsy in the ED, possibly from Versed. Arousable and talking. He was hypoxic and required 6LPM O2 via Oxymask to maintain sats >90%. 500ml NSS given. Heart block AV Third Degree Presyncope H/O AFib --S/P Successful placement of temporary transvenous pacemaker on 11/17 --S/P pacemaker placement by on 11/19/24 -TSH 5.2, free T4 1.5 - Lyme screen negative -ECHO: EF 50 to 55%. Septal motion is consistent with conduction abnormality. Aortic valve sclerosis moderate, without significant valvular stenosis. Mild mitral regurgitation. - Hold metoprolol--and consider to resume at lower dose if becomes tachycardic - Appreciate cardiology, critical care help - Plan to resume Eliquis tonight as recommended by cardiology -Needs follow-up with cardiology in 1 week on discharge for pacemaker check Acute Hypoxic respiratory failure JAYCOB Could have underlying obesity hypoventilation Likely due to above, diastolic heart failure contributing as well -BioFire negative -Chest CT: Numerous enlarged lymph nodes in the mediastinum and right subclavian station may represent infectious/inflammatory disease, however malignancy cannot be excluded, clinical correlation is recommended. No airspace disease is seen. There is minimal bronchial wall thickening and mosaic attenuation which may reflect infectious/inflammatory airways disease. - Continue Lasix 40 mg daily --Monitor volume status, I's and O's, -- Continue CPAP at bedtime -- Will obtain nocturnal oximetry study --Will need 2 step prior to discharge -- Advised to follow-up with sleep medicine on discharge for any CPAP setting changes as needed Acute kidney injury superimposed on CKD Stg III Cr 2.4>>2.0>1.7 Monitor renal function Avoid nephrotoxic agents as able Allopurinol, metformin on hold Monitor urine output HTN Continue amlodipine Also on diuretics Monitor and adjust medications as needed Hypothyroidism Continue levothyroxine Hyperlipidemia Continue atorvastatin at bedtime Gout Resume allopurinol as able Morbid obesity BMI 43 Lifestyle changes DVT Px: IV heparin>> Eliquis Code status: Full Code (2) Paroxysmal atrial fibrillation: (3) Acute hypoxic respiratory failure: (4) Acute kidney injury superimposed on stage 3b chronic kidney disease: (5) Obstructive sleep apnea: (6) Hypertension: (7) Hyperlipidemia: (8) Chronic gout: Admission and Anticipated Discharge Date Admission Date: November 17, 2024 Subjective Patient is seen and examined at bed side Admits to have mild soreness at pacemaker site No other complaints today Discussed with cardiology Family at bedside Denies any dyspnea, nausea, vomiting, abdominal pain, dizziness Review of Systems Review of Systems: All systems reviewed & are unremarkable except as noted in Subjective Physical Exam Physical Exam: Physical Exam: Vitals signs as noted above General Appearance:Morbidly Obese, no apparent distress Head: normocephalic, Atraumatic Eyes: normal inspection, EOMI Neck: supple, Trachea midline Respiratory/Chest: Normal breath sounds, CTA,+Pacer, No accessory muscle use Cardiovascular: S1, S2, +murmur Abdomen/GI:Soft, Non tender, Bowel sounds present Extremities/Musculoskeletal:normal inspection, 1-2+ edema Neurologic/Psych:AAOX3, grossly no focal neurological deficits Skin: normal color, warm Results & Data Results & Data Vital Signs (Past 12 Hours) Vital Signs Temp Pulse Pulse Resp BP BP Pulse Ox 11/19/24 12:16 160/70 H 11/19/24 12:09 60 28 H 11/19/24 12:01 160/76 H 11/19/24 11:57 60 20 11/19/24 11:54 60 28 H 11/19/24 11:47 154/70 H 11/19/24 11:47 154/70 H 11/19/24 11:42 60 19 11/19/24 11:30 31 H 11/19/24 11:16 158/79 H 11/19/24 11:15 60 16 99 11/19/24 11:03 60 24 91 11/19/24 11:01 138/73 11/19/24 10:54 62 22 95 11/19/24 10:45 60 29 H 99 11/19/24 10:33 61 28 H 99 11/19/24 10:31 152/75 H 11/19/24 10:24 60 23 94 11/19/24 10:18 60 19 94 11/19/24 10:16 160/78 H 11/19/24 10:09 62 15 96 11/19/24 10:00 60 23 95 11/19/24 09:48 60 24 96 11/19/24 09:45 155/81 H 11/19/24 09:39 62 22 96 11/19/24 09:30 155/79 H 11/19/24 09:30 62 27 H 96 11/19/24 09:18 60 25 H 94 11/19/24 08:55 60 18 143/75 H 93 11/19/24 08:40 60 18 132/67 92 11/19/24 07:17 60 16 168/77 H 92 11/19/24 07:00 146/72 H 11/19/24 06:57 60 24 97 11/19/24 06:45 60 26 H 98 11/19/24 06:39 60 26 H 97 11/19/24 06:24 60 22 98 11/19/24 06:12 60 24 97 11/19/24 06:00 60 160/77 H 97 11/19/24 05:45 62 24 94 11/19/24 05:30 60 24 93 11/19/24 05:15 60 27 H 91 11/19/24 05:00 137/70 11/19/24 05:00 60 22 93 11/19/24 05:00 36.5 C 60 24 137/70 94 11/19/24 04:48 60 23 92 11/19/24 04:18 60 20 99 11/19/24 04:00 144/77 H 11/19/24 04:00 60 22 144/77 H 98 11/19/24 03:54 60 24 98 11/19/24 03:48 60 22 96 11/19/24 03:00 60 21 146/73 H 97 11/19/24 02:00 36.5 C 60 21 135/70 98 O2 Del Method O2 Flow Rate 11/19/24 12:16 11/19/24 12:09 11/19/24 12:01 11/19/24 11:57 11/19/24 11:54 11/19/24 11:47 11/19/24 11:47 11/19/24 11:42 11/19/24 11:30 11/19/24 11:16 11/19/24 11:15 11/19/24 11:03 11/19/24 11:01 11/19/24 10:54 11/19/24 10:45 11/19/24 10:33 11/19/24 10:31 11/19/24 10:24 11/19/24 10:18 11/19/24 10:16 11/19/24 10:09 11/19/24 10:00 11/19/24 09:48 11/19/24 09:45 11/19/24 09:39 11/19/24 09:30 11/19/24 09:30 11/19/24 09:18 11/19/24 08:55 Nasal Cannula 11/19/24 08:40 Nasal Cannula 11/19/24 07:17 Room Air 11/19/24 07:00 11/19/24 06:57 11/19/24 06:45 11/19/24 06:39 11/19/24 06:24 11/19/24 06:12 11/19/24 06:00 Nasal Cannula 2 11/19/24 05:45 11/19/24 05:30 11/19/24 05:15 11/19/24 05:00 11/19/24 05:00 11/19/24 05:00 BiPAP 2 11/19/24 04:48 11/19/24 04:18 11/19/24 04:00 11/19/24 04:00 BiPAP 2 11/19/24 03:54 11/19/24 03:48 11/19/24 03:00 BiPAP 2 11/19/24 02:00 BiPAP 2 Laboratory Results Short CBC 11/19/24 Range/Units 04:13 WBC 6.33 (4.8-10.8) K/ul Hgb 11.4 L (14.0-18.0) g/dl Hct 34.7 L (42.0-52.0) % Plt Count 117 L (130-400) K/uL BMP 11/19/24 04:13 Sodium 131 L Potassium 4.2 Chloride 98 Carbon Dioxide 24 BUN 27 H Creatinine 1.77 H Glucose 167 H Calcium 8.9
[2024-11-19] MEDS: TERAZOSIN HCL 5 MG CAP PO SCH (20:25)
[2024-11-19] MEDS: APIXABAN 2.5 MG TAB PO SCH (20:27)
[2024-11-19] MEDS: LANTUS PER UNIT CHARGE SQ SCH (20:28)
[2024-11-19] MEDS: INSULIN ASPART PER UNIT CHARGE SC STA (20:28)
[2024-11-19] MEDS ORDERED: LANTUS PER UNIT CHARGE SQ SCH (21:00)
[2024-11-20 04:04] LABS: Hematocrit (blood only) 34.2 % (42.0-52.0); Hemoglobin 11.3 g/dl (14.0-18.0); Mean Corpuscular Hemoglobin 29.0 pg (25.0-34.0); Mean Corpuscular Volume 87.7 fL (80.0-100.0); Platelet Count 122 K/uL (130-400); RDW Standard Deviation 51.6 fL (36.4-46.3); Red Blood Count 3.90 M/uL (4.70-6.10); White Blood Count 8.75 K/ul (4.8-10.8)
[2024-11-20 04:20] LABS: Anion Gap 9.0 (3-11); Blood Urea Nitrogen 42.0 mg/dl (6-23); Calcium 8.8 mg/dl (8.6-10.3); Carbon Dioxide 23.0 mmol/L (21-32); Chloride 99.0 mmol/L (98-107); Creatinine Clr Calc Pharmacy 41.6 ml/min; Glucose 268.0 mg/dl (70-99(Fasting)); Magnesium 2.0 mg/dl (1.7-2.4); Potassium 4.8 mmol/L (3.5-5.1); Sodium 131.0 mmol/L (136-145)
--- NOTE | 2024-11-20 06:20 | Electrocardiogram Report ---
Test Reason : Blood Pressure : */* mmHG Vent. Rate : 60 BPM Atrial Rate : 94 BPM P-R Int : * ms QRS Dur : 136 ms QT Int : 486 ms P-R-T Axes : * -51 121 degrees QTcB Int : 486 ms Ventricular-paced rhythm Abnormal ECG When compared with ECG of 09-Dec-2023 19:58, Ventricular pacing is now present Vent. rate has decreased by 36 bpm Confirmed by Jesse Morgan ([id number]) on 11/20/2024 6:20:05 AM Referred By: REFERRED SELF Confirmed By: Jesse Morgan
--- NOTE | 2024-11-20 09:17 | Cardiology Progress Note ---
Date of Service November 20, 2024 Assessment & Plan (1) Symptomatic bradycardia: (2) Cardiac pacemaker in situ: Plan Assessment: 84 year old male presents with 2 days of profound weakness, poor appetite, and acute shortness of breath. Found to be in high grade heart block with heart rates in 20's. Underwent emergent TV pacer placement followed by single lead PPM yesterday (11/20/24) Plan: 1. symptomatic bradycardia 2. Cardiac pacemaker -Patient demonstrates clinical improvement from a cardiac perspective -Vital signs stable. -Will check with our device rep for interrogation. -Metoprolol succinate 75mg PO BID has been resumed -Continue Eliquis 2.5mg PO BID as per home regimen -Continue Terazosin, amlodipine and furosemide. BP well controlled. Patient appears euvolemic on exam -Continue Atorvastatin for lipid management -When appropriate for discharge, patient will need one week follow up with pacer clinic for site check and recommend that patient have close cardiology follow up in 3-5 weeks with cardiology Case has been discussed with Dr. Nickerson. Further recommendations regarding plan of care as per his assessment. I spent a total of 30 minutes on the date of service in preparation, delivery, documentation of the care provided to the patient excluding any time spent in the performance of separately billed services. ITZEL Gómez [facility] Admission and Anticipated Discharge Date Admission Date: November 17, 2024 Supervising Physician Co-Signing Physician Notes Attending attestation: Case reviewed with the advanced practitioner. I have personally performed a history and physical examination on the patient. I have reviewed the advanced practitioner's documentation on the date of service referenced in note, and I agree with, and take responsibility for the plan of care. Subjective: Patient seen and examined. No acute complaints. Tolerated pacem twan well yesterday. Exam: Cardiovascular: Regular rhythm, no murmurs Chest: Left infraclavicular device pocket dressing clean dry intact Data: Telemetry reveals ventricular paced rhythm in the 60s to 70s Creatinine trending toward improvement Impression/ Plan: Symptomatic bradycardia Permanent atrial fibrillation - Patient tolerated implantation of single-chamber [employer] permanent pa pooja on 11/19/2024. Acute kidney injury improving. Agree with plan of resuming prior to hospital treatment with metoprolol succinate 75 mg twice daily and Eliquis 2.5 mg twice daily. - Patient stable for discharge with plans for wound check at [facility] in 6 to 10 days. I spent a total of 20 minutes coordinating, documenting, and providing care for this patient excluding time spent in the performance of separately billed services or time spent by another provider. Tien Nickerson DO Subjective 11/20/2024: Patient seen and examined in follow up today. Feeling "really good". He is out of bed in chair and offers no acute concerns. foam/opsite dressing in place over left anterior chest wall. 2x2 with opsite in place over right neck region (place of prior TV temp pacer). Labs, vitals, diagnostics, telemetry and documentation reviewed. Telemetry reviewed showing Paced. known underlying Afib. Rates 60s Review of Systems Review of Systems: All systems reviewed & are unremarkable except as noted in HPI & below Physical Exam Constitutional: well developed, well nourished and + overweight; no acute distress Neck: normal visual inspection and trachea midline Respiratory: normal respiratory effort, lungs clear to auscultation Cardiovascular: Rate/Rhythm: regular rate (paced ) Heart Sounds: normal S1, normal S2 and + murmur (+1/6 systolic) Vessels: dorsalis pedis pulses present; no JVD Extremities: no edema Skin: normal turgor Right neck opsite C/D/I Left ant chest wall foam opsite C/D/I no erythema noted around dressing Psychiatric: A+Ox3, euthymic affect Orientation: cooperative Results & Data Vital Signs (Past 12 Hours) Vital Signs Temp Pulse Pulse Resp BP Pulse Ox Pulse Ox 11/20/24 07:23 11/20/24 07:00 36.4 C L 11/20/24 04:13 36.5 C 11/20/24 04:00 155/77 H 11/20/24 03:57 60 15 93 11/20/24 03:46 61 93 11/20/24 00:30 36.6 C 11/20/24 00:06 60 15 94 11/20/24 00:00 134/74 11/20/24 00:00 60 11/19/24 22:15 63 93 O2 Del Method O2 Del Method 11/20/24 07:23 Room Air 11/20/24 07:00 11/20/24 04:13 11/20/24 04:00 11/20/24 03:57 11/20/24 03:46 BiPAP 11/20/24 00:30 11/20/24 00:06 11/20/24 00:00 11/20/24 00:00 11/19/24 22:15 BiPAP Laboratory Results CBC 11/20/24 Range/Units 03:46 WBC 8.75 (4.8-10.8) K/ul RBC 3.90 L (4.70-6.10) M/uL Hgb 11.3 L (14.0-18.0) g/dl Hct 34.2 L (42.0-52.0) % Plt Count 122 L (130-400) K/uL Comprehensive Metabolic Panel 11/20/24 Range/Units 03:46 Sodium 131 L (136-145) mmol/L Potassium 4.8 (3.5-5.1) mmol/L Chloride 99 (98-107) mmol/L Carbon Dioxide 23 (21-32) mmol/L BUN 42 H (6-23) mg/dl Creatinine 1.81 H (0.6-1.4) mg/dl Glucose 268 H (70-99(Fasting)) mg/dl Calcium 8.8 (8.6-10.3) mg/dl Intake and Output 11/19/24 11/20/24 11/20/24 22:59 06:59 14:59 Intake Total 400 / 925 Output Total 1350 / 3150 950 / 3150 500 / 500 Balance -950 / -2225 -950 / -2225 -500 / -500 Intake: Oral 400 / 925 Output: Urine Amount (Catheter) 1350 / 2300 950 / 2300 500 / 500 Plummer/Indwelling 1350 / 2300 950 / 2300 500 / 500 Other: Weight 137 kg Weight Measurement Method Built in [facility] C[place] [address] SUB INP/OBS CARE 3/50MIN Patient Type Established Diagnoses Symptomatic bradycardia R00.1 Cardiac pacemaker in situ Z95.0 Time Spent (min) 50 Comment 30 minutes spent by ITZEL Wynn, [address] Nickerson
[2024-11-20] MEDS: METOPROLOL SUCC 25MG EXT REL TAB PO SCH (11:16)
[2024-11-20 11:57] VITALS: BP 138/73; RESP 16; TEMP 98.1
--- NOTE | 2024-11-20 12:38 | Hospitalist Progress Note ---
Date of Service November 20, 2024 Assessment & Plan (1) Heart block AV third degree: Plan: Patient is a 84 year old M with a past medical history of Diastolic HF, paroxysmal Afib on rate control and anticoagulation, HTN, aortic aneurysm without rupture, JAYCOB with home CPAP, DM Type II non-insulin dependent, HLD, hypothyroidism, BPH, CKD Stage III, presenting with bradycardia and shortness and breath. Patient has been short of breath x 3 days, mostly with ambulating short distances and needed CPAP machine this morning when sitting in his chair. Per family report, the patient felt his heart rate was low this morning, monitored via smartwatch marques, so he took partial dose of metoprolol (50 mg). Family unsure whether eliquis or diuretics were taken as well. Patient denies chest pain. Arrived via EMS. Heart rate in 20's upon EM arrival to the home. Atropine given with external pacing enroute to hospital. Found to have 3rd degree heart block. Versed given in the ambulance for anxiety. Additional atropine x1 and dopamine given when he arrived to the ED with HR increase to 70's. Drowsy in the ED, possibly from Versed. Arousable and talking. He was hypoxic and required 6LPM O2 via Oxymask to maintain sats >90%. 500ml NSS given. Heart block AV Third Degree Presyncope H/O AFib --S/P Successful placement of temporary transvenous pacemaker on 11/17 --S/P pacemaker placement by on 11/19/24 - Lyme screen negative -ECHO: EF 50 to 55%. Septal motion is consistent with conduction abnormality. Aortic valve sclerosis moderate, without significant valvular stenosis. Mild mitral regurgitation. - Appreciate cardiology, critical care help - Metoprolol was on hold but that has been restarted from today Eliquis has been restarted as well Remained hemodynamically stable and without any significant symptoms He will be discharged home this afternoon -Needs follow-up with cardiology in 1 week on discharge for pacemaker check Acute Hypoxic respiratory failure JAYCOB Could have underlying obesity hypoventilation Likely due to above, diastolic heart failure contributing as well -BioFire negative -Chest CT: Numerous enlarged lymph nodes in the mediastinum and right subclavian station may represent infectious/inflammatory disease, however malignancy cannot be excluded, clinical correlation is recommended. No airspace disease is seen. There is minimal bronchial wall thickening and mosaic attenuation which may reflect infectious/inflammatory airways disease. - Continue Lasix 40 mg daily --Monitor volume status, I's and O's, -- Continue CPAP at bedtime Remains stable and has been saturating normally on room air Nocturnal oximetry did not show any requirements of oxygen 2 steps O2 saturation test did not qualify for any oxygen He will be discharged home this afternoon Acute kidney injury superimposed on CKD Stg III Cr 2.4>>2.0>1.7 Monitor renal function Avoid nephrotoxic agents as able Allopurinol, metformin on hold Monitor urine output Creatinine is mildly elevated at 1.81 HTN Continue amlodipine Also on diuretics Monitor and adjust medications as needed Hypothyroidism Continue levothyroxine Hyperlipidemia Continue atorvastatin at bedtime Gout Resume allopurinol as able Morbid obesity BMI 43 Lifestyle changes DVT Px: IV heparin>> Eliquis Code status: Full Code He will be discharged home this afternoon (2) Paroxysmal atrial fibrillation: (3) Acute hypoxic respiratory failure: (4) Acute kidney injury superimposed on stage 3b chronic kidney disease: (5) Obstructive sleep apnea: (6) Hypertension: (7) Hyperlipidemia: (8) Chronic gout: Admission and Anticipated Discharge Date Admission Date: November 17, 2024 Subjective 11/20/2024 The patient was seen and examined in ICU in the setting of telemetry He is minimally short of breath at rest but that his usual symptoms and not been requiring any oxygen to maintain saturation Denies any chest pain, palpitation, no abdominal pain nausea or vomiting He wants to go home this afternoon Review of Systems Review of Systems: All systems reviewed and are unremarkable except as noted below Physical Exam Physical Exam: Sitting on a chair without any acute distress though minimal shortness of breath observed Constitutional: well developed, well nourished, + ill appearing and + morbidly obese Eyes: PERRL, conjunctivae normal, anicteric sclerae ENMT: external ear and nose normal, oropharynx normal Neck: trachea midline, no thyromegaly Respiratory: no respiratory distress Auscultation: lungs clear to a uscultation bilaterally Cardiovascular: Rate/Rhythm: regular rate and regular rhythm; not tachycardic Heart Sounds: normal S1 and normal S2; no murmur Extremities: + edema ( trace to 1+ edema bilaterally) Gastrointestinal (Abdomen): Inspection/Auscultation: normal bowel sounds; abdomen not distended Percussion/Palpation: abdomen soft; abdomen nontender Musculoskeletal: No acute arthritis involving any of the joint Neurologic: normal touch/pain/proprioception and moves all extremities; no focal motor deficits Results & Data Results & Data Vital Signs (Past 12 Hours) Vital Signs Temp Pulse Pulse Pulse Pulse Resp Resp 11/20/24 12:00 67 11/20/24 11:47 36.7 C 60 16 11/20/24 11:28 11/20/24 11:15 11/20/24 09:20 79 65 20 11/20/24 08:40 11/20/24 08:00 36.5 C 62 14 11/20/24 08:00 62 11/20/24 07:23 11/20/24 07:00 36.4 C L 11/20/24 04:13 36.5 C 11/20/24 04:00 11/20/24 03:57 60 15 11/20/24 03:46 61 Resp BP BP Pulse Ox Pulse Ox Pulse Ox O2 Del Method 11/20/24 12:00 11/20/24 11:47 138/73 96 Room Air 11/20/24 11:28 11/20/24 11:15 138/73 11/20/24 09:20 16 94 92 11/20/24 08:40 130/77 11/20/24 08:00 157/72 H 94 Room Air 11/20/24 08:00 11/20/24 07:23 Room Air 11/20/24 07:00 11/20/24 04:13 11/20/24 04:00 155/77 H 11/20/24 03:57 93 11/20/24 03:46 93 O2 Del Method O2 Del Method 11/20/24 12:00 11/20/24 11:47 11/20/24 11:28 Room Air 11/20/24 11:15 11/20/24 09:20 11/20/24 08:40 11/20/24 08:00 11/20/24 08:00 11/20/24 07:23 11/20/24 07:00 11/20/24 04:13 11/20/24 04:00 11/20/24 03:57 11/20/24 03:46 BiPAP Laboratory Results Short CBC 11/20/24 Range/Units 03:46 WBC 8.75 (4.8-10.8) K/ul Hgb 11.3 L (14.0-18.0) g/dl Hct 34.2 L (42.0-52.0) % Plt Count 122 L (130-400) K/uL [facility] 11/20/24 03:46 Sodium 131 L Potassium 4.8 Chloride 99 Carbon Dioxide 23 BUN 42 H Creatinine 1.81 H Glucose 268 H Calcium 8.8 Medications Administered Current Inpatient Medications Acetaminophen (Acetaminophen 325 Mg Tab) 650 mg PO Q6H PRN PRN Reason: Mild-Mod Pain (Scale 1-6) Stop: 12/17/24 15:28 Last Admin: 11/19/24 22:03 Dose: 650 mg Amlodipine Besylate (Amlodipine Besylate 5 Mg Tab) 10 mg PO QAM [facility] Stop: 12/17/24 14:59 Last Admin: 11/20/24 08:40 Dose: 10 mg Apixaban (Apixaban 2.5 Mg Tab) 2.5 mg PO BID [facility] Stop: 12/19/24 20:59 Last Admin: 11/20/24 08:40 Dose: 2.5 mg Atorvastatin Calcium (Atorvastatin 10 Mg Tab) 10 mg PO HS [facility] Stop: 12/17/24 20:59 Last Admin: 11/19/24 20:27 Dose: 10 mg Dextrose (Dextrose 50% 50 Ml Syringe) 25 - 50 ml IV UD PRN; Protocol PRN Reason: Hypoglycemia Protocol Stop: 12/18/24 07:49 Docusate Sodium (Docusate Sodium 100 Mg Cap) 100 mg PO BID [facility] Stop: 12/19/24 08:59 Last Admin: 11/20/24 08:41 Dose: Not Given Furosemide (Furosemide 40 Mg Tab) 40 mg PO QAM [facility] Stop: 12/18/24 08:59 Last Admin: 11/20/24 08:40 Dose: 40 mg Glucagon (Glucagon For Inj 1 Mg Vial) 1 mg SQ UD PRN; Protocol PRN Reason: Hypoglycemia Protocol Stop: 12/18/24 07:49 Glucose (Glucose 40% Gel 15 Gm Tube) 15 - 30 gm PO UD PRN; Protocol PRN Reason: Hypoglycemia Protocol Stop: 12/18/24 07:49 Glucose (Glucose 10 Tab/Tube) 4 - 8 tab PO UD PRN; Protocol PRN Reason: Hypoglycemia Protocol Stop: 12/18/24 07:49 Insulin Aspart (Insulin Aspart Per Unit Charge) 0 units SC ACHS [facility] Stop: 12/18/24 07:59 Last Admin: 11/20/24 11:40 Dose: 8 units Insulin Glargine (Lantus Per Unit Charge) 10 units SQ HS [facility] Stop: 12/19/24 20:59 Last Admin: 11/19/24 20:28 Dose: 10 units Levothyroxine Sodium (Levothyroxine Sodium 175 Mcg Tablet) 175 mcg PO DAILYBB [facility] Stop: 12/18/24 06:29 Last Admin: 11/20/24 05:17 Dose: 175 mcg Metoprolol Succinate (Metoprolol Succ 25mg Ext Rel Tab) 75 mg PO BID [facility] Stop: 12/20/24 10:14 Last Admin: 11/20/24 11:16 Dose: 75 mg Miscellaneous (Carbohydrates For Hypoglycemia ) 15 - 30 gm PO UD PRN PRN Reason: Hypoglycemia Protocol Stop: 12/18/24 07:49 Polyethylene Glycol (Polyethylene (Miralax) 17 Gm Pack) 17 gm PO DAILY [facility] Stop: 12/19/24 08:59 Last Admin: 11/20/24 08:41 Dose: Not Given Sennosides (Senna 8.6 Mg Tab) 8.6 mg PO QAM [facility] Stop: 12/19/24 08:59 Last Admin: 11/20/24 08:41 Dose: Not Given Terazosin HCl (Terazosin Hcl 5 Mg Cap) 10 mg PO HS [facility] Stop: 12/19/24 20:59 Last Admin: 11/19/24 20:25 Dose: 10 mg
[2024-11-20 16:19] VITALS: PULSE 60; O2SAT 96
--- NOTE | 2024-11-21 10:06 | Operative Report ---
Post Operative Report DATE OF PROCEDURE: 11/19/2024 PREOPERATIVE DIAGNOSES:CHB and permanent AF POSTOPERATIVE DIAGNOSIS: Same PROCEDURE: A single-chamber rate responsive permanent pacemaker along with a peripheral venogram followed by removal of TVP all under fluoroscopic guidance. SURGEON: Adriana Chandra DO ASSISTANTS: None. ANESTHESIA: Monitored conscious sedation administered under my supervision by Maribell Silvestre. Start time 07:38, end time 08:27, a total of 4 mg of Versed and 100 mcg of fentanyl. INTRAVENOUS FLUIDS: 0 mL. CONTRAST: 12 mL. ANTIBIOTICS: 900mg clindamycin ADDITIONAL MEDICATIONS: None BLOOD LOSS: 50 mL. URINE OUTPUT: Not applicable. SPECIMENS: None. FINDINGS: See below. DRAINS: None. COMPLICATIONS: None. CONDITION: Stable. INDICATIONS: This is a 84-year-old gentleman who has a past medical history Permanent AF on eliquis [id number] (age, HTN, DM), HTN, aortic aneurysm, obstructive sleep apnea, diabetes mellitus, obesity, dyslipidemia, chronic kidney disease, Chronic heart failure with preserved EF-NYHA Class II. Pt admitted with CHB underwent a TVP and is now recommended a pacemaker prior to hospital discharge. CONSENT: Consent was obtained prior to the patient going into the electrophysiology lab. The patient was informed of the risks, benefits, and alternatives to the procedure. Risks include, but not limited to, sudden cardiac , cardiac arrhythmias, cerebrovascular accident, myocardial infarction, injury to his blood vessels, chamber of the heart and lung, bleeding and infection. The patient understood these risks and agreed to the procedure as planned. Informed consent was obtained. DESCRIPTION OF PROCEDURE: The patient was brought into electrophysiology lab in a fasting state. He was connected to continuous cardiac monitoring. A timeout was performed to ensure the patient's identity and procedure correctly. He was prepped and draped in the left infraclavicular space in normal surgical standard fashion. Monitored conscious sedation was given throughout the procedure for the patient's comfort level. [place] precautions were maintained throughout the procedure. Prophylactic antibiotics were given prior to incision. A 20 mL of 1% lidocaine and bupivacaine mixture were given in the left deltopectoral groove. An incision was made in the left deltopectoral groove. Blunt dissection was performed down to the pectoralis muscle. Then, using blunt dissection over the pectoralis muscle within the pectoral fascia, a pacemaker pocket was created. Then, a peripheral venogram was performed to identify the axillary vein. Venous axillary access was obtained through a needlestick without any problems. A guidewire was inserted without any resistance. A 9.5- [place] sheath was inserted over the guidewire without any resistance. The guidewire and dilator were removed. Then, the CPS Mid Level Developer 3D large curved sheath was inserted through the 9-[place]ian sheath over a Glidewire into the right ventricle. The Glidewire and dilator were removed. Then, the left bundle lead was advanced through the sheath. I then moved the camera to DELUNA 30, once I found an area where I had a nice W formed pace complex in my lead V1, I then moved the camera to SILVIO 30. Then the helix was extended into the septum. Then the helix locking tool was placed. Then the lead was screwed further into the septum while pacing by giving slow clockwise turns. The paced complex changed to a nice R' in V1 and the pacing stim to peak QRS in V6 was good. Of note I did reposition it one time and ended up using an XL large curved 3D CPS material handling supervisor sheath as well as a I used a stiffer stylet. I then gave contrast through the sheath to see how far the lead was into the septum and then I slit the CPS Mid Level Developer 3D XL large curved sheath under fluoroscopic guidance. The 9-[place]ian sheath around the left bundle lead was peeled away and the lead was fixated to pectoralis muscle using 0 silk suture. The pocket was flushed with copious amounts of vancomycin and saline wash and inspected for hemostasis. The leads were then attached to the pulse generator making sure the pins were in appropriate position, passed set screws, and set screws were all tightened. Pulse generator was then placed in the pocket, making sure the leads were lying flat beneath the device. The incision was closed in a 3-layer fashion using 2-0 Vicryl interrupted suture, followed by 3-0 Vicryl interrupted suture, followed by 4-0 Monocryl running stitch. Then a primaseal dressing was placed Then under fluroscopic guidance the TVP was removed. EQUIPMENT: 1. Pulse generator is a [email or web address] MRI Model Number [id number] SN: [id number] 2. Left bundle lead, [email or web address] Ultipace LPA 1231 SN: [id number] INTRAPROCEDURAL FINDINGS: 1.Left bundle lead, R waves none pt dependent, impedance 880 ohms, threshold 1.0 volts at 0.4 milliseconds. FINAL MEASUREMENTS THROUGH THE DEVICE: 1. Left bundle lead, R waves none pt dependent, impedance 805 ohms, threshold 1.0 volts at 0.4 milliseconds. FINAL PARAMETERS: VVIR 60/120, Left bundle lead amplitude 3.5 volts, pulse width 0.4 milliseconds, sensitivity 2 millivolts. IMPRESSION: Successful single chamber rate responsive permanent pacemaker under fluoroscopic guidance along with peripheral venogram followed by TVP removal all under fluoroscopic guidance secondary to complete heart block and permanent AF. PLAN: Monitor the patient post-procedure. A 12-lead ECG, chest x-ray. He is not to lift the left elbow or left shoulder for 1 month. He cannot lift more than 10 pounds with the left arm for 2 weeks. He is to keep the dressing on and dry until his wound check next week.
--- NOTE | 2024-11-21 16:41 | Discharge Summary ---
Date of Service November 21, 2024 Admission HPI Per Admitting Provider Patient is a 84 year old M with a past medical history of Diastolic HF, paroxysmal Afib on rate control and anticoagulation, HTN, aortic aneurysm without rupture, JAYCOB with home CPAP, DM Type II non-insulin dependent, HLD, hypothyroidism, BPH, CKD Stage III, presenting with bradycardia and shortness and breath. Patient has been short of breath x 3 days, mostly with ambulating short distances and needed CPAP machine this morning when sitting in his chair. Per family report, the patient felt his heart rate was low this morning, monitored via smartwatch marques, so he took partial dose of metoprolol (50 mg). Family unsure whether eliquis or diuretics were taken as well. Patient denies chest pain. Arrived via EMS. Heart rate in 20's upon EM arrival to the home. Atropine given with external pacing enroute to hospital. Found to have 3rd degree heart block. Versed given in the ambulance for anxiety. Additional atropine x1 and dopamine given when he arrived to the ED with HR increase to 70's. Drowsy in the ED, poss ibly from Versed. Arousable and talking. He was hypoxic and required 6LPM O2 via Oxymask to maintain sats >90%. 500ml NSS given. Chest XRay showing increased pulmonary vascular congestion. Trop stable at 10.6. MICHAEL noted on lab workup- Creatinine 2.4, baseline 1.4 per external chart review. TSH elevated 7.085, Free T4 pending. Review of systems performed with the family, no fever, chills, sick contacts, N/V/D, cognitive deficits, urinary concerns. Patient taken to the [facility] assembly lab[facility] for external pacemaker with Dr. Ortega. ICU Bobbin Inspector contacted by Hospitalist for admission following. History obtained primarily from the patient's family, daughter and son, who are medical POA. External chart review obtained from [facility]. Admission Exam Per Admitting Provider Physical Exam: VITALS: Reviewed. WEIGHT/BMI reviewed. GEN: Overweight, well-developed -Head: NC/AT; -Eyes: PERRL, EOMI. No discharge or redn ess; -Ears: External ears are normal. -Nose: Normal nares. -Mouth and throat: MMM. Normal gums, muc jaycob, palate,. Good dentition. NECK: Supple, with no masses. CV: External pacer, no swelling LUNGS: Clear, wearing oxymask, sats 90% with 6 LPM, + accessory muscle use ABD: Soft, NT/ND, NBS, no masses or organomegaly. : urine cath intact SKIN: Warm, well perfused. No skin rashes or abnormal lesions. MSK: No deformities EXT: No clubbing, cyanosis, or edema. NEURO: Normal muscle strength and tone. No focal deficits. Principal Diagnosis Third-degree heart block status post pacemaker, acute respiratory failure with history of OSAimproved Discharge Exam Sitting on a chair without any acute distress though minimal shortness of breath observed Constitutional well developed, well nourished, + ill appearing and + morbidly obese Eyes PERRL, conjunctivae normal, anicteric sclerae ENMT external ear and nose normal, oropharynx normal Neck trachea midline, no thyromegaly Respiratory no respiratory distress Auscultation: lungs clear to auscultation bilaterally Cardiovascular Rate/Rhythm: regular rate and regular rhythm; not tachycardic Heart Sounds: normal S1 and normal S2; no murmur Extremities: + edema ( trace to 1+ edema bilaterally) Gastrointestinal (Abdomen) Inspection/Auscultation: normal bowel sounds; abdomen not distended Percussion/Palpation: abdomen soft; abdomen nontender Neurologic normal touch/pain/proprioception and moves all extremities; no focal motor deficits Discharge Data Allergies Allergy/AdvReac Type Severity Reaction Status Date / Time bee pollen Allergy Severe flushing Verified 12/09/23 00:10 and facial swelling Iodinated Contrast Media Allergy Severe flushing Verified 12/09/23 00:10 and facial swelling lisinopril Allergy Severe Hives Verified 12/09/23 00:10 tetanus toxoid, adsorbed Allergy Intermediate HIVES Verified 12/09/23 00:10 latex Allergy Mild skin Verified 12/09/23 00:10 irritation Penicillins Allergy Mild UNKNOWN Verified 12/09/23 00:10 Consultations 11/17/24 11:12 Consult Cardiology Stat 11/17/24 12:02 Consult Bobbin Inspector Routine 11/17/24 12:10 Consult Cardiology Routine Procedures Performed Operation Date: 11/19/24 08:00 Actual Procedures p Ins/RemTemporary Transvenous Pacer - Adriana Chandra DO Ordered Studies 11/17/24 11:25 CL Cath Imgs for PACS use only Stat 11/19/24 07:15 EP Lab Images for PACS ONCE Hospital Course (1) Heart block AV third degree: Patient is a 84 year old M with a past medical history of Diastolic HF, paroxysmal Afib on rate control and anticoagulation, HTN, aortic aneurysm without rupture, JAYCOB with home CPAP, DM Type II non-insulin dependent, HLD, hypothyroidism, BPH, CKD Stage III, presenting with bradycardia and shortness and breath. Patient has been short of breath x 3 days, mostly with ambulating short distances and needed CPAP machine this morning when sitting in his chair. Per family report, the patient felt his heart rate was low this morning, monitored via smartwatch marques, so he took partial dose of metoprolol (50 mg). Family unsure whether eliquis or diuretics were taken as well. Patient denies chest pain. Arrived via EMS. Heart rate in 20's upon EM arrival to the home. Atropine given with external pacing enroute to hospital. Found to have 3rd degree heart block. Versed given in the ambulance for anxiety. Additional atropine x1 and dopamine given when he arrived to the ED with HR increase to 70' s. Drowsy in the ED, possibly from Versed. Arousable and talking. He was hypoxic and required 6LPM O2 via Oxymask to maintain sats >90%. 500ml NSS given. Heart block AV Third Degree Presyncope H/O AFib --S/P Successful placement of temporary transvenous pacemaker on 11/17 --S/P pacemaker placement by on 11/19/24 - Lyme screen negative -ECHO: EF 50 to 55%. Septal motion is consistent with conduction abnormality. Aortic valve sclerosis moderate, without significant valvular stenosis. Mild mitral regurgitation. - Appreciate cardiology, critical care help - Metoprolol was on hold but that has been restarted from today Eliquis has been restarted as well Remained hemodynamically stable and without any significant symptoms He will be discharged home this afternoon -Needs follow-up with cardiology in 1 week on discharge for pacemaker check Acute Hypoxic respiratory failure JAYCOB Could have underlying obesity hypoventilation Likely due to above, diastolic heart failure contributing as well -BioFire negative -Chest CT: Numerous enlarged lymph nodes in the mediastinum and right subclavian station may represent infectious/inflammatory disease, however malignancy cannot be excluded, clinical correlation is recommended. No airspace disease is seen. There is minimal bronchial wall thickening and mosaic attenuation which may reflect infectious/inflammatory airways disease. - Continue Lasix 40 mg daily --Monitor volume status, I's and O's, -- Continue CPAP at bedtime Remains stable and has been saturating normally on room air Nocturnal oximetry did not show any requirements of oxygen 2 steps O2 saturation test did not qualify for any oxygen He will be discharged home this afternoon Acute kidney injury superimposed on CKD Stg III Cr 2.4>>2.0>1.7 Monitor renal function Avoid nephrotoxic agents as able Allopurinol, metformin on hold Monitor urine output Creatinine is mildly elevated at 1.81 HTN Continue amlodipine Also on diuretics Monitor and adjust medications as needed Hypothyroidism Continue levothyroxine Hyperlipidemia Continue atorvastatin at bedtime Gout Resume allopurinol as able Morbid obesity BMI 43 Lifestyle changes DVT Px: IV heparin>> Eliquis Code status: Full Code He will be discharged home this afternoon (2) Paroxysmal atrial fibrillation: (3) Acute hypoxic respiratory failure: (4) Acute kidney injury superimposed on stage 3b chronic kidney disease: (5) Obstructive sleep apnea: (6) Hypertension: (7) Hyperlipidemia: (8) Chronic gout: Total Time Total Time Spent Total Time Spent (In Minutes): 40 minutes Discharge Plan Discharge Items Patient Disposition: Home - Self-Care Reason For Visit: TCP Discharge Diagnosis: Third-degree heart block status post pacemaker, acute respiratory failure with history of OSAimproved Condition on Discharge: Fair Activity: As commented below Activity Comment: do not raise the left elbow over the left shoulder for 1 month Lifting: No more than 10 pounds Lifting Comment: do not lift more than 10 pounds with the left arm for 2 weeks Bathing: Keep incision dry Bathing Comment: keep dressing on & dry until wound check Non-emergency contact: Primary Care Provider Call non-emergency contact if: you have any medication questions and your symptoms worsen Follow-up/Referrals: Peace Duke MD [Primary Care Provider] - (Date & Time 11/23/2024 11:50 AM Provider: Shannan Campbell, Family Medicine [facility]) Diet: Carb Consistent or DM2 and Heart Healthy Addtl Attending Provider Instructions: device and wound check as scheduled at [facility] in about 10-14 days Please take precautions to avoid falls Take your medications as advised Please keep appointments with your healthcare providers Pending Studies at Discharge: No Stand-Alone Forms: My [facility], Smoking Cessation Medications and DC Order Prescriptions: New amlodipine 5 mg Tablet 10 mg PO QAM Qty: 60 0RF Continued terazosin 10 mg capsule 10 mg PO HS atorvastatin 10 mg tablet 10 mg PO HS epinephrine 0.3 mg/0.3 mL auto-injector 0.3 mg IM .INJECT 0.3ML INTRAMU PRN (Reason: Allergic Reaction) allopurinol 300 mg tablet 300 mg PO HS levothyroxine 175 mcg Tablet 175 mcg PO QAM furosemide 20 mg tablet 20 mg PO QAM PRN (Reason: Fluid Retention) Hold Instructions: until follow up with cardiology Eliquis 2.5 mg tablet 2.5 mg PO BID Qty: 60 0RF Rx Instructions: start Tuesday09/28/2021 multivitamin Tablet 1 tab PO DAILY fluticasone propionate 50 mcg/actuation spray,suspension 2 spray INTRANASAL QAM metformin 500 mg tablet extended release 24 hr 500 mg PO TID coenzyme Q10 [CoQ-10] 100 mg Capsule 0 mg PO DAILY semaglutide 7 mg tablet 7 mg PO QAM Hold Instructions: Until told to resume by PCP doxycycline hyclate 100 mg Capsule 100 mg PO BID Qty: 5 0RF metoprolol succinate 50 mg tablet extended release 24 hr 75 mg PO BID Qty: 90 0RF Discharge Orders: Discharge Order (Routine); Ordered 11/20/24 Ordered By: Shasha Gautam Discharge Order- CHF (Routine); Ordered 11/20/24 Ordered By: Shasha Gil/Other Patient Handouts: Living with a Pacemaker, Pacemaker Implant Dc Admission Data Admit Date/Time: 11/17/24 12:02 Attending Provider: Shasha Gautam Admit Provider: Rocky Charles Primary Care Provider: Peace Duke Other Providers: Melly Zhang; Hamilton Ortega; Karen Cotton; Adriana Chandra; Kodi Molina; Tien Nickerson Other Interventions: Discharge Summary Assessment (RN) Last Done: 11/20/24 16:12
== END 2024-11-20 17:20 | disposition home or self-care (01) | DRG 242 ==
LOC: ED 10:53 → CC 11:50 → SUATTDRO 12:02 → 1E 12:02 → CC 12:16
PROC: CLB.TTP (2024-11-17 11:30)
DX: Z88.8 Allergy status to other drugs, medicaments and biological substances; N18.32 Chronic kidney disease, stage 3b; Z88.0 Allergy status to penicillin; N40.0 Benign prostatic hyperplasia without lower urinary tract symptoms; Z91.041 Radiographic dye allergy status; E11.22 Type 2 diabetes mellitus with diabetic chronic kidney disease; E03.9 Hypothyroidism, unspecified; Z88.7 Allergy status to serum and vaccine; I35.8 Other nonrheumatic aortic valve disorders; D64.9 Anemia, unspecified; Z79.01 Long term (current) use of anticoagulants; D69.6 Thrombocytopenia, unspecified; Z79.899 Other long term (current) drug therapy; Z79.890 Hormone replacement therapy; I50.33 Acute on chronic diastolic (congestive) heart failure; Z91.040 Latex allergy status; I71.21 Aneurysm of the ascending aorta, without rupture; Z85.038 Personal history of other malignant neoplasm of large intestine; J96.01 Acute respiratory failure with hypoxia; Z91.030 Bee allergy status; Z90.49 Acquired absence of other specified parts of digestive tract; M10.9 Gout, unspecified; I44.2 Atrioventricular block, complete; G47.33 Obstructive sleep apnea (adult) (pediatric); E78.5 Hyperlipidemia, unspecified; I13.0 Hypertensive heart and chronic kidney disease with heart failure and stage 1 through stage 4 chronic kidney disease, or unspecified chronic kidney disease; Z79.84 Long term (current) use of oral hypoglycemic drugs; I48.21 Permanent atrial fibrillation; N17.9 Acute kidney failure, unspecified